=== PATIENT | male | born 1965 | race Caucasian/White ===

== ENCOUNTER 2023-07-03 11:00 | Outpatient (RCR) | payer BC, SELFPAY | END 2023-07-03 12:10 | disposition home or self-care (01) | LOC: PT 11:00 | DX: G12.29 Other motor neuron disease (principal) | CPT/HCPCS: 97110; 97112; 97116; 97140; 97163 ==

== ENCOUNTER 2023-08-02 10:00 | Outpatient (RCR) | payer BC, SELFPAY | END 2023-08-02 10:05 | disposition home or self-care (01) | LOC: OT 10:00 | PROVIDERS: Visit Provider Physician Assistant Medical | DX: M75.101 Unspecified rotator cuff tear or rupture of right shoulder, not specified as traumatic (principal); Z48.89 Encounter for other specified surgical aftercare | CPT/HCPCS: 97010; 97014; 97110; 97140; 97166; G0283 ==

== ENCOUNTER 2023-08-17 19:01 | Emergency (ER) | payer BC, SELFPAY ==
[2023-08-17] VITALS (40 sets, daily range): BP systolic 87–155; BP diastolic 45–88; PULSE 50–75; RESP 10–18; TEMP 36.6; O2SAT 95–100; BMI 25.9
--- NOTE | 2023-08-17 19:04 | ECG_ITS ---
APPROVED REPORT Exam: Resting ECG HR:77 bpm ECG Measurements Heart Rate 77 AXES OK 159 P 63 QRSd 106 QRS 49 QT 427 T 93 QTc 459 Conclusion SINUS RHYTHM POSSIBLE RIGHT VENTRICULAR CONDUCTION DELAY [RSR (QR) IN V1/V2] BORDERLINE ECG Electronically signed by : ERIC HASSAN, 08/18/2023 01:26:15
--- NOTE | 2023-08-17 19:07 | CT_ITS ---
PROCEDURE INFORMATION: Exam: CTA Head With Contrast, Arteriography Exam date and time: 08/17/2023 7:15 PM Age: 58 years old Clinical indication: Stroke-like symptoms; Altered mental status/memory loss; Additional info: Stroke protocol, AMS TECHNIQUE: Imaging protocol: Computed tomographic angiography of the head with contrast. Exam focused on the arteries. 3D rendering (Not supervised by radiologist): MIP and/or 3D reconstructed images were created by the technologist. Radiation optimization: All CT scans at this facility use at least one of these dose optimization techniques: automated exposure control; mA and/or kV adjustment per patient size (includes targeted exams where dose is matched to clinical indication); or iterative reconstruction. Contrast material: ISOVUE; Contrast volume: 100 ml; Contrast route: INTRAVENOUS (IV); COMPARISON: CT HEAD/BRAIN WO CON 08/17/2023 7:15 PM FINDINGS: ANTERIOR CIRCULATION: Right internal carotid artery: Calcification involving the right carotid siphon without significant stenosis. Right middle cerebral artery: No occlusion or significant stenosis. No aneurysm. Right anterior cerebral artery: No occlusion or significant stenosis. No aneurysm. Left internal carotid artery: Calcification involving the left carotid siphon without significant stenosis. Left middle cerebral artery: No occlusion or significant stenosis. No aneurysm. Left anterior cerebral artery: No occlusion or significant stenosis. No aneurysm. POSTERIOR CIRCULATION: Right vertebral artery: No occlusion or significant stenosis. No aneurysm. Left vertebral artery: No occlusion or significant stenosis. No aneurysm. Basilar artery: No occlusion or significant stenosis. No aneurysm. Right posterior cerebral artery: No occlusion or significant stenosis. No aneurysm. Left posterior cerebral artery: No occlusion or significant stenosis. No aneurysm. IMPRESSION: No hemodynamically significant stenosis or large vessel occlusion.
--- NOTE | 2023-08-17 19:07 | CT_ITS ---
PROCEDURE INFORMATION: Exam: CT Head Without Contrast Exam date and time: 08/17/2023 7:15 PM Age: 58 years old Clinical indication: Stroke-like symptoms; Altered mental status/memory loss; Additional info: Stroke protocol, AMS TECHNIQUE: Imaging protocol: Computed tomography of the head without contrast. Radiation optimization: All CT scans at this facility use at least one of these dose optimization techniques: automated exposure control; mA and/or kV adjustment per patient size (includes targeted exams where dose is matched to clinical indication); or iterative reconstruction. Other technique: STROKE PROTOCOL was implemented. COMPARISON: CT ANGIO HEAD 08/17/2023 7:15 PM FINDINGS: Brain: Age-related volume loss. Decreased attenuation of the supratentorial white matter is likely secondary to chronic microvascular ischemia. 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 No acute intracranial hemorrhage, midline shift or intracranial mass effect. Cerebral ventricles: No obstructive hydrocephalus. Paranasal sinuses: Scattered paranasal sinus disease. Mastoid air cells: Visualized mastoid air cells are well aerated. Bones: Unremarkable. No acute fracture. Soft tissues: Unremarkable. IMPRESSION: No acute intracranial abnormality. ASSESSMENT: ASPECTS ([place] Stroke Program Early CT Score) is 10.
--- NOTE | 2023-08-17 19:07 | CT_ITS ---
PROCEDURE INFORMATION: Exam: CTA Neck With Contrast Exam date and time: 08/17/2023 7:15 PM Age: 58 years old Clinical indication: Stroke-like symptoms; Altered mental status/memory loss; Additional info: Stroke protocol, AMS TECHNIQUE: Imaging protocol: Computed tomographic angiography of the neck with contrast. Exam focused on the cervical segments of the vasculature. 3D rendering (Not supervised by radiologist): MIP and/or 3D reconstructed images were created by the technologist. Radiation optimization: All CT scans at this facility use at least one of these dose optimization techniques: automated exposure control; mA and/or kV adjustment per patient size (includes targeted exams where dose is matched to clinical indication); or iterative reconstruction. Contrast material: ISOVUE; Contrast volume: 100 ml; Contrast route: INTRAVENOUS (IV); COMPARISON: CT ANGIO HEAD 08/17/2023 7:15 PM FINDINGS: Limitations: Limited by artifact arising from metallic dental hardware/dental amalgam. Right common carotid artery: Calcification at the right common carotid bifurcation without hemodynamically significant stenosis. Right internal carotid artery: No stenosis of the extracranial segment. No dissection or occlusion. Right external carotid artery: No occlusion or stenosis of the origin. Left common carotid artery: Calcification at the left common carotid bifurcation without hemodynamically significant stenosis. Left internal carotid artery: Calcification of the proximal left ICA without hemodynamically significant stenosis. Left external carotid artery: No occlusion or stenosis of the origin. Right vertebral artery: No stenosis. No dissection or occlusion. Left vertebral artery: No stenosis. No dissection or occlusion. Soft tissues: Right posterior subcutaneous sebaceous cyst superiorly measures 1.9 cm. Bones/joints: No acute fracture. IMPRESSION: No hemodynamically significant stenosis. REFERENCES: NASCET CRITERIA. The degree of stenosis in the cervical segment of the internal carotid artery is based on NASCET criteria. Normal is no stenosis. Mild is less than 50% stenosis. Moderate is 50-69% stenosis. Severe is 70% to 99% stenosis. Total occlusion is no detectable patent lumen.
[2023-08-17] MEDS: 0.9 % SODIUM CHLORIDE 50 ML VIAL IV (19:18)
[2023-08-17] MEDS: IOPAMIDOL-370 (76%);100ML BOTTLE 100 ML IV (19:18)
[2023-08-17] MEDS: SODIUM CHLORIDE 0.9% 10ML SYR (RAD ONLY) 10 ML IV (19:19)
--- NOTE | 2023-08-17 19:30 | PC.NURSE ---
Contacted MEGHANN harp to [employer]
[2023-08-17 19:35] LABS: Basophils % 0.2 % (0.1-2.0); Eosinophils # 0.1 K/mm3 (0.0-0.4); Eosinophils % 1.3 % (0.1-12.0); Hematocrit 29.3 % (42.0-52.0); Hemoglobin 9.6 g/dL (14.1-18.0); Lymphocytes # 1.1 K/mm3 (0.7-4.5); Lymphocytes % 10.3 % (10-50); Mean Corpuscular Hemoglobin 28.5 pg (27.0-31.2); Mean Corpuscular Volume 86.3 fl (80-94); Mean Platelet Volume 7.7 fl (7.4-10.4); Monocytes # 0.4 K/mm3 (0.1-1.0); Monocytes % 3.8 % (1.7-9.3); Neutrophils # 8.8 K/mm3 (1.8-7.8); Neutrophils % 84.5 % (37.0-80.0); Platelet Count 166 K/mm3 (142-424); Red Blood Count 3.39 M/mm3 (4.60-6.20); White Blood Count 10.4 K/mm3 (4.8-10.8)
[2023-08-17 19:37] LABS: Lactate Venous 2.2 mmol/L (0.4-2.0); VBG Base Excess -2.2 mmol/L (-2.4-2.3); VBG Oxygen Saturation 90.6 % (50-70); VBG PCO2 40.2 mmol/L (35-51); VBG PH 7.38 mmol/L (7.31-7.41); VBG PO2 62.7 mmol/L (28-40); VBG Total CO2 24.3 mmol/L (23-27)
[2023-08-17 19:51] LABS: Chloride 95 mmol/L (98-107); Sodium 130 mmol/L (136-145)
[2023-08-17 19:52] LABS: Potassium 3.3 mmoL/L (3.5-5.1)
[2023-08-17 19:54] LABS: Alanine Aminotransferase 21 U/L (12-78); Albumin Level 3.3 g/dl (3.5-5.0); Albumin/Globulin Ratio 1.1 (1.1-1.8); Alkaline Phosphatase 66 U/L (38-126); Anion Gap 11.3 mEq/L (5-15); Aspartate Amino Transferase 40 U/L (17-59); Bilirubin,Total 0.6 mg/dl (0.2-1.3); Blood Urea Nitrogen 24 mg/dl (9-20); Calcium 8.9 mg/dl (8.4-10.2); Carbon Dioxide 27 mmol/L (22.0-30.0); Estimated Glomerular Filt Rate 34 ml/min (>60); GFR (African American) 41 ML/MIN (>60); Glucose 140 mg/dl (74-100); Total Protein,Serum 6.3 g/dl (6.3-8.2)
[2023-08-17 19:58] LABS: Microscopic, Urine URINE MICROSCOPIC (MICROSCOPIC)
[2023-08-17 20:02] LABS: Appearance,Urine CLEAR (Clear); Bilirubin,Urine Negative (Negative); Blood, Urine Negative (Negative); Color,Urine YELLOW (Yellow); Glucose,Urine (UA) Negative (Negative); Ketones,Urine Negative (Negative); Leukocyte Esterase,Urine Negative (Negative); Nitrate,Urine Negative (Negative); PH,Urine 6.5 (5.0-8.5); Protein,Urine TRACE (Negative); Urobilinogen,Urine 0.2 EU/dl (0.2)
[2023-08-17 20:02] LABS: Acetaminophen < 10 ug/ml (10-30); Ethyl Alcohol < 10 mg/dl (0-10); Salicylate < 1.0 mg/dL (2.0-20.0)
[2023-08-17 20:05] LABS: Activated Partial Thrombo Time 22.5 seconds (22.8-30.6); INR 1.03 (0.9-1.1); Prothrombin Time 11.1 seconds (10.1-12.5)
[2023-08-17] MEDS: LACTATED RINGERS 1000ML 1,000 ML 999 ML IV (20:10)
[2023-08-17 20:15] LABS: Amphetamine/Metha Screen,Urine Negative ng/ml (<1000)
[2023-08-17 20:16] LABS: Barbiturates Screen,Urine Negative ng/ml (<200); Benzodiazepines Screen,Urine Negative ng/ml (<200)
[2023-08-17 20:17] LABS: Cannabinoid Screen,Urine Positive ng/ml (<50)
[2023-08-17 20:18] LABS: Cocaine Screen,Urine Negative ng/ml (<300); Methadone Screen,Urine Negative ng/ml (<300)
[2023-08-17 20:19] LABS: Opiate Screen,Urine Negative ng/ml (<300)
[2023-08-17 20:20] LABS: Phencyclidine Screen,Urine Negative ng/ml (<25)
[2023-08-17] MEDS: NOREPINEPHRINE BITARTRATE/D5W 8 MG/250 ML PLAST..BAG 15 MG IV (20:25)
[2023-08-17] MEDS: FENTANYL CITRATE/PF 1,000 MCG in 0.9 % SODIUM CHLORIDE 80 ML 1 MCG IV (20:25)
[2023-08-17] MEDS: ETOMIDATE 40MG/20ML VIAL 40 MG IV (20:26)
[2023-08-17] MEDS: MIDAZOLAM HCL/PF 50 MG in 0.9 % SODIUM CHLORIDE 40 ML IV (20:26)
[2023-08-17 20:27] LABS: Troponin I < 0.01 ng/ml (0.00-0.034)
[2023-08-17] MEDS: SUCCINYLCHOLINE 20MG/ML 10 ML MDV 100 MG IV (20:27)
[2023-08-17 20:28] LABS: WBC,Urine Occasional #/hpf (0-3)
[2023-08-17 20:29] LABS: Squamous Epithelial Cell,Urine Occasional #/hpf (0-5)
--- NOTE | 2023-08-17 20:49 | XR_ITS ---
PROCEDURE INFORMATION: Exam: XR Chest Exam date and time: 08/17/2023 8:50 PM Age: 58 years old Clinical indication: Device placement; Other: Post intubation; Additional info: Post intubation, AMS TECHNIQUE: Imaging protocol: Radiologic exam of the chest. Views: 1 view. COMPARISON: CT ANGIO NECK 08/17/2023 7:15 PM FINDINGS: Tubes, catheters and devices: Endotracheal tube terminates 3.5 cm above the az. There is fracture involving the superior most sternal wire. Lungs: No airspace consolidation. Pleural spaces: Unremarkable. No pleural effusion. No pneumothorax. Heart/Mediastinum: Previous coronary artery bypass grafting. Bones/joints: Previous median sternotomy. Osteopenia. Degenerative change involving the shoulders and spine. IMPRESSION: 1. Endotracheal tube terminates 3.5 cm above the az. 2. Additional findings as above.
[2023-08-17] MEDS: propofoL 100 ML 2.4 MG IV (20:57)
--- NOTE | 2023-08-17 21:20 | ED_ITS ---
Discharge Plan Disposition Patient Disposition: Xfer Short-Term Hosp Condition: Fair Referrals Follow up/Referrals: Provider,Referral, MD [Primary Care Provider] - See instructions Clinical Impressions Clinical Impression: AMS (altered mental status), Headache, Acute respiratory failure, Apnea Instructions Patient Instructions: DI for Altered Mental Status Discharge ED Provider: Funmi Meléndez General Adult HPI <Funmi Meléndez DO - Last Filed: 08/17/23 23:52> General Chief complaint: Altered Mental Status Stated complaint: AMS Time Seen by Provider: 08/17/23 19:04 Mode of Arrival: EMS Source of Information: Relative and EMS Limitations: Physical Limitations Description of Symptoms (Recalled from ER Triage Doc. by RN): Pt presents to ED via EMS for AMS. Pt's called EMS because pt was confused, cool, clammy, and unable to respond. Pt has hx of migraines, Functional Neurological Disorder, and cardiac issues. Pt is unable to follow commands at this time. History of Present Illness HPI narrative: This patient is a 58-year-old male with reported history of migraines as well as functional neurologic disorder and cardiac issues presenting with concern for altered mental status. According to the patient's , he came in from work yesterday complaining of a headache, and he took his migraine abortive medications. This did not seem to help. This morning he went to work, and she question why he was going to work, but he stated that he had 2. 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 EMS met him there and monitored him until she got there. Then, he stated he wanted to go home. She took him home, at which point he went to sleep. He woke up confused, cool, clammy, and unable to respond just prior to arrival. Given this, she called EMS again. Patient does not contribute to history as he is very altered. He keeps shouting I am fine I am fine while intermittently being apneic. Of note, he was recently started on doxycycline for suppose an upper respiratory infection, as his girlfriend states that he was coughing after wearing his CPAP. He never started this. She cannot think of any other issues such as any other recent falls, illnesses, or other concerns. Related Data Allergies Allergy/AdvReac Type Severity Reaction Status Date / Time Unable to Assess Allergy Verified 08/17/23 20:15 PFSH <Funmi Meléndez DO - Last Filed: 08/17/23 23:52> [facility] Disclaimer: The information contained in this section may have been updated after the patient was seen, as this information can be updated by other users. Social History (Updated 08/17/23 @ 23:52 by Funmi Meléndez DO) Smoking Status: Current every day smoker alcohol intake: current current occupational status: employed Travel in the last 8 weeks: None <Funmi Meléndez DO - Last Filed: 08/17/23 23:52> ROS Obtained: Yes All systems reviewed & no additional complaints except as documented Physical Exam <Funmi Meléndez DO - Last Filed: 08/17/23 23:52> General General appearance: obtunded Head Head exam: atraumatic and normocephalic Eye Eye exam: Present normal appearance, PERRL and EOMI ENT ENT exam: Present normal oropharynx, mucous membranes dry and normal external ear exam Neck Neck exam: Present normal inspection, full ROM and trachea midline; Absent tenderness Chest Chest inspection: Present normal inspection and symmetric chest wall rise; Absent tenderness Respiratory Respiratory exam: Present normal lung sounds bilaterally; Absent respiratory distress, wheezes, stridor or accessory muscle use Cardiovascular Cardiovascular exam: Present regular rate and normal rhythm Abdominal Exam Abdominal exam: Present soft; Absent distention, tenderness, guarding or rebound Extremities Exam Extremities exam: Present normal inspection, full ROM and normal capillary refill; Absent tenderness or edema Back Exam Back exam: Present normal inspection and full ROM; Absent tenderness Neurological Exam Neurological exam: Present other (No obvious gross focal motor or sensory deficits. He moves all 4 extremities equally intermittently.) Expanded Neurological Exam Coma scale eye opening: To pain Coma scale motor response: Localizes to pain Coma scale verbal response: Inappropriate Coma scale total: 10 Skin Skin exam: Present warm and dry <Krzysztof Alanis MD - Last Filed: 08/18/23 00:13> Expanded Neurological Exam Coma scale total: 10 Medical Decision Making <Funmi Meléndez DO - Last Filed: 08/17/23 23:52> Medical Records Medical records reviewed: Yes I reviewed the patient's medical records. Jose Inquiry Pt receiving controlled substance: No Vital Signs: 08/17/23 19:02 08/17/23 19:24 08/17/23 19:30 Temperature 97.9 F Temperature Source Axillary Pulse Rate 68 68 Pulse Rate [Left] 75 Respiratory Rate 10 L 12 12 Blood Pressure 109/59 L 96/50 L Blood Pressure [Right Arm] 100/50 L Blood Pressure Mean 75 65 Blood Pressure Mean [Right Arm] 66 02 Sat by Pulse Oximetry 98 99 99 Oxygen Delivery Method Room Air 08/17/23 19:55 08/17/23 20:00 08/17/23 20:11 Temperature Temperature Source Pulse Rate 64 64 66 Pulse Rate [Left] Respiratory Rate 14 14 14 Blood Pressure 94/58 L 87/48 L 90/52 L Blood Pressure [Right Arm] Blood Pressure Mean 75 62 60 Blood Pressure Mean [Right Arm] 02 Sat by Pulse Oximetry 100 100 98 Oxygen Delivery Method 08/17/23 20:25 08/17/23 20:26 08/17/23 20:31 Temperature Temperature Source Pulse Rate 64 62 70 Pulse Rate [Left] Respiratory Rate 14 14 14 Blood Pressure 112/52 L 92/48 L 132/69 Blood Pressure [Right Arm] Blood Pressure Mean 72 73 79 Blood Pressure Mean [Right Arm] 02 Sat by Pulse Oximetry 100 100 100 Oxygen Delivery Method 08/17/23 20:32 08/17/23 20:37 08/17/23 21:00 Temperature Temperature Source Pulse Rate 65 55 L 66 Pulse Rate [Left] Respiratory Rate 16 18 16 Blood Pressure 155/69 H 137/73 110/58 L Blood Pressure [Right Arm] Blood Pressure Mean 97 94 75 Blood Pressure Mean [Right Arm] 02 Sat by Pulse Oximetry 100 100 100 Oxygen Delivery Method 08/17/23 21:02 08/17/23 21:07 08/17/23 21:12 Temperature Temperature Source Pulse Rate 67 66 60 Pulse Rate [Left] Respiratory Rate 16 16 18 Blood Pressure 129/65 135/86 126/58 L Blood Pressure [Right Arm] Blood Pressure Mean 86 93 86 Blood Pressure Mean [Right Arm] 02 Sat by Pulse Oximetry 100 100 100 Oxygen Delivery Method 08/17/23 21:14 08/17/23 21:17 08/17/23 21:22 Temperature Temperature Source Pulse Rate 55 L 56 L Pulse Rate [Left] Respiratory Rate 18 18 18 Blood Pressure 111/55 L 113/57 L Blood Pressure [Right Arm] Blood Pressure Mean 73 70 Blood Pressure Mean [Right Arm] 02 Sat by Pulse Oximetry 100 100 100 Oxygen Delivery Method 08/17/23 21:27 08/17/23 21:32 08/17/23 21:37 Temperature Temperature Source Pulse Rate 55 L 56 L 56 L Pulse Rate [Left] Respiratory Rate 18 18 18 Blood Pressure 97/52 L 103/53 L 114/61 Blood Pressure [Right Arm] Blood Pressure Mean 61 64 75 Blood Pressure Mean [Right Arm] 02 Sat by Pulse Oximetry 100 100 100 Oxygen Delivery Method 08/17/23 21:42 08/17/23 21:47 08/17/23 21:52 Temperature Temperature Source Pulse Rate 56 L 54 L 54 L Pulse Rate [Left] Respiratory Rate 18 18 18 Blood Pressure 109/56 L 117/57 L 113/59 L Blood Pressure [Right Arm] Blood Pressure Mean 69 73 72 Blood Pressure Mean [Right Arm] 02 Sat by Pulse Oximetry 100 100 100 Oxygen Delivery Method 08/17/23 21:57 08/17/23 22:02 08/17/23 22:07 Temperature Temperature Source Pulse Rate 54 L 55 L 55 L Pulse Rate [Left] Respiratory Rate 18 18 18 Blood Pressure 118/64 132/64 116/56 L Blood Pressure [Right Arm] Blood Pressure Mean 72 82 76 Blood Pressure Mean [Right Arm] 02 Sat by Pulse Oximetry 100 100 100 Oxygen Delivery Method 08/17/23 22:12 08/17/23 22:17 08/17/23 22:22 Temperature Temperature Source Pulse Rate 54 L 52 L 54 L Pulse Rate [Left] Respiratory Rate 18 18 18 Blood Pressure 129/62 130/65 122/56 L Blood Pressure [Right Arm] Blood Pressure Mean 85 85 91 Blood Pressure Mean [Right Arm] 02 Sat by Pulse Oximetry 100 100 100 Oxygen Delivery Method 08/17/23 22:27 08/17/23 22:32 08/17/23 22:37 Temperature Temperature Source Pulse Rate 54 L 51 L 53 L Pulse Rate [Left] Respiratory Rate 18 18 18 Blood Pressure 134/64 145/69 H 128/61 Blood Pressure [Right Arm] Blood Pressure Mean 87 94 87 Blood Pressure Mean [Right Arm] 02 Sat by Pulse Oximetry 100 100 100 Oxygen Delivery Method 08/17/23 22:42 08/17/23 22:47 08/17/23 22:52 Temperature Temperature Source Pulse Rate 53 L 50 L 52 L Pulse Rate [Left] Respiratory Rate 18 18 18 Blood Pressure 142/45 H 143/60 H 138/65 Blood Pressure [Right Arm] Blood Pressure Mean 83 76 78 Blood Pressure Mean [Right Arm] 02 Sat by Pulse Oximetry 100 100 100 Oxygen Delivery Method 08/17/23 22:57 08/17/23 23:02 Temperature Temperature Source Pulse Rate 56 L 51 L Pulse Rate [Left] Respiratory Rate 18 18 Blood Pressure 139/62 128/53 L Blood Pressure [Right Arm] Blood Pressure Mean 87 77 Blood Pressure Mean [Right Arm] 02 Sat by Pulse Oximetry 100 100 Oxygen Delivery Method Lab Data Lab results reviewed: Yes I reviewed the patient's lab results. Lab Results 08/17/23 19:07: VBG pH 7.38, VBG pCO2 40.2, VBG pO2 62.7 H, VBG HCO3 23.0, VBG Total CO2 24.3, VBG O2 Saturation 90.6 H, VBG Base Excess -2.2, VBG Lactic Acid 2.2 H 08/17/23 19:24: WBC 10.4, RBC 3.39 L, Hgb 9.6 L, Hct 29.3 L, MCV 86.3, MCH 28.5, MCHC 33.0, RDW 15.0, Plt Count 166, MPV 7.7, Neut % (Auto) 84.5 H, Lymph % (Auto) 10.3, Banner % (Auto) 3.8, Eos % (Auto) 1.3, Baso % (Auto) 0.2, Neut # (Auto) 8.8 H, Lymph # (Auto) 1.1, Banner # (Auto) 0.4, Eos # (Auto) 0.1, Baso # (Auto) 0.0, PT 11.1, INR 1.03, APTT 22.5 L, Sodium 130 L, Potassium 3.3 L, C hloride 95 L, Carbon Dioxide 27, Anion Gap 11.3, BUN 24 H, Creatinine 2.00 H, E stimated GFR 34 L, Est GFR ( Amer) 41 L, Glucose 140 H, Calcium 8.9, Total Bilirubin 0.6, AST 40, ALT 21, Alkaline Phosphatase 66, Troponin I < 0.01, Total Protein 6.3, Albumin 3.3 L, Globulin 3.0, Albumin/Globulin Ratio 1.1, S alicylates < 1.0 L, Acetaminophen < 10 L, Plasma/Serum Alcohol < 10 08/17/23 19:50: Urine Color Yellow, Urine Appearance Clear, Urine pH 6.5, Ur Specific [place] 1.020, Urine Protein Trace, Urine Glucose (UA) Negative, Urine Ketones Negative, Urine Blood Negative, Urine Nitrate Negative, Urine Bilirubin Negative, Urine Urobilinogen 0.2, Ur Leukocyte Esterase Negative, Urine RBC None, Urine WBC Occasional, Ur Squamous Epith Cells Occasional, Urine Bacteria None, Urine Opiates Screen Negative, Urine Methadone Screen Negative, Ur Barbituates Screen Negative, Ur Phencyclidine Scrn Negative, Ur Amphetamines Screen Negative, U Benzodiazepines Scrn Negative, Urine Cocaine Screen Negative, U Marijuana (THC) Screen Positive H 08/17/23 21:20: Ammonia 14, Troponin I < 0.01 08/17/23 21:43: Specimen Source Left radial, O2 % 30%, ABG pH 7.48 H, ABG pCO2 34.6 L, ABG pO2 86.3, ABG HCO3 25.1, ABG Total CO2 26.1, ABG O2 Saturation 96, ABG Base Excess 1.5, Les Test Y, Vent Rate 18, Tidal Volume 420, PEEP 5 08/17/23 19:24 08/17/23 19:24 Orders (Tests/Meds): ED MEDICATIONS Generic Name Dose Route Start Last Admin Trade Name Teodoroq PRN Reason Stop Dose Admin Norepinephrine/Dextrose 8 mg in 250 mls @ 15 mls/hr 08/17/23 20:30 08/17/23 20:25 Norepinephrine 8mg/250ml-D5w Premix IV 09/16/23 20:29 8 mcg/min .[id number] MAXIMILIAN 15 mls/hr Administration Protocol 8 MCG/MIN Midazolam HCl 50 mg/ Sodium 50 mls @ 1.597 mls/hr 08/17/23 20:30 08/17/23 20:26 Chloride IV 09/16/23 20:29 0.02 mg/kg/hr .Q24H MAXIMILIAN 1.6 mls/hr Administration Protocol 0.02 MG/KG/HR Fentanyl Citrate 1,000 mcg/ 100 mls @ 1 mls/hr 08/17/23 20:17 08/17/23 20:25 Sodium Chloride IV 09/16/23 20:16 10 mcg/hr .Q24H MAXIMILIAN 1 mls/hr Administration Protocol 10 MCG/HR Ceftriaxone Sodium 2 gm/ 100 mls @ 200 mls/hr 08/17/23 23:49 Sodium Chloride IV 08/18/23 00:18 ONCE ONE Vancomycin/PEG/NADA/Lysine/Water 1.75 gm in 350 mls @ 175 mls/hr 08/18/23 23:45 Vancomycin 1.75gm/350ml (Peg) Premix IV 08/19/23 01:44 ONCE ONE Miscellaneous 1 each 08/17/23 23:45 Vancomycin Consult Request NOTAPPLIC 09/16/23 23:44 CONSULT PHARMACY [facility] Sodium Chloride 10 ml 08/17/23 19:17 08/17/23 19:19 Sodium Chloride 0.9% 10ml Syr (Rad Only) IV 09/16/23 19:16 10 ml NEEDED PRN Administration Maintain IV Site Sodium Chloride 3 ml 08/17/23 21:12 Sodium Chloride 3% 15ml Neb IH 09/16/23 21:11 ONCE PRN INDUCE SPUTUM COLLECTION Discontinued Medications Generic Name Dose Route Start Last Admin Trade Name Freq PRN Reason Stop Dose Admin Lactated Ringer's 1,000 mls @ 999 mls/hr 08/17/23 20:04 08/17/23 20:10 Lactated Ringer's 1000 Ml Bag IV 08/17/23 21:04 999 mls/hr .Q1H1M ONE Administration Acyclovir Sodium 700 mg/ 250 mls @ 250 mls/hr 08/17/23 23:49 Sodium Chloride IV 08/17/23 23:50 ONCE ONE Iopamidol 100 ml 08/17/23 19:17 08/17/23 19:18 Iopamidol-370 (76%);100ml Bottle IV 08/17/23 19:18 100 ml ONCE ONE Administration Sodium Chloride 50 ml 08/17/23 19:17 08/17/23 19:18 0.9 % Sodium Chloride 50 Ml Vial IV 08/17/23 19:18 50 ml ONCE ONE Administration ORDERS Category Date Time Status CT angio head Stat Cat Scan 08/17/23 19:[address] angio neck Stat Cat Scan 08/17/23 19:[address] head/brain wo con Stat Cat Scan 08/17/23 19:07 Completed XR chest portable Stat Exams 08/17/23 20:49 Completed Acetaminophen Stat Lab 08/17/23 19:24 Completed Activated Partial Thrombo Time Stat Lab 08/17/23 19:24 Completed Ammonia Stat Lab 08/17/23 21:20 Completed CSF Cell Count w/ Dif (tube 3) Stat Lab 08/17/23 23:49 Ordered Complete Blood Count Auto Diff Stat Lab 08/17/23 19:24 Completed Comprehensive Metabolic Panel Stat Lab 08/17/23 19:24 Completed Drug Screen,Urine Stat Lab 08/17/23 19:50 Completed Enterovirus,CSF PCR Routine Lab 08/17/23 23:49 Ordered Veronique-Valderrama Virus CSF/WB PCR Routine Lab 08/17/23 23:49 Ordered Ethyl Alcohol Stat Lab 08/17/23 19:24 Completed Glucose,CSF Stat Lab 08/17/23 23:49 Ordered Lactic Acid Follow Up (RFLX 1) Stat Lab 08/17/23 23:37 Ordered Prothrombin Time INR Stat Lab 08/17/23 19:24 Completed Salicylate Stat Lab 08/17/23 19:24 Completed Total Protein,CSF Stat Lab 08/17/23 23:49 Ordered Troponin I Q3H Lab 08/17/23 21:20 Completed Troponin I Q3H Lab 08/18/23 01:15 Ordered Troponin I Stat Lab 08/17/23 19:24 Completed Urinalysis and Microscopic Stat Lab 08/17/23 21:14 Ordered Blood Culture Stat Micro 08/17/23 21:14 Ordered CSF Culture & Gram Stain Stat Micro 08/17/23 23:49 Ordered Sputum Culture & Gram Stain Stat Micro 08/17/23 21:00 Received ABG [Arterial Blood Gas] Stat RT 08/17/23 21:43 Completed Venous Blood Gas Stat RT 08/17/23 21:14 Stop Req ECG Data Tracing #1: I reviewed this ECG and interpreted as documented below: Normal sinus rhythm with a ventricular rate of [address] changes concerning for ischemia. Mild right ventricular conduction delay. ECG initial impression date: 08/17/23 ECG initial impression time: 19:06 Medical Decision Narrative: In summary, this patient is a 58-year-old male presenting to the Emergency Department for evaluation of altered mental status after complaining of headache all day yesterday and then this morning. Differential diagnoses considered include but are not limited to intracranial hemorrhage, complex migraine, seizure, electrolyte derangements, meningitis, encephalitis. Ruling out the most morbid conditions drove assessment. It should be noted patient's history includes complex migraines and functional neurologic disorder which are not at goal therapy. This complicates all aspects of care by increasing patient's risk for morbidity. On exam, the patient is obtunded. He intermittently responds to pain but does not make sense. He was all 4 extremities equally when he is stimulated, however then he falls asleep and becomes apneic very quickly. EMS given Narcan prior to arrival with no response. We tried again here but the patient does not change in status. His girlfriend reports that he does not have any known history of drug use but he is a daily drinker. He has not drink anything at all today though, she states. He did take his abortive migraine medications. He has Nurtec, gabapentin, amitriptyline. Workup included very broad workup including infectious, cardiac, tox, metabolic. Ultimately patient intermittently Having apneic episodes that became more more frequent, so decision was made to intubate him for airway protection. He tolerated this well with no complications. He was started on Levophed just prior to intubation for soft pressures, but this was able to be weaned down quickly after intubation.. I independently interpreted CT scan stroke protocols of the head and angiograms of the head and neck that were obtained emergently prior to the radiologist read and noted acute intracranial hemorrhage or stroke. Please see their read for final interpretation. Labs were obtained that demonstrated elevated creatinine of 2 with unknown baseline. Patient has mild hyponatremia and hypokalemia. Urine drug screen is positive for THC. Mild anemia with a hemoglobin of 9.6. I do not appreciate any other significant concerns.. After intubation, patient remained on Levophed as well as Versed and fentanyl gtt. for sedation. He tolerated this well. At this time, cannot exclude encephalitis or meningitis given negative workup thus far that does not explain the patient's altered mental status. I was unable to obtain a lumbar puncture emergently right away given the acuity of condition with the patient's in the emergency department and limitations of staff. Dr. Alanis came on shift at 11 PM and helped me with performing lumbar puncture. Please see his procedure note for further documentation. I ordered IV Rocephin, vancomycin, and acyclovir. On assessment, patient was able to be weaned off of Levophed. His pressures remained stable on fentanyl, Versed, and propofol drips for sedation. Labs do not demonstrate any acutely concerning abnormalities with the exception of positive THC urine test. He is mildly hyponatremic and hypokalemic with an elevated creatinine of 2, but I do not know his baseline. I do not feel that this is sufficient enough to cause his degree of altered mental status. Acetaminophen and salicylate were negative. Ultimately given his altered mental status resulting in apnea, which required intubation, in the setting of complicated neurologic history, I feel he would benefit from transfer to higher level of care with neurology. I had an interactive discussion with Dr. Pritchardorthy he accepted the patient for transfer to . He was transferred in stable condition. <Krzysztof Alanis MD - Last Filed: 08/18/23 00:13> Vital Signs: 08/17/23 19:02 08/17/23 19:24 08/17/23 19:30 Temperature 97.9 F Temperature Source Axillary Pulse Rate 68 68 Pulse Rate [Left] 75 Respiratory Rate 10 L 12 12 Blood Pressure 109/59 L 96/50 L Blood Pressure [Right Arm] 100/50 L Blood Pressure Mean 75 65 Blood Pressure Mean [Right Arm] 66 02 Sat by Pulse Oximetry 98 99 99 Oxygen Delivery Method Room Air 08/17/23 19:55 08/17/23 20:00 08/17/23 20:11 Temperature Temperature Source Pulse Rate 64 64 66 Pulse Rate [Left] Respiratory Rate 14 14 14 Blood Pressure 94/58 L 87/48 L 90/52 L Blood Pressure [Right Arm] Blood Pressure Mean 75 62 60 Blood Pressure Mean [Right Arm] 02 Sat by Pulse Oximetry 100 100 98 Oxygen Delivery Method 08/17/23 20:25 08/17/23 20:26 08/17/23 20:31 Temperature Temperature Source Pulse Rate 64 62 70 Pulse Rate [Left] Respiratory Rate 14 14 14 Blood Pressure 112/52 L 92/48 L 132/69 Blood Pressure [Right Arm] Blood Pressure Mean 72 73 79 Blood Pressure Mean [Right Arm] 02 Sat by Pulse Oximetry 100 100 100 Oxygen Delivery Method 08/17/23 20:32 08/17/23 20:37 08/17/23 21:00 Temperature Temperature Source Pulse Rate 65 55 L 66 Pulse Rate [Left] Respiratory Rate 16 18 16 Blood Pressure 155/69 H 137/73 110/58 L Blood Pressure [Right Arm] Blood Pressure Mean 97 94 75 Blood Pressure Mean [Right Arm] 02 Sat by Pulse Oximetry 100 100 100 Oxygen Delivery Method 08/17/23 21:02 08/17/23 21:07 08/17/23 21:12 Temperature Temperature Source Pulse Rate 67 66 60 Pulse Rate [Left] Respiratory Rate 16 16 18 Blood Pressure 129/65 135/86 126/58 L Blood Pressure [Right Arm] Blood Pressure Mean 86 93 86 Blood Pressure Mean [Right Arm] 02 Sat by Pulse Oximetry 100 100 100 Oxygen Delivery Method 08/17/23 21:14 08/17/23 21:17 08/17/23 21:22 Temperature Temperature Source Pulse Rate 55 L 56 L Pulse Rate [Left] Respiratory Rate 18 18 18 Blood Pressure 111/55 L 113/57 L Blood Pressure [Right Arm] Blood Pressure Mean 73 70 Blood Pressure Mean [Right Arm] 02 Sat by Pulse Oximetry 100 100 100 Oxygen Delivery Method 08/17/23 21:27 08/17/23 21:32 08/17/23 21:37 Temperature Temperature Source Pulse Rate 55 L 56 L 56 L Pulse Rate [Left] Respiratory Rate 18 18 18 Blood Pressure 97/52 L 103/53 L 114/61 Blood Pressure [Right Arm] Blood Pressure Mean 61 64 75 Blood Pressure Mean [Right Arm] 02 Sat by Pulse Oximetry 100 100 100 Oxygen Delivery Method 08/17/23 21:42 08/17/23 21:47 08/17/23 21:52 Temperature Temperature Source Pulse Rate 56 L 54 L 54 L Pulse Rate [Left] Respiratory Rate 18 18 18 Blood Pressure 109/56 L 117/57 L 113/59 L Blood Pressure [Right Arm] Blood Pressure Mean 69 73 72 Blood Pressure Mean [Right Arm] 02 Sat by Pulse Oximetry 100 100 100 Oxygen Delivery Method 08/17/23 21:57 08/17/23 22:02 08/17/23 22:07 Temperature Temperature Source Pulse Rate 54 L 55 L 55 L Pulse Rate [Left] Respiratory Rate 18 18 18 Blood Pressure 118/64 132/64 116/56 L Blood Pressure [Right Arm] Blood Pressure Mean 72 82 76 Blood Pressure Mean [Right Arm] 02 Sat by Pulse Oximetry 100 100 100 Oxygen Delivery Method 08/17/23 22:12 08/17/23 22:17 08/17/23 22:22 Temperature Temperature Source Pulse Rate 54 L 52 L 54 L Pulse Rate [Left] Respiratory Rate 18 18 18 Blood Pressure 129/62 130/65 122/56 L Blood Pressure [Right Arm] Blood Pressure Mean 85 85 91 Blood Pressure Mean [Right Arm] 02 Sat by Pulse Oximetry 100 100 100 Oxygen Delivery Method 08/17/23 22:27 08/17/23 22:32 08/17/23 22:37 Temperature Temperature Source Pulse Rate 54 L 51 L 53 L Pulse Rate [Left] Respiratory Rate 18 18 18 Blood Pressure 134/64 145/69 H 128/61 Blood Pressure [Right Arm] Blood Pressure Mean 87 94 87 Blood Pressure Mean [Right Arm] 02 Sat by Pulse Oximetry 100 100 100 Oxygen Delivery Method 08/17/23 22:42 08/17/23 22:47 08/17/23 22:52 Temperature Temperature Source Pulse Rate 53 L 50 L 52 L Pulse Rate [Left] Respiratory Rate 18 18 18 Blood Pressure 142/45 H 143/60 H 138/65 Blood Pressure [Right Arm] Blood Pressure Mean 83 76 78 Blood Pressure Mean [Right Arm] 02 Sat by Pulse Oximetry 100 100 100 Oxygen Delivery Method 08/17/23 22:57 08/17/23 23:02 Temperature Temperature Source Pulse Rate 56 L 51 L Pulse Rate [Left] Respiratory Rate 18 18 Blood Pressure 139/62 128/53 L Blood Pressure [Right Arm] Blood Pressure Mean 87 77 Blood Pressure Mean [Right Arm] 02 Sat by Pulse Oximetry 100 100 Oxygen Delivery Method Lab Data Lab Results 08/17/23 19:07: VBG pH 7.38, VBG pCO2 40.2, VBG pO2 62.7 H, VBG HCO3 23.0, VBG Total CO2 24.3, VBG O2 Saturation 90.6 H, VBG Base Excess -2.2, VBG Lactic Acid 2.2 H 08/17/23 19:24: WBC 10.4, RBC 3.39 L, Hgb 9.6 L, Hct 29.3 L, MCV 86.3, MCH 28.5, MCHC 33.0, RDW 15.0, Plt Count 166, MPV 7.7, Neut % (Auto) 84.5 H, Lymph % (Auto) 10.3, Banner % (Auto) 3.8, Eos % (Auto) 1.3, Baso % (Auto) 0.2, Neut # (Auto) 8.8 H, Lymph # (Auto) 1.1, Banner # (Auto) 0.4, Eos # (Auto) 0.1, Baso # (Auto) 0.0, PT 11.1, INR 1.03, APTT 22.5 L, Sodium 130 L, Potassium 3.3 L, C hloride 95 L, Carbon Dioxide 27, Anion Gap 11.3, BUN 24 H, Creatinine 2.00 H, E stimated GFR 34 L, Est GFR ( Amer) 41 L, Glucose 140 H, Calcium 8.9, Total Bilirubin 0.6, AST 40, ALT 21, Alkaline Phosphatase 66, Troponin I < 0.01, Total Protein 6.3, Albumin 3.3 L, Globulin 3.0, Albumin/Globulin Ratio 1.1, S alicylates < 1.0 L, Acetaminophen < 10 L, Plasma/Serum Alcohol < 10 08/17/23 19:50: Urine Color Yellow, Urine Appearance Clear, Urine pH 6.5, Ur Specific [place] 1.020, Urine Protein Trace, Urine Glucose (UA) Negative, Urine Ketones Negative, Urine Blood Negative, Urine Nitrate Negative, Urine Bilirubin Negative, Urine Urobilinogen 0.2, Ur Leukocyte Esterase Negative, Urine RBC None, Urine WBC Occasional, Ur Squamous Epith Cells Occasional, Urine Bacteria None, Urine Opiates Screen Negative, Urine Methadone Screen Negative, Ur Barbituates Screen Negative, Ur Phencyclidine Scrn Negative, Ur Amphetamines Screen Negative, U Benzodiazepines Scrn Negative, Urine Cocaine Screen Negative, U Marijuana (THC) Screen Positive H 08/17/23 21:20: Ammonia 14, Troponin I < 0.01 08/17/23 21:43: Specimen Source Left radial, O2 % 30%, ABG pH 7.48 H, ABG pCO2 34.6 L, ABG pO2 86.3, ABG HCO3 25.1, ABG Total CO2 26.1, ABG O2 Saturation 96, ABG Base Excess 1.5, Les Test Y, Vent Rate 18, Tidal Volume 420, PEEP 5 Orders (Tests/Meds): ED MEDICATIONS Generic Name Dose Route Start Last Admin Trade Name Freq PRN Reason Stop Dose Admin Norepinephrine/Dextrose 8 mg in 250 mls @ 15 mls/hr 08/17/23 20:30 08/17/23 20:25 Norepinephrine 8mg/250ml-D5w Premix IV 09/16/23 20:29 8 mcg/min .[id number] MAXIMILIAN 15 mls/hr Administration Protocol 8 MCG/MIN Midazolam HCl 50 mg/ Sodium 50 mls @ 1.597 mls/hr 08/17/23 20:30 08/17/23 20:26 Chloride IV 09/16/23 20:29 0.02 mg/kg/hr .Q24H MAXIMILIAN 1.6 mls/hr Administration Protocol 0.02 MG/KG/HR Fentanyl Citrate 1,000 mcg/ 100 mls @ 1 mls/hr 08/17/23 20:17 08/17/23 20:25 Sodium Chloride IV 09/16/23 20:16 10 mcg/hr .Q24H MAXIMILIAN 1 mls/hr Administration Protocol 10 MCG/HR Ceftriaxone Sodium 2 gm/ 100 mls @ 200 mls/hr 08/17/23 23:49 Sodium Chloride IV 08/18/23 00:18 ONCE ONE Vancomycin/PEG/NADA/Lysine/Water 1.75 gm in 350 mls @ 175 mls/hr 08/18/23 23:45 Vancomycin 1.75gm/350ml (Peg) Premix IV 08/19/23 01:44 ONCE ONE Miscellaneous 1 each 08/17/23 23:45 Vancomycin Consult Request NOTAPPLIC 09/16/23 23:44 CONSULT PHARMACY [facility] Sodium Chloride 10 ml 08/17/23 19:17 08/17/23 19:19 Sodium Chloride 0.9% 10ml Syr (Rad Only) IV 09/16/23 19:16 10 ml NEEDED PRN Administration Maintain IV Site Sodium Chloride 3 ml 08/17/23 21:12 Sodium Chloride 3% 15ml Neb IH 09/16/23 21:11 ONCE PRN INDUCE SPUTUM COLLECTION Discontinued Medications Generic Name Dose Route Start Last Admin Trade Name Freq PRN Reason Stop Dose Admin Lactated Ringer's 1,000 mls @ 999 mls/hr 08/17/23 20:04 08/17/23 20:10 Lactated Ringer's 1000 Ml Bag IV 08/17/23 21:04 999 mls/hr .Q1H1M ONE Administration Acyclovir Sodium 700 mg/ 250 mls @ 250 mls/hr 08/17/23 23:49 Sodium Chloride IV 08/17/23 23:50 ONCE ONE Iopamidol 100 ml 08/17/23 19:17 08/17/23 19:18 Iopamidol-370 (76%);100ml Bottle IV 08/17/23 19:18 100 ml ONCE ONE Administration Sodium Chloride 50 ml 08/17/23 19:17 08/17/23 19:18 0.9 % Sodium Chloride 50 Ml Vial IV 08/17/23 19:18 50 ml ONCE ONE Administration ORDERS Category Date Time Status CT angio head Stat Cat Scan 08/17/23 19:[address] angio neck Stat Cat Scan 08/17/23 19:[address] head/brain wo con Stat Cat Scan 08/17/23 19:07 Completed XR chest portable Stat Exams 08/17/23 20:49 Completed Acetaminophen Stat Lab 08/17/23 19:24 Completed Activated Partial Thrombo Time Stat Lab 08/17/23 19:24 Completed Ammonia Stat Lab 08/17/23 21:20 Completed CSF Cell Count w/ Dif (tube 3) Stat Lab 08/17/23 23:49 Ordered Complete Blood Count Auto Diff Stat Lab 08/17/23 19:24 Completed Comprehensive Metabolic Panel Stat Lab 08/17/23 19:24 Completed Drug Screen,Urine Stat Lab 08/17/23 19:50 Completed Enterovirus,CSF PCR Routine Lab 08/17/23 23:49 Ordered Veronique-Valderrama Virus CSF/WB PCR Routine Lab 08/17/23 23:49 Ordered Ethyl Alcohol Stat Lab 08/17/23 19:24 Completed Glucose,CSF Stat Lab 08/17/23 23:49 Ordered Lactic Acid Follow Up (RFLX 1) Stat Lab 08/17/23 23:37 Ordered Prothrombin Time INR Stat Lab 08/17/23 19:24 Completed Salicylate Stat Lab 08/17/23 19:24 Completed Total Protein,CSF Stat Lab 08/17/23 23:49 Ordered Troponin I Q3H Lab 08/17/23 21:20 Completed Troponin I Q3H Lab 08/18/23 01:15 Ordered Troponin I Stat Lab 08/17/23 19:24 Completed Urinalysis and Microscopic Stat Lab 08/17/23 21:14 Ordered Blood Culture Stat Micro 08/17/23 21:14 Ordered CSF Culture & Gram Stain Stat Micro 08/17/23 23:49 Ordered Sputum Culture & Gram Stain Stat Micro 08/17/23 21:00 Received ABG [Arterial Blood Gas] Stat RT 08/17/23 21:43 Completed Venous Blood Gas Stat RT 08/17/23 21:14 Stop Req Medical Decision Narrative: In summary, this patient is a 58-year-old male presenting to the Emergency Department for evaluation of altered mental status after complaining of headache all day yesterday and then this morning. Differential diagnoses considered include but are not limited to intracranial hemorrhage, complex migraine, seizure, electrolyte derangements, meningitis, encephalitis. Ruling out the most morbid conditions drove assessment. It should be noted patient's history includes complex migraines and functional neurologic disorder which are not at goal therapy. This complicates all aspects of care by increasing patient's risk for morbidity. On exam, the patient is obtunded. He intermittently responds to pain but does not make sense. He was all 4 extremities equally when he is stimulated, however then he falls asleep and becomes apneic very quickly. EMS given Narcan prior to arrival with no response. We tried again here but the patient does not change in status. His girlfriend reports that he does not have any known history of drug use but he is a daily drinker. He has not drink anything at all today though, she states. He did take his abortive migraine medications. He has Nurtec, gabapentin, amitriptyline. Workup included very broad workup including infectious, cardiac, tox, metabolic. Ultimately patient intermittently Having apneic episodes that became more more frequent, so decision was made to intubate him for airway protection. He tolerated this well with no complications. He was started on Levophed just prior to intubation for soft pressures, but this was able to be weaned down quickly after intubation.. I independently interpreted CT scan stroke protocols of the head and angiograms of the head and neck that were obtained emergently prior to the radiologist read and noted acute intracranial hemorrhage or stroke. Please see their read for final interpretation. Labs were obtained that demonstrated elevated creatinine of 2 with unknown baseline. Patient has mild hyponatremia and hypokalemia. Urine drug screen is positive for THC. Mild anemia with a hemoglobin of 9.6. I do not appreciate any other significant concerns.. After intubation, patient remained on Levophed as well as Versed and fentanyl gtt. for sedation. He tolerated this well. At this time, cannot exclude encephalitis or meningitis given negative workup thus far that does not explain the patient's altered mental status. I was unable to obtain a lumbar puncture emergently right away given the acuity of condition with the patient's in the emergency department and limitations of staff. Dr. Alanis came on shift at 11 PM and helped me with performing lumbar puncture. Please see his procedure note for further documentation. I ordered IV Rocephin, vancomycin, and acyclovir. On assessment, patient was able to be weaned off of Levophed. His pressures remained stable on fentanyl, Versed, and propofol drips for sedation. Labs do not demonstrate any acutely concerning abnormalities with the exception of positive THC urine test. He is mildly hyponatremic and hypokalemic with an elevated creatinine of 2, but I do not know his baseline. I do not feel that this is sufficient enough to cause his degree of altered mental status. Acetaminophen and salicylate were negative. Ultimately given his altered mental status resulting in apnea, which required intubation, in the setting of complicated neurologic history, I feel he would benefit from transfer to higher level of care with neurology. I had an interactive discussion with Dr. Linder he accepted the patient for transfer to . He was transferred in stable condition. Procedure: Procedure performed was lumbar puncture. Procedure performed by Krzysztof Alanis. Using sterile technique lidocaine without epinephrine was injected above the L4-L5 spinous process. Spinal needle was attempted to enter the epidural space x 3 and was unfortunately unsuccessful. Patient tolerated the procedure with difficulty, there were no immediate complications. Krzysztof Alanis: EKG independently interpreted by me, rate is 53, rhythm is regular, sinus bradycardia, axis is normal, no ST elevation in anatomical contiguous leads. Procedures <Funmi Meléndez, - Last Filed: 08/17/23 23:52> Intubation Mallampati Score:: Class II Time out performed: Yes sedative: Etomidate Mg Given: 40 paralytic: Succinylcholine Mg Given: 100 Laryngoscope: other (video assisted MAC) ET Tube Size: 7.5 ET Tube Uncuffed: No Tube Secured Depth (cm): 22 Tube Secured Location: teeth Tube Placement Confirmation: visualized tube passing through cords, equal breath sounds bilaterally, no breath sounds over epigastrium and confirmation by capnometry Patient Tolerated Procedure: well and no complications Intubation Complications: none Additional Comments: Confirmed with x-ray, independently interpreted by myself with ET tube in satisfactory position. Critical Care <Funmi Meléndez, - Last Filed: 08/17/23 23:52> Critical Care Time Critical Care Time: Yes Attestation: On 08/17/23, the high probability of a clinically significant, sudden or life threatening deterioration of the following system(s) required my full and direct attention, intervention and personal management. The time I documented below is in addition to time spent performing reported procedures but includes the following listed in this critical care notation. Total Time Total Critical Care Time: 70
[2023-08-17 21:36] LABS: Ammonia 14 umol/L (9-30)
[2023-08-17 21:52] LABS: Troponin I < 0.01 ng/ml (0.00-0.034)
[2023-08-17 21:53] LABS: ABG Base Excess 1.5 mmol/L (-2.4-2.3); ABG HCO3 25.1 mmhg (22.0-26.0); ABG Oxygen Saturation 96 % (90-100); ABG PCO2 34.6 mmhg (35.0-45.0); ABG PH 7.48 mmol/L (7.35-7.45); ABG PO2 86.3 mmhg (80-100); ABG TCO2 26.1 mmhg (23-27)
[2023-08-17 21:54] LABS: Allen's Test Y; Oxygen 30% %; PEEP 5; Source Left Radial; Tidal Volume 420; Vent Rate 18
--- NOTE | 2023-08-17 23:02 | PC.NURSE ---
contacted over transfer of this patient, Dr. Meléndez on the phone with transfer center now.
--- NOTE | 2023-08-17 23:18 | PC.NURSE ---
increased propofol at this time due to patient being wide awake. primary nurse aware
[2023-08-17 23:37] LABS: Reflex Lactic Add Lactic Reflex
--- NOTE | 2023-08-17 23:51 | PC.NURSE ---
call placed to [facility]. waiting on callback
[2023-08-18] VITALS (39 sets, daily range): BP systolic 107–144; BP diastolic 52–77; PULSE 55–112; RESP 16–23; TEMP 37.1; O2SAT 93–100
[2023-08-18] MEDS: PROPOFOL 10MG/ML 20ML VIAL 40 MG IV (00:02)
--- NOTE | 2023-08-18 00:08 | ECG_ITS ---
APPROVED REPORT Exam: Resting ECG HR:53 bpm ECG Measurements Heart Rate 53 AXES NV 197 P 71 QRSd 101 QRS 41 QT 440 T 79 QTc 422 Conclusion SINUS BRADYCARDIA POSSIBLE RIGHT VENTRICULAR CONDUCTION DELAY [RSR (QR) IN V1/V2] NONSPECIFIC T-WAVE ABNORMALITY BORDERLINE ECG Electronically signed by : XI SORIANO, 08/18/2023 04:37:44
[2023-08-18] MEDS: CEFTRIAXONE SODIUM 2 GM in 0.9 % SODIUM CHLORIDE 100 ML IV (00:16)
[2023-08-18] MEDS: ACYCLOVIR SODIUM 700 MG in 0.9 % SODIUM CHLORIDE 250 ML 250 MG IV (00:29)
--- NOTE | 2023-08-18 00:35 | PC.NURSE ---
ems Zachery Sharpe aware of possible need for transport. will call him back with additional information when transport availability is decided.
--- NOTE | 2023-08-18 01:02 | PC.NURSE ---
received call from [facility] who states weather is still preventing acceptance of patient for transport. will re check at 0230
[2023-08-18 01:51] LABS: Lactic Acid Follow Up (RFLX 1) 2.7 mmol/L (0.7-2.1)
[2023-08-18 01:53] LABS: Troponin I < 0.01 ng/ml (0.00-0.034)
--- NOTE | 2023-08-18 01:54 | PC.NURSE ---
called pharmacy spoke with frederic thomas.
--- NOTE | 2023-08-18 02:17 | PC.NURSE ---
contacted [facility] to arrange transport. spoke with [facility]. they are waiting on other truck to return to [facility].
[2023-08-18] MEDS: FENTANYL 250MCG/5ML VIAL 40 MCG IV (02:19)
[2023-08-18] MEDS: VANCOMYCIN CONSULT REQUEST 1 EACH NOTAPPLIC (02:22)
--- NOTE | 2023-08-18 02:30 | PC.NURSE ---
Attempted to call report. CATHY Choudhary is busy and will call back.
--- NOTE | 2023-08-18 03:02 | PC.NURSE ---
Report to Ivett Mehta RN
--- NOTE | 2023-08-18 03:12 | PC.NURSE ---
[facility] at bedside. report given by randy levy
[2023-08-18 03:24] LABS: Reflex Lactic (2 hrs) Add Lactic Reflex
--- NOTE | 2023-08-19 08:12 | PC.NURSE ---
Spoke with Celsa at 12th floor where pt was transferred, blood culture prelim faxed to [phone]
--- NOTE | 2023-08-21 09:40 | PC.NURSE ---
Received final blood culture results on 1 set[address] ICU, Cecilio sharpe pt was transferred to another unit. I was forwarded to [address] [place] [address], and s/w Ivett. Obtained fax for nurse/MD to review results. Faxed final results of it and the sputum culture to [address] .
== END 2023-08-18 03:45 | disposition short-term general hospital (02) ==
PROVIDERS: Emergency Medicine; Emergency Provider Emergency Medicine
DX: J96.01 Acute respiratory failure with hypoxia; B95.62 Methicillin resistant Staphylococcus aureus infection as the cause of diseases classified elsewhere; B95.4 Other streptococcus as the cause of diseases classified elsewhere; R74.02 Elevation of levels of lactic acid dehydrogenase [LDH]; E87.1 Hypo-osmolality and hyponatremia; E87.6 Hypokalemia; R00.1 Bradycardia, unspecified; F17.210 Nicotine dependence, cigarettes, uncomplicated; R78.81 Bacteremia
CPT/HCPCS: 31500; 62270; 36415; 70450; 70496; 70498; 71045; 80053; 80307; 80329; 81001; 82140; 82803; 83605; 84484; 85025; 85610; 85730; 87040; 87070; 87077; 87186; 87205; 93005; 94002; 96365; 96366; 96375; 99291; G0480; J0330; J0696; J2704; J7120; Q9967

== ENCOUNTER 2023-09-20 07:52 | Outpatient (RCR) | payer BC, SELFPAY | END 2023-09-20 09:20 | disposition home or self-care (01) | LOC: PT 07:52 | PROVIDERS: Visit Provider Internal Medicine | DX: G93.49 Other encephalopathy (principal) | CPT/HCPCS: 97163 ==

== ENCOUNTER 2023-10-03 09:22 | Day surgery (SDC) | payer BC, SELFPAY ==
[2023-10-03] VITALS (7 sets, daily range): BP systolic 97–117; BP diastolic 53–69; PULSE 60–68; RESP 14–18; TEMP 36.3; O2SAT 98–100; BMI 25.1
[2023-10-03] MEDS: LACTATED RINGERS 1000ML 1,000 ML 25 ML IV (10:05)
--- NOTE | 2023-10-03 10:25 | P.PNANES_ITS ---
[facility] Disclaimer: The information contained in this section may have been updated after the patient was seen, as this information can be updated by other users. Medical History (Updated 10/03/23 @ 10:03 by Swati uFng RN) Anemia Hyperlipemia Hypertension ALS (amyotrophic lateral sclerosis) Surgical History (Updated 10/03/23 @ 10:03 by Swati Fung RN) H/O vasectomy Hx of tonsillectomy History of carpal tunnel release Status post left partial knee replacement History of right knee joint replacement History of open heart surgery Family History (Updated 10/03/23 @ 10:04 by Swati Fung RN) Other No significant family history Social History (Updated 10/03/23 @ 10:04 by Swati Fung RN) Smoking Status: Current every day smoker alcohol intake: never current occupational status: employed Travel in the last 8 weeks: None [facility] Anesthesia Checklist Patient Identification Patient Identification: Arm Band and Verbal (Name & ) Structural Data Admitted From: Home Planned Operative Procedure/s: EGD Consent for Planned Operative Procedure(s) Verified: Yes NPO Status Verified Time NPO: 00:00 Additional verifications Anesthesia Reactions: Yes
--- NOTE | 2023-10-03 11:21 | P.PNANES_ITS ---
[facility] Disclaimer: The information contained in this section may have been updated after the patient was seen, as this information can be updated by other users. Medical History Anemia Hyperlipemia Hypertension ALS (amyotrophic lateral sclerosis) Surgical History H/O vasectomy Hx of tonsillectomy History of carpal tunnel release Status post left partial knee replacement History of right knee joint replacement History of open heart surgery Family History Other No significant family history Social History Smoking Status: Current every day smoker alcohol intake: never substance use type: denies use current occupational status: employed Travel in the last 8 weeks: None [facility] Anesthesia Checklist Patient Identification Patient Identification: Arm Band and Verbal (Name & ) Structural Data Admitted From: Home Planned Operative Procedure/s: EGD Consent for Planned Operative Procedure(s) Verified: Yes Verified Documents: Surgical Consent NPO Status Verified Time NPO: 06:30 (Milk) Additional verifications Anesthesia Reactions: No Airway Assessment Mallampati Score:: Class II C-Spine Mobility Assessed: Yes TMJ Mobility Assessed: Yes Dentition: Good Dentition Neurological Assessment Level of Consciousness: Awake Hx Seizures: No Numbness or tingling in extremities: Yes Anesthesia Plan Anesthesia Risk discussed: Yes Anesthesia Plan: Verified ASA Class: III Anesthesia Type: MAC
--- NOTE | 2023-10-03 12:04 | SUR.PREOP ---
Pt has arrived back to pre-op for EGD.
--- NOTE | 2023-10-03 12:42 | P.PCN_ITS ---
Procedure: Date: 10/03/23 Patient Date of :: 1965 Procedure Performed:: EGD Indications:: The patient is a 58-year-old who presents for EGD evaluation of anemia. The patient reports having had a normal colonoscopy approximately 2 years ago. The colonoscopy record is not available for review. The patient denies melena or hematochezia. Performing Provider:: Calvin Bhatt MD Referring Provider:: Malia June MD Sedation:: See RN records Procedure:: The gastroscope was gently passed through the incisoral orifice into the oral cavity and under direct visualization the esophagus was intubated. The endoscope was passed down the esophagus, through the stomach, and into the duodenum. Color, texture, mucosa, and anatomy of the esophagus, stomach, and duodenum were carefully examined with the scope. Findings:: The esophagus appeared normal. There was some tortuosity of the distal esophagus and appears to have some generalized decreased peristalsis. The Z- line was irregular and measured at 39 cm. There was linear erythema and erosions in the antrum of the stomach. Biopsies were obtained with a cold forceps for histology. There was mild duodenitis of the duodenal bulb. The remaining examined duodenum appeared normal. Biopsies were obtained with a cold forceps for histology. There was a pale appearance to the gastric and duodenal mucosa. Impression: Irregular Z-line Distal erosive gastritis Duodenitis Pale appearance of the gastric and duodenal mucosa Recommendations:: Await pathology result Consider repeat colonoscopy for the patient's new onset anemia Avoid NSAIDs when possible Follow-up with referring provider as previously scheduled Complications:: None Estimated blood obtained (mL): 0 Colonoscopy Component Colonoscopy Component Was a colonoscopy performed during today's procedure?: No
== END 2023-10-03 13:46 | disposition home or self-care (01) ==
PROVIDERS: PCP Internal Medicine; Visit Provider Internal Medicine
PROC: 0DJ08ZZ Inspection of Upper Intestinal Tract, Via Natural or Artificial Opening Endoscopic (ICD-10-PCS; CPT 43235; principal; 2023-10-03 10:30)
DX: D64.9 Anemia, unspecified (principal); K29.00 Acute gastritis without bleeding
CPT/HCPCS: 43239; J2250; J7120

== ENCOUNTER 2023-10-31 12:04 | Day surgery (SDC) | payer BC, SELFPAY ==
[2023-10-30 12:27] VITALS: BMI 23.2
[2023-10-31] MEDS: LACTATED RINGERS 1000ML 1,000 ML 25 ML IV (12:22)
[2023-10-31 12:23] VITALS: BP 126/64; PULSE 82; RESP 18; TEMP 36.6; O2SAT 100; BMI 23.2
--- NOTE | 2023-10-31 12:36 | EXP.ANES.CKL ---
[facility] Disclaimer: The information contained in this section may have been updated after the patient was seen, as this information can be updated by other users. Medical History Anemia Hyperlipemia Hypertension ALS (amyotrophic lateral sclerosis) Surgical History H/O vasectomy Hx of tonsillectomy History of carpal tunnel release Status post left partial knee replacement History of right knee joint replacement History of open heart surgery Family History Other No significant family history Social History Smoking Status: Current every day smoker alcohol intake: never substance use type: denies use current occupational status: employed Travel in the last 8 weeks: None [facility] Anesthesia Checklist Patient Identification Patient Identification: Arm Band Structural Data Admitted From: Home Planned Operative Procedure/s: Colonoscopy Consent for Planned Operative Procedure(s) Verified: Yes Verified Documents: Surgical Consent NPO Status Verified Time NPO: 00:00 Additional verifications Anesthesia Reactions: No Airway Assessment Mallampati Score:: Class II C-Spine Mobility Assessed: Yes TMJ Mobility Assessed: Yes Dentition: Good Dentition Neurological Assessment Level of Consciousness: Awake, Alert and Appropriate Anesthesia Plan Anesthesia Risk discussed: Yes Anesthesia Plan: Verified ASA Class: III Anesthesia Type: MAC
[2023-10-31 12:47] VITALS: O2SAT 99
[2023-10-31 13:20] VITALS: BP 108/65; PULSE 66; RESP 18; TEMP 36.4; O2SAT 100
--- NOTE | 2023-10-31 13:20 | HMH.SCOPE ---
Procedure: Date: 10/31/23 Patient Date of :: 1965 Procedure Performed:: Colonoscopy Indications:: The patient is a 58 year-old who presents for colonoscopy evaluation of anemia. The patient reports last colonoscopy 2 years ago for screening purposes that was normal. Performing Provider:: Calvin Bhatt MD Referring Provider:: Malia June MD Sedation:: See RN records Procedure:: After placing the patient in the left lateral decubitus position, the colonoscopy was gently inserted into the rectum and under direct visualization advanced to the cecum which was identified by transillumination in the right lower quadrant, identification of the ileocecal valve, appendiceal orifice, and cecal strap. Color, texture, mucosa, and anatomy of the colon were carefully examined with the scope. Findings:: There was a sessile polyp 9 to 10 mm in size in the proximal descending colon. The polyp was removed by hot snare polypectomy. There were two small (4 to 6 mm) sessile polyps in the rectum. The polyps were removed by cold snare polypectomy. The quality of the bowel preparation was fair throughout areas of the colon. On retroflexion view of the rectum internal hemorrhoids were seen. Impression: Polyp of descending colon Polyps of rectum Hemorrhoids Recommendations:: Await pathology results Repeat colonoscopy in 3 years for surveillance purposes Evaluation with small bowel capsule endoscopy for patient's anemia Complications:: None Estimated blood obtained (mL): 0 Colonoscopy Component Colonoscopy Component Was a colonoscopy performed during today's procedure?: Yes Recommended follow up colonoscopy of at least 10 years?: Yes
[2023-10-31 13:30] VITALS: BP 110/63; PULSE 69; RESP 16; O2SAT 100
[2023-10-31 13:40] VITALS: BP 122/69; PULSE 66; RESP 16; O2SAT 100
[2023-10-31 13:50] VITALS: BP 118/65; PULSE 63; RESP 16; O2SAT 100
== END 2023-10-31 14:00 | disposition home or self-care (01) ==
PROVIDERS: PCP Internal Medicine; Visit Provider Internal Medicine
PROC: (CPT 45385; principal; 2023-10-31 13:00)
DX: D64.9 Anemia, unspecified (principal); K64.8 Other hemorrhoids; D12.4 Benign neoplasm of descending colon; D12.8 Benign neoplasm of rectum
CPT/HCPCS: 45385; J7120

== ENCOUNTER 2023-11-01 11:26 | Inpatient (IN) | payer BC, SELFPAY ==
[2023-11-01] VITALS (15 sets, daily range): BP systolic 117–164; BP diastolic 61–82; PULSE 63–85; RESP 14–20; TEMP 36.6–38.2; O2SAT 96–100; BMI 23.0; BMI 20.1
--- NOTE | 2023-11-01 12:06 | CT_ITS ---
FINAL REPORT CLINICAL HISTORY: possible stroke COMPARISON: 08/17/2023 FINDINGS: Axial images of the head were obtained without contrast. Coronal reformatted images were also obtained. This study was performed with techniques to keep radiation doses as low as reasonably achievable (ALARA). Individualized dose reduction techniques using automated exposure control or adjustment of mA and/or kV according to the patient''s size were employed. There is right temporal encephalomalacia, stable from prior exam. There is generalized age-appropriate atrophy. Periventricular low-attenuation areas are seen consistent with mild chronic ischemic changes. There is no evidence of intracranial hemorrhage or mass. There is no evidence of acute infarct. There is no evidence of shift of the midline structures. No skull abnormality is seen on the bone window images. IMPRESSION: Atrophy and mild periventricular chronic ischemic changes. No acute intracranial abnormality identified. Reviewed, Interpreted and Dictated by Pola Bashir III, MD Transcribed by Samreen Clements Authenticated and . [facility]
--- NOTE | 2023-11-01 12:06 | CT_ITS ---
FINAL REPORT TECHNIQUE: Thin section axial CT with IV contrast supplemented with multiplanar reconstruction under CT angiogram protocol. This study was performed with techniques to keep radiation doses as low as reasonably achievable (ALARA). Individualized dose reduction techniques using automated exposure control or adjustment of mA and/or kV according to the patient''s size were employed. NASCET criteria was utilized during interpretation. CLINICAL HISTORY: possible stroke FINDINGS: Aortic arch: Arch shows no significant narrowing. There is calcified plaque at the carotid bifurcations without significant stenosis. Right carotid: No significant stenosis is seen of the cervical common or internal carotid artery. Left carotid: No significant stenosis is seen of the cervical common or internal carotid artery. Vertebral: Left vertebral artery is dominant. No significant stenosis is present. IMPRESSION: Calcified plaque at the carotid bifurcations without significant stenosis or occlusion. Reviewed, Interpreted and Dictated by Pola Bashir III, MD Transcribed by Samreen Clements Authenticated and [facility]
--- NOTE | 2023-11-01 12:06 | CT_ITS ---
FINAL REPORT TECHNIQUE: Thin section axial CT with IV contrast supplemented with multiplanar reconstruction under CT angiogram protocol. 3-D reconstructions were performed. This study was performed with techniques to keep radiation doses as low as reasonably achievable (ALARA). Individualized dose reduction techniques using automated exposure control or adjustment of mA and/or kV according to the patient''s size were employed. CLINICAL HISTORY: possible stroke FINDINGS: The distal vertebral, basilar and distal internal carotid arteries have an unremarkable appearance. No aneurysm is seen. Major intracranial vessels are patent without significant stenosis. IMPRESSION: Unremarkable exam without significant stenosis or occlusion Reviewed, Interpreted and Dictated by Pola Bashir III, MD Transcribed by Samreen Clements Authenticated and [facility]
--- NOTE | 2023-11-01 12:10 | PC.NURSE ---
patient gone to CT at this time.
[2023-11-01 12:13] LABS: Basophils % 0.2 % (0.1-2.0); Eosinophils % 0.1 % (0.1-12.0); Hematocrit 30.7 % (42.0-52.0); Hemoglobin 10.1 g/dL (14.1-18.0); Lymphocytes % 8.8 % (10-50); Mean Corpuscular HGB Conc 32.8 g/dL (31.8-35.4); Mean Corpuscular Hemoglobin 24.4 pg (27.0-31.2); Mean Corpuscular Volume 74.2 fl (80-94); Mean Platelet Volume 7.4 fl (7.4-10.4); Monocytes # 0.5 K/mm3 (0.1-1.0); Monocytes % 4.7 % (1.7-9.3); Neutrophils # 9.9 K/mm3 (1.8-7.8); Neutrophils % 86.3 % (37.0-80.0); Platelet Count 220 K/mm3 (142-424); Red Blood Count 4.14 M/mm3 (4.60-6.20); Red Cell Distribution Width 16.8 % (11.5-17.5); White Blood Count 11.5 K/mm3 (4.8-10.8)
[2023-11-01 12:17] LABS: MANUAL DIFFERENTIAL MANUAL DIFFERENTIAL (MANUAL DIFF)
[2023-11-01] MEDS: 0.9 % SODIUM CHLORIDE 50 ML VIAL IV (12:18)
[2023-11-01] MEDS: IOPAMIDOL-370 (76%);100ML BOTTLE 80 ML IV (12:18)
[2023-11-01 12:19] LABS: Activated Partial Thrombo Time 25.8 seconds (22.8-30.6); Alanine Aminotransferase 18 U/L (12-78); Albumin Level 3.7 g/dl (3.5-5.0); Albumin/Globulin Ratio 1.1 (1.1-1.8); Alkaline Phosphatase 87 U/L (38-126); Anion Gap 7.8 mEq/L (5-15); Aspartate Amino Transferase 28 U/L (17-59); Bilirubin,Total 0.4 mg/dl (0.2-1.3); Blood Urea Nitrogen 10 mg/dl (9-20); Calcium 9.3 mg/dl (8.4-10.2); Carbon Dioxide 27 mmol/L (22.0-30.0); Chloride 102 mmol/L (98-107); Chol/HDL Ratio 4.4 (1-3.5); Cholesterol 137 mg/dl (140-200); Creatinine Clearance Estimated 139 mL/min (50-200); Estimated Glomerular Filt Rate 137 ml/min (>60); Ethyl Alcohol < 10 mg/dl (0-10); GFR (African American) 166 ML/MIN (>60); Globulin 3.5 g/dL (1.3-3.2); Glucose 126 mg/dl (74-100); HDL Cholesterol 31 mg/dl (40-60); INR 0.97 (0.9-1.1); Potassium 3.8 mmoL/L (3.5-5.1); Prothrombin Time 10.9 seconds (10.1-12.5); Sodium 133 mmol/L (136-145); Total Protein,Serum 7.2 g/dl (6.3-8.2); Triglycerides 98 mg/dl (30-150); VLDL Cholesterol 20 mg/dL (0-40)
[2023-11-01] MEDS: SODIUM CHLORIDE 0.9% 10ML SYR (RAD ONLY) 10 ML IV (12:23)
--- NOTE | 2023-11-01 12:23 | PC.NURSE ---
patient back in room at this time.
--- NOTE | 2023-11-01 12:26 | ECG_ITS ---
APPROVED REPORT Exam: Resting ECG HR:88 bpm ECG Measurements Heart Rate 88 AXES PA 148 P 111 QRSd 112 QRS 17 QT 368 T 85 QTc 414 Conclusion SINUS RHYTHM INCOMPLETE RIGHT BUNDLE BRANCH BLOCK [90+ ms QRS DURATION, TERMINAL R IN V1/V2, 40+ ms S IN I/aVL/V4/V5/V6] Electronically signed by : BRAYDON HILL, 11/02/2023 07:11:13
[2023-11-01 12:29] LABS: Lymphocytes % 9 % (10-50); Monocytes % 3 % (2-9); Neutrophils % 88 % (42-76); Platelet Estimate Normal; Total Cells Counted 100
[2023-11-01 12:30] LABS: Anisocytosis 1+; Direct LDL Cholesterol 74.69 mg/dL (100-129); Hypochromasia 1+; Microcytosis 1+; Ovalocytes 1+
[2023-11-01 12:37] LABS: Troponin I < 0.01 ng/ml (0.00-0.034)
--- NOTE | 2023-11-01 12:59 | ED_ITS ---
Discharge Plan Disposition Patient Disposition: Admitted Clinical Impressions Clinical Impression: Stroke-like symptoms, Dizziness Discharge ED Provider: Hans Huston General Adult HPI General Chief complaint: Dizziness Stated complaint: vomitting Time Seen by Provider: 11/01/23 11:56 Mode of Arrival: EMS Source of Information: Patient and EMS Limitations: No Limitations Description of Symptoms (Recalled from ER Triage Doc. by RN): d izziness,vomiting,colonoscopy yesterday History of Present Illness HPI narrative: Please note that above description of symptoms, in this electronic medical record under categorization of recalled from ER triage doctor by RN are reflective of an initial nursing assessment, however, is not reflective of my full history and physical exam that was personally taken and clarified. Consequentially, this preceding description of symptoms, which may include the patient's categorized chief complaint in the EMR, do not reflect my personal clinical impression, and the ultimate description of history of present illness and patient stated complaints should be deferred to this section of the note. Unless stated otherwise or congruent with this section of the note, additional signs, symptoms, or incongruence should be interpreted as inaccurate with my clinical impression. Related Data Home Medications ?Medication ?Instructions ?Recorded ?Confirmed albuterol sulfate 90 mcg/actuation 90 mcg inhalation NEEDED PRN SOA 10/03/23 10/30/23 aerosol inhaler alprazolam 0.5 mg tablet (Xanax) 0.5 mg PO HS 10/03/23 11/01/23 amlodipine 10 mg tablet 10 mg PO DAILY 10/03/23 11/01/23 atogepant 60 mg tablet (Qulipta) 60 mg PO DAILY 10/03/23 10/30/23 atorvastatin 80 mg tablet 80 mg PO DAILY 10/03/23 10/30/23 baclofen 20 mg tablet 20 mg PO TID 10/03/23 11/01/23 clopidogrel 75 mg tablet 75 mg PO DAILY 10/03/23 11/01/23 epinephrine 0.3 mg/0.3 mL 0.3 mg SQ NEEDED PRN Allergic 10/03/23 10/30/23 injection, auto-injector Reaction escitalopram oxalate 20 mg tablet 20 mg PO DAILY 10/03/23 11/01/23 (Lexapro) furosemide 20 mg tablet 20 mg PO DAILY 10/03/23 10/30/23 gabapentin 600 mg tablet 600 mg PO TID 10/03/23 11/01/23 losartan 100 1 tab PO DAILY 10/03/23 11/01/23 mg-hydrochlorothiazide 25 mg tablet aspirin 81 mg capsule 81 mg PO DAILY 10/30/23 10/30/23 metoprolol succinate 50 mg capsule 25 mg PO DAILY 10/31/23 11/01/23 sprinkle, ext. release 24 hr Allergies Allergy/AdvReac Type Severity Reaction Status Date / Time bee venom protein (honey bee) Allergy Severe Anaphylaxis Verified 10/30/23 12:[address] [facility] Disclaimer: The information contained in this section may have been updated after the patient was seen, as this information can be updated by other users. Medical History Anemia Hyperlipemia Hypertension ALS (amyotrophic lateral sclerosis) Surgical History H/O vasectomy Hx of tonsillectomy History of carpal tunnel release Status post left partial knee replacement History of right knee joint replacement History of open heart surgery Family History Other No significant family history Social History Smoking Status: Never smoker alcohol intake: never substance use type: denies use current occupational status: employed Travel in the last 8 weeks: None ROS Obtained: Yes All systems reviewed & no additional complaints except as documented Physical Exam General General appearance: alert Head Head exam: atraumatic and normocephalic Eye Eye exam: Present normal appearance, PERRL and EOMI Neck Neck exam: Present normal inspection, full ROM and trachea midline Respiratory Respiratory exam: Absent respiratory distress, wheezes, stridor, accessory muscle use or prolonged expiratory phase Cardiovascular Cardiovascular exam: Present other (Pulses equal symmetric in upper and lower extremities) Abdominal Exam Abdominal exam: Present soft; Absent distention, tenderness or pulsatile mass Extremities Exam Extremities exam: Absent edema Neurological Exam Neurological exam: Present alert, oriented X3 and CN II-XII intact; Absent motor sensory deficit Skin Skin exam: Present warm and dry; Absent diaphoresis or erythema Medical Decision Making Medical Records Medical records reviewed: Yes I reviewed the patient's medical records. Jose Inquiry Pt receiving controlled substance: No Jose was queried for this patient: No Vital Signs: 11/01/23 11:26 11/01/23 12:00 11/01/23 12:21 Temperature 97.8 F Temperature Source Oral Pulse Rate 65 81 Pulse Rate [Right] 73 Respiratory Rate 18 Blood Pressure 117/61 133/68 Blood Pressure [Right Arm] 142/75 H Blood Pressure Mean [Right Arm] 97 02 Sat by Pulse Oximetry 98 96 98 Oxygen Delivery Method Room Air 11/01/23 12:30 11/01/23 13:00 11/01/23 13:30 Temperature Temperature Source Pulse Rate 74 73 74 Pulse Rate [Right] Respiratory Rate 16 18 20 Blood Pressure 126/67 126/68 130/70 Blood Pressure [Right Arm] Blood Pressure Mean [Right Arm] 02 Sat by Pulse Oximetry 96 97 99 Oxygen Delivery Method 11/01/23 14:00 11/01/23 14:30 11/01/23 15:00 Temperature Temperature Source Pulse Rate 64 63 82 Pulse Rate [Right] Respiratory Rate 17 15 14 Blood Pressure 122/68 138/68 146/72 H Blood Pressure [Right Arm] Blood Pressure Mean [Right Arm] 02 Sat by Pulse Oximetry 96 96 99 Oxygen Delivery Method Room Air Room Air 11/01/23 15:17 Temperature 97.8 F Temperature Source Oral Pulse Rate 80 Pulse Rate [Right] Respiratory Rate 19 Blood Pressure 146/82 H Blood Pressure [Right Arm] Blood Pressure Mean [Right Arm] 02 Sat by Pulse Oximetry Oxygen Delivery Method Room Air Lab Data Lab Results 11/01/23 11:20: WBC 11.5 H, RBC 4.14 L, Hgb 10.1 L, Hct 30.7 L, MCV 74.2 L, MCH 24.4 L, MCHC 32.8, RDW 16.8, Plt Count 220, MPV 7.4, Neut % (Auto) 86.3 H, Lymph % (Auto) 8.8 L, [place] % (Auto) 4.7, Eos % (Auto) 0.1, Baso % (Auto) 0.2, Neut # (Auto) 9.9 H, Lymph # (Auto) 1.0, [place] # (Auto) 0.5, Eos # (Auto) 0.0, Baso # (Auto) 0.0, Total Counted 100, Neutrophils % (Manual) 88 H, Lymphocytes % (Manual) 9 L, Monocytes % (Manual) 3, Platelet Estimate Normal, Hypochromasia 1+, Anisocytosis 1+, Microcytosis 1+, Ovalocytes 1+, PT 10.9, INR 0.97, APTT 25.8, Sodium 133 L, Potassium 3.8, Chloride 102, Carbon Dioxide 27, Anion Gap 7.8, BUN 10, Creatinine 0.60 L, Estimated Creat Clear 139, Estimated GFR 137, Est GFR ( Amer) 166, Glucose 126 H, Calcium 9.3, Total Bilirubin 0.4, AST 28, ALT 18, Alkaline Phosphatase 87, Troponin I < 0.01, Total Protein 7.2, Albumin 3.7, Globulin 3.5 H, Albumin/Globulin Ratio 1.1, Triglycerides 98, C holesterol 137 L, LDL Cholesterol Direct 74.69 L, VLDL Cholesterol 20, HDL Cholesterol 31 L, Cholesterol/HDL Ratio 4.4 H, Plasma/Serum Alcohol < 10 11/01/23 12:06: Urine Color Yellow, Urine Appearance Clear, Urine pH 7.5, Ur Specific [place] 1.010, Urine Protein Negative, Urine Glucose (UA) Negative, Urine Ketones Negative, Urine Blood Negative, Urine Nitrate Negative, Urine Bilirubin Negative, Urine Urobilinogen 0.2, Ur Leukocyte Esterase Negative, Urine RBC None, Urine WBC Occasional, Ur Squamous Epith Cells None, Amorphous Sediment 1+, Urine Bacteria 1+, Hyaline Casts Occ 11/01/23 13:11: Urine Opiates Screen Negative, Urine Methadone Screen Negative, Ur Barbituates Screen Negative, Ur Phencyclidine Scrn Negative, Ur Amphetamines Screen Negative, U Benzodiazepines Scrn Positive H, Urine Cocaine Screen Negative, U Marijuana (THC) Screen Positive H 11/01/23 11:20 11/01/23 11:20 Orders (Tests/Meds): ED MEDICATIONS Generic Name Dose Route Start Last Admin Trade Name Freq PRN Reason Stop Dose Admin Acetaminophen 650 mg 11/01/23 15:45 Acetaminophen 325mg Tab PO 12/01/23 15:44 Q4HP PRN Fever or Mild Pain (1-3) Heparin Sodium (Porcine) 5,000 unit 11/01/23 15:45 Heparin Sodium 5,000 Unit/Ml Vial SQ 12/01/23 15:44 Q8H MAXIMILIAN Ondansetron HCl 4 mg 11/01/23 15:45 Ondansetron 4mg/2ml Vial IV 12/01/23 15:44 Q8HP PRN Nausea Sodium Chloride 10 ml 11/01/23 12:06 Sodium Chloride 0.9% 10ml Flush Syringe IV 12/01/23 12:05 NEEDED PRN Maintain IV Site Sodium Chloride 10 ml 11/01/23 12:17 11/01/23 12:23 Sodium Chloride 0.9% 10ml Syr (Rad Only) IV 12/01/23 12:16 10 ml NEEDED PRN Administration Maintain IV Site Discontinued Medications Generic Name Dose Route Start Last Admin Trade Name Teodoroq PRN Reason Stop Dose Admin Iopamidol 80 ml 11/01/23 12:17 11/01/23 12:18 Iopamidol-370 (76%);100ml Bottle IV 11/01/23 12:18 80 ml ONCE ONE Administration Meclizine HCl 50 mg 11/01/23 13:34 11/01/23 13:41 Meclizine 25mg Tablet PO 11/01/23 13:35 50 mg ONCE ONE Administration Sodium Chloride 50 ml 11/01/23 12:17 11/01/23 12:18 0.9 % Sodium Chloride 50 Ml Vial IV 11/01/23 12:18 50 ml ONCE ONE Administration ORDERS Category Date Time Status CT angio head Stat Cat Scan 11/01/23 12:[address] angio neck Stat Cat Scan 11/01/23 12:[address] head/brain wo con Stat Cat Scan 11/01/23 12:06 Completed Activated Partial Thrombo Time Stat Lab 11/01/23 11:20 Completed Complete Blood Count Auto Diff Stat Lab 11/01/23 11:20 Completed Comprehensive Metabolic Panel Stat Lab 11/01/23 11:20 Completed Drug Screen,Urine Stat Lab 11/01/23 13:11 Completed Ethyl Alcohol Stat Lab 11/01/23 11:20 Completed Lipid Panel Stat Lab 11/01/23 11:20 Completed Prothrombin Time INR Stat Lab 11/01/23 11:20 Completed Troponin I Q3H Lab 11/01/23 15:00 Received Troponin I Q3H Lab 11/01/23 18:15 Ordered Troponin I Stat Lab 11/01/23 11:20 Completed Urinalysis and Microscopic Stat Lab 11/01/23 12:06 Completed Medical Decision Narrative: 58-year-old male history of hypertension, hyperlipidemia, ALS, blood loss anemia following with GI, presenting with acute onset dizziness. Patient states he was in the shower about 4 hours prior to this visit when he had acute onset dizziness. Had involved his son, had nausea, vomiting, has never had anything like this in the past. States he has been taking all of his medications as prescribed. No blood in his vomit. No dark or tarry or bloody stools today. No chest pain, shortness of breath, nausea, vomiting, falls, trauma came in for further evaluation. History was obtained via conversation with patient. On arrival, patient hemodynamically stable, alert, oriented x4, appropriate, GCS 15, moving all extremities spontaneously, pupils equal and reactive to light. Full physical exam performed and significant for patient has left-sided nasolabial fold flattening and states he is having difficulty saying words. Upper and lower extremities are symmetrically strong. Left-sided upper extremity drift. He also has right-sided upper and lower extremity dysmetria and nystagmus with fast beating phase toward the right. Differential includes CVA, embolic versus hemorrhagic stroke, dissection, medication abnormality, BPPV, ACS, NH, sepsis, metabolic abnormality, endocrinologic abnormality, among others. Patient placed on continuous cardiac monitoring and continuous pulse ox with initial blood pressure 142/75, heart rate 73, saturation 98% on room air. Independent interpretation of EKG shows sinus rhythm with an incomplete bundle branch block. VT 148, QRS 112, QTc 414. No ST or T wave changes concerning for acute ischemia. Patient was given fluids, Compazine for symptomatic management and correction of underlying abnormalities. Workup independently interpreted and significant for nonactionable CBC, stable hemoglobin. Coags normal, chemistry with no concerning findings. Lactate mildly elevated 2.7, troponin negative, urinalysis without concern for UTI. UDS positive benzodiazepines and marijuana. On independent interpretation of imaging, no intracranial hemorrhage. No abnormality of the CTA of the head or neck. See radiology read for full review of final results. Because patient NIHSS 6, outside of tPA window, no large vessel occlusion, deemed appropriate for inpatient management and further workup here. Family arrived, states that he still seems sluggish and speaking like he is drunk. Hospitalist was contacted and case was discussed at length for further MRI and workup. Because patient high risk for clinical decompensation, deemed appropriate for inpatient admission. Results were relayed to patient who voiced understanding and patient was agreeable to inpatient admission and management. Patient was admitted to the hospital for further definitive management. Spreader Operator Automatic disclaimer Much of this encounter note is an electronic general education instructor spoken language to printed text. Electronic general education instructor of the spoken language may permit errors. Although I have reviewed the note, some errors may still exist. Critical Care Critical Care Time Critical Care Time: Yes (Neuro) Attestation: On 11/01/23, the high probability of a clinically significant, sudden or life threatening deterioration of the following system(s) required my full and direct attention, intervention and personal management. The time I documented below is in addition to time spent performing reported procedures but includes the following listed in this critical care notation. Total Time Total Critical Care Time: 45
[2023-11-01 13:15] LABS: Microscopic, Urine URINE MICROSCOPIC (MICROSCOPIC)
[2023-11-01 13:18] LABS: Appearance,Urine CLEAR (Clear); Bilirubin,Urine Negative (Negative); Blood, Urine Negative (Negative); Color,Urine YELLOW (Yellow); Glucose,Urine (UA) Negative (Negative); Ketones,Urine Negative (Negative); Leukocyte Esterase,Urine Negative (Negative); Nitrate,Urine Negative (Negative); PH,Urine 7.5 (5.0-8.5); Protein,Urine Negative (Negative); Urobilinogen,Urine 0.2 EU/dl (0.2)
[2023-11-01 13:31] LABS: Benzodiazepines Screen,Urine Positive ng/ml (<200)
[2023-11-01 13:31] LABS: Amorphous Sediment,Urine 1+ /lpf; Bacteria,Urine 1+ /lpf; Hyaline Casts,Urine OCC #/lpf (0); WBC,Urine Occasional #/hpf (0-3)
[2023-11-01 13:32] LABS: Amphetamine/Metha Screen,Urine Negative ng/ml (<1000)
[2023-11-01 13:33] LABS: Barbiturates Screen,Urine Negative ng/ml (<200); Methadone Screen,Urine Negative ng/ml (<300)
[2023-11-01 13:34] LABS: Cannabinoid Screen,Urine Positive ng/ml (<50); Cocaine Screen,Urine Negative ng/ml (<300)
[2023-11-01 13:35] LABS: Opiate Screen,Urine Negative ng/ml (<300)
[2023-11-01 13:36] LABS: Phencyclidine Screen,Urine Negative ng/ml (<25)
[2023-11-01] MEDS: MECLIZINE 25MG TABLET 50 MG PO (13:41)
--- NOTE | 2023-11-01 14:29 | PC.NURSE ---
HS aware of admission
--- NOTE | 2023-11-01 14:34 | PC.NURSE ---
PT ADMITTED ROOM 206, ALL STAFF NOTIFIED
--- NOTE | 2023-11-01 14:55 | PC.NURSE ---
Rounded on pt. No needs voiced at this time. Call light remains within reach.
--- NOTE | 2023-11-01 15:16 | PC.NURSE ---
Called report to Joon MORGAN
[2023-11-01 15:52] LABS: Troponin I < 0.01 ng/ml (0.00-0.034)
[2023-11-01] MEDS: HEPARIN SODIUM 5,000 UNIT/ML VIAL 5000 UNIT SQ (16:07)
--- NOTE | 2023-11-01 16:21 | PC.NURSE ---
Pt. states he uses a w/c while at work and turns himself as directed every two hours.
--- NOTE | 2023-11-01 17:22 | P.HP_ITS ---
History of Present Illness *Admission Date: 11/01/23 *Reason for visit:: Dizzziness [facility] Disclaimer: The information contained in this section may have been updated after the patient was seen, as this information can be updated by other users. Medical History Anemia Hyperlipemia Hypertension ALS (amyotrophic lateral sclerosis) Surgical History H/O vasectomy Hx of tonsillectomy History of carpal tunnel release Status post left partial knee replacement History of right knee joint replacement History of open heart surgery Family History Other No significant family history Social History (Updated 11/01/23 @ 18:29 by El Jimenez RN) Smoking Status: Never smoker alcohol intake: never substance use type: denies use current occupational status: employed Travel in the last 8 weeks: None Review of Systems Constitutional Constitutional: Reports system reviewed and no additional complaints, except as documented Meds Home Medications and Allergies Home Medications ?Medication ?Instructions ?Recorded ?Confirmed ?Type albuterol sulfate 90 mcg/actuation 90 mcg inhalation NEEDED PRN SOA 10/03/23 11/01/23 History aerosol inhaler alprazolam 0.5 mg tablet (Xanax) 0.5 mg PO HS 10/03/23 11/01/23 History amlodipine 10 mg tablet 10 mg PO DAILY 10/03/23 11/01/23 History atogepant 60 mg tablet (Qulipta) 60 mg PO DAILY 10/03/23 11/01/23 History atorvastatin 80 mg tablet 80 mg PO DAILY 10/03/23 11/01/23 History baclofen 20 mg tablet 20 mg PO TID 10/03/23 11/01/23 History clopidogrel 75 mg tablet 75 mg PO DAILY 10/03/23 11/01/23 History epinephrine 0.3 mg/0.3 mL 0.3 mg SQ NEEDED PRN Allergic 10/03/23 11/01/23 History injection, auto-injector Reaction escitalopram oxalate 20 mg tablet 20 mg PO DAILY 10/03/23 11/01/23 History (Lexapro) furosemide 20 mg tablet 20 mg PO DAILY 10/03/23 11/01/23 History gabapentin 600 mg tablet 600 mg PO TID 10/03/23 11/01/23 History losartan 100 1 tab PO DAILY 10/03/23 11/01/23 History mg-hydrochlorothiazide 25 mg tablet aspirin 81 mg capsule 81 mg PO DAILY 10/30/23 11/01/23 History metoprolol succinate 50 mg capsule 25 mg PO DAILY 10/31/23 11/01/23 History sprinkle, ext. release 24 hr New Prescriptions to Start Prescriptions: Allergies Allergy/AdvReac Type Severity Reaction Status Date / Time bee venom protein (honey bee) Allergy Severe Anaphylaxis Verified 10/30/23 12:12 Exam Data for Last 24 hours Vital signs and Labs for Last 24 Hours: Temp Pulse Resp BP Pulse Ox O2 Del Method 99.3 F 85 18 164/76 H 100 Room Air 11/01/23 15:52 11/01/23 15:52 11/01/23 15:52 11/01/23 15:52 11/01/23 15:52 11/01/23 16:22 Laboratory Results - last 24 hr 11/01/23 11:20: WBC 11.5 H, RBC 4.14 L, Hgb 10.1 L, Hct 30.7 L, MCV 74.2 L, MCH 24.4 L, MCHC 32.8, RDW 16.8, Plt Count 220, MPV 7.4, Neut % (Auto) 86.3 H, Lymph % (Auto) 8.8 L, [place] % (Auto) 4.7, Eos % (Auto) 0.1, Baso % (Auto) 0.2, Neut # (Auto) 9.9 H, Lymph # (Auto) 1.0, [place] # (Auto) 0.5, Eos # (Auto) 0.0, Baso # (Auto) 0.0, Total Counted 100, Neutrophils % (Manual) 88 H, Lymphocytes % (Manual) 9 L, Monocytes % (Manual) 3, Platelet Estimate Normal, Hypochromasia 1+, Anisocytosis 1+, Microcytosis 1+, Ovalocytes 1+, PT 10.9, INR 0.97, APTT 25.8, Sodium 133 L, Potassium 3.8, Chloride 102, Carbon Dioxide 27, Anion Gap 7.8, BUN 10, Creatinine 0.60 L, Estimated Creat Clear 139, Estimated GFR 137, Est GFR ( Amer) 166, Glucose 126 H, Calcium 9.3, Total Bilirubin 0.4, AST 28, ALT 18, Alkaline Phosphatase 87, Troponin I < 0.01, Total Protein 7.2, Albumin 3.7, Globulin 3.5 H, Albumin/Globulin Ratio 1.1, Triglycerides 98, Cholesterol 137 L, LDL Cholesterol Direct 74.69 L, VLDL Cholesterol 20, HDL Cholesterol 31 L, Cholesterol/HDL Ratio 4.4 H, Plasma/Serum Alcohol < 10 11/01/23 12:06: Urine Color Yellow, Urine Appearance Clear, Urine pH 7.5, Ur Specific [place] 1.010, Urine Protein Negative, Urine Glucose (UA) Negative, Urine Ketones Negative, Urine Blood Negative, Urine Nitrate Negative, Urine Bilirubin Negative, Urine Urobilinogen 0.2, Ur Leukocyte Esterase Negative, [place] ne RBC None, Urine WBC Occasional, Ur Squamous Epith Cells None, Amorphous Sediment 1+, Urine Bacteria 1+, Hyaline Casts Occ 11/01/23 13:11: Urine Opiates Screen Negative, Urine Methadone Screen Negative, Ur Barbituates Screen Negative, Ur Phencyclidine Scrn Negative, Ur Amphetamines Screen Negative, U Benzodiazepines Scrn Positive H, Urine Cocaine Screen Negative, U Marijuana (THC) Screen Positive H 11/01/23 15:00: Troponin I < 0.01 I & O for Last 24 hours: Intake & Output 10/29/23 10/30/23 10/31/23 11/01/23 23:59 23:59 23:59 23:59 Weight 75.75 kg Constitutional Constitutional: no acute distress *Routine HEENT Exam Head: Present normocephalic Eye: Present EOMI and PERRL ENT: Present mucous membranes moist *Routine Neck Exam Neck: Present supple; Absent lymphadenopathy *Routine Respiratory Exam Respiratory: Present CTA bilaterally *Routine Cardiovascular Exam Cardiovascular: Present RRR *Routine Abdominal Exam Abdominal: Present soft and normoactive bowel sounds; Absent tenderness *Routine Rectal Exam Rectal:: deferred *Routine Genitalia Exam Genitalia:: deferred *Routine Extremities Exam Extremities: Absent cyanosis, clubbing or edema *Routine Skin Exam Skin: Present warm; Absent rash *Routine Neurological Exam Neurological: Present alert and oriented X3 Comments: left facial droop noticed Assessment and Plan *Assessment and plan (1) Dizziness: Status: Acute Category: Medical Code(s): R42 - Dizziness and giddiness (2) Stroke-like symptoms: Status: Acute Category: Medical Code(s): R29.90 - Unspecified symptoms and signs involving the nervous system (3) Hypertension: Status: Acute Category: Medical Code(s): I10 - Essential (primary) hypertension (4) Hyperlipemia: Status: Acute Category: Medical Code(s): E78.5 - Hyperlipidemia, unspecified Plan Patient is a 58-year-old male with past medical history of ALS hypertension hyperlipidemia who presents to the hospital due to difficulty in his speech, persistent dizziness according to the patient he has been having nausea vomiting dizziness, left facial droop and change in his speech. He denied chest pain shortness of breath, fevers chills. Assessment and plan Left-sided facial droop, aphasia-rule out CVA History of ALS Order MRI brain without contrast Consult PT/OT Consult to speech therapy CT head performed in ED negative for acute intracranial abnormality CTA head and neck negative for acute intravascular pathology Aspirin, statin UA negative for UTI History of ALS Hypertension Hyperlipidemia resume home qllipta, Plavix, atorvastatin DVT prophylaxis- lovenox
--- NOTE | 2023-11-01 17:32 | PC.NURSE ---
Radiology called about pt's MRI and asked if approved by Case management... Charge aware and radiology told CM went home for the day. Radiology says they will get MRI in the am.
--- NOTE | 2023-11-01 17:34 | MR_ITS ---
PROCEDURE INFORMATION: Exam: MR Head Without Contrast Exam date and time: 11/01/2023 5:52 PM Age: 58 years old Clinical indication: Stroke-like symptoms; Vomiting; Additional info: Stroke like symptoms TECHNIQUE: Imaging protocol: Magnetic resonance imaging of the head without contrast. COMPARISON: 1. CT ANGIO NECK 08/17/2023 7:[address] HEAD/BRAIN WO CON 08/17/2023 7:15 PM FINDINGS: Limitations: The study is motion degraded. Brain: Restricted diffusion is present in the superior right cerebellar hemisphere. There is minimal diffusion restriction also present in the right brachium pontis and right dorsal midbrain. These regions have mild associated FLAIR signal hyperintensity present without mass effect. No midline shift. Chronic right lateral temporal lobe encephalomalacia is unchanged. Minimal involutional changes of the brain are present which are commensurate with age. No acute hemorrhage. Cerebral ventricles: No ventriculomegaly. Bones: Unremarkable. Paranasal sinuses: Scattered paranasal sinus mucosal thickening, without air-fluid level present. Mastoid air cells: No significant inflammation. Orbital cavities: Unremarkable. Soft tissues: Right posterior neck 1.7 cm probable epidermal inclusion cyst is unchanged. 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 No mass effect or acute hemorrhage.
--- NOTE | 2023-11-01 17:34 | PC.NURSE ---
Radiology called cm and cm stated pt is approved form MRI. He will be going down shortly.
[2023-11-01] MEDS: ACETAMINOPHEN 325MG TAB 650 MG PO (18:58)
[2023-11-01 19:45] LABS: Troponin I < 0.01 ng/ml (0.00-0.034)
[2023-11-01] MEDS: ALPRAZolam 0.5MG TABLET 0.5 MG PO (20:04)
[2023-11-01] MEDS: GABAPENTIN 600MG TABLET 600 MG PO (20:05)
[2023-11-01] MEDS: BACLOFEN 20 MG 20 EACH PO (20:05)
--- NOTE | 2023-11-01 20:05 | PC.NURSE ---
due to pt temp thermostat in room was turned down and blankets were removed. pt was educated on the reasoning for these actions. call light is within reach and family is at BS.
[2023-11-02] VITALS (8 sets, daily range): BP systolic 127–148; BP diastolic 66–72; PULSE 68–86; RESP 15–18; TEMP 36.8–39.4; O2SAT 93–99; BMI 20.1
--- NOTE | 2023-11-02 04:32 | PC.NURSE ---
A/O X 3. PERRL MILD DIFFICULTY WITH ARTICULATION WHEN FIRST AWAKENING. TONGUE MIDLINE. NO FACIAL DROOPING. COPY OPERATOR STRONG EQUAL. D/P FLEXION STRONG EQUAL. NO DRIFTS NOTED. DENIES H/A, NAUSEA, PAIN ETC. STILL REPORTS DIZZINESS. BROTHER AT BEDSIDE ALL THROUGH THE NIGHT.
[2023-11-02 06:58] LABS: Chloride 101 mmol/L (98-107); Sodium 133 mmol/L (136-145)
[2023-11-02 06:59] LABS: Potassium 3.5 mmoL/L (3.5-5.1)
[2023-11-02 07:02] LABS: Anion Gap 6.5 mEq/L (5-15); Blood Urea Nitrogen 6 mg/dl (9-20); Calcium 8.7 mg/dl (8.4-10.2); Carbon Dioxide 29 mmol/L (22.0-30.0); Creatinine Clearance Estimated 105 mL/min (50-200); Estimated Glomerular Filt Rate 99 ml/min (>60); GFR (African American) 119 ML/MIN (>60); Glucose 103 mg/dl (74-100)
[2023-11-02 07:04] LABS: Basophils % 0.3 % (0.1-2.0); Eosinophils % 0.2 % (0.1-12.0); Hemoglobin 9.8 g/dL (14.1-18.0); Lymphocytes # 1.7 K/mm3 (0.7-4.5); Mean Corpuscular HGB Conc 31.6 g/dL (31.8-35.4); Mean Corpuscular Hemoglobin 23.8 pg (27.0-31.2); Mean Corpuscular Volume 75.4 fl (80-94); Mean Platelet Volume 7.1 fl (7.4-10.4); Monocytes # 0.9 K/mm3 (0.1-1.0); Monocytes % 7.4 % (1.7-9.3); Neutrophils # 9.2 K/mm3 (1.8-7.8); Neutrophils % 78.1 % (37.0-80.0); Platelet Count 241 K/mm3 (142-424); Red Blood Count 4.11 M/mm3 (4.60-6.20); White Blood Count 11.7 K/mm3 (4.8-10.8)
--- NOTE | 2023-11-02 08:27 | PC.WOUNDNOTE ---
Md. john pt has a temp of 101.6 oral.
[2023-11-02] MEDS: CITALOPRAM 40MG TABLET 40 MG PO (08:34)
[2023-11-02] MEDS: METOPROLOL SUCCINATE XL 25MG TABLET 25 MG PO (08:34)
[2023-11-02] MEDS: ASPIRIN EC 81MG TABLET 81 MG PO (08:34)
[2023-11-02] MEDS: BACLOFEN 10MG TABLET 20 MG PO ×3 (08:34→20:26)
[2023-11-02] MEDS: GABAPENTIN 600MG TABLET 600 MG PO ×3 (08:34→20:26)
[2023-11-02] MEDS: ACETAMINOPHEN 325MG TAB 650 MG PO ×3 (08:34→20:26)
[2023-11-02] MEDS: IRBESARTAN 150MG TAB 150 MG PO (08:34)
[2023-11-02] MEDS: FUROSEMIDE 20MG TABLET 20 MG PO (08:34)
[2023-11-02] MEDS: CLOPIDOGREL 75MG TAB 75 MG PO (08:34)
[2023-11-02] MEDS: hydroCHLOROthiazide 25MG TABLET 25 MG PO (08:34)
[2023-11-02] MEDS: AMLODIPINE 10MG TABLET 10 MG PO (08:34)
[2023-11-02] MEDS: ENOXAPARIN 40MG/0.4ML SYRINGE 40 MG SQ (08:35)
[2023-11-02] MEDS: QULIPTA 60 MG 60 EACH PO (08:35)
--- NOTE | 2023-11-02 09:40 | XR_ITS ---
FINAL REPORT CLINICAL HISTORY: fevers FINDINGS: TWO-VIEW CHEST The heart size is normal. The patient is status post median sternotomy. The lungs are clear. There is no pneumothorax. IMPRESSION: No acute cardiopulmonary process. Reviewed, Interpreted and Dictated by Pola Bashir III, MD Transcribed by Ny Roy Authenticated and [facility]
--- NOTE | 2023-11-02 09:56 | HMH.OTEV ---
OT Inpatient Evaluation Rehab OT IP Evaluation Start: 11/02/23 08:47 Freq: ONCE Status: Active Protocol: Document 11/02/23 09:51 ANDRZEJMARILEE (Rec: 11/02/23 09:55 MOHAN [id number]) Rehab OT IP Assessment Subjective History Patient is a 58-year-old male with past medical history of ALS hypertension hyperlipidemia who presents to the hospital due to difficulty in his speech, persistent dizziness according to the patient he has been having nausea vomiting dizziness, left facial droop and change in his speech. He denied chest pain shortness of breath, fevers chills. 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 No mass effect or acute hemorrhage. Patient lives in 1 story home with no DELBERT with girlfriend. I with ADLs and fx'l mobility. Subjective I can get up. Instructed Patient on proper hand and foot placement to complete bed mobility, transfers, fx'l mobility within environment with needing Mod A x2. Patient demonstrated poor+ dynamic standing balance with posterior tilt. Objective Patient Orientation Person,Place,Name,Age,Birthday ,Year Right Upper Extremity Gross ROM WFL Left Upper Extremity Gross ROM WFL Bed Mobility bed mobility - supine/sit Assist Level Moderate x 2 (50% assist) Transfer Training Sit/Stand/Pivot Transfer Assist Level Moderate x 2 (50% assist) Chair Transfer Ability Moderate x 2 (50% assist) Chair Transfer Technique Sit to/from Ambulatory Chair Transfer Assistive Devices None Rehab OT IP prob,goals,plan Problems Date of Evaluation: 11/02/23 OT IP Problems Bed Mobility,Transfers,Balance ,Self care,Safety Rehab Potential Rehab Potential Good Equipment Needs Assistive Devices None / NA Plan OT intervention Plan Bed Mobility,Transfers,Balance ,Self care,Safety,Therapeutic Exercise OT Plan Frequency Daily Duration LOS Discharge Goals Bed Mobility Ability Assistance x1 Sit to Stand Chair Transfer Ability Moderate x 1 (50% assist) Chair Transfer Ability Moderate x 1 (50% assist) Chair Transfer Technique Sit to/from Ambulatory Chair Transfer Assistive Devices None Discharge Plan OT Discharge Plan Recommend intensive rehab therapy such as [facility] for rehabilitation. Patient will require increase amount of assistance for transfers, ambulation and ADLs. Continue OT skilled services while here at [facility]. Eval Complexity Eval Charge Codes 58718 - Low Complexity PHYSICIAN CERTIFICATION: I certify the specified therapy services for Severo Amin are required, authorized, and reviewed every 30 days.
--- NOTE | 2023-11-02 10:09 | SW/DCPLANNER ---
Addendum entered by [facility] 11/07/23 08:09: Patient will discharge to [facility] today. I have updated patient's nurse that patient will need to be at [facility] at earliest convince per [facility] request. Addendum entered by [facility] 11/06/23 13:17: Per [facility] patient has been approved for [facility] Unit. MD plans to discharge patient tomorrow morning. I have updated Lolis maher/ [facility]. [facility] report phone number: [phone] BIU fax number: [phone] Addendum entered by [facility] 11/05/23 13:06: Per [facility]olis maher/ [facility] precert is still pending at this time. Addendum entered by [facility] 11/05/23 08:40: Updated patient information has been faxed to Lolis maher/ [facility] this AM. Addendum entered by [facility] 11/02/23 14:53: Lolis maher/ [facility] stated that she is able to accept patient pending precert. Precert will be started today. I have updated patient/family. Lolis does not expect to get approval till first of next week from insurance. Original Note: I spoke w/ this patient regarding plans once medically stable for discharge. PT/OT evaluated patient and recommended SNF preferably [facility]. I spoke w/ patient and his girlfriend this AM regarding placement at [facility]. Patient is agreeable and information will be faxed this AM. I will follow up w/ Lolis at [facility] once information is reviewed. Discharge date is unknown at this time.
--- NOTE | 2023-11-02 10:11 | HMH.PTEV ---
Physical Therapy Evaluation Rehab PT IP Evaluation Start: 11/02/23 08:48 Freq: ONCE Status: Active Protocol: Document 11/02/23 09:59 BILL (Rec: 11/02/23 10:11 BILL [id number]) Subjective/History History History Per H&P: Patient is a 58-year- old male with past medical history of ALS hypertension hyperlipidemia who presents to the hospital due to difficulty in his speech, persistent dizziness according to the patient he has been having nausea vomiting dizziness, left facial droop and change in his speech. He denied chest pain shortness of breath, fevers chills. Subjective Subjective Pt lives with his girlfriend and was IND prior to admission . Pt's girlfriend is around during the day to assist as needed. Pt reports increased difficulty with ambulation. Pt has a history of falling d/t BLE weakness and tremors. Pt does not use an AD d/t his tremors. New diagnosis of cancer in past 12 No months? Rehab PT IP Eval Objective Appearance Patient Behavior Appropriate,Cooperative Patient Orientation Person,Situation Difficulty following instructions none Ambulation Patient Able to Ambulate Yes Ambulation Observation IP General Gait Pattern Observation Ataxic Gait,Decrease Stride Lngth (R),Decrease Stride Lngth (L) Ambulation Distance (feet) 30 Ambulation Assistive Device None Ambulation Ability Moderate x 2 (50% assist) Balance Ability to Arise Able, uses arms to help Sitting Balance Steady, safe Standing Balance Unsteady Transfers Bed Transfer Ability Minimal x 1 (25% assist) Sit to Stand Bed Transfer Ability Moderate x 1 (50% assist) Rehab PT IP prob,goals,plan Problems Date of Evaluation: 11/02/23 PT IP Problems Bed Mobility,Transfers,Gait, Balance,Safety Rehab Potential Rehab Potential Good Plan PT Intervention Plan Bed Mobility,Transfers,Gait, Balance,Safety,Therapeutic Exercise Other Intervention Plan 1-2 times PT Plan Frequency Daily Duration LOS Discharge Goals Bed Transfer Ability Independent Sit to Stand Chair Transfer Ability Minimal x 1 (25% assist) Ambulation Distance (feet) 40 Discharge Plan PT Discharge Plan Initial physical therapy evaluation performed. Patient presents below baseline at this time in functional mobility, transfers, and strength. Pt required Mod A x 2 to ambulate without AD d/t impaired balance, ataxic gait, and posterior lean. Pt not safe to return home at this time d/t current level of functional mobility and history of frequent falls. PT recommending inpatient physical rehabilitation placement stay upon d/c from [facility]. Pt would benefit from skilled PT while at [facility] to prevent further functional decline and maximize safety with mobility. Eval Complexity Eval Charge Codes 41423 - Moderate Complexity PHYSICIAN CERTIFICATION: I certify the specified therapy services for Severo Amin are required, authorized, and reviewed every 30 days.
[2023-11-02] MEDS: AMPICILLIN SODIUM/SULBACTAM 3 GM in 0.9 % SODIUM CHLORIDE 100 ML IV ×3 (10:48→21:34)
--- NOTE | 2023-11-02 13:01 | HMH.SLAPHASI ---
Speech & Language Evaluation Speech/Language Aphasia Evaluation Start: 11/02/23 12:48 Freq: once Status: Complete Protocol: Document 11/02/23 12:54 RIANKWAN (Rec: 11/02/23 13:01 KISHAMELANIAKWAN [id number]) Aphasia Assessment/Goals/Plan Assessment Date of Evaluation: 11/02/23 Evaluation Type Initial Certification Assessment/Problems stroke protocol per MD order. Does Patient Qualify for Service Yes Qualify/Failure Comment Based on clinical observations made throughout the informal cognitive-linguistic evaluation and patient/ caregiver interview, pt would benefit from skilled speech therapy services to address cog-lx deficits and motor speech 1x/week. Plan Pt will be seen # times/week 1 for # weeks 4 Anticipate reaching STG in # weeks 2 Anticipate reaching LTG in # weeks 4 Pt/Guardian verbally ack understanding Yes of dx/prognosis/goals G -code Required No STG-Attending/Orientation/Memory Delayed Recall 90 STG-Comparative/Linguistic Skills Thought Organization 90 Categorization Ability 90 STG-Intell/Buccal/Labial Strength Intelligibility 90 #Intelligibility Drills Performed/Sesson 10 Labial Strength 90 # Times Exercises Perf/Session 10 Buccal Strength 90 # Times Exercises Perf/Session 10 Philosophy Instructor Goals Increase oral motor tone to improve Yes: 90% intelligibility. Increase cognitive skills to communicate Yes: 90% w/family & friends Education Instructions provided Discussed assessment results findings and POC with pt and his , nursing, and care management all of which expressed understanding. Pt/Caregiver Able to Recall Information Able to recall/restate Reinforcement needed No Speech & Language HPI History Present Illness Description of Patient Problem PAN HELPER pulled following information from chart review and H&P: 58-year-old male with past medical history of ALS hypertension hyperlipidemia who presents to the hospital due to difficulty in his speech, persistent dizziness according to the patient he has been having nausea vomiting dizziness, left facial droop and change in his speech. No chest pain, shortness of breath, nausea, vomiting, falls, trauma came in for further evaluation. History was obtained via conversation with patient. On arrival, patient hemodynamically stable, alert, oriented x4, appropriate, GCS 15, moving all extremities spontaneously, pupils equal and reactive to light. Full physical exam performed and significant for patient has left-sided nasolabial fold flattening and states he is having difficulty saying words . Upper and lower extremities are symmetrically strong. Left-sided upper extremity drift. Brain MRI impressions reported acute infarct present in the right superior cerebellum in adjacent right brachium pontis/right dorsal midbrain. No mass effect or acute hemorrhage. No findings noted from CXR. Rehab Services Assessed Speech therapy Aphasia Evaluations Communication Speech Intelligibility reported intelligibility has reduced since stroke with notable slurred speech, ALS affecting respiratory control and breathing pattern of speech as well. 75% intelligible when context is known. Auditory Comprehension Yes: Word Level Sentences Following Directions Paragraph Conversation Verbal Expressive Language Yes: Automatic Speech Completing Sentences Repetition Abilities Word Level Naming Attending/Orientation/Memory Yes: Orientation Attention/Concentration Memory No: Delayed Recall W/ Interference AOM Comment Needed min-mod prompting for recall of nonrelated words after a 5 minute delay. Congnitive/Linguistic Skills No: Thought Organization Categorization CLS Comment Pt had difficulty with simple/ abstract concepts within divergent/convergent naming tasks. Deductive Reasoning No: Word Deductions PHYSICIAN CERTIFICATION: I certify the specified therapy services for Severo Amin are required, authorized, and reviewed every 30 days.
--- NOTE | 2023-11-02 14:34 | PC.NURSE ---
Aox 3, up with assistance times one, started on abx today, temp today of 101.6, 90's on RA, 20G L AC SL, caridac diet, pt and ot seeing, plan to go to [facility] for rehab at d/c.
--- NOTE | 2023-11-02 17:16 | EXP.PN ---
Subjective *Date: 11/02/23 *Time: 17:16 Interval history: patient was seen and evaluated at the bedside. he started having fevers overnight and feels dizzy, denies chest pain, shortness of breath, nausea, vomiting, abdominal pain. Exam Data for Last 24 hours Vital signs and Labs for Last 24 Hours: Temp Pulse Resp BP Pulse Ox O2 Del Method 102.9 F H 78 18 130/66 94 L Room Air 11/02/23 16:00 11/02/23 16:00 11/02/23 16:00 11/02/23 16:00 11/02/23 16:00 11/02/23 16:00 Laboratory Results - last 24 hr 11/01/23 18:59: Troponin I < 0.01 11/02/23 06:21: WBC 11.7 H, RBC 4.11 L, Hgb 9.8 L, Hct 31.0 L, MCV 75.4 L, MCH 23.8 L, MCHC 31.6 L, RDW 17.0, Plt Count 241, MPV 7.1 L, Neut % (Auto) 78.1, Lymph % (Auto) 14.0, [place] % (Auto) 7.4, Eos % (Auto) 0.2, Baso % (Auto) 0.3, Neut # (Auto) 9.2 H, Lymph # (Auto) 1.7, [place] # (Auto) 0.9, Eos # (Auto) 0.0, Baso # (Auto) 0.0, Sodium 133 L, Potassium 3.5, Chloride 101, Carbon Dioxide 29, Anion Gap 6.5, BUN 6 L D, Creatinine 0.80 D, Estimated Creat Clear 105, Estimated GFR 99, Est GFR ( Amer) 119 D, Glucose 103 H, Calcium 8.7 I & O for Last 24 hours: Intake & Output 10/30/23 10/31/23 11/01/23 11/02/23 23:59 23:59 23:59 23:59 Intake Total 540 / 540 1500 / 1500 Output Total 0 / 0 Balance 540 / 540 1500 / 1500 Weight 75.75 kg 75.75 kg Constitutional Constitutional: no acute distress *Routine HEENT Exam Head: Present normocephalic Eye: Present EOMI and PERRL ENT: Present mucous membranes moist *Routine Neck Exam Neck: Present supple; Absent lymphadenopathy *Routine Respiratory Exam Respiratory: Present CTA bilaterally *Routine Cardiovascular Exam Cardiovascular: Present RRR *Routine Abdominal Exam Abdominal: Present soft and normoactive bowel sounds; Absent tenderness *Routine Extremities Exam Extremities: Absent cyanosis, clubbing or edema *Routine Skin Exam Skin: Present warm; Absent rash *Routine Neurological Exam Neurological: Present alert and oriented X3 Comments: aphasia noted Assessment and Plan *Assessment and plan (1) Dizziness: Status: Acute Category: Medical Code(s): R42 - Dizziness and giddiness (2) Stroke-like symptoms: Status: Acute Category: Medical Code(s): R29.90 - Unspecified symptoms and signs involving the nervous system (3) Hypertension: Status: Acute Category: Medical Code(s): I10 - Essential (primary) hypertension (4) Hyperlipemia: Status: Acute Category: Medical Code(s): E78.5 - Hyperlipidemia, unspecified Plan Patient is a 58-year-old male with past medical history of ALS hypertension hyperlipidemia who presents to the hospital due to difficulty in his speech, persistent dizziness according to the patient he has been having nausea vomiting dizziness, left facial droop and change in his speech. He denied chest pain shortness of breath, fevers chills. Assessment and plan Left-sided facial droop, aphasia-rule out CVA History of ALS Order MRI brain without contrast Consult PT/OT Consult to speech therapy CT head performed in ED negative for acute intracranial abnormality CTA head and neck negative for acute intravascular pathology Aspirin, statin UA negative for UTI order echo cardiogram with bubble study PT/OT recommended placement for rehab Fevers - concern for aspiration check blood cultures started on unasyn check CXR - negative for any acute cardiopulmonary process History of ALS Hypertension Hyperlipidemia resume home qllipta, Plavix, atorvastatin DVT prophylaxis- lovenox
--- NOTE | 2023-11-02 19:57 | PC.NURSE ---
A/O X 4. PUPILS 3 MM, ROUND, EQUAL AND REACTIVE. DIFFICULTY WITH GAZE TO THE RIGHT. SPEECH CLEAR BUT MILD DIFFICULTY WITH ARTICULATION OF WORDS NOTED. MANAGER REPORTING STRONG, EQUAL. DRIFT TO LEFT ARM PRESENT. NO DRIFTS TO R ARM OR LEs. D/P FLEXION STRONG AND EQUAL. NO SWALLOW DIFFICULTIES. HAS EXP RHONCHI RIGHT LUNG. DRY COUGH. TEMP 101.2 ORAL. I/S ISSUED WITH INSTRUCTIONS. ENCOURAGED TO COUGH AND DEEP BREATH AND TURN. PATIENT VERBALIZES UNDERSTANDING OF INSTRUCTIONS. PATIENT CONTINUES TO C/O DIZZINESS.
[2023-11-02] MEDS: ATORVASTATIN 40MG TABLET 80 MG PO (20:26)
[2023-11-02] MEDS: ALPRAZolam 0.5MG TABLET 0.5 MG PO (20:26)
[2023-11-03] VITALS (8 sets, daily range): BP systolic 112–131; BP diastolic 54–65; PULSE 60–120; RESP 15–20; TEMP 37.2–37.9; O2SAT 93–96; BMI 19.4
[2023-11-03] MEDS: AMPICILLIN SODIUM/SULBACTAM 3 GM in 0.9 % SODIUM CHLORIDE 100 ML IV ×3 (03:44→20:12)
--- NOTE | 2023-11-03 06:33 | PC.NURSE ---
PATIENT AMBULATES TO THE BR WITH 2 ASSIST. TENDS TO PITCH BACKWARD WHILE WALKING. STILL REPORTS DIZZINESS. TEMP THIS AM 100.1. ENCOURAGED TO USE I/S.
[2023-11-03 07:14] LABS: Basophils % 0.4 % (0.1-2.0); Eosinophils % 0.3 % (0.1-12.0); Hematocrit 29.7 % (42.0-52.0); Hemoglobin 9.3 g/dL (14.1-18.0); Lymphocytes # 1.5 K/mm3 (0.7-4.5); Lymphocytes % 15.6 % (10-50); Mean Corpuscular HGB Conc 31.2 g/dL (31.8-35.4); Mean Corpuscular Hemoglobin 23.1 pg (27.0-31.2); Mean Platelet Volume 7.7 fl (7.4-10.4); Monocytes # 0.6 K/mm3 (0.1-1.0); Monocytes % 6.4 % (1.7-9.3); Neutrophils # 7.6 K/mm3 (1.8-7.8); Neutrophils % 77.3 % (37.0-80.0); Platelet Count 301 K/mm3 (142-424); Red Blood Count 4.02 M/mm3 (4.60-6.20); Red Cell Distribution Width 16.7 % (11.5-17.5); White Blood Count 9.8 K/mm3 (4.8-10.8)
[2023-11-03 07:34] LABS: Anion Gap 5.9 mEq/L (5-15); Blood Urea Nitrogen 6 mg/dl (9-20); Calcium 8.6 mg/dl (8.4-10.2); Carbon Dioxide 29 mmol/L (22.0-30.0); Chloride 96 mmol/L (98-107); Creatinine Clearance Estimated 135 mL/min (50-200); Estimated Glomerular Filt Rate 137 ml/min (>60); GFR (African American) 166 ML/MIN (>60); Glucose 117 mg/dl (74-100); Sodium 128 mmol/L (136-145)
[2023-11-03 07:36] LABS: Potassium 2.9 mmoL/L (3.5-5.1)
[2023-11-03] MEDS: QULIPTA 60 MG 60 EACH PO (08:30)
[2023-11-03] MEDS: ENOXAPARIN 40MG/0.4ML SYRINGE 40 MG SQ (08:32)
[2023-11-03] MEDS: BACLOFEN 10MG TABLET 20 MG PO ×3 (08:32→20:14)
[2023-11-03] MEDS: METOPROLOL SUCCINATE XL 25MG TABLET 25 MG PO (08:33)
[2023-11-03] MEDS: IRBESARTAN 150MG TAB 150 MG PO (08:33)
[2023-11-03] MEDS: AMLODIPINE 10MG TABLET 10 MG PO (08:34)
[2023-11-03] MEDS: ASPIRIN EC 81MG TABLET 81 MG PO (08:34)
[2023-11-03] MEDS: hydroCHLOROthiazide 25MG TABLET 25 MG PO (08:34)
[2023-11-03] MEDS: CLOPIDOGREL 75MG TAB 75 MG PO (08:35)
[2023-11-03] MEDS: FUROSEMIDE 20MG TABLET 20 MG PO (08:35)
[2023-11-03] MEDS: GABAPENTIN 600MG TABLET 600 MG PO ×3 (08:36→20:14)
[2023-11-03] MEDS: CITALOPRAM 40MG TABLET 40 MG PO (08:36)
[2023-11-03] MEDS: KCl 20mEq/100ml 100 ML 50 MEQ IV (10:00)
--- NOTE | 2023-11-03 15:01 | EXP.PN ---
Subjective *Date: 11/03/23 *Time: 15:01 Interval history: patient was seen and evaluated at the bedside. He started having fevers overnight and feels dizzy, denies chest pain, shortness of breath, nausea, vomiting, abdominal pain. she had no acute events overnight Exam Data for Last 24 hours Vital signs and Labs for Last 24 Hours: Temp Pulse Resp BP Pulse Ox O2 Del Method 99.6 F 80 15 120/62 93 L Room Air 11/03/23 07:44 11/03/23 12:00 11/03/23 07:44 11/03/23 07:44 11/03/23 07:44 11/03/23 13:00 Laboratory Results - last 24 hr 11/03/23 06:40: WBC 9.8, RBC 4.02 L, Hgb 9.3 L, Hct 29.7 L, MCV 74.0 L, MCH 23.1 L, MCHC 31.2 L, RDW 16.7, Plt Count 301, MPV 7.7, Neut % (Auto) 77.3, Lymph % (Auto) 15.6, [place] % (Auto) 6.4, Eos % (Auto) 0.3, Baso % (Auto) 0.4, Neut # (Auto) 7.6, Lymph # (Auto) 1.5, [place] # (Auto) 0.6, Eos # (Auto) 0.0, Baso # (Auto) 0.0, Sodium 128 L, Potassium 2.9 L*, Chloride 96 L, Carbon Dioxide 29, Anion Gap 5.9, BUN 6 L, Creatinine 0.60 L D, Estimated Creat Clear 135, Estimated GFR 137, Est GFR ( Amer) 166 D, Glucose 117 H, Calcium 8.6 I & O for Last 24 hours: Intake & Output 10/31/23 11/01/23 11/02/23 11/03/23 23:59 23:59 23:59 23:59 Intake Total 540 / 540 1840 / 1840 300 / 300 Output Total 0 / 0 0 / 0 Balance 540 / 540 1840 / 1840 300 / 300 Weight 75.75 kg 75.75 kg 73.057 kg Microbiology Reports for the Last 24 Hours: Microbiology 11/02/23 10:35 Blood Blood Culture - Preliminary NO GROWTH AFTER 24 HOURS 11/02/23 10:32 Blood Blood Culture - Preliminary NO GROWTH AFTER 24 HOURS Constitutional Constitutional: no acute distress *Routine HEENT Exam Head: Present normocephalic Eye: Present EOMI and PERRL ENT: Present mucous membranes moist *Routine Neck Exam Neck: Present supple; Absent lymphadenopathy *Routine Respiratory Exam Respiratory: Present CTA bilaterally *Routine Cardiovascular Exam Cardiovascular: Present RRR *Routine Abdominal Exam Abdominal: Present soft and normoactive bowel sounds; Absent tenderness *Routine Extremities Exam Extremities: Absent cyanosis, clubbing or edema *Routine Skin Exam Skin: Present warm; Absent rash *Routine Neurological Exam Neurological: Present alert and oriented X3 Assessment and Plan *Assessment and plan (1) Dizziness: Status: Acute Category: Medical Code(s): R42 - Dizziness and giddiness (2) Stroke-like symptoms: Status: Acute Category: Medical Code(s): R29.90 - Unspecified symptoms and signs involving the nervous system (3) Hypertension: Status: Acute Category: Medical Code(s): I10 - Essential (primary) hypertension (4) Hyperlipemia: Status: Acute Category: Medical Code(s): E78.5 - Hyperlipidemia, unspecified Plan Patient is a 58-year-old male with past medical history of ALS hypertension hyperlipidemia who presents to the hospital due to difficulty in his speech, persistent dizziness according to the patient he has been having nausea vomiting dizziness, left facial droop and change in his speech. He denied chest pain shortness of breath, fevers chills. Assessment and plan Left-sided facial droop, aphasia-rule out CVA History of ALS Order MRI brain without contrast Consult PT/OT Consult to speech therapy CT head performed in ED negative for acute intracranial abnormality CTA head and neck negative for acute intravascular pathology Aspirin, statin UA negative for UTI order echo cardiogram with bubble study PT/OT recommended placement for rehab Fevers - concern for aspiration check blood cultures started on unasyn check CXR - negative for any acute cardiopulmonary process History of ALS Hypertension Hyperlipidemia resume home qllipta, Plavix, atorvastatin DVT prophylaxis- lovenox
[2023-11-03] MEDS: ACETAMINOPHEN 325MG TAB 650 MG PO (15:51)
--- NOTE | 2023-11-03 16:00 | PC.NURSE ---
Made nurse aware of high temperature
--- NOTE | 2023-11-03 18:37 | PC.NURSE ---
pt has been lying in bed resting throughout shift. pt didnt complain of any pain throughout shift. his temperature was 100.2 at 1600, and was treated per MAY and a cool wash cloth applied. pt ambulated with PT, gait unsteady. K+ level was 2.9 this AM, notified, treated per MAY. pt is currently resting at this time, call light within reach, no further requests at this time.
[2023-11-03] MEDS: ALPRAZolam 0.5MG TABLET 0.5 MG PO (20:14)
[2023-11-03] MEDS: ATORVASTATIN 40MG TABLET 80 MG PO (20:14)
[2023-11-04] VITALS (16 sets, daily range): BP systolic 89–141; BP diastolic 39–75; PULSE 58–91; RESP 14–23; TEMP 36.8–37.7; O2SAT 93–97; BMI 19.8
[2023-11-04] MEDS: AMPICILLIN SODIUM/SULBACTAM 3 GM in 0.9 % SODIUM CHLORIDE 100 ML IV ×4 (01:42→20:27)
--- NOTE | 2023-11-04 05:36 | PC.NURSE ---
Pt is alert and oriented x4 and currently tolerating RA well. Pt speech remains slurred but understandable. Pt also remains afebrile and is tolerating antibiotics well. Pt has rested well this shift, denies pain and needs and has had no other acute changes to note this shift.
[2023-11-04 07:34] LABS: Basophils # 0.1 K/mm3 (0-0.2); Basophils % 0.7 % (0.1-2.0); Eosinophils # 0.1 K/mm3 (0.0-0.4); Eosinophils % 0.6 % (0.1-12.0); Hematocrit 29.3 % (42.0-52.0); Hemoglobin 9.4 g/dL (14.1-18.0); Lymphocytes # 1.2 K/mm3 (0.7-4.5); Mean Corpuscular HGB Conc 32.1 g/dL (31.8-35.4); Mean Corpuscular Hemoglobin 23.6 pg (27.0-31.2); Mean Corpuscular Volume 73.5 fl (80-94); Mean Platelet Volume 7.6 fl (7.4-10.4); Monocytes # 0.6 K/mm3 (0.1-1.0); Neutrophils # 5.9 K/mm3 (1.8-7.8); Neutrophils % 75.7 % (37.0-80.0); Platelet Count 355 K/mm3 (142-424); Red Blood Count 3.98 M/mm3 (4.60-6.20); Red Cell Distribution Width 16.6 % (11.5-17.5); White Blood Count 7.8 K/mm3 (4.8-10.8)
[2023-11-04 07:42] LABS: Chloride 95 mmol/L (98-107); Sodium 125 mmol/L (136-145)
[2023-11-04 07:43] LABS: Potassium 3.4 mmoL/L (3.5-5.1)
[2023-11-04 07:45] LABS: Blood Urea Nitrogen 5 mg/dl (9-20); Creatinine Clearance Estimated 118 mL/min (50-200); Estimated Glomerular Filt Rate 115 ml/min (>60); GFR (African American) 139 ML/MIN (>60)
[2023-11-04 07:46] LABS: Anion Gap 5.4 mEq/L (5-15); Calcium 8.5 mg/dl (8.4-10.2); Carbon Dioxide 28 mmol/L (22.0-30.0); Glucose 104 mg/dl (74-100)
[2023-11-04] MEDS: CITALOPRAM 40MG TABLET 40 MG PO (08:18)
[2023-11-04] MEDS: BACLOFEN 10MG TABLET 20 MG PO ×2 (08:18→20:29)
[2023-11-04] MEDS: ASPIRIN EC 81MG TABLET 81 MG PO (08:18)
[2023-11-04] MEDS: QULIPTA 60 MG 60 EACH PO (08:18)
[2023-11-04] MEDS: AMLODIPINE 10MG TABLET 10 MG PO (08:18)
[2023-11-04] MEDS: ENOXAPARIN 40MG/0.4ML SYRINGE 40 MG SQ (08:19)
[2023-11-04] MEDS: GABAPENTIN 600MG TABLET 600 MG PO ×2 (08:19→20:30)
[2023-11-04] MEDS: FUROSEMIDE 20MG TABLET 20 MG PO (08:19)
[2023-11-04] MEDS: METOPROLOL SUCCINATE XL 25MG TABLET 25 MG PO (08:19)
[2023-11-04] MEDS: hydroCHLOROthiazide 25MG TABLET 25 MG PO (08:19)
[2023-11-04] MEDS: CLOPIDOGREL 75MG TAB 75 MG PO (08:19)
[2023-11-04] MEDS: IRBESARTAN 150MG TAB 150 MG PO (08:19)
[2023-11-04] MEDS: ACETAMINOPHEN 325MG TAB 650 MG PO ×2 (08:24→20:37)
--- NOTE | 2023-11-04 12:12 | CT_ITS ---
PROCEDURE INFORMATION: Exam: CT Head Without Contrast Exam date and time: 11/04/2023 12:48 PM Age: 58 years old Clinical indication: Injury or trauma; Additional info: Fall TECHNIQUE: Imaging protocol: Computed tomography of the head without contrast. Radiation optimization: All CT scans at this facility use at least one of these dose optimization techniques: automated exposure control; mA and/or kV adjustment per patient size (includes targeted exams where dose is matched to clinical indication); or iterative reconstruction. COMPARISON: 1. MR HEAD/BRAIN WO CON 11/01/2023 5:[address] HEAD/BRAIN WO CON 08/17/2023 7:15 PM FINDINGS: Brain: No hemorrhages. Low-density infarctions in the right central cerebellum and right posterior lupis are unchanged in size compared to MRI dated 11/01/2023. Old low-density infarction in the lateral right temporal lobe is unchanged since 08/17/2023. No significant vasogenic edema or mass effects. No new intra-axial or extra-axial lesions or masses. Cerebral ventricles: No ventriculomegaly. Paranasal sinuses: Visualized sinuses are well aerated. No fluid levels. Mastoid air cells: Visualized mastoid air cells are well aerated. Bones: No acute fractures or bone lesions. Soft tissues: No abnormalities. IMPRESSION: 1. No acute intracranial abnormalities or interval changes. 2. Recent right cerebellum and right posterolateral brainstem infarctions are unchanged since 11/01/2023. 3. 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
--- NOTE | 2023-11-04 12:25 | PC.NURSE ---
pt had a syncopal episode while attempting to ambulate back from the bathroom. staff assisted him to the bed. contacted.
--- NOTE | 2023-11-04 12:45 | PC.NURSE ---
pt off floor with radiology
--- NOTE | 2023-11-04 16:54 | EXP.PN ---
Subjective *Date: 11/04/23 *Time: 16:54 Interval history: patient was seen and evaluated at the bedside. He feels dizzy, denies chest pain, shortness of breath, nausea, vomiting, abdominal pain. she had no acute events overnight He had fall today around noon, and he hit his head - CT head was ordered Exam Data for Last 24 hours Vital signs and Labs for Last 24 Hours: Temp Pulse Resp BP Pulse Ox O2 Del Method 98.3 F 63 14 117/69 96 Room Air 11/04/23 15:31 11/04/23 15:31 11/04/23 15:31 11/04/23 15:31 11/04/23 15:31 11/04/23 16:27 Laboratory Results - last 24 hr 11/04/23 07:20: WBC 7.8, RBC 3.98 L, Hgb 9.4 L, Hct 29.3 L, MCV 73.5 L, MCH 23.6 L, MCHC 32.1, RDW 16.6, Plt Count 355, MPV 7.6, Neut % (Auto) 75.7, Lymph % (Auto) 15.0, [place] % (Auto) 8.0, Eos % (Auto) 0.6, Baso % (Auto) 0.7, Neut # (Auto) 5.9, Lymph # (Auto) 1.2, [place] # (Auto) 0.6, Eos # (Auto) 0.1, Baso # (Auto) 0.1, Sodium 125 L, Potassium 3.4 L, Chloride 95 L, Carbon Dioxide 28, Anion Gap 5.4, BUN 5 L, Creatinine 0.70, Estimated Creat Clear 118, Estimated GFR 115, Est GFR ( Amer) 139, Glucose 104 H, Calcium 8.5 I & O for Last 24 hours: Intake & Output 11/01/23 11/02/23 11/03/23 11/04/23 23:59 23:59 23:59 23:59 Intake Total 540 / 540 1840 / 1840 1000 / 1100 1030 / 1030 Output Total 0 / 0 0 / 0 0 / 0 Balance 540 / 540 1840 / 1840 1000 / 1100 1030 / 1030 Weight 75.75 kg 75.75 kg 73.057 kg 74.571 kg Microbiology Reports for the Last 24 Hours: Microbiology 11/02/23 10:32 Blood Blood Culture - Preliminary 11/02/23 10:35 Blood Blood Culture - Preliminary Constitutional Constitutional: no acute distress *Routine HEENT Exam Head: Present normocephalic Eye: Present EOMI and PERRL ENT: Present mucous membranes moist *Routine Neck Exam Neck: Present supple; Absent lymphadenopathy *Routine Respiratory Exam Respiratory: Present CTA bilaterally *Routine Cardiovascular Exam Cardiovascular: Present RRR *Routine Abdominal Exam Abdominal: Present soft and normoactive bowel sounds; Absent tenderness *Routine Extremities Exam Extremities: Absent cyanosis, clubbing or edema *Routine Skin Exam Skin: Present warm; Absent rash *Routine Neurological Exam Neurological: Present alert and oriented X3 Assessment and Plan *Assessment and plan (1) Dizziness: Status: Acute Category: Medical Code(s): R42 - Dizziness and giddiness (2) Stroke-like symptoms: Status: Acute Category: Medical Code(s): R29.90 - Unspecified symptoms and signs involving the nervous system (3) Hypertension: Status: Acute Category: Medical Code(s): I10 - Essential (primary) hypertension (4) Hyperlipemia: Status: Acute Category: Medical Code(s): E78.5 - Hyperlipidemia, unspecified Plan Patient is a 58-year-old male with past medical history of ALS hypertension hyperlipidemia who presents to the hospital due to difficulty in his speech, persistent dizziness according to the patient he has been having nausea vomiting dizziness, left facial droop and change in his speech. He denied chest pain shortness of breath, fevers chills. Assessment and plan Left-sided facial droop, aphasia-rule out CVA History of ALS Order MRI brain without contrast - positive for posterior circulation CVA Consult PT/OT Consult to speech therapy CT head performed in ED negative for acute intracranial abnormality CTA head and neck negative for acute intravascular pathology Aspirin, statin UA negative for UTI order echo cardiogram with bubble study PT/OT recommended placement for rehab - awaiting insurance approval Fall CT head negative for head bleed Fevers - concern for aspiration check blood cultures - NGTD continue on unasyn check CXR - negative for any acute cardiopulmonary process History of ALS Hypertension Hyperlipidemia resume home qllipta, Plavix, atorvastatin DVT prophylaxis- lovenox await placement in [facility]
--- NOTE | 2023-11-04 18:24 | PC.NURSE ---
pt has done well this afternoon. no additional syncopal episodes noted as the shift has progressed. his vs have remained stable and he has been afebrile since tylenol this am.
[2023-11-04] MEDS: ATORVASTATIN 40MG TABLET 80 MG PO (20:29)
[2023-11-04] MEDS: ALPRAZolam 0.5MG TABLET 0.5 MG PO (20:29)
[2023-11-05] VITALS (7 sets, daily range): BP systolic 99–129; BP diastolic 49–69; PULSE 59–76; RESP 16–22; TEMP 36.7–38.1; O2SAT 94–95
[2023-11-05] MEDS: AMPICILLIN SODIUM/SULBACTAM 3 GM in 0.9 % SODIUM CHLORIDE 100 ML IV ×4 (01:48→18:34)
--- NOTE | 2023-11-05 06:24 | PC.NURSE ---
Pt is alert and oriented x4 and currently tolerating RA well. Pt is still very unstable when walking to BR and requires x2 nursing staff to ambulate. Pt did run a low grade temp this shift and was treated per MAR, pt remains afebrile since treatment. Pt has rested well this shift and denies pain. Pt bed alarm is set and working at this time Pt denies needs and has had no other acute changes to note this shift.
[2023-11-05] MEDS: ENOXAPARIN 40MG/0.4ML SYRINGE 40 MG SQ (09:20)
[2023-11-05] MEDS: GABAPENTIN 600MG TABLET 600 MG PO ×3 (09:21→21:16)
[2023-11-05] MEDS: CLOPIDOGREL 75MG TAB 75 MG PO (09:21)
[2023-11-05] MEDS: hydroCHLOROthiazide 25MG TABLET 25 MG PO (09:21)
[2023-11-05] MEDS: QULIPTA 60 MG 60 EACH PO (09:21)
[2023-11-05] MEDS: ASPIRIN EC 81MG TABLET 81 MG PO (09:21)
[2023-11-05] MEDS: FUROSEMIDE 20MG TABLET 20 MG PO (09:21)
[2023-11-05] MEDS: BACLOFEN 10MG TABLET 20 MG PO ×3 (09:21→21:16)
[2023-11-05] MEDS: AMLODIPINE 10MG TABLET 10 MG PO (09:21)
[2023-11-05] MEDS: IRBESARTAN 150MG TAB 150 MG PO (09:21)
[2023-11-05] MEDS: METOPROLOL SUCCINATE XL 25MG TABLET 25 MG PO (09:21)
[2023-11-05] MEDS: CITALOPRAM 40MG TABLET 40 MG PO (09:21)
[2023-11-05] MEDS: 0.9 % SODIUM CHLORIDE 1000ML 500 ML 999 ML IV (11:14)
--- NOTE | 2023-11-05 13:59 | P.PN_ITS ---
Subjective *Date: 11/05/23 *Time: 13:59 Interval history: seen in person, sitting in chair, no acute events overnight, denied CP, SOB Exam Data for Last 24 hours Vital signs and Labs for Last 24 Hours: Temp Pulse Resp BP Pulse Ox O2 Del Method 98.0 F 64 18 119/64 94 L Room Air 11/05/23 12:00 11/05/23 12:00 11/05/23 12:00 11/05/23 12:00 11/05/23 12:00 11/05/23 12:00 I & O for Last 24 hours: Intake & Output 11/02/23 11/03/23 11/04/23 11/05/23 23:59 23:59 23:59 23:59 Intake Total 1840 / 1840 1000 / 1100 1230 / 1450 800 / 800 Output Total 0 / 0 0 / 0 0 / 0 0 / 0 Balance 1840 / 1840 1000 / 1100 1230 / 1450 800 / 800 Weight 75.75 kg 73.057 kg 74.571 kg 75.438 kg Microbiology Reports for the Last 24 Hours: Microbiology 11/02/23 10:32 Blood Blood Culture - Final Staphylococcus epidermidis 11/02/23 10:35 Blood Blood Culture - Final Staphylococcus epidermidis Constitutional Constitutional: no acute distress *Routine HEENT Exam Head: Present normocephalic Eye: Present EOMI and PERRL ENT: Present mucous membranes moist *Routine Neck Exam Neck: Present supple; Absent lymphadenopathy *Routine Respiratory Exam Respiratory: Present CTA bilaterally *Routine Cardiovascular Exam Cardiovascular: Present RRR *Routine Abdominal Exam Abdominal: Present soft and normoactive bowel sounds; Absent tenderness *Routine Extremities Exam Extremities: Absent cyanosis, clubbing or edema *Routine Skin Exam Skin: Present warm; Absent rash *Routine Neurological Exam Neurological: Present alert and oriented X3 Assessment and Plan *Assessment and plan (1) Dizziness: Status: Acute Category: Medical Code(s): R42 - Dizziness and giddiness (2) Stroke-like symptoms: Status: Acute Category: Medical Code(s): R29.90 - Unspecified symptoms and signs involving the nervous system (3) Hypertension: Status: Acute Category: Medical Code(s): I10 - Essential (primary) hypertension (4) Hyperlipemia: Status: Acute Category: Medical Code(s): E78.5 - Hyperlipidemia, unspecified Plan Patient is a 58-year-old male with past medical history of ALS hypertension h yperlipidemia who presents to the hospital due to difficulty in his speech, persistent dizziness according to the patient he has been having nausea vomiting dizziness, left facial droop and change in his speech. He denied chest pain shortness of breath, fevers chills. Assessment and plan Left-sided facial droop, aphasia-rule out CVA History of ALS Order MRI brain without contrast - positive for posterior circulation CVA Consult PT/OT Consult to speech therapy CT head performed in ED negative for acute intracranial abnormality CTA head and neck negative for acute intravascular pathology Aspirin, statin UA negative for UTI order echo cardiogram with bubble study - negative for PFO, does show MV prolapse, LVEF is 60% PT/OT recommended placement for rehab - awaiting insurance approval Fall in hospital CT head negative for head bleed Fevers - concern for aspiration, fevers resolved check blood cultures - NGTD continue on unasyn check CXR - negative for any acute cardiopulmonary process History of ALS Hypertension Hyperlipidemia resume home qllipta, Plavix, atorvastatin DVT prophylaxis- lovenox await placement in [facility] 1-2 days for rehab
--- NOTE | 2023-11-05 16:15 | PC.NURSE ---
Patient a&ox4 and vss. Patient unsteady on feet and is calling out for assistance with ambulation. Patient tolerating antibiotics.
[2023-11-05 17:13] LABS: Anion Gap 5.3 mEq/L (5-15); Blood Urea Nitrogen 11 mg/dl (9-20); Calcium 8.7 mg/dl (8.4-10.2); Carbon Dioxide 32 mmol/L (22.0-30.0); Chloride 95 mmol/L (98-107); Creatinine Clearance Estimated 120 mL/min (50-200); Estimated Glomerular Filt Rate 115 ml/min (>60); GFR (African American) 139 ML/MIN (>60); Glucose 106 mg/dl (74-100); Potassium 3.3 mmoL/L (3.5-5.1); Sodium 129 mmol/L (136-145)
--- NOTE | 2023-11-05 17:19 | CA_ITS ---
APPROVED REPORT EXAM: Comprehensive 2D, Doppler, and color-flow Echocardiogram Purchasing Officer: Gina Jin CRT Ht: 6 ft 4 in Wt: 167lbs BSA: 2.05 BP: 133/68 mmHg Indications: CVA/TIA, Dizziness and Vertigo, CABG, Left sided facial droop B/S ordered Echo Enhancing Agent Indication: Rule out Shunt Agent(s) / Amount(s) Used: Agitated Saline 5 cc Comments: B/S appears negative 2D Dimensions LA Volume 68.20 mL LA Volume Index 32.50 mL/m2 (M/F) 16-34 M-Mode Dimensions RVDd 4.14 cm (0.9-2.6) LA Diam 4.29 cm (1.9-4.0) LVDd 4.51 cm (3.5-5.7) LVDs 2.98 cm (3.5-5.7) IVSd 1.57 cm (0.6-1.1) PWd 1.41 cm (0.6-1.1) EF (Teich) 63.00% FS 33.90% EDV (Teich) 92.90 mL TAPSE 1.33 (<1.7) ESV (Teich) 34.40 mL LV Diastology E Decel Time 180 (160-240 msec) E/A Ratio 1.63 MED A' 10.80 cm/s LAT A' 11.00 cm/s Aortic Valve AO Peak GR. 9.00 mmHg Mitral Valve MV E Max J Luis. 126.0 (40-130 cm/s) MV A Velocity 77.0 (40-130 cm/s) E/A Ratio 1.63 MV PHT 53.0 ms Pulmonary Valve PV Peak Velocity 124.0 (50-150 cm/s) Tricuspid Valve TR P. Velocity 206.00 cm/s RAP Estimate 10.00 mmHg RVSP 27.10 mmHg Left Ventricle The left ventricle is normal size. The left ventricular systolic function is normal. The left ventricular ejection fraction is within the normal range. There is increased LV wall thickness. There is normal LV segmental wall motion. Diastolic function is indeterminate. LVEF is 60%. Right Ventricle The right ventricle is normal size. The right ventricular systolic function is normal. Atria Left atrium is mildly dilated. Right atrium is mildly dilated. There is no Doppler evidence of interatrial shunt. Agitated saline administration (bubble study) demonstrates no migration of bubbles from the RA into the LA. Aortic Valve The aortic valve is mildly thickened. There is no aortic valvular stenosis. Trace aortic regurgitation. Mitral Valve There is suspected prolapse of the anterior MV leaflet. No evidence of mitral annular disjunction. No evidence of mitral valve stenosis. Severe mitral regurgitation. The MR jet is eccentric and posteriorly directed, opposite direction of the anterior MV proapse. The mechanism of MR is likely due to prolapsing of the anterior MV leaflet (Sean class II). Tricuspid Valve The tricuspid valve leaflets are thin and pliable. Trace tricuspid regurgitation. There is insufficient TR jet to estimate RVSP. Pulmonic Valve The pulmonary valve is normal in structure. Mild pulmonic regurgitation. Great Vessels The aortic root is normal in size. The ascending aorta is not well visualized. IVC is normal in size and collapses >50% with inspiration. Pericardium There is no pericardial effusion. Other Information Study Quality: Fair Conclusion Normal biventricular systolic function. Biatrial dilation. Suspected anterior MV prolapse. Severe MR is present with eccentric posterior jet (Sean class II in the setting of anterior MV prolapse). Mild PI. No Doppler evidence of interatrial shunt. Agitated saline administration (bubble study) demonstrates absence of migration of bubbles from the RA into the LA (i.e. bubbles study not suggestive of interatrial shunt). In the setting of suspected anterior MV prolapse and severe MR, further outpatient evaluation with NAVEEN is recommended. Electronically signed by : Britni Maldonado MD 11/05/2023 09:38:59
[2023-11-05] MEDS: ALPRAZolam 0.5MG TABLET 0.5 MG PO (21:15)
[2023-11-05] MEDS: ATORVASTATIN 40MG TABLET 80 MG PO (21:16)
[2023-11-06] VITALS (8 sets, daily range): BP systolic 94–125; BP diastolic 38–81; PULSE 59–70; RESP 16–18; TEMP 36.5–37.7; O2SAT 95–98; BMI 19.8
[2023-11-06] MEDS: AMPICILLIN SODIUM/SULBACTAM 3 GM in 0.9 % SODIUM CHLORIDE 100 ML IV ×4 (00:47→19:04)
--- NOTE | 2023-11-06 04:52 | PC.NURSE ---
pt alert and oriented x4, sr on monitor, adequate uop, pt requires x2 assist to br for shuffling gait. no c/o verbalized. low grade fever of 100.6. not treated. then 99.3 and 99.8. will cont to follow poc
[2023-11-06] MEDS: ACETAMINOPHEN 325MG TAB 650 MG PO ×2 (04:57→09:49)
[2023-11-06 07:13] LABS: Anion Gap 4.9 mEq/L (5-15); Blood Urea Nitrogen 7 mg/dl (9-20); Calcium 8.5 mg/dl (8.4-10.2); Carbon Dioxide 29 mmol/L (22.0-30.0); Chloride 98 mmol/L (98-107); Creatinine Clearance Estimated 138 mL/min (50-200); Estimated Glomerular Filt Rate 137 ml/min (>60); GFR (African American) 166 ML/MIN (>60); Glucose 98 mg/dl (74-100); Sodium 129 mmol/L (136-145)
[2023-11-06 07:18] LABS: Potassium 2.9 mmoL/L (3.5-5.1)
[2023-11-06 07:31] LABS: Basophils % 0.8 % (0.1-2.0); Eosinophils # 0.2 K/mm3 (0.0-0.4); Eosinophils % 3.3 % (0.1-12.0); Hematocrit 29.2 % (42.0-52.0); Hemoglobin 9.2 g/dL (14.1-18.0); Lymphocytes # 1.6 K/mm3 (0.7-4.5); Lymphocytes % 27.5 % (10-50); Mean Corpuscular HGB Conc 31.5 g/dL (31.8-35.4); Mean Corpuscular Hemoglobin 23.4 pg (27.0-31.2); Mean Corpuscular Volume 74.2 fl (80-94); Mean Platelet Volume 7.3 fl (7.4-10.4); Monocytes # 0.6 K/mm3 (0.1-1.0); Monocytes % 9.9 % (1.7-9.3); Neutrophils # 3.4 K/mm3 (1.8-7.8); Neutrophils % 58.6 % (37.0-80.0); Platelet Count 381 K/mm3 (142-424); Red Blood Count 3.93 M/mm3 (4.60-6.20); Red Cell Distribution Width 16.8 % (11.5-17.5); White Blood Count 5.7 K/mm3 (4.8-10.8)
[2023-11-06] MEDS: hydroCHLOROthiazide 25MG TABLET 25 MG PO (09:49)
[2023-11-06] MEDS: GABAPENTIN 600MG TABLET 600 MG PO ×3 (09:49→21:07)
[2023-11-06] MEDS: BACLOFEN 10MG TABLET 20 MG PO ×3 (09:50→21:07)
[2023-11-06] MEDS: CLOPIDOGREL 75MG TAB 75 MG PO (09:50)
[2023-11-06] MEDS: ASPIRIN EC 81MG TABLET 81 MG PO (09:50)
[2023-11-06] MEDS: POTASSIUM CHLORIDE 20MEQ TAB 40 MEQ PO ×3 (09:50→21:08)
[2023-11-06] MEDS: IRBESARTAN 150MG TAB 150 MG PO (09:50)
[2023-11-06] MEDS: CITALOPRAM 40MG TABLET 40 MG PO (09:50)
[2023-11-06] MEDS: ENOXAPARIN 40MG/0.4ML SYRINGE 40 MG SQ (09:50)
[2023-11-06] MEDS: QULIPTA 60 MG 60 EACH PO (09:50)
[2023-11-06] MEDS: AMLODIPINE 10MG TABLET 10 MG PO (09:50)
[2023-11-06] MEDS: METOPROLOL SUCCINATE XL 25MG TABLET 25 MG PO (09:51)
--- NOTE | 2023-11-06 13:46 | EXP.ACUTE.PN ---
Subjective *Date: 11/06/23 *Time: 13:53 Interval history: Patient stable on room air. Denies any new symptoms. No nausea or vomiting. Had mild temp last night to 100.6. No clear source of any infection. No acute complaints today. Medical Exam Vital signs and Labs for Last 24 Hours: Vital Signs Temp Pulse Pulse Resp BP Pulse Ox O2 Del Method 11/06/23 12:00 97.7 F 59 L 18 94/38 L 95 Room Air 11/06/23 08:00 70 11/06/23 07:46 97.8 F 70 18 101/51 L 95 Room Air 11/06/23 06:57 Room Air 11/06/23 05:00 Room Air 11/06/23 04:00 98.1 F 63 18 120/62 97 Room Air 11/06/23 04:00 98.1 F 63 16 120/62 97 Room Air 11/06/23 04:00 70 11/06/23 03:00 Room Air 11/06/23 01:00 Room Air 11/06/23 00:00 62 11/06/23 00:00 99.8 F H 65 16 119/63 95 Room Air 11/05/23 23:06 Room Air 11/05/23 23:00 Room Air 11/05/23 21:24 99.8 F H Room Air 11/05/23 21:21 Room Air 11/05/23 21:00 Room Air 11/05/23 20:00 67 11/05/23 20:00 100.6 F H 69 18 129/69 95 Room Air 11/05/23 16:00 100.6 F H 71 18 121/59 L 94 L Room Air 11/05/23 16:00 70 Intake and Output 11/05/23 11/06/23 11/06/23 23:59 07:59 15:59 Intake Total 135 / 495 360 / 495 Output Total 0 / 0 Balance 135 / 495 360 / 495 Intake: Intake, Oral Amount 135 / 495 360 / 495 Output: Output, Urine Amount 0 / 0 Other: Number of Unmeasured Voids 1 Weight 74.435 kg Patient Weight 11/06/23 23:59 Weight 74.435 kg Laboratory Results - last 24 hr 11/05/23 16:50: Sodium 129 L, Potassium 3.3 L, Chloride 95 L, Carbon Dioxide 32 H, Anion Gap 5.3, BUN 11 D, Creatinine 0.70, Estimated Creat Clear 120, Estimated GFR 115, Est GFR ( Amer) 139, Glucose 106 H, Calcium 8.7 11/06/23 06:12: WBC 5.7 D, RBC 3.93 L, Hgb 9.2 L, Hct 29.2 L, MCV 74.2 L, MCH 23.4 L, MCHC 31.5 L, RDW 16.8, Plt Count 381, MPV 7.3 L, Neut % (Auto) 58.6, Lymph % (Auto) 27.5, [place] % (Auto) 9.9 H, Eos % (Auto) 3.3, Baso % (Auto) 0.8, Neut # (Auto) 3.4, Lymph # (Auto) 1.6, [place] # (Auto) 0.6, Eos # (Auto) 0.2, Baso # (Auto) 0.0, Sodium 129 L, Potassium 2.9 L*, Chloride 98, Carbon Dioxide 29, Anion Gap 4.9 L, BUN 7 L D, Creatinine 0.60 L, Estimated Creat Clear 138, Estimated GFR 137, Est GFR ( Amer) 166, Glucose 98, Calcium 8.5 I & O for Labs for Last 24 Hours: Intake & Output 11/03/23 11/04/23 11/05/23 11/06/23 23:59 23:59 23:59 23:59 Intake Total 1000 / 1100 1230 / 1450 800 / 800 495 / 495 Output Total 0 / 0 0 / 0 0 / 0 0 / 0 Balance 1000 / 1100 1230 / 1450 800 / 800 495 / 495 Weight 73.057 kg 74.571 kg 75.4 kg 74.435 kg Constitutional: Present no acute distress, average body habitus and cooperative Head: Present atraumatic and normocephalic ENT: Present normal exam Respiratory: Present normal respiratory effort; Absent rhonchi, stridor, wheezes or crackles Cardiac: Present Reg Rate and Rhythm GI: Present soft and normal bowel sounds; Absent distention or tenderness Extremities: Present normal inspection and full ROM Skin: Present intact; Absent erythema Neuro: Present Grossly Intact, alert, awake and moves all extremities Comment:: Word finding difficulty Assessment and Plan *Assessment and plan (1) Posterior circulation stroke: Status: Acute Category: Medical Code(s): I63.50 - Cerebral infarction due to unspecified occlusion or stenosis of unspecified cerebral artery (2) Dizziness: Status: Acute Category: Medical Code(s): R42 - Dizziness and giddiness (3) Stroke-like symptoms: Status: Acute Category: Medical Code(s): R29.90 - Unspecified symptoms and signs involving the nervous system (4) Hypertension: Status: Chronic Category: Medical Code(s): I10 - Essential (primary) hypertension (5) Hyperlipemia: Status: Chronic Category: Medical Code(s): E78.5 - Hyperlipidemia, unspecified (6) ALS (amyotrophic lateral sclerosis): Status: Chronic Category: Medical Code(s): G12.21 - Amyotrophic lateral sclerosis Plan Patient is a 58-year-old male with past medical history of ALS hypertension hyperlipidemia who presents to the hospital due to difficulty in his speech, persistent dizziness. CTA negative on admission. MRI obtained however showing positive finding of posterior circulation CVA. Therapy consulted and evaluating. Awaiting discharge to [facility] for further management. Problems addressed as follows: Posterior circulation CVA - MRI on 10/31 showing: There is an acute infarct present in the right superior cerebellum in adjacent right brachium pontis/right dorsal midbrain. No mass effect or acute hemorrhage. -Initiated on aspirin and Plavix. Will continue dual antiplatelet therapy for 21 days, aspirin daily thereafter -Continue Lipitor 80 mg daily per home regimen -Therapy working with patient during admission. Needs placement for rehab. Accepted to [facility], will discharge in the morning - ordered echo cardiogram with bubble study - negative for PFO, does show MV prolapse, LVEF is 60% History of ALS: Complicates his current condition. Continuing baclofen 20 mg 3 times a day. Fevers - concern for aspiration, fevers resolved - check blood cultures: Consistent with contaminant with Staph epidermidis. - Will complete 5 days of antibiotics with Unasyn, today is day 5/5 - check CXR - negative for any acute cardiopulmonary process -White cell count normal at 5.7. Kidney function normal BUN 7, creatinine 0.6. Potassium low at 2.9. Replacing both oral and IV aggressively today. Repeat CBC, CMP, magnesium ordered for the morning. Hypertension: Continuing home regimen with metoprolol, losartan, HCTZ, amlodipine Hyperlipidemia: Continuing home Lipitor 80 mg daily DVT prophylaxis- lovenox Regular diet
[2023-11-06] MEDS: KCl 10mEq/100ml 100 ML 100 MEQ IV ×2 (14:00→15:07)
[2023-11-06] MEDS: ALPRAZolam 0.5MG TABLET 0.5 MG PO (21:07)
[2023-11-06] MEDS: ATORVASTATIN 40MG TABLET 80 MG PO (21:07)
[2023-11-07] VITALS: BP 125/65; PULSE 63; PULSE 66; RESP 16; TEMP 37.1; O2SAT 96
[2023-11-07] MEDS: AMPICILLIN SODIUM/SULBACTAM 3 GM in 0.9 % SODIUM CHLORIDE 100 ML IV ×2 (01:33→07:38)
[2023-11-07 04:00] VITALS: BP 124/72; PULSE 62; PULSE 67; RESP 16; TEMP 36.7; O2SAT 95; BMI 19.5
--- NOTE | 2023-11-07 05:12 | PC.NURSE ---
58 yo pt admitted with stroke. Pt is A/O X 4 and has rested without complaints through the night. Plan for pt to go to [facility] for rehab today
[2023-11-07 06:56] LABS: Basophils % 0.5 % (0.1-2.0); Eosinophils # 0.2 K/mm3 (0.0-0.4); Eosinophils % 2.9 % (0.1-12.0); Hematocrit 28.1 % (42.0-52.0); Hemoglobin 8.9 g/dL (14.1-18.0); Lymphocytes # 1.5 K/mm3 (0.7-4.5); Lymphocytes % 20.1 % (10-50); Mean Corpuscular HGB Conc 31.6 g/dL (31.8-35.4); Mean Corpuscular Hemoglobin 23.6 pg (27.0-31.2); Mean Corpuscular Volume 74.6 fl (80-94); Mean Platelet Volume 7.3 fl (7.4-10.4); Monocytes # 0.5 K/mm3 (0.1-1.0); Monocytes % 6.3 % (1.7-9.3); Neutrophils # 5.1 K/mm3 (1.8-7.8); Neutrophils % 70.2 % (37.0-80.0); Platelet Count 410 K/mm3 (142-424); Red Blood Count 3.77 M/mm3 (4.60-6.20); Red Cell Distribution Width 16.9 % (11.5-17.5); White Blood Count 7.3 K/mm3 (4.8-10.8)
[2023-11-07 06:59] LABS: Chloride 102 mmol/L (98-107); Potassium 4.2 mmoL/L (3.5-5.1); Sodium 130 mmol/L (136-145)
[2023-11-07 07:02] LABS: Anion Gap 5.2 mEq/L (5-15); Blood Urea Nitrogen 10 mg/dl (9-20); Calcium 8.1 mg/dl (8.4-10.2); Carbon Dioxide 27 mmol/L (22.0-30.0); Creatinine Clearance Estimated 137 mL/min (50-200); Estimated Glomerular Filt Rate 137 ml/min (>60); GFR (African American) 166 ML/MIN (>60); Glucose 97 mg/dl (74-100)
--- NOTE | 2023-11-07 07:23 | EXP.DC.SUM ---
General Admission date:: 11/01/23 Discharge date: 11/07/23 HPI HPI HPI: 58-year-old male history of hypertension, hyperlipidemia, ALS, blood loss anemia following with GI, presenting with acute onset dizziness. Patient states he was in the shower about 4 hours prior to this visit when he had acute onset dizziness. Had involved his son, had nausea, vomiting, has never had anything like this in the past. States he has been taking all of his medications as prescribed. No blood in his vomit. No dark or tarry or bloody stools today. No chest pain, shortness of breath, nausea, vomiting, falls, trauma came in for further evaluation. History was obtained via conversation with patient. On arrival, patient hemodynamically stable, alert, oriented x4, appropriate, GCS 15, moving all extremities spontaneously, pupils equal and reactive to light. Full physical exam performed and significant for patient has left-sided nasolabial fold flattening and states he is having difficulty saying words. Upper and lower extremities are symmetrically strong. Left-sided upper extremity drift. He also has right-sided upper and lower extremity dysmetria and nystagmus with fast beating phase toward the right. Workup in the ER with no abnormality on CTA of the head or neck. NIHSS of 6. Patient is outside the tPA window. Admitted to the hospital for further evaluation due to word finding difficulty and persistent dizziness. Hospital Course Hospital Course Hospital Course: Patient is a 58-year-old male with past medical history of ALS hypertension hyperlipidemia who presents to the hospital due to difficulty in his speech, persistent dizziness. CTA negative on admission. MRI obtained however showing positive finding of posterior circulation CVA. Therapy consulted and patient. Would benefit from short-term rehab. Has been accepted to [facility] for further management. Stable to discharge. Problems addressed as follows: Posterior circulation CVA -Patient presented with persistent dizziness and left-sided facial asymmetry. CTA obtained with no acute findings. Given persistence of symptoms, was admitted for MRI. MRI on 10/31 showing: There is an acute infarct present in the right superior cerebellum in adjacent right brachium pontis/right dorsal midbrain. No mass effect or acute hemorrhage. Initiated on aspirin and Plavix. Will continue dual antiplatelet therapy for 21 days, aspirin daily thereafter. Patient already on Lipitor, continue 80 mg daily per home regimen. Ordered echo cardiogram with bubble study - negative for PFO, does show MV prolapse, LVEF is 60%, will have follow-up with cardiology as an outpatient for further evaluation and management. History of ALS: Complicates his current condition. Continuing baclofen 20 mg 3 times a day. Fevers of unknown origin - concern for aspiration. Was initially treated with Unasyn. Completed 5 days of antibiotics. No oxygen requirement during admission. Had blood culture positive for contaminant with Staph epidermidis. No further signs of infection or fever after antibiotics completed. White cell count remains normal. 7.3 on day of discharge. Kidney function normal on day of discharge with BUN 10, creatinine 0.6. Potassium 4.2. Would benefit from repeat labs in a week. Persistent anemia, hemoglobin 8.9. The patient's baseline per chart review. Platelets normal at 410. Hypertension: Continuing home regimen with metoprolol, losartan, HCTZ, amlodipine Hyperlipidemia: Continuing home Lipitor 80 mg daily Total time spent on discharge 32 minutes in counseling, documentation, chart review, and direct care with patient. Exam Data for Last 24 hours Vital signs and Labs for Last 24 Hours: Temp Pulse Resp BP Pulse Ox O2 Del Method 97.7 F 59 L 18 94/38 L 95 Room Air 11/06/23 12:00 11/06/23 12:00 11/06/23 12:00 11/06/23 12:00 11/06/23 12:00 11/06/23 12:00 Laboratory Results - last 24 hr 11/05/23 16:50: Sodium 129 L, Potassium 3.3 L, Chloride 95 L, Carbon Dioxide 32 H, Anion Gap 5.3, BUN 11 D, Creatinine 0.70, Estimated Creat Clear 120, Estimated GFR 115, Est GFR ( Amer) 139, Glucose 106 H, Calcium 8.7 11/06/23 06:12: WBC 5.7 D, RBC 3.93 L, Hgb 9.2 L, Hct 29.2 L, MCV 74.2 L, MCH 23.4 L, MCHC 31.5 L, RDW 16.8, Plt Count 381, MPV 7.3 L, Neut % (Auto) 58.6, Lymph % (Auto) 27.5, Throckmorton % (Auto) 9.9 H, Eos % (Auto) 3.3, Baso % (Auto) 0.8, Neut # (Auto) 3.4, Lymph # (Auto) 1.6, Throckmorton # (Auto) 0.6, Eos # (Auto) 0.2, Baso # (Auto) 0.0, Sodium 129 L, Potassium 2.9 L*, Chloride 98, Carbon Dioxide 29, Anion Gap 4.9 L, BUN 7 L D, Creatinine 0.60 L, Estimated Creat Clear 138, Estimated GFR 137, Est GFR ( Amer) 166, Glucose 98, Calcium 8.5 I & O for Last 24 hours: Intake & Output 11/03/23 11/04/23 11/05/23 11/06/23 23:59 23:59 23:59 23:59 Intake Total 1000 / 1100 1230 / 1450 800 / 800 495 / 495 Output Total 0 / 0 0 / 0 0 / 0 0 / 0 Balance 1000 / 1100 1230 / 1450 800 / 800 495 / 495 Weight 73.057 kg 74.571 kg 75.4 kg 74.435 kg Constitutional Constitutional: no acute distress, average body habitus, chronically ill appearing and cooperative *Routine HEENT Exam Head: Present normocephalic Eye: Present EOMI and PERRL ENT: Present mucous membranes moist *Routine Neck Exam Neck: Present supple; Absent lymphadenopathy *Routine Respiratory Exam Respiratory: Present CTA bilaterally; Absent respiratory distress, rhonchi, stridor, wheezes or crackles *Routine Cardiovascular Exam Cardiovascular: Present RRR *Routine Abdominal Exam Abdominal: Present soft and normoactive bowel sounds; Absent tenderness *Routine Rectal Exam Patient deferred: visual exam *Routine Exam Patient deferred: penile exam *Routine Extremities Exam Extremities: Absent cyanosis, clubbing or edema *Routine Skin Exam Skin: Present intact and warm; Absent cyanosis or rash *Routine Neurological Exam Neurological: Present alert, oriented X3, abnormal gait and moving all extremities; Absent altered mental status or normal speech Comments: word finding difficulty Results Data Completed and Pending Labs on day of discharge: Labs from last 24 hours 11/06/23 11/05/23 06:12 16:50 WBC 5.7 D RBC 3.93 L Hgb 9.2 L Hct 29.2 L MCV 74.2 L MCH 23.4 L MCHC 31.5 L RDW 16.8 Plt Count 381 MPV 7.3 L Neut % (Auto) 58.6 Lymph % (Auto) 27.5 Throckmorton % (Auto) 9.9 H Eos % (Auto) 3.3 Baso % (Auto) 0.8 Neut # (Auto) 3.4 Lymph # (Auto) 1.6 Throckmorton # (Auto) 0.6 Eos # (Auto) 0.2 Baso # (Auto) 0.0 Sodium 129 L 129 L Potassium 2.9 L* 3.3 L Chloride 98 95 L Carbon Dioxide 29 32 H Anion Gap 4.9 L 5.3 BUN 7 L D 11 D Creatinine 0.60 L 0.70 Estimated Creat Clear 138 120 Estimated GFR 137 115 Est GFR ( Amer) 166 139 Glucose 98 106 H Calcium 8.5 8.7 DS: Diagnosis Discharge Diagnosis (1) Dizziness: Status: Acute Code(s): R42 - Dizziness and giddiness (2) Stroke-like symptoms: Status: Acute Code(s): R29.90 - Unspecified symptoms and signs involving the nervous system (3) Hypertension: Status: Chronic Code(s): I10 - Essential (primary) hypertension (4) Hyperlipemia: Status: Chronic Code(s): E78.5 - Hyperlipidemia, unspecified Meds Home Medications and Allergies Home Medications ?Medication ?Instructions ?Recorded ?Confirmed ?Type albuterol sulfate 90 mcg/actuation 90 mcg inhalation NEEDED PRN 10/03/23 11/01/23 History aerosol inhaler Shortness Of Breath alprazolam 0.5 mg tablet (Xanax) 0.5 mg PO HS 10/03/23 11/01/23 History amlodipine 10 mg tablet 10 mg PO DAILY 10/03/23 11/01/23 History atogepant 60 mg tablet (Qulipta) 60 mg PO DAILY 10/03/23 11/01/23 History atorvastatin 80 mg tablet 80 mg PO DAILY 10/03/23 11/02/23 History baclofen 20 mg tablet 20 mg PO TID 10/03/23 11/01/23 History clopidogrel 75 mg tablet 75 mg PO DAILY 10/03/23 11/01/23 History epinephrine 0.3 mg/0.3 mL 0.3 mg SQ NEEDED PRN Allergic 10/03/23 11/01/23 History injection, auto-injector Reaction escitalopram oxalate 20 mg tablet 20 mg PO DAILY 10/03/23 11/01/23 History (Lexapro) furosemide 20 mg tablet 20 mg PO DAILY 10/03/23 11/02/23 History gabapentin 600 mg tablet 600 mg PO TID 10/03/23 11/01/23 History losartan 100 1 tab PO DAILY 10/03/23 11/01/23 History mg-hydrochlorothiazide 25 mg tablet metoprolol succinate 50 mg capsule 25 mg PO DAILY 10/31/23 11/01/23 History sprinkle, ext. release 24 hr aspirin 81 mg tablet,delayed 81 mg PO DAILY 30 days #0 tabs 11/07/23 Rx release New Prescriptions to Start Prescriptions: Allergies Allergy/AdvReac Type Severity Reaction Status Date / Time bee venom protein (honey bee) Allergy Severe Anaphylaxis Verified 10/30/23 12:12 Discharge Plan Disposition Patient Disposition: Xfer Inpatient Rehab Fac Condition: Fair Discharge Order Discharge Orders: Discharge Order (Routine); Ordered 11/07/23 Ordered By: Sean Tiwari Follow up Plan Follow up with: Chacorta Maldonado MD [Staff Physician] - 2 weeks (eval MV prolapse, follow-up) Prescriptions/Medication Reconciliation: New aspirin 81 mg Tablet,Delayed Release (Dr/Ec) 81 mg PO DAILY 30 Days Qty: 0 0RF Continued atorvastatin 80 mg tablet 80 mg PO DAILY gabapentin 600 mg tablet 600 mg PO TID clopidogrel 75 mg tablet 75 mg PO DAILY baclofen 20 mg tablet 20 mg PO TID losartan-hydrochlorothiazide 100-25 mg tablet 1 tab PO DAILY alprazolam [Xanax] 0.5 mg tablet 0.5 mg PO HS amlodipine 10 mg tablet 10 mg PO DAILY furosemide 20 mg tablet 20 mg PO DAILY epinephrine 0.3 mg/0.3 mL auto-injector 0.3 mg SQ NEEDED PRN (Reason: Allergic Reaction) albuterol sulfate 90 mcg/actuation HFA aerosol inhaler 90 mcg INHALATION NEEDED PRN (Reason: Shortness Of Breath) escitalopram oxalate [Lexapro] 20 mg tablet 20 mg PO DAILY Qulipta 60 mg tablet 60 mg PO DAILY metoprolol succinate 50 mg Capsule,Sprinkle,Er 24hr 25 mg PO DAILY Discontinued aspirin 81 mg Capsule 81 mg PO DAILY Problem Reconciliation Problems Reviewed?: Yes Patient Discharge Instructions ACTIVITY: Ambulate as tolerated and Up with assistance DIET: continue same diet Patient Instructions: Essential Hypertension, DI for Hypokalemia Print Language: Yi Providers Primary Care Provider: Malia Amezquitait Provider: Felecia Lacy Attending Provider: Felecia Lacy
[2023-11-07 08:00] VITALS: BP 120/69; PULSE 60; PULSE 66; RESP 17; TEMP 36.6; O2SAT 99
[2023-11-07] MEDS: BACLOFEN 10MG TABLET 20 MG PO (08:20)
[2023-11-07] MEDS: ASPIRIN EC 81MG TABLET 81 MG PO (08:20)
[2023-11-07] MEDS: QULIPTA 60 MG 60 EACH PO (08:20)
[2023-11-07] MEDS: CITALOPRAM 40MG TABLET 40 MG PO (08:21)
[2023-11-07] MEDS: hydroCHLOROthiazide 25MG TABLET 25 MG PO (08:21)
[2023-11-07] MEDS: GABAPENTIN 600MG TABLET 600 MG PO (08:21)
[2023-11-07] MEDS: METOPROLOL SUCCINATE XL 25MG TABLET 25 MG PO (08:21)
[2023-11-07] MEDS: IRBESARTAN 150MG TAB 150 MG PO (08:21)
[2023-11-07] MEDS: POTASSIUM CHLORIDE 20MEQ TAB 40 MEQ PO (08:21)
[2023-11-07] MEDS: ENOXAPARIN 40MG/0.4ML SYRINGE 40 MG SQ (08:21)
[2023-11-07] MEDS: CLOPIDOGREL 75MG TAB 75 MG PO (08:21)
--- NOTE | 2023-11-07 10:30 | PC.NURSE ---
[facility] called for pt. transport to [facility].
--- NOTE | 2023-11-07 11:00 | PC.NURSE ---
Pt. home medication, Losartan-HCTZ and Qulipta, retured to pt.
== END 2023-11-07 11:40 | DRG 65 ==
LOC: ER 12:23 → 2ND 15:22
PROVIDERS: Admitting Provider Internal Medicine; Emergency Provider Emergency Medicine; PCP Internal Medicine; Visit Provider Internal Medicine
DX: G12.21 Amyotrophic lateral sclerosis (principal); I63.50 Cerebral infarction due to unspecified occlusion or stenosis of unspecified cerebral artery; R42 Dizziness and giddiness; I10 Essential (primary) hypertension; E78.5 Hyperlipidemia, unspecified; W19.XXXA Unspecified fall, initial encounter; Y92.239 Unspecified place in hospital as the place of occurrence of the external cause; R29.810 Facial weakness; R50.9 Fever, unspecified; R29.706 NIHSS score 6; R47.01 Aphasia
CPT/HCPCS: 36415; 70450; 70496; 70498; 70551; 71045; 80048; 80053; 80061; 80307; 80320; 81001; 84484; 85007; 85025; 85027; 85610; 85730; 87040; 87186; 92523; 93005; 93306; 97116; 97162; 97165; 97530; 99291; G0480; J0295; J1644; J1650; J3480; Q9967

== ENCOUNTER 2023-11-07 08:00 | Outpatient (RCR) | payer BC, SELFPAY | END 2023-11-07 08:05 | disposition home or self-care (01) | LOC: OT 08:00 | PROVIDERS: Visit Provider Internal Medicine | DX: G93.49 Other encephalopathy (principal) | CPT/HCPCS: 97110; 97165 ==

== ENCOUNTER 2023-12-05 14:46 | Outpatient (CLI) | payer BC, SELFPAY ==
--- OUTSIDE RECORDS SUMMARY | 2023-12-05 14:51 | XMS_ITS ---
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 Name Role Phone Jenifer LEMON, Serafin Nazario Unavailable [phone] Malia Amezquita MD Primary Care Provider [phone] Reason for Referral Date Encounter Description Provider Reason for Referral 05/20/21 Post Op Nakia Faria PA-C Referral To Physician - Pt to follow up with pcp for bp control 03/29/21 Post Op Serafin Burgess MD Refe rral To Physician - Pt to follow up with pcp for bp control 01/28/21 Follow Up Serafin Burgess MD Refe rral To Physician - Pt to follow up with pcp for bp control 01/11/21 Post Op Jennifer Gonzales APRN Referr al To Physician - see pcp for bp 11/09/20 Post Op Jez Burt MD Refer ral To Physician - see pcp for bp 09/30/20 Follow Up Jez Burt MD Refer ral To Physician - see pcp for bp 08/26/20 Physician Specified Jez Marley Referral To Physician - see pcp for bp Problems Includes: Active, inactive, and resolved Problems All Visits Onset Date Resolved Date Provider Condition S tatus Pain in the Hands 08/26/2020 Jez adkins MD Active Last Documented On 1 2:35PM ; [facility] Joint Pain in the Left Knee 05/16/2019 Serafin Burgess MD Active Last Documented On 0 1:25PM ; [facility] Plan of Treatment Pending Tests Order Diagnosis Results Due Ordering P rovider Procedure/Tests EMG 09/09/20 Jez Burt MD Last Documented On 1 1:57PM ; [facility] Instructions to patient Lose weight Last Documented On 2 4:00PM ; [facility] Instructions for patient con tinue to manage bp Last Documented On 0 9:22AM ; [facility] Instructions for patient con tinue to manage bp Last Documented On 0 8:12AM ; [facility] Instructions for patient Last Documented On 0 1:55PM ; [facility] Assessments Includes: Assessments for all patient encounters No Assessments Recorded Instructions Includes: Instructions for all patient encounters Instructions to patient Lose weight Last Documented On 2 4:00PM ; [facility] Instructions for patient con tinue to manage bp Last Documented On 0 9:22AM ; [facility] Instructions for patient con tinue to manage bp Last Documented On 0 8:12AM ; [facility] Instructions for patient Last Documented On 0 1:55PM ; [facility] Medical Equipment - Implanted Devices Includes: Current and historical Devices No Medical Equipment Recorded Medications Includes: Current and historical Medications Current Medications (continue as prescribed) traMADol HCl 50 MG Oral Tablet 09/05/2019 Provider: Diagnosis: Last Documented On 0 8:12AM By Dennis France ; [facility] amLODIPine Besylate 5 MG Oral Tablet 04/19/2019 Prov ider: Malia Amezquita MD Diagnosis: Last Documented On 0 1:26PM By Lorie Galarza ; [facility] Losartan Potassium-HCTZ 100-25 MG Oral Tablet 04/19/19 20 Provider: Malia Amezquita MD Diagnosis: Last Documented On 0 1:26PM By Lorie Galarza ; [facility] Potassium Chloride Amanda ER 1 0 MEQ Oral Tablet Extended Release 04/19/2019 Provider: Malia Amezquita MD Diagnosis: Last Documented On 0 1:26PM By Lorie Galarza ; [facility] ALPRAZolam 0.5 MG Oral Tablet 04/18/2019 Provider: Malia Amezquita MD Diagnosis: Last Documented On 0 1:27PM By Lorie Galarza ; [facility] Metoprolol Tartrate 50 MG Oral Tablet 04/18/2019 Pro vider: Malia Amezquita MD Diagnosis: Last Documented On 0 1:27PM By Lorie Galarza ; [facility] Clopidogrel Bisulfate 75 MG Oral Tablet 04/18/2019 P rovider: Malia Amezquita MD Diagnosis: Last Documented On 0 1:27PM By Lorie Galarza ; [facility] Furosemide 20 MG Oral Tablet 04/18/2019 Provider: Malia Amezquita MD Diagnosis: Last Documented On 0 1:26PM By Lorie Galarza ; [facility] Atorvastatin Calcium 40 MG Oral Tablet 04/18/2019 Pr ovider: Malia Amezquita MD Diagnosis: Last Documented On 0 1:26PM By Lorie Galarza ; [facility] Naproxen 500 MG Oral Tablet 04/18/2019 Provider: Malia Amezquita MD Diagnosis: Last Documented On 0 1:26PM By Lorie Galarza ; [facility] raNITIdine HCl 150 MG Oral Tablet 04/18/2019 Provide r: Malia Amezquita MD Diagnosis: Last Documented On 0 1:26PM By Lorie Galarza ; [facility] Past Medications on file Aspirin EC 81 MG Oral Tablet Delayed Release 03/14/2021 - 04/25/2021 Provider: Serafin Burgess MD Diagnosis: 1 tab every 12 hours Last Documented On 1 7:09AM By Serafin Burgess ; [facility] Acetaminophen 500 MG Oral Tablet 03/14/2021 - 03/28/2021 Provider: Serafin Niño MD Diagnosis: Take 2 tablets by mouth every 8 hours Last Documented On 1 7:09AM By Serafin Burgess ; [facility] Meloxicam 15 MG Oral Tablet 03/14/2021 - 03/28/2021 Pr ovider: Serafin Burgess MD Diagnosis: once a day Last Documented On 1 7:09AM By Serafin Burgess ; [facility] Cefadroxil 500 MG Oral Capsule 03/14/2021 - 03/17/2021 Provider: Serafin Niño MD Diagnosis: Take 1 capsule by mouth every 12 hours Last Documented On 1 7:09AM By Serafin Burgess ; [facility] Vitamin D3 50 MCG (2000 UT) Oral Tablet 03/14/2021 - 05/13/2021 Provider: Serafin Niño MD Diagnosis: Take 1 tablet by mouth daily Last Documented On 1 7:24AM By Serafin Burgess ; [facility] Zofran 4 MG Oral Tablet 03/14/2021 - 03/21/2021 Provid er: Serafin Burgess MD Diagnosis: 1 po q 6h prn nausea Last Documented On 1 7:09AM By Serafin Burgess ; [facility] Colace 100 MG Oral Capsule 03/14/2021 - 06/12/2021 Pro vider: Serafin Burgess MD Diagnosis: Take 1-2 capsules daily as needed Last Documented On 1 7:09AM By Serafin Burgess ; [facility] oxyCODONE HCl 5 MG Oral Tablet 03/14/2021 - 03/24/2021 Provider: Serafin Niño MD Diagnosis: Take 1 tablet by mouth every 4-6hrs for moderate pain Last Documented On 1 7:09AM By Serafin Burgess ; [facility] traMADol HCl 50 MG Oral Tablet 03/14/2021 - 03/22/2021 Provider: Serafin Niño MD Diagnosis: 2 tablets every 6 hours Last Documented On 1 7:09AM By Serafin Burgess ; [facility] Naproxen 500 MG Oral Tablet 12/09/2020 - 01/08/2021 Pr ovider: Jez Burt MD Diagnosis: take one tablet twice a day prn following surger y Last Documented On 1 11:16AM By Dr. Burt ; [facility] Vitamin C 1000 MG Oral Tablet 12/09/2020 - 02/07/2021 Provider: Jez moncada MD Diagnosis: take one tablet, once a day post surgery Last Documented On 1 11:16AM By Dr. Burt ; [email or web address] Vitamin C 1000 MG Oral Tablet 10/08/2020 - 12/07/2020 Provider: Jez moncada MD Diagnosis: take one tablet, once a day post surgery Last Documented On 1 9:57AM By Afsaneh Reyes ; [email or web address] Naproxen 500 MG Oral Tablet 10/08/2020 - 11/07/2020 Pr ovider: Jez Burt MD Diagnosis: take one tablet twice a day prn following surger y Last Documented On 1 9:56AM By Afsaneh Reyes ; [facility] Medications Administered Includes: Administered Medications in patient's chart No Administered Medications Recorded Results Includes: Results from 12/04/2022 through 12/05/2023 No Results Recorded For Specified Dates History of Present Illness History of Present Illness not supported for this document type No History of Present Illness Recorded Social History Description Last Updated Not a current smoker. 08/26/2020 Last Documented On 1 1:57PM ; [facility] Caffeine use 08/13/2020 Last Documented On 1 6:47PM ; [facility] Non-smoker 08/13/2020 Last Documented On 1 6:47PM ; [facility] No tobacco use 05/16/2019 Last Documented On 0 8:04AM ; [facility] Smoking status : Former smoker 0 Last Documented On 0 8:04AM ; [email or web address] Alcohol use 05/16/2019 Last Documented On 0 8:04AM ; [email or web address] Exercising regularly 05/16/2019 Last Documented On 0 8:04AM ; [email or web address] No recent change in diet 05/16/2019 Last Documented On 0 8:04AM ; [email or web address] Not a current smoker 05/16/2019 Last Documented On 0 8:04AM ; [facility] Not using drugs 05/16/2019 Last Documented On 0 8:04AM ; [facility] Procedures and Surgical History Surgical History Last Updated History of heart surgery CABG (10/2016) 0 05/16/2019 Last Documented On 0 8:04AM ; [facility] Medical History Includes: Medical History in patient's chart Description Last Updated Arthritis 08/13/2020 Last Documented On 1 6:47PM ; [facility] Heart surgery 08/13/2020 Last Documented On 1 6:47PM ; [facility] Hypertension 08/13/2020 Last Documented On 1 6:47PM ; [facility] Recent immunization for flu 08/13/2020 Last Documented On 1 6:47PM ; [facility] Recent immunization for pneumococcal pne umonia 08/13/2020 Last Documented On 1 6:47PM ; [facility] Total knee arthroplasty 08/13/2020 Last Documented On 1 6:47PM ; [facility] Arthritic joint problems 05/16/2019 Last Documented On 0 8:04AM ; [facility] Intermittent hypertension 05/16/2019 Last Documented On 0 8:04AM ; [facility] History of heart disease 05/16/2019 Last Documented On 0 8:04AM ; [facility] Family History Includes: Family History in patient's chart Description Last Updated Family history of cancer 08/13/2020 Last Documented On 1 6:47PM ; [facility] Family history of heart disease 08/14/19 Last Documented On 1 6:47PM ; [facility] Maternal grandfather's history of family history of heart disease 05/16/2019 Last Documented On 0 8:04AM ; [facility] Paternal history of family history of he art disease 05/16/2019 Last Documented On 0 8:04AM ; [facility] Review of Systems Review of Systems not supported for this document type No Review of Systems Recorded Mental Status No Mental Status Recorded Functional Status No Functional Status Recorded Physical Exam Physical Exam not supported for this document type No Physical Exam Recorded Immunizations Includes: Immunizations in patient's chart Vaccine Dose # Date Site Reaction(s) Status Source Influenza 1 03/26/2019 Complete (Reported) Patient Last Documented On 1 4:41PM ; [facility] PCV (Pneumovax 23) 1 03/26/2019 Complete ( Reported) Patient Last Documented On 1 4:41PM ; [facility] Allergies Includes: Active, inactive, and resolved Allergies No Known Allergies Insurance Includes: Active Insurance Policies Plan Name Member ID Group # Subscriber Relationship Effect carina Dates - [facility] [id number] Severo Amin Self 03/26/2022 - Unknown Clinical Notes Includes: Signed Clinical Notes starting from 03/09/2022 No Clinical Notes Recorded
--- OUTSIDE RECORDS SUMMARY | 2023-12-05 14:51 | XMS_ITS | Clinical Summary ---
Author Organization [facility] , [facility] Address [address] [place] [address] Phone Care Team Providers Care Irrigationist Name Role Phone Jenifer LEMON, Serafin Nazario Unavailable [phone] Malia Amezquita MD Primary Care Provider [phone] Reason for Visit and Chief Complaint Follow Up Problems Includes: Problems addressed during this encounter and other active Problems All Visits Onset Date Resolved Date Provider Condition S tatus Pain in the Hands 08/26/2020 Jez adkins MD Active Last Documented On 1 2:35PM ; [facility] Joint Pain in the Left Knee 05/16/2019 Serafin Burgess MD Active Last Documented On 0 1:25PM ; [facility] Plan of Treatment The next follow-up appointment will be scheduled at the 5 year postoperative point in time and he will call the office if he has any questions or concerns in the meantime. - Last Documented On 03/30/2022 4:13PM ; [facility] Assessments Includes: Assessments from this encounter Findings 57-year-old male presents for one year postoperative follow-up appointment status post left partial knee arthroplasty that took place on 03/14/21. He continues to do well during the post-operative period of time. Incision site is well healed and without signs of infection. He denies fever and chills. He has been compliant with daily, home based therapy exercises. - Last Documented On 03/30/2022 4:13PM ; [facility] Medical Equipment - Implanted Devices Includes: Current Devices No Medical Equipment Recorded Medications Includes: Medications discussed during this encounter and other current Medications Current Medications (continue as prescribed) traMADol HCl 50 MG Oral Tablet 09/05/2019 Provider: Diagnosis: Last Documented On 0 8:12AM By Dennis France ; [facility] amLODIPine Besylate 5 MG Oral Tablet 04/19/2019 Prov ider: Malia Amezquita MD Diagnosis: Last Documented On 0 1:26PM By Lorie Galarza ; [facility] Losartan Potassium-HCTZ 100-25 MG Oral Tablet 04/19/19 20 Provider: Malia Amezquita MD Diagnosis: Last Documented On 0 1:26PM By Lorie Galarza ; [facility] Potassium Chloride Amanda ER 1 0 MEQ Oral Tablet Extended Release 04/19/2019 Provider: Malia Amezquita MD Diagnosis: Last Documented On 0 1:26PM By Lorie Galarza ; [facility] ALPRAZolam 0.5 MG Oral Tablet 04/18/2019 Provider: Malia Amezquita MD Diagnosis: Last Documented On 0 1:27PM By Lorie Galarza ; [facility], [facility] Metoprolol Tartrate 50 MG Oral Tablet 04/18/2019 Pro vider: Malia Amezquita MD Diagnosis: Last Documented On 0 1:27PM By Lorie Galarza ; [facility] Clopidogrel Bisulfate 75 MG Oral Tablet 04/18/2019 P rovider: Malia Amezquita MD Diagnosis: Last Documented On 0 1:27PM By Lorie Galarza ; [facility], [facility] Furosemide 20 MG Oral Tablet 04/18/2019 Provider: Malia Amezquita MD Diagnosis: Last Documented On 0 1:26PM By Lorie Galarza ; [facility], [facility] Atorvastatin Calcium 40 MG Oral Tablet 04/18/2019 Pr ovider: Malia Amezquita MD Diagnosis: Last Documented On 0 1:26PM By Lorie Galarza ; [facility] Naproxen 500 MG Oral Tablet 04/18/2019 Provider: Malia Amezquita MD Diagnosis: Last Documented On 0 1:26PM By Lorie Galarza ; [facility], [facility] raNITIdine HCl 150 MG Oral Tablet 04/18/2019 Provide r: Malia Amezquita MD Diagnosis: Last Documented On 0 1:26PM By Lorie Galarza ; [facility], [facility] Past Medications on file Aspirin EC 81 MG Oral Tablet Delayed Release 03/14/2021 - 04/25/2021 Provider: Serafin Burgess MD Diagnosis: 1 tab every 12 hours Last Documented On 1 7:09AM By Serafin Burgess ; [facility], [facility] Acetaminophen 500 MG Oral Tablet 03/14/2021 - 03/28/2021 Provider: Serafin Niño MD Diagnosis: Take 2 tablets by mouth every 8 hours Last Documented On 1 7:09AM By Serafin Burgess ; [facility], [facility] Meloxicam 15 MG Oral Tablet 03/14/2021 - 03/28/2021 Pr ovider: Serafin Burgess MD Diagnosis: once a day Last Documented On 1 7:09AM By Serafin Burgess ; [facility], [facility] Cefadroxil 500 MG Oral Capsule 03/14/2021 - 03/17/2021 Provider: Serafin Niño MD Diagnosis: Take 1 capsule by mouth every 12 hours Last Documented On 1 7:09AM By Serafin Burgess ; [facility], [facility] Vitamin D3 50 MCG (1999 [place]) Oral Tablet 03/14/2021 - 05/13/2021 Provider: Serafin Niño MD Diagnosis: Take 1 tablet by mouth daily Last Documented On 1 7:24AM By Serafin Burgess ; [facility], [facility] Zofran 4 MG Oral Tablet 03/14/2021 - 03/21/2021 Provid er: Serafin Burgess MD Diagnosis: 1 po q 6h prn nausea Last Documented On 1 7:09AM By Serafin Burgess ; [facility], [facility] Colace 100 MG Oral Capsule 03/14/2021 - 06/12/2021 Pro vider: Serafin Burgess MD Diagnosis: Take 1-2 capsules daily as needed Last Documented On 1 7:09AM By Serafin Burgess ; [facility], [facility] oxyCODONE HCl 5 MG Oral Tablet 03/14/2021 - 03/24/2021 Provider: Serafin Niño MD Diagnosis: Take 1 tablet by mouth every 4-6hrs for moderate pain Last Documented On 1 7:09AM By Serafin Burgess ; [facility], [facility] traMADol HCl 50 MG Oral Tablet 03/14/2021 - 03/22/2021 Provider: Serafin Niño MD Diagnosis: 2 tablets every 6 hours Last Documented On 1 7:09AM By Serafin Burgess ; [facility], [facility] Naproxen 500 MG Oral Tablet 12/09/2020 - 01/08/2021 Pr ovider: Jez Burt MD Diagnosis: take one tablet twice a day prn following surger y Last Documented On 1 11:16AM By Dr. Burt ; [facility], [facility] Vitamin C 1000 MG Oral Tablet 12/09/2020 - 02/07/2021 Provider: Jez moncada MD Diagnosis: take one tablet, once a day post surgery Last Documented On 1 11:16AM By Dr. Burt ; [facility], [facility] Vitamin C 1000 MG Oral Tablet 10/08/2020 - 12/07/2020 Provider: Jez moncada MD Diagnosis: take one tablet, once a day post surgery Last Documented On 1 9:57AM By Afsaneh Reyes ; [facility], [facility] Naproxen 500 MG Oral Tablet 10/08/2020 - 11/07/2020 Pr ovider: Jez Burt MD Diagnosis: take one tablet twice a day prn following surger y Last Documented On 1 9:56AM By Afsaneh Reyes ; [facility], [facility] Medications Administered Includes: Administered Medications from this encounter No Administered Medications Recorded Results Includes: Results discussed during this encounter No Results Recorded For Specified Dates History of Present Illness Includes: History of Present Illness from this encounter HEIDY Amin is a 57 year old male. - Allergy list reviewed - Problem list reviewed - Medication reconciliation performed - Medication list reviewed 57-year-old male presents for one year postoperative follow-up appointment status post left partial knee arthroplasty that took place on 03/14/21. He continues to do well during the post-operative period of time. Incision site is well healed and without signs of infection. He denies fever and chills. He has been compliant with daily, home based therapy exercises. Social History Description Last Updated Not a current smoker. 08/26/2020 Last Documented On 3 3:21PM ; [facility], [facility] Caffeine use 08/13/2020 Last Documented On 3 3:21PM ; [facility] Non-smoker 08/13/2020 Last Documented On 3 3:21PM ; [facility], [facility] No tobacco use 05/16/2019 Last Documented On 3 3:21PM ; [facility], [facility] Smoking status : Former smoker 0 Last Documented On 3 3:21PM ; [facility], [facility] Alcohol use 05/16/2019 Last Documented On 3 3:21PM ; [facility], [facility] Exercising regularly 05/16/2019 Last Documented On 3 3:21PM ; [facility], [facility] No recent change in diet 05/16/2019 Last Documented On 3 3:21PM ; [facility], [facility] Not a current smoker 05/16/2019 Last Documented On 3 3:21PM ; [facility], [facility] Not using drugs 05/16/2019 Last Documented On 3 3:21PM ; [facility], [facility] Procedures and Surgical History Surgical History Last Updated History of heart surgery CABG (10/2016) 0 05/16/2019 Last Documented On 3 3:21PM ; [facility], [facility] Medical History Includes: Medical History addressed during this encounter Description Last Updated Arthritis 08/13/2020 Last Documented On 3 3:21PM ; [facility], [facility] Heart surgery 08/13/2020 Last Documented On 3 3:21PM ; [facility], [facility] Hypertension 08/13/2020 Last Documented On 3 3:21PM ; [facility], [facility] Recent immunization for flu 08/13/2020 Last Documented On 3 3:21PM ; [facility], [facility] Recent immunization for pneumococcal pne umonia 08/13/2020 Last Documented On 3 3:21PM ; [facility], [facility] Total knee arthroplasty 08/13/2020 Last Documented On 3 3:21PM ; [facility], [facility] Arthritic joint problems 05/16/2019 Last Documented On 3 3:21PM ; [facility], [facility] Intermittent hypertension 05/16/2019 Last Documented On 3 3:21PM ; [facility], [facility] History of heart disease 05/16/2019 Last Documented On 3 3:21PM ; [facility], [facility] Family History Includes: Family History addressed during this encounter Description Last Updated Family history of cancer 08/13/2020 Last Documented On 3 3:21PM ; [facility], [facility] Family history of heart disease 08/14/19 Last Documented On 3 3:21PM ; [facility], [facility] Maternal grandfather's history of family history of heart disease 05/16/2019 Last Documented On 3 3:21PM ; [facility], [facility] Paternal history of family history of he art disease 05/16/2019 Last Documented On 3 3:21PM ; [facility], [facility] Review of Systems Includes: Review of Systems from this encounter No Review of Systems Recorded Mental Status Includes: Mental Status from this encounter No Mental Status Recorded Functional Status Includes: Functional Status from this encounter No Functional Status Recorded Physical Exam Includes: Physical Exam from this encounter Allergies Includes: Active Allergies No Known Allergies Encounters Encounter Provider Location Date Check-In Time Check- Out Time Diagnosis Follow Up [facility] 3 3:05PM 3:40PM Insurance Includes: Active Insurance Policies Plan Name Member ID Group # Subscriber Relationship Effect carina Dates 1 - [facility] [id number] Severo Amin Self 03/26/2022 - Unknown Clinical Notes Includes: Clinical Notes from this encounter * Progress note Date Encounter Last Documented by 03/30/2022 Follow Up Last documented on 03/30/2022; 4:13 PM, Nakia Bearden; [facility] Active Problems & Conditions - Joint Pain in the Left Knee - Pain in the Hands History of Present Illness Severo Amin is a 57 year old male. - Allergy list reviewed - Problem list reviewed - Medication reconciliation performed - Medication list reviewed 57-year-old male presents for one year postoperative follow-up appointment status post left partial knee arthroplasty that took place on 03/14/21. He continues to do well during the post-operative period of time. Incision site is well healed and without signs of infection. He denies fever and chills. He has been compliant with daily, home based therapy exercises. Current Medication - ALPRAZolam 0.5 MG Oral Tablet take as directed 30 days, 0 refills - amLODIPine Besylate 5 MG Oral Tablet take as directed 90 days, 0 refills - Atorvastatin Calcium 40 MG Oral Tablet take as directed 30 days, 0 refills - Clopidogrel Bisulfate 75 MG Oral Tablet take as directed 30 days, 0 refills - Furosemide 20 MG Oral Tablet take as directed 30 days, 0 refills - Losartan Potassium-HCTZ 100-25 MG Oral Tablet take as directed 30 days, 0 refills - Metoprolol Tartrate 50 MG Oral Tablet take as directed 30 days, 0 refills - Naproxen 500 MG Oral Tablet take as directed 15 days, 0 refills - Potassium Chloride Amanda ER 10 MEQ Oral Tablet Extended Release take as directed 30 days, 0 refills - raNITIdine HCl 150 MG Oral Tablet take as directed 30 days, 0 refills - traMADol HCl 50 MG Oral Tablet take as directed 0 days, 0 refills Past Medical/Surgical History Reported: Medical: Arthritic joint problems. Intermittent hypertension. Immunization History: Recent immunization for flu and for pneumococcal pneumonia. Diagnoses: Heart disease. Hypertension. Arthritis Surgical: - Heart surgery - Heart surgery CABG (10/2016) - Total knee arthroplasty Social History Not a current smoker. Current diet: No recent change in diet. Caffeine use: Caffeine use. Tobacco use: No tobacco use and not a current smoker. Non-smoker. Smoking status: Former smoker. Alcohol: Alcohol use. Drug Use: Not using drugs. Habits: Exercising regularly. Allergies - No Known Allergies Family History Cancer Heart disease Paternal: Heart disease Maternal grandfather's: Heart disease Physical Findings Standard Measurements: - Patient was overweight. Well appearing male in no acute distress. Left lower extremity: Incision is well-healed. There are no signs of erythema, drainage, induration or infection Range of motion is from 0-135- Ligamentously stable throughout range of motion Patient has 5 out of 5 motor strength in tib ant and gastroc Sensation intact to light touch testing to SPN TPN and tibial nerves 2+ dorsalis pedis pulse No signs of DVT Tests X-rays performed today, 3 views of the left knee and 1 view of the right knee; AP, lateral and sunrise views demonstrate findings of the implants in overall good alignment and position. There are no signs of loosening and no signs of osteolysis. There are no other bony or osseous abnormalities. Assessment 57-year-old male presents for one year postoperative follow-up appointment status post left partial knee arthroplasty that took place on 03/14/21. He continues to do well during the post-operative period of time. Incision site is well healed and without signs of infection. He denies fever and chills. He has been compliant with daily, home based therapy exercises. Plan The next follow-up appointment will be scheduled at the 5 year postoperative point in time and he will call the office if he has any questions or concerns in the meantime. Notes Electronically signed by Nakia Faria PA-C Care Team - Malia Amezquita MD - [employer] Health Reminders - Assess Tobacco Use satisfied 03/30/2022.
--- OUTSIDE RECORDS SUMMARY | 2023-12-05 14:51 | XMS_ITS ---
Care Plan - [facility], [facility] Created on: December 05, 2023 Severo Amin : 1965 Sex: Male Author Organization [facility] , [facility] Address [address] [place] [address] Phone Care Team Providers Care Tour Guide Name Role Phone Jenifer LEMON, Serafin Nazario Unavailable [phone] Malia Amezquita MD Primary Care Provider [phone]
--- OUTSIDE RECORDS SUMMARY | 2023-12-05 14:51 | XMS_ITS | Summary of Care ---
Author Organization [facility] Address [address] [place] [address]- Care Team Providers Care Chief Accounting Officer Name Role Phone Malia Amezquita Primary Care Physician Unavailab le Encounter 11/07/23 - 11/21/23 [facility] [address] [place] [address] Discharge Disposition: 06H Home with Home Health Care Attending Physician: Joon Kang DO Admitting Physician: Joon Kang DO Referring Physician: Felecia Lacy M.D Allergies, Adverse Reactions, Alerts Substance Criticality Severity Reaction Reaction Severity Status Bee Stings Active Assessment and Plan Extracted from: Title:Discharge Summary Phys ical Medicine & Rehabilitation Author:Joon Kang DO Date:11/21/23 Discharge Plan Discharge Summary Plan Discharge Medication Post Reconcillation (ST) Home Medications (13) Active ALPRAZolam 0.25 mg oral tablet 0.25 mg = 1 tab, PRN, Oral, BID aspirin 81 mg oral delayed release tablet 81 mg = 1 tab, Oral, Daily atorvastatin 80 mg oral tablet 80 mg = 1 tab, Oral, Daily baclofen 20 mg oral tablet 20 mg = 1 tab, Oral, TID clopidogrel 75 mg oral tablet 75 mg = 1 tab, Oral, Daily Cytotec 100 mcg oral tablet 100 mcg = 1 tab, Oral, TID escitalopram 20 mg oral tablet 20 mg = 1 tab, Oral, Daily furosemide 20 mg oral tablet 20 mg = 1 tab, Oral, Daily gabapentin 600 mg oral tablet 600 mg = 1 tab, Oral, TID iron polysaccharide (as elemental iron) 150 mg oral capsule 150 mg = 1 cap, Oral, BIDPC metoprolol succinate 25 mg oral tablet, extended release 25 mg = 1 tab, Oral, Daily Protonix 40 mg oral delayed release tablet 40 mg = 1 tab, Oral, BID Qulipta 60 mg oral tablet 60 mg = 1 tab, Oral, Daily . Discharge Diet: Diet -- 11/07/23 12:50:00 EDT, Texture: Level 7 - Regular, Liquid Consistency: Level 0 - Thin, Restrictions: Heart Healthy (2g Na) Disposition: See discharge plan Services: See discharge plan Follow-up appointments: Follow-up PCP in 1 to 2 weeks; see depart paperwork for additional specialty physician follow-up Time Spent on Discharge: _45 minutes Please note that portions of this note have been completed with a voice recognition program. Efforts were made to edit the dictations, but occasionally words are missed transcribed and may demonstrate nonsensical language or typographical errors. Medications ALPRAZolam 0.25 mg oral tablet 0.25 mg = 1 tab, Tab, Oral, BID PRN, 10 tab, 0 Refill(s), Anxiety, Route to Pharmacy Electronically, [facility], 178, 11/14/23 6:53:00 EDT, Height/Length Dosing, cm, 72.8, 246:53:00 EDT, Weight Dosing, kg Start Date: 11/20/23 Status: Ordered aspirin 81 mg oral delayed release tablet 81 mg, = 1 tab, Indication: Cerebrovascular accident Tab-EC, Oral, Daily, 30 tab, 0 Refill(s), Route to Pharmacy Electronically, [facility], 178, 11/14/23 6:53:00 EDT, Height/Length Dosing, cm, 72.8, 11/14/23 6:53:00 EDT, Weight Dosing, kg Start Date: 11/20/23 Stop Date: 12/20/23 Status: Ordered atorvastatin 80 mg oral tablet 80 mg = 1 tab, Tab, Oral, Daily, 30 tab, 0 Refill(s), Route to Pharmacy Electronically, [facility], 178, 11/14/23 6:53:00 EDT, Height/Length Dosing, cm, 72.8, 11/14/23 6:53:00 EDT,Weight Dosing, kg Start Date: 11/20/23 Stop Date: 12/20/23 Status: Ordered baclofen 20 mg oral tablet 20 mg = 1 tab, Tab, Oral, TID, 90 tab, 0 Refill(s), Route to Pharmacy Electronically, [facility], 178, 11/14/23 6:53:00 EDT, Height/Length Dosing, cm, 72.8, 11/14/23 6:53:00 EDT, Weight Dosing, kg Start Date: 11/20/23 Stop Date: 12/20/23 Status: Ordered clopidogrel 75 mg oral tablet 75 mg, = 1 tab, Indication: Cerebrovascular accident Tab, Oral, Daily, 30 tab, 0 Refill(s), Route to Pharmacy Electronically, [facility], 178, 11/14/23 6:53:00 EDT, Height/Length Dosing, cm, 72.8, 11/14/23 6:53:00 EDT, Weight Dosing, kg Start Date: 11/20/23 Stop Date: 12/20/23 Status: Ordered Cytotec 100 mcg oral tablet 100 mcg = 1 tab, Tab, Oral, TID, 90 tab, 0 Refill(s), Route to Pharmacy Electronically, [facility], 178, 11/14/23 6:53:00 EDT, Height/Length Dosing, cm, 72.8, 11/14/23 6:53:00 EDT,Weight Dosing, kg Start Date: 11/20/23 Stop Date: 12/20/23 Status: Ordered escitalopram 20 mg oral tablet 20 mg = 1 tab, Tab, Oral, Daily, 30 tab, 0 Refill(s), Route to Pharmacy Electronically, [facility], 178, 11/14/23 6:53:00 EDT, Height/Length Dosing, cm, 72.8, 11/14/23 6:53:00 EDT,Weight Dosing, kg Start Date: 11/20/23 Stop Date: 12/20/23 Status: Ordered furosemide 20 mg oral tablet 20 mg = 1 tab, Tab, Oral, Daily, 30 tab, 0 Refill(s), Route to Pharmacy Electronically, [facility], 178, 11/14/23 6:53:00 EDT, Height/Length Dosing, cm, 72.8, 11/14/23 6:53:00 EDT,Weight Dosing, kg Start Date: 11/20/23 Stop Date: 12/20/23 Status: Ordered gabapentin 600 mg oral tablet 600 mg, = 1 tab, Tab, Oral, TID, 90 tab, 0 Refill(s), Route to Pharmacy Electronically, [facility], 178, 11/14/23 6:53:00 EDT, Height/Length Dosing, cm, 72.8, 11/14/23 6:53:00 EDT,Weight Dosing, kg Start Date: 11/20/23 Stop Date: 12/20/23 Status: Ordered iron polysaccharide (as elemental iron) 150 mg oral capsule 150 mg = 1 cap, Cap, Oral, BIDPC, 60 cap, 0 Refill(s), Route to Pharmacy Electronically, [facility], 178, 11/14/23 6:53:00 EDT, Height/Length Dosing, cm, 72.8, 11/14/23 6:53:00 EDT, Weight Dosing, kg Start Date: 11/20/23 Stop Date: 12/20/23 Status: Ordered metoprolol succinate 25 mg oral tablet, extended release 25 mg = 1 tab, Tab-ER, Oral, Daily, 30 tab, 0 Refill(s), Route to Pharmacy Electronically, [facility], 178, 11/14/23 6:53:00 EDT, Height/Length Dosing, cm, 72.8, 11/14/23 6:53:00 EDT, Weight Dosing, kg Start Date: 11/20/23 Stop Date: 12/20/23 Status: Ordered Protonix 40 mg oral delayed release tablet 40 mg = 1 tab, Tab-DR, Oral, BID, 60 tab, 0 Refill(s), Route to Pharmacy Electronically, [facility], 178, 11/14/23 6:53:00 EDT, Height/Length Dosing, cm, 72.8, 11/14/23 6:53:00 EDT, Weight Dosing, kg Start Date: 11/20/23 Stop Date: 12/20/23 Status: Ordered Qulipta 60 mg oral tablet 60 mg = 1 tab, Tab, Oral, Daily, 30 tab, 0 Refill(s), Route to Pharmacy Electronically, [facility], 178, 11/14/23 6:53:00 EDT, Height/Length Dosing, cm, 72.8, 11/14/23 6:53:00 EDT,Weight Dosing, kg Start Date: 11/20/23 Stop Date: 12/20/23 Status: Ordered Problem List Condition Confirmation Course Effective Dates Status H ealth Status Informant Ability to balance when standing Confirmed Active Ability to control trunk posture Confirmed Active At risk of venous thromboembolus 1 Confirmed 11/08/23 Active Balance impairment Confirmed Active Cognitive impairment Confirmed Active Dysarthria Confirmed Active Gait abnormality Confirmed Active Gross motor impairment Confirmed Active Impaired mobility Confirmed Active Impaired sensation Confirmed Active Self -care deficit Confirmed Active 1Problem added by Discern Expert Rule: [id number]_VTERISKPROB_3 Results Laboratory List Name Date Automated Diff [facility] 11/21/23 Basic Metabolic Panel [facility] 11/21/23 Complete Blood Count w/Auto Diff [facility] 10/25 11/16 Packed Red Blood Cell Unit [facility] 11/20/[address] [facility] 11/20/23 Complete Blood Count w/Auto Diff [facility] 10/25 10/[address] [facility] 11/19/[address] [facility] 11/19/23 Complete Blood Count w/Auto Diff [facility] 10/25 09/[address] [facility] 11/16/[address] [facility] 11/12/23 Folate [facility] 11/09/23 Hepatic Function Panel [facility] 11/09/23 Iron/TIBC - [facility] 11/09/23 Magnesium [facility] 11/09/23 Thyroid Panel w/TSH - [facility] 11/09/23 Vitamin B12 [facility] 11/09/23 Prealbumin [facility] 11/08/23 Most recent to oldest [Reference Range]: 1 2 3 Creatinine Level 0.60 mg/dL (11/21/23 6:14 AM) 0.70 mg/dL (11/19/23 6:49 AM) 0.60 mg/dL (11/16/23 6:04 AM) Estimated Creatinine Clearance 134.81 mL/min 1 (11/21/23 6:14 AM) 115.56 mL/min 2 (11/19/23 6:49 AM) 134.81 mL/min 3 (11/16/23 6:04 AM) TSH - QST [0.40-4.50 mIUnits/L] 2.90 mIUnits/L 4 *NA* (11/09/23 6:31 AM) Iron, Total - QST [50-180 mcg/dL] 15 mcg/dL *LOW* (11/09/23 6:31 AM) T3 Uptake - QST [22-35 %] 31 % *NA* (11/09/23 6:31 AM) Free T4 Index(T7) - QST [1.4-3.8] 2.3 *NA* (11/09/23 6:31 AM) T4 (Thyroxine), Total - QST [4.9-10.5 mcg/dL] 7.5 mcg/dL *NA* (11/09/23 6:31 AM) Iron Saturation - QST [20-48 % (calc)] 4 % (calc) 5 *LOW* (11/09/23 6:31 AM) Iron Binding Capacity - QST [250-425] 403 *NA* (11/09/23 6:31 AM) Corrected WBC [facility] [4-12 x10(3)/mcL] 6 x10(3)/mcL (11/21/23 6:14 AM) 9 x10(3)/mcL (11/20/23 6:11 AM) 10 x10(3)/mcL (11/19/23 6:49 AM) WBC HSL [4.4-11.6 10^3/uL] 6.4 10^3/uL (11/21/23 6:14 AM) 9.4 10^3/uL (11/20/23 6:11 AM) 9.7 10^3/uL (11/19/23 6:49 AM) RBC HSL [04.10-05.80 10^3/uL] 03.34 10^3/uL *LOW* (11/21/23 6:14 AM) 02.76 10^3/uL *LOW* (11/20/23 6:11 AM) 03.07 10^3/uL *LOW* (11/19/23 6:49 AM) Hemoglobin HSL [13.4-17.6 g/dL] 8.3 g/dL *LOW* (11/21/23 6:14 AM) 6.4 g/dL 6 *CRIT* (11/20/23 6:11 AM) 7.1 g/dL *LOW* (11/19/23 6:49 AM) Hematocrit HSL [39.9-53.1 %] 24.9 % *LOW* (11/21/23 6:14 AM) 19.5 % 7 *CRIT* (11/20/23 6:11 AM) 21.7 % *LOW* (11/19/23 6:49 AM) MCV HSL [79.9-103.5 fL] 74.4 fL *LOW* (11/21/23 6:14 AM) 70.5 fL *LOW* (11/20/23 6:11 AM) 70.6 fL *LOW* (11/19/23 6:49 AM) MCH HSL [25.9-34.1 g/dL] 25.0 g/dL *LOW* (11/21/23 6:14 AM) 23.3 g/dL *LOW* (11/20/23 6:11 AM) 23.1 g/dL *LOW* (11/19/23 6:49 AM) MCHC HSL [31.9-35.4 g/dL] 33.5 g/dL (11/21/23 6:14 AM) 33.0 g/dL (11/20/23 6:11 AM) 32.7 g/dL (11/19/23 6:49 AM) Platelet HSL [149-451 10^3/uL] 219 10^3/uL (11/21/23 6:14 AM) 246 10^3/uL (11/20/23 6:11 AM) 282 10^3/uL (11/19/23 6:49 AM) RDW-CV% HSL [11.5-14.5 %] 20.8 % *HI* (11/21/23 6:14 AM) 17.6 % *HI* (11/20/23 6:11 AM) 17.6 % *HI* (11/19/23 6:49 AM) RDW-SD HSL [35.5-44.0 fL] 53.8 fL *HI* (11/21/23 6:14 AM) 43.3 fL (11/20/23 6:11 AM) 44.2 fL *HI* (11/19/23 6:49 AM) MPV HSL [8.9-13.1 fL] 6.7 fL *LOW* (11/21/23 6:14 AM) 6.9 fL *LOW* (11/20/23 6:11 AM) 6.7 fL *LOW* (11/19/23 6:49 AM) Neutrophil Auto HSL [39.6-77.4 %] 59.6 % (11/21/23 6:14 AM) 68.5 % (11/20/23 6:11 AM) 71.1 % (11/19/23 6:49 AM) Lymphocyte Auto HSL [17.7-51.9 %] 24.2 % (11/21/23 6:14 AM) 16.7 % *LOW* (11/20/23 6:11 AM) 15.0 % *LOW* (11/19/23 6:49 AM) Monocyte Auto HSL [2.9-10.5 %] 10.2 % (11/21/23 6:14 AM) 9.5 % (11/20/23 6:11 AM) 8.0 % (11/19/23 6:49 AM) Eosinophil Auto HSL [0.0-7.1 %] 5.3 % (11/21/23 6:14 AM) 4.6 % (11/20/23 6:11 AM) 5.2 % (11/19/23 6:49 AM) Basophil Auto HSL [0.0-9.1 %] 0.7 % (11/21/23 6:14 AM) 0.7 % (11/20/23 6:11 AM) 0.7 % (11/19/23 6:49 AM) Neutrophil Absolute HSL [1.1-5.4 10^3/uL] 3.8 10^3/uL (11/21/23 6:14 AM) 6.4 10^3/uL *HI* (11/20/23 6:11 AM) 6.9 10^3/uL *HI* (11/19/23 6:49 AM) Lymphocyte Absolute HSL [0.7-2.8 10^3/uL] 1.6 10^3/uL (11/21/23 6:14 AM) 1.6 10^3/uL (11/20/23 6:11 AM) 1.5 10^3/uL (11/19/23 6:49 AM) Monocyte Absolute HSL [0.0-1.1 10^3/uL] 0.7 10^3/uL (11/21/23 6:14 AM) 0.9 10^3/uL (11/20/23 6:11 AM) 0.8 10^3/uL (11/19/23 6:49 AM) Eosinophil Absolute HSL [0.0-0.5 10^3/uL] 0.3 10^3/uL (11/21/23 6:14 AM) 0.4 10^3/uL (11/20/23 6:11 AM) 0.5 10^3/uL (11/19/23 6:49 AM) Basophil Absolute HSL [0.00-0.06 10^3/uL] 0.00 10^3/uL (11/21/23 6:14 AM) 0.10 10^3/uL *HI* (11/20/23 6:11 AM) 0.10 10^3/uL *HI* (11/19/23 6:49 AM) Nucleated RBC HSL 0.1 *NA* (11/21/23 6:14 AM) 0.0 *NA* (11/20/23 6:11 AM) 0.0 *NA* (11/19/23 6:49 AM) Sodium HSL [135.9-146.1 mEq/L] 138.0 mEq/L (11/21/23 6:14 AM) 139.0 mEq/L (11/19/23 6:49 AM) 139.0 mEq/L (11/16/23 6:04 AM) Potassium HSL [3.4-4.6 mEq/L] 4.4 mEq/L (11/21/23 6:14 AM) 4.4 mEq/L (11/19/23 6:49 AM) 4.1 mEq/L (11/16/23 6:04 AM) Chloride HSL [95.9-106.1 mEq/L] 100.0 mEq/L (11/21/23 6:14 AM) 103.0 mEq/L (11/19/23 6:49 AM) 103.0 mEq/L (11/16/23 6:04 AM) Carbon Dioxide HSL [21.9-29.1 mEq/L] 33.0 mEq/L *HI* (11/21/23 6:14 AM) 32.0 mEq/L *HI* (11/19/23 6:49 AM) 31.0 mEq/L *HI* (11/16/23 6:04 AM) Anion Gap HSL [8-16 mmol/L] 9 mmol/L (11/21/23 6:14 AM) 8 mmol/L (11/19/23 6:49 AM) 9 mmol/L (11/16/23 6:04 AM) Glucose HSL [74.9-115.1 mg/dL] 108.0 mg/dL (11/21/23 6:14 AM) 103.0 mg/dL (11/19/23 6:49 AM) 101.0 mg/dL (11/16/23 6:04 AM) BUN HSL [10.9-23.1 mg/dL] 11.0 mg/dL (11/21/23 6:14 AM) 9.0 mg/dL *LOW* (11/19/23 6:49 AM) 9.0 mg/dL *LOW* (11/16/23 6:04 AM) Creatinine HSL [0.6-1.6 mg/dL] 0.6 mg/dL (11/21/23 6:14 AM) 0.7 mg/dL (11/19/23 6:49 AM) 0.6 mg/dL (11/16/23 6:04 AM) eGFR-AA HSL 107 *NA* (11/21/23 6:14 AM) 103 *NA* (11/19/23 6:49 AM) 111 *NA* (11/16/23 6:04 AM) eGFR-Non AA HSL 128 *NA* (11/21/23 6:14 AM) 123 *NA* (11/19/23 6:49 AM) 132 *NA* (11/16/23 6:04 AM) BUN/Creat Ratio HSL [5-20 ratio] 18 ratio (11/21/23 6:14 AM) 13 ratio (11/19/23 6:49 AM) 15 ratio (11/16/23 6:04 AM) Calcium Total HSL [8.9-11.1 mg/dL] 8.3 mg/dL *LOW* (11/21/23 6:14 AM) 8.2 mg/dL *LOW* (11/19/23 6:49 AM) 8.3 mg/dL *LOW* (11/16/23 6:04 AM) Albumin HSL [3.4-5.1 g/dL] 3.5 g/dL (11/09/23 6:31 AM) Prealbumin HSL [14.9-36.1 mg/dL] 18.1 mg/dL (11/08/23 5:45 AM) Protein Total HSL [5.9-8.4 g/dL] 6.3 g/dL (11/09/23 6:31 AM) Bilirubin Total HSL [0.1-1.4 mg/dL] 0.4 mg/dL (11/09/23 6:31 AM) Magnesium HSL [1.6-2.3 mg/dL] 1.7 mg/dL (11/09/23 6:31 AM) Alkaline Phosphatase HSL [19.9-90.1 IU/L] 57.0 IU/L (11/09/23 6:31 AM) AST HSL [9.9-59.1 IU/L] 21.0 IU/L (11/09/23 6:31 AM) ALT HSL [9.9-40.1 IU/L] 15.0 IU/L (11/09/23 6:31 AM) Folate HSL [2.6-17.1 ng/mL] 5.1 ng/mL (11/09/23 6:31 AM) Vitamin B12 Lvl HSL [159.9-800.1 pg/mL] 728.0 pg/mL (11/09/23 6:31 AM) # of Units HSL 2 *NA* (11/20/23 9:12 AM) Instructions HSL Transfuse Today (11/20/23 9:12 AM) Reason for Product HSL LOW HGB *NA* (11/20/23 9:12 AM) Occult Blood Stool - HSL [Negative] Positive *ABN* (11/12/23 8:10 PM) 1Result Comment: Calculated using method: Cockcroft-Gault (default) Calculated using Formula : (140-ageInYears)*weightInKG/(72*scrInMGperDL) Age: 58 (15334126110.0) Serum Creatinine: 0.60 mg/dL (28483895942.0) Height: 178 cm (93633165047.0) Weight: 72.8 kg (Actual Body Weight used) 2Result Comment: Calculated using method: Cockcroft-Gault (default) Calculated using Formula : (140-ageInYears)*weightInKG/(72*scrInMGperDL) Age: 58 (63509972653.0) Serum Creatinine: 0.70 mg/dL (41855351820.0) Height: 178 cm (07022243881.0) Weight: 72.8 kg (Actual Body Weight used) 3Result Comment: Calculated using method: Cockcroft-Gault (default) Calculated using Formula : (140-ageInYears)*weightInKG/(72*scrInMGperDL) Age: 58 (22775844056.0) Serum Creatinine: 0.60 mg/dL (19857189592.0) Height: 178 cm (44735360751.0) Weight: 72.8 kg (Actual Body Weight used) 4Result Comment: Lab test performed by: Lab Mnemonic: [facility] [address] [place] [address] ISABEL SANDERSON 5Result Comment: Lab test performed by: Lab Mnemonic: [facility] [address] [place] [address] ISABEL SANDERSON 6Result Comment: Criticals called to Dr Jorge Luis ERNST 11/20/2023 08:13:37 EDT DG 7Result Comment: Criticals called to Dr Jorge Luis ERNST 11/20/2023 08:13:37 EDT DG Vital Signs Most recent to oldest [Reference Range]: 1 2 3 Temperature Oral F [96.4-99.1 DegF] 97.7 DegF (11/21/23 8:02 AM) 98.1 DegF (11/21/23 2:10 AM) 98 DegF (11/21/23 1:15 AM) Peripheral Pulse Rate [60-100 bpm] 85 bpm (11/21/23 8:02 AM) 74 bpm (11/21/23 2:10 AM) 78 bpm (11/21/23 1:15 AM) Respiratory Rate [14-20 br/min] 16 br/min (11/21/23 8:02 AM) 16 br/min (11/21/23 2:10 AM) 18 br/min (11/21/23 1:15 AM) Blood Pressure [90-140/60-90 mmHg] 128/74mmHg (11/21/23 8:02 AM) 114/70mmHg (11/21/23 2:10 AM) 125/65mmHg (11/21/23 1:15 AM) Mean Arterial Pressure, Cuff 92 mmHg (11/21/23 8:02 AM) 85 mmHg (11/21/23 2:10 AM) 85 mmHg (11/21/23 1:15 AM) Temperature Oral 36.5 DegC 1 (11/21/23 8:02 AM) Temperature Oral [35.8-37.3 DegC] 36.7 DegC (11/21/23 2:10 AM) 36.7 DegC (11/21/23 1:15 AM) 1Result Comment: Charted by SYSTEM secondary to charting of Temperature Oral F on a Vitals Monitor. Rule: VITALSLINK_CALCULATIONS_2 Social History Social History Type Response Sex Male Sex Representation Male (finding) Patient Care team information Personnel Name: Malia Amezquita
--- OUTSIDE RECORDS SUMMARY | 2023-12-05 14:51 | XMS_ITS | Clinical Summary ---
Author Organization [facility] Address [address] [place] [address] Phone Care Team Providers Care Email Engineer Name Role Phone Jenifer LEMON, Serafin Nazario Unavailable [phone] Malia Amezquita MD Primary Care Provider [phone] Reason for Referral Date Encounter Description Provider Reason for Referral 05/20/21 Post Op Nakia Faria PA-C Referral To Physician - Pt to follow up with pcp for bp control Reason for Visit and Chief Complaint The Chief Complaint is: left knee OA, The Chief Complaint is: left knee pain Problems Includes: Problems addressed during this encounter and other active Problems All Visits Onset Date Resolved Date Provider Condition S tatus Pain in the Hands 08/26/2020 Jez adkins MD Active Last Documented On 1 2:35PM ; [facility], [facility] Joint Pain in the Left Knee 05/16/2019 Serafin Burgess MD Active Last Documented On 0 1:25PM ; [facility], [facility] Plan of Treatment He will continue participating in daily, home-based therapy exercises with focus on strengthening and range of motion. The next follow-up appointment will be scheduled at the 1 year postoperative point in time and he will call the office if he has any questions or concerns in the meantime. - Last Documented On 05/20/2021 5:44PM ; [facility], [facility] Instructions to patient Lose weight Last Documented On 2 4:00PM ; [facility], [facility] Assessments Includes: Assessments from this encounter Findings 56-year-old male presents 8 weeks status post left partial knee arthroplasty that took place on 03/14/21. He continues to do well during the post-operative period of time. Incision site is well healed and without signs of infection. He denies fever and chills. He participated in physical therapy with good progress and has been compliant with daily, home based therapy exercises. - Last Documented On 05/20/2021 5:44PM ; [facility], [facility] Instructions Includes: Instructions from this encounter Instructions to patient Lose weight Last Documented On 2 4:00PM ; [facility], [facility] Medical Equipment - Implanted Devices Includes: Current Devices No Medical Equipment Recorded Medications Includes: Medications discussed during this encounter and other current Medications Current Medications (continue as prescribed) traMADol HCl 50 MG Oral Tablet 09/05/2019 Provider: Diagnosis: Last Documented On 0 8:12AM By Dennis France ; [facility], [facility] amLODIPine Besylate 5 MG Oral Tablet 04/19/2019 Prov ider: Malia Amezquita MD Diagnosis: Last Documented On 0 1:26PM By Lorie Galarza ; [facility], [facility] Losartan Potassium-HCTZ 100-25 MG Oral Tablet 04/19/19 20 Provider: Malia Amezquita MD Diagnosis: Last Documented On 0 1:26PM By Lorie Galarza ; [facility], [facility] Potassium Chloride Amanda ER 1 0 MEQ Oral Tablet Extended Release 04/19/2019 Provider: Malia Amezquita MD Diagnosis: Last Documented On 0 1:26PM By Lorie Galarza ; [facility], [facility] ALPRAZolam 0.5 MG Oral Tablet 04/18/2019 Provider: Malia Amezquita MD Diagnosis: Last Documented On 0 1:27PM By Lorie Galarza ; [facility], [facility] Metoprolol Tartrate 50 MG Oral Tablet 04/18/2019 Pro vider: Malia Amezquita MD Diagnosis: Last Documented On 0 1:27PM By Lorie Galarza ; [facility], [facility] Clopidogrel Bisulfate 75 MG Oral Tablet 04/18/2019 Paula maldonadoder: Malia Amezquita MD Diagnosis: Last Documented On 0 1:27PM By Lorie Galarza ; [facility], [facility] Furosemide 20 MG Oral Tablet 04/18/2019 Provider: Malia Amezquita MD Diagnosis: Last Documented On 0 1:26PM By Lorie Galarza ; [facility], [facility] Atorvastatin Calcium 40 MG Oral Tablet 04/18/2019 Pr ovider: Malia Amezquita MD Diagnosis: Last Documented On 0 1:26PM By Lorie Galarza ; [facility] Naproxen 500 MG Oral Tablet 04/18/2019 Provider: Malia Amezquita MD Diagnosis: Last Documented On 0 1:26PM By Lorie Galarza ; [facility] raNITIdine HCl 150 MG Oral Tablet 04/18/2019 Provide r: Malia Amezquita MD Diagnosis: Last Documented On 0 1:26PM By Lorie Galarza ; [facility], [facility] Past Medications on file Aspirin EC 81 MG Oral Tablet Delayed Release 03/14/2021 - 04/25/2021 Provider: Serafin Burgess MD Diagnosis: 1 tab every 12 hours Last Documented On 1 7:09AM By Serafin Burgess ; [facility], [facility] Acetaminophen 500 MG Oral Tablet 03/14/2021 - 03/28/2021 Provider: Serafin Niño MD Diagnosis: Take 2 tablets by mouth every 8 hours Last Documented On 1 7:09AM By Serafin Burgess ; [facility], [facility] Meloxicam 15 MG Oral Tablet 03/14/2021 - 03/28/2021 Pr ovider: Serafin Burgess MD Diagnosis: once a day Last Documented On 1 7:09AM By Serafin Burgess ; [facility], [facility] Cefadroxil 500 MG Oral Capsule 03/14/2021 - 03/17/2021 Provider: Serafin Niño MD Diagnosis: Take 1 capsule by mouth every 12 hours Last Documented On 1 7:09AM By Serafin Burgess ; [facility], [facility] Vitamin D3 50 MCG (1999 [place]) Oral Tablet 03/14/2021 - 05/13/2021 Provider: Serafin Niño MD Diagnosis: Take 1 tablet by mouth daily Last Documented On 1 7:24AM By Serafin Burgess ; [facility], [facility] Zofran 4 MG Oral Tablet 03/14/2021 - 03/21/2021 Provid er: Serafin Burgess MD Diagnosis: 1 po q 6h prn nausea Last Documented On 1 7:09AM By Serafin Burgess ; [facility] Colace 100 MG Oral Capsule 03/14/2021 - 06/12/2021 Pro vider: Serafin Burgess MD Diagnosis: Take 1-2 capsules daily as needed Last Documented On 1 7:09AM By Serafin Burgess ; [facility] oxyCODONE HCl 5 MG Oral Tablet 03/14/2021 - 03/24/2021 Provider: Serafin Niño MD Diagnosis: Take 1 tablet by mouth every 4-6hrs for moderate pain Last Documented On 1 7:09AM By Serafin Burgess ; [facility] traMADol HCl 50 MG Oral Tablet 03/14/2021 - 03/22/2021 Provider: Serafin Niño MD Diagnosis: 2 tablets every 6 hours Last Documented On 1 7:09AM By Serafin Burgess ; [facility] Naproxen 500 MG Oral Tablet 12/09/2020 - 01/08/2021 Pr ovider: Jez Burt MD Diagnosis: take one tablet twice a day prn following surger y Last Documented On 1 11:16AM By Dr. Burt ; [facility] Vitamin C 1000 MG Oral Tablet 12/09/2020 - 02/07/2021 Provider: Jez moncada MD Diagnosis: take one tablet, once a day post surgery Last Documented On 1 11:16AM By Dr. Burt ; [facility] Vitamin C 1000 MG Oral Tablet 10/08/2020 - 12/07/2020 Provider: Jez moncada MD Diagnosis: take one tablet, once a day post surgery Last Documented On 1 9:57AM By Afsaneh Reyes ; [facility] Naproxen 500 MG Oral Tablet 10/08/2020 - 11/07/2020 Pr ovider: Jez Burt MD Diagnosis: take one tablet twice a day prn following surger y Last Documented On 1 9:56AM By Afsaneh Reyes ; [facility], [facility] Medications Administered Includes: Administered Medications from this encounter No Administered Medications Recorded Vital Signs Includes: Vital Signs from this encounter Vital Name 05/20/2021 03:59P Blood Pressure Sitting (mmHg) 145/84 Pulse Rate-Sitting (bpm) 70 Height (in) 70 Weight (lb) 193.6 Body Mass Index (kg/m2) 27.8 Body Surface Area (m2) 2.1 Note: sd Last Documented: On 05/20/2021 4:00PM ; [facility], [facility] Results Includes: Results discussed during this encounter No Results Recorded For Specified Dates History of Present Illness Includes: History of Present Illness from this encounter HEIDY Amin is a 56 year old male. - Allergy list reviewed - Problem list reviewed - Medication reconciliation performed - Medication list reviewed 56-year-old male presents for second postoperative follow-up appointment status post left partial knee arthroplasty that took place on 03/14/21. He continues to do well during the post-operative period of time. Incision site is well healed and without signs of infection. He denies fever and chills. He participated in physical therapy with good progress and has been compliant with daily, home based therapy exercises. Social History Description Last Updated Not a current smoker. 08/26/2020 Last Documented On 2 3:23PM ; [facility], [facility] Caffeine use 08/13/2020 Last Documented On 2 3:23PM ; [facility], [facility] Non-smoker 08/13/2020 Last Documented On 2 3:23PM ; [facility] No tobacco use 05/16/2019 Last Documented On 2 3:23PM ; [facility], [facility] Smoking status : Former smoker 0 Last Documented On 2 3:23PM ; [facility], [facility] Alcohol use 05/16/2019 Last Documented On 2 3:23PM ; [facility] Exercising regularly 05/16/2019 Last Documented On 2 3:23PM ; [facility], [facility] No recent change in diet 05/16/2019 Last Documented On 2 3:23PM ; [facility], [facility] Not a current smoker 05/16/2019 Last Documented On 2 3:23PM ; [facility] Not using drugs 05/16/2019 Last Documented On 2 3:23PM ; [facility] Procedures and Surgical History Includes: Procedures from this encounter Procedures Code Diagnosis Performing Provider Service L ocation Service Date use of tobacco assessment performed 1000F Last Documented On 2 3:23PM ; [facility] referral to physician Pt to follow up wi th pcp for bp control Last Documented On 2 3:23PM ; [facility] an X-ray was performed 74884 Last Documented On 2 3:23PM ; [facility] Surgical History Last Updated History of heart surgery CABG (10/2016) 0 05/16/2019 Last Documented On 2 3:23PM ; [facility] Medical History Includes: Medical History addressed during this encounter Description Last Updated Arthritis 08/13/2020 Last Documented On 2 3:23PM ; [facility], [facility] Heart surgery 08/13/2020 Last Documented On 2 3:23PM ; [facility], [facility] Hypertension 08/13/2020 Last Documented On 2 3:23PM ; [facility] Recent immunization for flu 08/13/2020 Last Documented On 2 3:23PM ; [facility], [facility] Recent immunization for pneumococcal pne umonia 08/13/2020 Last Documented On 2 3:23PM ; [facility] Total knee arthroplasty 08/13/2020 Last Documented On 2 3:23PM ; [facility], [facility] Arthritic joint problems 05/16/2019 Last Documented On 2 3:23PM ; [facility], [facility] Intermittent hypertension 05/16/2019 Last Documented On 2 3:23PM ; [facility], [facility] History of heart disease 05/16/2019 Last Documented On 2 3:23PM ; [facility], [facility] Family History Includes: Family History addressed during this encounter Description Last Updated Family history of cancer 08/13/2020 Last Documented On 2 3:23PM ; [facility], [facility] Family history of heart disease 08/14/19 Last Documented On 2 3:23PM ; [facility], [facility] Maternal grandfather's history of family history of heart disease 05/16/2019 Last Documented On 2 3:23PM ; [facility], [facility] Paternal history of family history of he art disease 05/16/2019 Last Documented On 2 3:23PM ; [facility], [facility] Review of Systems Includes: Review of Systems from this encounter Systemic: Not feeling tired, no recent weight loss, and no recent weight gain. Head: No headache and no sinus pain. Eyes: No vision problems and no Cataracts. Glasses/Contacts. No Glaucoma. Otolaryngeal: Hearing loss. No tinnitus. Cardiovascular: No chest pain or discomfort and no palpitations. Hypertension. No High Cholesterol. Pulmonary: No daytime asthma symptoms and no chronic cough. No wheezing. Gastrointestinal: No heartburn and no abdominal pain. No Indigestion, no Acid Reflux, no Peptic Ulcer, no GI Stomach Bleed, and no Ulcers. Endocrine: No hot flashes, no muscle weakness, no Diabetes, no Hypothyroid, and no Hyperthyroid. Hematologic: No easy bleeding. A tendency for easy bruising. No Anemia. Musculoskeletal: Arthritis. No lower back pain. No soft tissue swelling. Pain localized to one or more joints. Neurological: No dizziness, no convulsions, and no numbness. Psychological: Anxiety. No emotional lability, no depression, and no insomnia. Not crying for no reason. Skin: No dry skin. No Ulcers, no Scars, and no rash. Allergic and Immunologic: No complaint of seasonal allergic reaction. Mental Status Includes: Mental Status from this encounter Description Anxiety Functional Status Includes: Functional Status from this encounter No Functional Status Recorded Physical Exam Includes: Physical Exam from this encounter Allergies Includes: Active Allergies No Known Allergies Encounters Encounter Provider Location Date Check-In Time Check- Out Time Diagnosis Post Op Nakia Faria PA-C [facility] 2 3:12PM 4:34PM Insurance Includes: Active Insurance Policies Plan Name Member ID Group # Subscriber Relationship Effect carina Dates - [facility] [id number] Severo Amin Self 03/26/2022 - Unknown Clinical Notes Includes: Clinical Notes from this encounter No Clinical Notes Recorded
--- OUTSIDE RECORDS SUMMARY | 2023-12-05 14:52 | XMS_ITS | Clinical Summary ---
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 Name Role Phone Jenifer LEMON, Serafin Nazario Unavailable [phone] Malia Amezquita MD Primary Care Provider [phone] Reason for Visit and Chief Complaint [facility] Problems Includes: Problems addressed during this encounter and other active Problems All Visits Onset Date Resolved Date Provider Condition S tatus Pain in the Hands 08/26/2020 Jez adkins MD Active Last Documented On 1 2:35PM ; [facility], [facility] Joint Pain in the Left Knee 05/16/2019 Serafin Burgess MD Active Last Documented On 0 1:25PM ; [facility], [facility] Plan of Treatment No Plan of Treatment Recorded Assessments Includes: Assessments from this encounter No Assessments Recorded Medical Equipment - Implanted Devices Includes: Current Devices No Medical Equipment Recorded Medications Includes: Medications discussed during this encounter and other current Medications Current Medications (continue as prescribed) traMADol HCl 50 MG Oral Tablet 09/05/2019 Provider: Diagnosis: Last Documented On 0 8:12AM By Dennis France ; [facility] amLODIPine Besylate 5 MG Oral Tablet 04/19/2019 Prov ider: Malia Amezquita MD Diagnosis: Last Documented On 0 1:26PM By Lorie Galarza ; [facility] Losartan Potassium-HCTZ 100-25 MG Oral Tablet 04/19/19 20 Provider: Malia Amezquita MD Diagnosis: Last Documented On 0 1:26PM By Lorie Galarza ; [facility] Potassium Chloride Amanda ER 1 0 MEQ Oral Tablet Extended Release 04/19/2019 Provider: Malia Amezquita MD Diagnosis: Last Documented On 0 1:26PM By Lorie Galarza ; [facility] ALPRAZolam 0.5 MG Oral Tablet 04/18/2019 Provider: Malia Amezquita MD Diagnosis: Last Documented On 0 1:27PM By Lorie Galarza ; [facility] Metoprolol Tartrate 50 MG Oral Tablet 04/18/2019 Pro vider: Malia Amezquita MD Diagnosis: Last Documented On 0 1:27PM By Lorie Galarza ; [facility] Clopidogrel Bisulfate 75 MG Oral Tablet 04/18/2019 P rovider: Malia Amezquita MD Diagnosis: Last Documented On 0 1:27PM By Lorie Galarza ; [facility] Furosemide 20 MG Oral Tablet 04/18/2019 Provider: Malia Amezquita MD Diagnosis: Last Documented On 0 1:26PM By Lorie Galarza ; [facility] Atorvastatin Calcium 40 MG Oral Tablet 04/18/2019 Pr ovider: Malia Amezquita MD Diagnosis: Last Documented On 0 1:26PM By Lorie Galarza ; [facility] Naproxen 500 MG Oral Tablet 04/18/2019 Provider: Malia Amezquita MD Diagnosis: Last Documented On 0 1:26PM By Lorie Galarza ; [facility] raNITIdine HCl 150 MG Oral Tablet 04/18/2019 Provide r: Malia Amezquita MD Diagnosis: Last Documented On 0 1:26PM By Lorie Galarza ; [facility] Medications Administered Includes: Administered Medications from this encounter No Administered Medications Recorded Results Includes: Results discussed during this encounter No Results Recorded For Specified Dates History of Present Illness Includes: History of Present Illness from this encounter No History of Present Illness Recorded Social History No Social History Recorded - Smoking Status Unknown Medical History Includes: Medical History addressed during this encounter No Medical History Recorded Family History Includes: Family History addressed during this encounter No Family History Recorded Review of Systems Includes: Review of Systems from this encounter No Review of Systems Recorded Mental Status Includes: Mental Status from this encounter No Mental Status Recorded Functional Status Includes: Functional Status from this encounter No Functional Status Recorded Physical Exam Includes: Physical Exam from this encounter No Physical Exam Recorded Allergies Includes: Active Allergies No Known Allergies Encounters Encounter Provider Location Date Check-In Time Check-Out Time Diagnosis [facility] Serafin HOWELLO [facility] 03/14/2021 10:09AM 11:59PM Insurance Includes: Active Insurance Policies Plan Name Member ID Group # Subscriber Relationship Effect carina Dates 1 - [facility] [id number] Severo Amin Self 03/26/2022 - Unknown Clinical Notes Includes: Clinical Notes from this encounter No Clinical Notes Recorded
--- OUTSIDE RECORDS SUMMARY | 2023-12-05 14:52 | XMS_ITS | Clinical Summary ---
Author Organization [facility] Address [address] [place] [address] Phone Care Team Providers Care Environmental Services Tech Name Role Phone Jenifer LEMON, Serafin Nazario Unavailable [phone] Malia Amezquita MD Primary Care Provider [phone] Reason for Referral Date Encounter Description Provider Reason for Referral 03/29/21 Post Op Serafin Burgess MD Refe [...] Active Last Documented On 1 2:35PM ; [facility], [facility] Joint Pain in the Left Knee 05/16/2019 Serafin Burgess MD Active Last Documented On 0 1:25PM ; [facility], [facility] Plan of Treatment 48-year-old male status post left partial knee replacement to very well continue work with physical therapy can see our PA Nakiatenisha Faria back in 6 weeks - Last Documented On 03/31/2021 10:57AM ; [facility], [facility] Assessments Includes: Assessments from this encounter No Assessments Recorded Medical Equipment - Implanted Devices Includes: Current Devices No Medical Equipment Recorded Medications Includes: Medications discussed during this encounter and other current Medications Current Medications (continue as prescribed) traMADol HCl 50 MG Oral Tablet 09/05/2019 Provider: Diagnosis: Last Documented On 0 8:12AM By Dennis France ; [facility], [facility] amLODIPine Besylate 5 MG Oral Tablet 04/19/2019 Prov ider: Malia Amezquita MD Diagnosis: Last Documented On 0 1:26PM By Lorie Galarza ; [facility], [facility] Losartan Potassium-HCTZ 100-25 MG Oral Tablet 04/19/19 Provider: Malia Amezquita MD Diagnosis: Last Documented On 0 1:26PM By Lorie Galarza ; [facility], [facility] Potassium Chloride Amanda ER 1 0 MEQ Oral Tablet Extended Release 04/19/2019 Provider: Malia Amezquita MD Diagnosis: Last Documented On 0 1:26PM By Lorie Galarza ; [facility], [facility] ALPRAZolam 0.5 MG Oral Tablet 04/18/2019 Provider: Malia Amezquita MD Diagnosis: Last Documented On 0 1:27PM By Lorie Galarza ; [facility], [facility] Metoprolol Tartrate 50 MG Oral Tablet 04/18/2019 Pro vider: Malia Amezquita MD Diagnosis: Last Documented On 0 1:27PM By Lorie Galarza ; [facility], [facility] Clopidogrel Bisulfate 75 MG Oral Tablet 04/18/2019 P rovider: Malia Amezquita MD Diagnosis: Last Documented On 0 1:27PM By Lorie Galarza ; [facility], [facility] Furosemide 20 MG Oral Tablet 04/18/2019 Provider: Malia Amezquita MD Diagnosis: Last Documented On 0 1:26PM By Lorie Galarza ; [facility], [facility] Atorvastatin Calcium 40 MG Oral Tablet 04/18/2019 Pr ovider: Malia Amezquita MD Diagnosis: Last Documented On 0 1:26PM By Lorie Galarza ; [facility], [facility] Naproxen 500 MG Oral Tablet 04/18/2019 Provider: Malia Amezquita MD Diagnosis: Last Documented On 0 1:26PM By Lorie Galarza ; [facility], [facility] raNITIdine HCl 150 MG Oral Tablet 04/18/2019 Provide r: Malia Amezquita MD Diagnosis: Last Documented On 0 1:26PM By Lorie Galarza ; [facility], [facility] Past Medications on file Aspirin EC 81 MG Oral Tablet Delayed Release 03/14/2021 - 04/25/2021 Provider: Serafin Burgess MD Diagnosis: 1 tab every 12 hours Last Documented On 1 7:09AM By Serafin Burgess ; [facility] Acetaminophen 500 MG Oral Tablet 03/14/2021 - 03/28/2021 Provider: Serafin Niño MD Diagnosis: Take 2 tablets by mouth every 8 hours Last Documented On 1 7:09AM By Serafin Burgess ; [facility] Meloxicam 15 MG Oral Tablet 03/14/2021 - 03/28/2021 Pr ovider: Serafin Burgess MD Diagnosis: once a day Last Documented On 1 7:09AM By Serafin Burgess ; [facility], [facility] Cefadroxil 500 MG Oral Capsule 03/14/2021 - 03/17/2021 Provider: Serafin Niño MD Diagnosis: Take 1 capsule by mouth every 12 hours Last Documented On 1 7:09AM By Serafin Burgess ; [facility], [facility] Vitamin D3 50 MCG (1999 [place]) Oral Tablet 03/14/2021 - 05/13/2021 Provider: Serafin Niño MD Diagnosis: Take 1 tablet by mouth daily Last Documented On 1 7:24AM By Serafin Burgess ; [facility], [facility] Zofran 4 MG Oral Tablet 03/14/2021 - 03/21/2021 Provid er: Serafin Burgess MD Diagnosis: 1 po q 6h prn nausea Last Documented On 1 7:09AM By Serafin Burgess ; [facility], [facility] Colace 100 MG Oral Capsule 03/14/2021 - 06/12/2021 Pro vider: Serafin Burgess MD Diagnosis: Take 1-2 capsules daily as needed Last Documented On 1 7:09AM By Serafin Burgess ; [facility], [facility] oxyCODONE HCl 5 MG Oral Tablet 03/14/2021 - 03/24/2021 Provider: Serafin Niño MD Diagnosis: Take 1 tablet by mouth every 4-6hrs for moderate pain Last Documented On 1 7:09AM By Serafin Burgess ; [facility] traMADol HCl 50 MG Oral Tablet 03/14/2021 - 03/22/2021 Provider: Serafin Niño MD Diagnosis: 2 tablets every 6 hours Last Documented On 7:09AM By Serafin Burgess ; [facility] Naproxen 500 MG Oral Tablet 12/09/2020 - 01/08/2021 Pr ovider: Jez Burt MD Diagnosis: take one tablet twice a day prn following surger y Last Documented On 11:16AM By Dr. Burt ; [facility] Vitamin C 1000 MG Oral Tablet 12/09/2020 - 02/07/2021 Provider: Jez moncada MD Diagnosis: take one tablet, once a day post surgery Last Documented On 11:16AM By Dr. Burt ; [facility], [facility] Vitamin C 1000 MG Oral Tablet 10/08/2020 - 12/07/2020 Provider: Jez moncada MD Diagnosis: take one tablet, once a day post surgery Last Documented On 9:57AM By Afsaneh Reyes ; [facility], [facility] Naproxen 500 MG Oral Tablet 10/08/2020 - 11/07/2020 Pr ovider: Jez Burt MD Diagnosis: take one tablet twice a day prn following surger y Last Documented On 9:56AM By Afsaneh Reyes ; [facility], [facility] Medications Administered Includes: Administered Medications from this encounter No Administered Medications Recorded Vital Signs Includes: Vital Signs from this encounter Vital Name 03/29/2021 09:54A Blood Pressure Sitting (mmHg) 168/82 Pulse Rate-Sitting (bpm) 67 Height (in) 70 Weight (lb) 185 Body Mass Index (kg/m2) 26.5 Body Surface Area (m2) 2.0 Note: sg Last Documented: On 03/29/2021 9:54AM ; [facility] Results Includes: Results discussed during this encounter No Results Recorded For Specified Dates History of Present Illness Includes: History of Present Illness from this encounter HEIDY Amin is a 56 year old male. - Symptoms catching, giving away. - Allergy list reviewed - Problem list reviewed - Medication reconciliation performed - Medication list reviewed - Previous history of new onset pain Injury is not work related or an automotive accident - Pain is constant (100% of the time) - Patient pain level from 1-10: 6 - No previous treatment. 55-year-old male here today for follow-up he is status post a left partial knee replacement Is doing very well postoperatively walk without any assistive device. Not taking any pain medication he has good motion of his knee work with physical therapy no drainage from his incision no fevers or chills Social History Description Last Updated Not a current smoker. 08/26/2020 Last Documented On 2 9:38AM ; [facility], [facility] Caffeine use 08/13/2020 Last Documented On 2 9:38AM ; [facility], [facility] Non-smoker 08/13/2020 Last Documented On 2 9:38AM ; [facility], [facility] No tobacco use 05/16/2019 Last Documented On 2 9:38AM ; [facility], [facility] Smoking status : Former smoker 0 Last Documented On 2 9:38AM ; [facility], [facility] Alcohol use 05/16/2019 Last Documented On 2 9:38AM ; [facility], [facility] Exercising regularly 05/16/2019 Last Documented On 2 9:38AM ; [facility], [facility] No recent change in diet 05/16/2019 Last Documented On 2 9:38AM ; [facility], [facility] Not a current smoker 05/16/2019 Last Documented On 2 9:38AM ; [facility], [facility] Not using drugs 05/16/2019 Last Documented On 2 9:38AM ; [facility], [facility] Procedures and Surgical History Includes: Procedures from this encounter Procedures Code Diagnosis Performing Provider Service L ocation Service Date use of tobacco assessment performed 1000F Last Documented On 2 9:53AM ; [facility] referral to physician Pt to follow up [facility] for bp control Last Documented On 2 9:38AM ; [facility] was performed [address] Last Documented On 2 9:53AM ; [facility], [facility] Surgical History Last Updated History of heart surgery CABG (10/2016) 0 05/16/2019 Last Documented On 2 9:38AM ; [facility], [facility] Medical History Includes: Medical History addressed during this encounter Description Last Updated Arthritis 08/13/2020 Last Documented On 2 9:38AM ; [facility] Heart surgery 08/13/2020 Last Documented On 2 9:38AM ; [facility] Hypertension 08/13/2020 Last Documented On 2 9:38AM ; [facility] Recent immunization for flu 08/13/2020 Last Documented On 2 9:38AM ; [facility] Recent immunization for pneumococcal pne umonia 08/13/2020 Last Documented On 2 9:38AM ; [facility] Total knee arthroplasty 08/13/2020 Last Documented On 2 9:38AM ; [facility] Arthritic joint problems 05/16/2019 Last Documented On 2 9:38AM ; [facility] Intermittent hypertension 05/16/2019 Last Documented On 2 9:38AM ; [facility] History of heart disease 05/16/2019 Last Documented On 2 9:38AM ; [facility], [facility] Family History Includes: Family History addressed during this encounter Description Last Updated Family history of cancer 08/13/2020 Last Documented On 2 9:38AM ; [facility] Family history of heart disease 08/14/19 Last Documented On 2 9:38AM ; [facility] Maternal grandfather's history of family history of heart disease 05/16/2019 Last Documented On 2 9:38AM ; [facility] Paternal history of family history of he art disease 05/16/2019 Last Documented On 2 9:38AM ; [facility] Review of Systems Includes: Review of Systems [...] Time Check- Out Time Diagnosis Post Op Serafin Burgess MD [facility] 2 9:30AM 10:32AM Insurance Includes: Active Insurance Policies Plan Name Member ID Group # Subscriber Relationship Effect carina Dates 1 - [facility] [id number] Severo Amin Self 03/26/2022 - Unknown Clinical Notes Includes: Clinical Notes from this encounter No Clinical Notes Recorded
--- OUTSIDE RECORDS SUMMARY | 2023-12-05 14:52 | XMS_ITS | Clinical Summary ---
Author Organization [facility] , [facility] Address [address] [place] [address] Phone Care Team Providers Care Resolution Agent Name Role Phone Jenifer LEMON, Serafin Nazario Unavailable [phone] Malia Amezquita MD Primary Care Provider [phone] Reason for Visit and Chief Complaint [facility] Problems Includes: Problems addressed during this encounter and other active Problems All Visits Onset Date Resolved Date Provider Condition S tatus Pain in the Hands 08/26/2020 Jez adkins MD Active Last Documented On 1 2:35PM ; [facility] Joint Pain in the Left Knee 05/16/2019 Serafin Burgess MD Active Last Documented On 0 1:25PM ; [facility] Plan of Treatment No Plan of Treatment Recorded Assessments Includes: Assessments from this encounter No Assessments Recorded Medical Equipment - Implanted Devices Includes: Current Devices No Medical Equipment Recorded Medications Includes: Medications discussed during this encounter and other current Medications New / Renewed during this visit Serafin Burgess MD on 03/14/2021 Aspirin EC 81 MG Oral Tablet Delayed Release Provider: Serafin Redding MD 42 day supply: 84 tablet, 0 refills Diagnosis: 1 tab every 12 hours Pharmacy: [facility] #[id number] - [address] [facility], [address] - Last Documented On 1 7:09AM By Serafin Burgess ; [facility] Acetaminophen 500 MG Oral Tablet Provider: Serafin Burgess MD 14 day supply: 84 tablet, 0 refills Diagnosis: Take 2 tablets by mouth every 8 hours Pharmacy: [facility] #[id number] - [address] [facility], [address] - Last Documented On 1 7:09AM By Serafin Burgess ; [facility], [facility] Meloxicam 15 MG Oral Tablet Provider: Serafin Burgess MD 14 day supply: 14 tablet, 0 refills Diagnosis: once a day Pharmacy: [facility] #[id number] - [address] [facility], [address] - Last Documented On 1 7:09AM By Serafin Burgess ; [facility], [facility] Cefadroxil 500 MG Oral Capsule Provider: Serafin Burgess MD 3 day supply: 6 capsule, 0 refills Diagnosis: Take 1 capsule by mouth ever y 12 hours Pharmacy: [facility] #[id number] - [address] [facility], [address] - Last Documented On 1 7:09AM By Serafin Burgess ; [facility], [facility] Vitamin D3 50 MCG (1999 [place]) Oral Tablet Provider: Serafin Burgess MD 60 day supply: 60 tablet, 0 refills Diagnosis: Take 1 tablet by mouth daily Pharmacy: [facility] #[id number] - [address] [facility], [address] - Last Documented On 1 7:24AM By Serafin Burgess ; [facility], [facility] Zofran 4 MG Oral Tablet Provider: Cheyenne Burgess MD 7 day supply: 28 tablet, 0 refills Diagnosis: 1 po q 6h prn nausea Pharmacy: [facility] #[id number] - [address] [facility], [address] - Last Documented On 1 7:09AM By Serafin Burgess ; [facility], [facility] Colace 100 MG Oral Capsule Provider: Serafin Burgess MD 30 day supply: 60 capsule, 2 refills Diagnosis: Take 1-2 capsules daily as needed Pharmacy: [facility] #[id number] - [address] [facility], [address] - Last Documented On 1 7:09AM By Serafin Burgess ; [facility], [facility] oxyCODONE HCl 5 MG Oral Tablet Provider: Serafin Burgess MD 10 day supply: 60 tablet, 0 refills Diagnosis: Take 1 tablet by mouth every 4-6hrs for moderate pain Pharmacy: [facility] #[id number] - [address] [facility], [id number] - Last Documented On 1 7:09AM By Serafin Burgess ; [facility], [facility] traMADol HCl 50 MG Oral Tablet Provider: Serafin Burgess MD 8 day supply: 64 tablet, 0 refills Diagnosis: 2 tablets every 6 hours Pharmacy: [facility] #[id number] - [address] [facility], [id number] - Last Documented On 1 7:09AM By Serafin Burgess ; [facility], [facility] Current Medications (continue as prescribed) traMADol HCl 50 MG Oral Tablet 09/05/2019 Provider: Diagnosis: Last Documented On 0 8:12AM By Dennis France ; [facility], [facility] amLODIPine Besylate 5 MG Oral Tablet 04/19/2019 Prov ider: Malia Amezquita MD Diagnosis: Last Documented On 0 1:26PM By Lorie Galarza ; [facility], [facility] Losartan Potassium-HCTZ 100-25 MG Oral Tablet 04/19/19 20 Provider: Malia Amezquita MD Diagnosis: Last Documented On 0 1:26PM By Lorie Galarza ; [facility] Potassium Chloride Amanda ER 1 0 MEQ Oral Tablet Extended Release 04/19/2019 Provider: Malia Amezquita MD Diagnosis: Last Documented On 0 1:26PM By Lorie Galarza ; [facility] ALPRAZolam 0.5 MG Oral Tablet 04/18/2019 Provider: Malia Amezquita MD Diagnosis: Last Documented On 0 1:27PM By Lorie Galarza ; [facility] Metoprolol Tartrate 50 MG Oral Tablet 04/18/2019 Pro vider: Malia Amezquita MD Diagnosis: Last Documented On 0 1:27PM By Lorie Galarza ; [facility] Clopidogrel Bisulfate 75 MG Oral Tablet 04/18/2019 P rovider: Malia Amezquita MD Diagnosis: Last Documented On 0 1:27PM By Lorie Galarza ; [facility] Furosemide 20 MG Oral Tablet 04/18/2019 Provider: Malia Amezquita MD Diagnosis: Last Documented On 0 1:26PM By Lorie Galarza ; [facility] Atorvastatin Calcium 40 MG Oral Tablet 04/18/2019 Pr ovider: Malia Amezquita MD Diagnosis: Last Documented On 0 1:26PM By Lorie Galarza ; [facility] Naproxen 500 MG Oral Tablet 04/18/2019 Provider: Malia Amezquita MD Diagnosis: Last Documented On 0 1:26PM By Lorie Galarza ; [facility] raNITIdine HCl 150 MG Oral Tablet 04/18/2019 Provide r: Malia Amezquita MD Diagnosis: Last Documented On 0 1:26PM By Lorie Galarza ; [facility], [facility] Medications Administered Includes: Administered Medications [...] Location Date Check-In Time Check-Out Time Diagnosis [facility] Serafin Burgess MD Surgery 1 6:50AM 11:59PM Insurance Includes: Active Insurance Policies Plan Name Member ID Group # Subscriber Relationship Effect carina Dates 1 - [facility] [id number] Severo Amin Self 03/26/2022 - Unknown Clinical Notes Includes: Clinical Notes from this encounter No Clinical Notes Recorded
== END 2023-12-05 23:59 | disposition home or self-care (01) ==
LOC: RT 14:49
PROVIDERS: Visit Provider Nurse Practitioner
DX: I34.1 Nonrheumatic mitral (valve) prolapse (principal); Z86.73 Personal history of transient ischemic attack (TIA), and cerebral infarction without residual deficits
CPT/HCPCS: 93270

== ENCOUNTER 2023-12-11 16:52 | Emergency (ER) | payer BC, SELFPAY ==
[2023-12-11] VITALS (33 sets, daily range): BP systolic 73–128; BP diastolic 36–78; PULSE 40–71; RESP 16–18; TEMP 11.6–36.8; O2SAT 95–100; BMI 24.5
--- NOTE | 2023-12-11 17:42 | ED_ITS ---
<Statement entered by Funmi Meélndez DO - 12/11/23 23:08> I was consulted by the EMETERIO, and we discussed the complexity of the problems being addressed. I approved the treatment and management plan for this patient's care in the emergency department, thus performing a substantive portion of the medical decision making. Funmi Meléndez DO Discharge Plan Disposition Patient Disposition: Home, Self-Care Condition: Good Prescriptions Prescriptions: No Action omeprazole 40 mg capsule,delayed release(DR/EC) 40 mg PO DAILY atorvastatin 80 mg tablet 80 mg PO DAILY gabapentin 600 mg tablet 600 mg PO TID clopidogrel 75 mg tablet 75 mg PO DAILY baclofen 20 mg tablet 20 mg PO TID losartan-hydrochlorothiazide 100-25 mg tablet 1 tab PO DAILY alprazolam [Xanax] 0.5 mg tablet 0.5 mg PO HS amlodipine 10 mg tablet 10 mg PO DAILY furosemide 20 mg tablet 20 mg PO DAILY epinephrine 0.3 mg/0.3 mL auto-injector 0.3 mg SQ NEEDED PRN (Reason: Allergic Reaction) albuterol sulfate 90 mcg/actuation HFA aerosol inhaler 90 mcg INHALATION NEEDED PRN (Reason: Shortness Of Breath) escitalopram oxalate [Lexapro] 20 mg tablet 20 mg PO DAILY Qulipta 60 mg tablet 60 mg PO DAILY metoprolol succinate 50 mg Capsule,Sprinkle,Er 24hr 25 mg PO DAILY aspirin 81 mg Tablet,Delayed Release (Dr/Ec) 81 mg PO DAILY 30 Days Qty: 0 0RF Referrals Follow up/Referrals: Provider,Referral, MD [Primary Care Provider] - See instructions Activity Restrictions/Add. Instructions Additional Instructions/Restrictions: You were evaluated in the emergency department today. Please follow-up closely right away with your starcher and tenter range feeder as well as your primary care provider for continued monitoring of your hemoglobin. Return to the emergency department right away for new or worsening symptoms. Clinical Impressions Clinical Impression: Acute on chronic anemia Print Language Print Language: Armenian Discharge ED Provider: Jax Veliz Adult HPI <DEMETRIS Barton - Last Filed: 12/11/23 22:53> General Chief complaint: Recheck/Abnormal Lab/Rx Stated complaint: call from GI , low iron Time Seen by Provider: 12/11/23 17:10 Mode of Arrival: Wheelchair Source of Information: Patient and Spouse Limitations: No Limitations Description of Symptoms (Recalled from ER Triage Doc. by RN): sent from GI. abnormal labs History of Present Illness HPI narrative: 58-year-old male presents the emergency department with concern for low hemoglobin/hematocrit and low iron sent from GI/other provider for abnormal lab values. 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 Other past medical history consistent with mitral valve prolapse, ALS, hypertension, hyperlipidemia, COPD, current everyday smoker, denies any alcohol use for the last several months, denies any drug use. Triage vitals notable for Blood pressure 112/54, repeat blood pressure 95/51, oximetry within normal limits, heart within normal limits, afebrile. Onset (ago): month(s) Related Data Home Medications ?Medication ?Instructions ?Recorded ?Confirmed albuterol sulfate 90 mcg/actuation 90 mcg inhalation NEEDED PRN 10/03/23 12/05/23 aerosol inhaler Shortness Of Breath alprazolam 0.5 mg tablet (Xanax) 0.5 mg PO HS 10/03/23 12/05/23 amlodipine 10 mg tablet 10 mg PO DAILY 10/03/23 12/05/23 atogepant 60 mg tablet (Qulipta) 60 mg PO DAILY 10/03/23 12/05/23 atorvastatin 80 mg tablet 80 mg PO DAILY 10/03/23 12/05/23 baclofen 20 mg tablet 20 mg PO TID 10/03/23 12/05/23 clopidogrel 75 mg tablet 75 mg PO DAILY 10/03/23 12/05/23 epinephrine 0.3 mg/0.3 mL 0.3 mg SQ NEEDED PRN Allergic 10/03/23 12/05/23 injection, auto-injector Reaction escitalopram oxalate 20 mg tablet 20 mg PO DAILY 10/03/23 12/05/23 (Lexapro) furosemide 20 mg tablet 20 mg PO DAILY 10/03/23 12/05/23 gabapentin 600 mg tablet 600 mg PO TID 10/03/23 12/05/23 losartan 100 1 tab PO DAILY 10/03/23 12/05/23 mg-hydrochlorothiazide 25 mg tablet metoprolol succinate 50 mg capsule 25 mg PO DAILY 10/31/23 12/05/23 sprinkle, ext. release 24 hr omeprazole 40 mg capsule,delayed 40 mg PO DAILY 12/05/23 12/05/23 release Previous Rx's ?Medication ?Instructions ?Recorded aspirin 81 mg tablet,delayed 81 mg PO DAILY 30 days #0 tabs 11/07/23 release Allergies Allergy/AdvReac Type Severity Reaction Status Date / Time bee venom protein (honey bee) Allergy Severe Anaphylaxis Verified 12/05/23 14:11 [facility] <DEMETRIS Barton - Last Filed: 12/11/23 22:53> [facility] Disclaimer: The information contained in this section may have been updated after the patient was seen, as this information can be updated by other users. Medical History (Updated 12/11/23 @ 23:07 by Funmi Meléndez DO) CVA (cerebral vascular accident) Mitral valve prolapse Anemia Hyperlipemia Hypertension ALS (amyotrophic lateral sclerosis) Surgical History H/O vasectomy Hx of tonsillectomy History of carpal tunnel release Status post left partial knee replacement History of right knee joint replacement History of open heart surgery Family History Other No significant family history Social History Smoking Status: Never smoker alcohol intake: never substance use type: denies use current occupational status: employed Travel in the last 8 weeks: None <DEMETRIS Barton - Last Filed: 12/11/23 22:53> ROS Obtained: Yes All systems reviewed & no additional complaints except as documented Physical Exam <DEMETRIS Barton - Last Filed: 12/11/23 22:53> General General appearance: alert and in no apparent distress Head Head exam: atraumatic and normocephalic Eye Eye exam: Present PERRL and EOMI ENT ENT exam: Present mucous membranes moist Neck Neck exam: Present normal inspection Chest Chest inspection: Present normal inspection and symmetric chest wall rise Respiratory Respiratory exam: Present normal lung sounds bilaterally; Absent respiratory distress Cardiovascular Cardiovascular exam: Present regular rate, normal rhythm and systolic murmur Abdominal Exam Abdominal exam: Present soft; Absent tenderness, guarding, rebound or rigidity Extremities Exam Extremities exam: Present normal inspection and normal capillary refill; Absent cyanosis Neurological Exam Neurological exam: Present alert and oriented X3 Psychiatric Psychiatric exam: Present normal affect Skin Skin exam: Present warm, dry, normal color and other (Notable for small area of stage II what appears to be cigarette nichols on the patient's second and third digits on the left hand); Absent cyanosis or pallor Medical Decision Making <DEMETRIS Barton - Last Filed: 12/11/23 22:53> Medical Records Screening: Per USPSTF and CDC recommendations, given the prevalence of disease in our region, it is our hospital?s policy to screen for HIV and viral Hepatitis for all patients aged 18 and over and those with ongoing risk factors. Jose Inquiry Pt receiving controlled substance: No Vital Signs: 12/11/23 16:54 12/11/23 17:03 12/11/23 17:16 Temperature 97.7 F Temperature Source Oral Pulse Rate 71 69 Pulse Rate [Right] 66 Respiratory Rate 18 TAR Vitals Timing Blood Pressure 112/54 L 95/51 L Blood Pressure [Right Arm] 95/51 L Blood Pressure Mean Blood Pressure Mean [Right Arm] 65 Blood Pressure Source Blood Pressure Position 02 Sat by Pulse Oximetry 97 97 97 Oxygen Delivery Method 12/11/23 17:30 12/11/23 18:11 12/11/23 19:01 Temperature Temperature Source Pulse Rate 63 60 55 L Pulse Rate [Right] Respiratory Rate TAR Vitals Timing Blood Pressure 92/44 L 73/36 L 95/53 L Blood Pressure [Right Arm] Blood Pressure Mean 56 48 Blood Pressure Mean [Right Arm] Blood Pressure Source Blood Pressure Position 02 Sat by Pulse Oximetry 97 96 97 Oxygen Delivery Method Room Air 12/11/23 19:15 12/11/23 19:19 12/11/23 19:30 Temperature Temperature Source Pulse Rate 57 L 52 L 56 L Pulse Rate [Right] Respiratory Rate TAR Vitals Timing Blood Pressure 92/60 L 90/53 L 102/59 L Blood Pressure [Right Arm] Blood Pressure Mean Blood Pressure Mean [Right Arm] Blood Pressure Source Blood Pressure Position 02 Sat by Pulse Oximetry 98 99 97 Oxygen Delivery Method 12/11/23 20:01 12/11/23 20:31 12/11/23 20:49 Temperature Temperature Source Pulse Rate 52 L 63 58 L Pulse Rate [Right] Respiratory Rate TAR Vitals Timing Blood Pressure 106/65 L 111/70 107/69 L Blood Pressure [Right Arm] Blood Pressure Mean Blood Pressure Mean [Right Arm] Blood Pressure Source Blood Pressure Position 02 Sat by Pulse Oximetry 100 98 100 Oxygen Delivery Method 12/11/23 20:51 12/11/23 20:52 12/11/23 20:57 Temperature 98.3 F 98.3 F 98.2 F Temperature Source Oral Oral Oral Pulse Rate 70 54 L 48 L Pulse Rate [Right] Respiratory Rate 16 16 16 TAR Vitals Timing Pre-Blood Vitals Start Vitals 5 Minute Blood Pressure 101/65 L 107/69 L 115/65 Blood Pressure [Right Arm] Blood Pressure Mean 77 81 81 Blood Pressure Mean [Right Arm] Blood Pressure Source Automatic Cuff Automatic Cuff Automatic Cuff Blood Pressure Position 02 Sat by Pulse Oximetry 100 100 99 Oxygen Delivery Method 12/11/23 20:57 12/11/23 20:59 12/11/23 21:02 Temperature 98.2 F Temperature Source Oral Pulse Rate 48 L 58 L 56 L Pulse Rate [Right] Respiratory Rate 16 TAR Vitals Timing 10 Minute Blood Pressure 115/65 113/59 L 111/63 Blood Pressure [Right Arm] Blood Pressure Mean 79 Blood Pressure Mean [Right Arm] Blood Pressure Source Automatic Cuff Blood Pressure Position 02 Sat by Pulse Oximetry 100 100 99 Oxygen Delivery Method 12/11/23 21:02 12/11/23 21:07 12/11/23 21:07 Temperature 98.2 F Temperature Source Oral Pulse Rate 52 L 50 L 52 L Pulse Rate [Right] Respiratory Rate 16 TAR Vitals Timing 15 Minute Blood Pressure 111/63 105/69 L 105/69 L Blood Pressure [Right Arm] Blood Pressure Mean 81 Blood Pressure Mean [Right Arm] Blood Pressure Source Automatic Cuff Blood Pressure Position 02 Sat by Pulse Oximetry 99 100 100 Oxygen Delivery Method 12/11/23 21:09 12/11/23 21:22 12/11/23 21:30 Temperature 98.3 F Temperature Source Oral Pulse Rate 46 L 58 L Pulse Rate [Right] Respiratory Rate 16 TAR Vitals Timing 30 Minute Blood Pressure 103/65 L 107/68 L 113/64 Blood Pressure [Right Arm] Blood Pressure Mean 81 Blood Pressure Mean [Right Arm] Blood Pressure Source Automatic Cuff Blood Pressure Position 02 Sat by Pulse Oximetry 100 100 98 Oxygen Delivery Method 12/11/23 21:37 12/11/23 21:39 12/11/23 21:49 Temperature 98.3 F Temperature Source Oral Pulse Rate 48 L 50 L 49 L Pulse Rate [Right] Respiratory Rate 16 TAR Vitals Timing 45 Minute Blood Pressure 115/68 113/65 114/69 Blood Pressure [Right Arm] Blood Pressure Mean 83 Blood Pressure Mean [Right Arm] Blood Pressure Source Automatic Cuff Blood Pressure Position 02 Sat by Pulse Oximetry 100 99 100 Oxygen Delivery Method 12/11/23 21:52 12/11/23 22:09 12/11/23 22:30 Temperature 98.2 F Temperature Source Oral Pulse Rate 50 L 56 L 52 L Pulse Rate [Right] Respiratory Rate 16 TAR Vitals Timing 60 Minute Blood Pressure 116/64 124/72 104/72 L Blood Pressure [Right Arm] Blood Pressure Mean 81 Blood Pressure Mean [Right Arm] Blood Pressure Source Automatic Cuff Blood Pressure Position Supine 02 Sat by Pulse Oximetry 100 98 98 Oxygen Delivery Method 12/11/23 22:40 12/11/23 22:50 12/11/23 22:52 Temperature 53 F L Temperature Source Oral Pulse Rate 40 L 53 L Pulse Rate [Right] Respiratory Rate 16 TAR Vitals Timing 2nd Hour Blood Pressure 103/62 L 113/78 113/52 L Blood Pressure [Right Arm] Blood Pressure Mean 89 72 Blood Pressure Mean [Right Arm] Blood Pressure Source Automatic Cuff Blood Pressure Position 02 Sat by Pulse Oximetry 95 100 Oxygen Delivery Method 12/11/23 23:10 12/11/23 23:14 12/11/23 23:31 Temperature 98.2 F Temperature Source Oral Pulse Rate 50 L 50 L 66 Pulse Rate [Right] Respiratory Rate 16 TAR Vitals Timing Completion Vitals Blood Pressure 120/73 120/73 128/73 Blood Pressure [Right Arm] Blood Pressure Mean 88 Blood Pressure Mean [Right Arm] Blood Pressure Source Automatic Cuff Blood Pressure Position 02 Sat by Pulse Oximetry 100 100 98 Oxygen Delivery Method 12/12/23 00:01 12/12/23 00:14 12/12/23 00:15 Temperature 98.2 F Temperature Source Oral Pulse Rate 68 68 Pulse Rate [Right] Respiratory Rate 16 TAR Vitals Timing 1 Hour Post Infusion Blood Pressure 123/78 127/72 127/72 Blood Pressure [Right Arm] Blood Pressure Mean 90 Blood Pressure Mean [Right Arm] Blood Pressure Source Automatic Cuff Blood Pressure Position Supine 02 Sat by Pulse Oximetry 88 L 100 100 Oxygen Delivery Method 12/12/23 00:23 Temperature 98.2 F Temperature Source Oral Pulse Rate 68 Pulse Rate [Right] Respiratory Rate 16 TAR Vitals Timing Blood Pressure 127/72 Blood Pressure [Right Arm] Blood Pressure Mean Blood Pressure Mean [Right Arm] Blood Pressure Source Manual Cuff/ Auscultation Blood Pressure Position Supine 02 Sat by Pulse Oximetry Oxygen Delivery Method Room Air Lab Data Lab Results 12/11/23 17:45: WBC 6.4, RBC 3.20 L, Hgb 7.4 L, Hct 25.1 L, MCV 78.3 L, MCH 23.1 L, MCHC 29.5 L, RDW 17.8 H, Plt Count 166, MPV 7.5, Neut % (Auto) 58.8, Lymph % (Auto) 27.3, Mclennan % (Auto) 7.3, Eos % (Auto) 6.2, Baso % (Auto) 0.3, Neut # (Auto) 3.7, Lymph # (Auto) 1.7, Mclennan # (Auto) 0.5, Eos # (Auto) 0.4, Baso # (Auto) 0.0, PT 11.9, INR 1.07, APTT 25.9, Sodium 138, Potassium 3.3 L, Chloride 106, Carbon Dioxide 31 H, Anion Gap 4.3 L, BUN 11, Creatinine 0.70, Estimated Creat Clear 123, Estimated GFR 115, Est GFR ( Amer) 139, Glucose 117 H, Calcium 8.4, Total Bilirubin 0.4, AST 24, ALT 16, Alkaline Phosphatase 56, Total Protein 6.1 L, Albumin 3.3 L, Globulin 2.8, Albumin/Globulin Ratio 1.2, HIV 1&2 Antibody Rapid Nonreactive, Blood Type Confirm A Positive 12/11/23 19:12: Blood Type A Positive, Antibody Screen Negative, Crossmatch (G) See Detail 12/11/23 17:45 12/11/23 17:45 Orders (Tests/Meds): ED MEDICATIONS Discontinued Medications Generic Name Dose Route Start Last Admin Trade Name Travis PRN Reason Stop Dose Admin Sodium Chloride 250 mls @ 25 mls/hr 12/11/23 18:30 12/11/23 21:23 Sod Chlor 0.9% 250ml Bag IV 12/12/23 18:29 Not Given .Q10H MAXIMILIAN Sodium Chloride 250 mls @ 25 mls/hr 12/11/23 18:45 12/11/23 21:23 Sod Chlor 0.9% 250ml Bag IV 12/12/23 18:44 Not Given .Q10H MAXIMILIAN Sodium Chloride 250 mls @ 25 mls/hr 12/11/23 20:30 12/11/23 21:25 Sod Chlor 0.9% 250ml Bag IV 12/12/23 20:29 25 mls/hr .Q10H MAXIMILIAN Administration ORDERS Category Date Time Status Red Blood Cells Stat [facility] 12/11/23 19:12 Results Type and Screen Stat K 12/11/23 19:12 Results Activated Partial Thrombo Time Stat Lab 12/11/23 17:45 Completed Complete Blood Count Auto Diff Stat Lab 12/11/23 17:45 Completed Comprehensive Metabolic Panel Stat Lab 12/11/23 17:45 Completed HIV (1&2) Antibody Rapid Stat Lab 12/11/23 17:45 Completed Hep C Ab with Reflex to RNA Stat Lab 12/11/23 17:45 Received PT INR [Prothrombin Time INR] Stat Lab 12/11/23 17:45 Completed Medical Decision Narrative: 58-year-old male presents emergency department request of GI physician/other provider for decreased hemoglobin hematocrit and iron, differential diagnose include but not limited to, microcytic anemia, anemia of chronic disease, GI bleed. Discussed patient case with the attending physician Dr. Meléndez Obtain CBC CMP, PT/INR, APTT CBC is notable for erthocytopenia, 3.2, hemoglobin is 7.4, hematocrit is 25.1, MCV is decreased 78.3 otherwise unremarkable PT, INR and PTT are within normal limits CMP is notable for minimal hypokalemia at 3.3, anion gap is decreased at 4.3, otherwise unremarkable. Will go ahead and order type and screen the patient for transfuse the patient 1 unit of PRBCs, due to symptomatic anemia secondary most likely GI (melena) blood loss. His blood type is A positive screen negative. Discussed this patient's case at shift change with the attending physician Dr. Meléndez, she will be assuming the patient's care/workup, disposition is most likely home, after transfusion of 1 unit of PRBC is finished, patient has remained hemodynamically stable throughout his time in the emergency department. Otherwise asymptomatic with no acute complaints upon my reassessment at 10:50 PM. <Funmi Meléndez, DO - Last Filed: 12/11/23 23:08> Vital Signs: 12/11/23 16:54 12/11/23 17:03 12/11/23 17:16 Temperature 97.7 F Temperature Source Oral Pulse Rate 71 69 Pulse Rate [Right] 66 Respiratory Rate 18 TAR Vitals Timing Blood Pressure 112/54 L 95/51 L Blood Pressure [Right Arm] 95/51 L Blood Pressure Mean Blood Pressure Mean [Right Arm] 65 Blood Pressure Source Blood Pressure Position 02 Sat by Pulse Oximetry 97 97 97 Oxygen Delivery Method 12/11/23 17:30 12/11/23 18:11 12/11/23 19:01 Temperature Temperature Source Pulse Rate 63 60 55 L Pulse Rate [Right] Respiratory Rate TAR Vitals Timing Blood Pressure 92/44 L 73/36 L 95/53 L Blood Pressure [Right Arm] Blood Pressure Mean 56 48 Blood Pressure Mean [Right Arm] Blood Pressure Source Blood Pressure Position 02 Sat by Pulse Oximetry 97 96 97 Oxygen Delivery Method Room Air 12/11/23 19:15 12/11/23 19:19 12/11/23 19:30 Temperature Temperature Source Pulse Rate 57 L 52 L 56 L Pulse Rate [Right] Respiratory Rate TAR Vitals Timing Blood Pressure 92/60 L 90/53 L 102/59 L Blood Pressure [Right Arm] Blood Pressure Mean Blood Pressure Mean [Right Arm] Blood Pressure Source Blood Pressure Position 02 Sat by Pulse Oximetry 98 99 97 Oxygen Delivery Method 12/11/23 20:01 12/11/23 20:31 12/11/23 20:49 Temperature Temperature Source Pulse Rate 52 L 63 58 L Pulse Rate [Right] Respiratory Rate TAR Vitals Timing Blood Pressure 106/65 L 111/70 107/69 L Blood Pressure [Right Arm] Blood Pressure Mean Blood Pressure Mean [Right Arm] Blood Pressure Source Blood Pressure Position 02 Sat by Pulse Oximetry 100 98 100 Oxygen Delivery Method 12/11/23 20:51 12/11/23 20:52 12/11/23 20:57 Temperature 98.3 F 98.3 F 98.2 F Temperature Source Oral Oral Oral Pulse Rate 70 54 L 48 L Pulse Rate [Right] Respiratory Rate 16 16 16 TAR Vitals Timing Pre-Blood Vitals Start Vitals 5 Minute Blood Pressure 101/65 L 107/69 L 115/65 Blood Pressure [Right Arm] Blood Pressure Mean 77 81 81 Blood Pressure Mean [Right Arm] Blood Pressure Source Automatic Cuff Automatic Cuff Automatic Cuff Blood Pressure Position 02 Sat by Pulse Oximetry 100 100 99 Oxygen Delivery Method 12/11/23 20:57 12/11/23 20:59 12/11/23 21:02 Temperature 98.2 F Temperature Source Oral Pulse Rate 48 L 58 L 56 L Pulse Rate [Right] Respiratory Rate 16 TAR Vitals Timing 10 Minute Blood Pressure 115/65 113/59 L 111/63 Blood Pressure [Right Arm] Blood Pressure Mean 79 Blood Pressure Mean [Right Arm] Blood Pressure Source Automatic Cuff Blood Pressure Position 02 Sat by Pulse Oximetry 100 100 99 Oxygen Delivery Method 12/11/23 21:02 12/11/23 21:07 12/11/23 21:07 Temperature 98.2 F Temperature Source Oral Pulse Rate 52 L 50 L 52 L Pulse Rate [Right] Respiratory Rate 16 TAR Vitals Timing 15 Minute Blood Pressure 111/63 105/69 L 105/69 L Blood Pressure [Right Arm] Blood Pressure Mean 81 Blood Pressure Mean [Right Arm] Blood Pressure Source Automatic Cuff Blood Pressure Position 02 Sat by Pulse Oximetry 99 100 100 Oxygen Delivery Method 12/11/23 21:09 12/11/23 21:22 12/11/23 21:30 Temperature 98.3 F Temperature Source Oral Pulse Rate 46 L 58 L Pulse Rate [Right] Respiratory Rate 16 TAR Vitals Timing 30 Minute Blood Pressure 103/65 L 107/68 L 113/64 Blood Pressure [Right Arm] Blood Pressure Mean 81 Blood Pressure Mean [Right Arm] Blood Pressure Source Automatic Cuff Blood Pressure Position 02 Sat by Pulse Oximetry 100 100 98 Oxygen Delivery Method 12/11/23 21:37 12/11/23 21:39 12/11/23 21:49 Temperature 98.3 F Temperature Source Oral Pulse Rate 48 L 50 L 49 L Pulse Rate [Right] Respiratory Rate 16 TAR Vitals Timing 45 Minute Blood Pressure 115/68 113/65 114/69 Blood Pressure [Right Arm] Blood Pressure Mean 83 Blood Pressure Mean [Right Arm] Blood Pressure Source Automatic Cuff Blood Pressure Position 02 Sat by Pulse Oximetry 100 99 100 Oxygen Delivery Method 12/11/23 21:52 12/11/23 22:09 12/11/23 22:30 Temperature 98.2 F Temperature Source Oral Pulse Rate 50 L 56 L 52 L Pulse Rate [Right] Respiratory Rate 16 TAR Vitals Timing 60 Minute Blood Pressure 116/64 124/72 104/72 L Blood Pressure [Right Arm] Blood Pressure Mean 81 Blood Pressure Mean [Right Arm] Blood Pressure Source Automatic Cuff Blood Pressure Position Supine 02 Sat by Pulse Oximetry 100 98 98 Oxygen Delivery Method 12/11/23 22:40 12/11/23 22:50 12/11/23 22:52 Temperature 53 F L Temperature Source Oral Pulse Rate 40 L 53 L Pulse Rate [Right] Respiratory Rate 16 TAR Vitals Timing 2nd Hour Blood Pressure 103/62 L 113/78 113/52 L Blood Pressure [Right Arm] Blood Pressure Mean 89 72 Blood Pressure Mean [Right Arm] Blood Pressure Source Automatic Cuff Blood Pressure Position 02 Sat by Pulse Oximetry 95 100 Oxygen Delivery Method 12/11/23 23:10 12/11/23 23:14 12/11/23 23:31 Temperature 98.2 F Temperature Source Oral Pulse Rate 50 L 50 L 66 Pulse Rate [Right] Respiratory Rate 16 TAR Vitals Timing Completion Vitals Blood Pressure 120/73 120/73 128/73 Blood Pressure [Right Arm] Blood Pressure Mean 88 Blood Pressure Mean [Right Arm] Blood Pressure Source Automatic Cuff Blood Pressure Position 02 Sat by Pulse Oximetry 100 100 98 Oxygen Delivery Method 12/12/23 00:01 12/12/23 00:14 12/12/23 00:15 Temperature 98.2 F Temperature Source Oral Pulse Rate 68 68 Pulse Rate [Right] Respiratory Rate 16 TAR Vitals Timing 1 Hour Post Infusion Blood Pressure 123/78 127/72 127/72 Blood Pressure [Right Arm] Blood Pressure Mean 90 Blood Pressure Mean [Right Arm] Blood Pressure Source Automatic Cuff Blood Pressure Position Supine 02 Sat by Pulse Oximetry 88 L 100 100 Oxygen Delivery Method 12/12/23 00:23 Temperature 98.2 F Temperature Source Oral Pulse Rate 68 Pulse Rate [Right] Respiratory Rate 16 TAR Vitals Timing Blood Pressure 127/72 Blood Pressure [Right Arm] Blood Pressure Mean Blood Pressure Mean [Right Arm] Blood Pressure Source Manual Cuff/ Auscultation Blood Pressure Position Supine 02 Sat by Pulse Oximetry Oxygen Delivery Method Room Air Lab Data Lab Results 12/11/23 17:45: WBC 6.4, RBC 3.20 L, Hgb 7.4 L, Hct 25.1 L, MCV 78.3 L, MCH 23.1 L, MCHC 29.5 L, RDW 17.8 H, Plt Count 166, MPV 7.5, Neut % (Auto) 58.8, Lymph % (Auto) 27.3, Mclennan % (Auto) 7.3, Eos % (Auto) 6.2, Baso % (Auto) 0.3, Neut # (Auto) 3.7, Lymph # (Auto) 1.7, Mclennan # (Auto) 0.5, Eos # (Auto) 0.4, Baso # (Auto) 0.0, PT 11.9, INR 1.07, APTT 25.9, Sodium 138, Potassium 3.3 L, Chloride 106, Carbon Dioxide 31 H, Anion Gap 4.3 L, BUN 11, Creatinine 0.70, Estimated Creat Clear 123, Estimated GFR 115, Est GFR ( Amer) 139, Glucose 117 H, Calcium 8.4, Total Bilirubin 0.4, AST 24, ALT 16, Alkaline Phosphatase 56, Total Protein 6.1 L, Albumin 3.3 L, Globulin 2.8, Albumin/Globulin Ratio 1.2, HIV 1&2 Antibody Rapid Nonreactive, Blood Type Confirm A Positive 12/11/23 19:12: Blood Type A Positive, Antibody Screen Negative, Crossmatch ([facility]) See Detail Orders (Tests/Meds): ED MEDICATIONS Discontinued Medications Generic Name Dose Route Start Last Admin Trade Name Freq PRN Reason Stop Dose Admin Sodium Chloride 250 mls @ 25 mls/hr 12/11/23 18:30 12/11/23 21:23 Sod Chlor 0.9% 250ml Bag IV 12/12/23 18:29 Not Given .Q10H MAXIMILIAN Sodium Chloride 250 mls @ 25 mls/hr 12/11/23 18:45 12/11/23 21:23 Sod Chlor 0.9% 250ml Bag IV 12/12/23 18:44 Not Given .Q10H MAXIMILIAN Sodium Chloride 250 mls @ 25 mls/hr 12/11/23 20:30 09/17/24 21:25 Sod Chlor 0.9% 250ml Bag IV 12/12/23 20:29 25 mls/hr .Q10H MAXIMILIAN Administration ORDERS Category Date Time Status Red Blood Cells Stat K 12/11/23 19:12 Results Type and Screen Stat BBK 12/11/23 19:12 Results Activated Partial Thrombo Time Stat Lab 12/11/23 17:45 Completed Complete Blood Count Auto Diff Stat Lab 12/11/23 17:45 Completed Comprehensive Metabolic Panel Stat Lab 12/11/23 17:45 Completed HIV (1&2) Antibody Rapid Stat Lab 12/11/23 17:45 Completed Hep C Ab with Reflex to RNA Stat Lab 12/11/23 17:45 Received PT INR [Prothrombin Time INR] Stat Lab 12/11/23 17:45 Completed Medical Decision Narrative: 58-year-old male presents emergency department request of GI physician/other provider for decreased hemoglobin hematocrit and iron, differential diagnose include but not limited to, microcytic anemia, anemia of chronic disease, GI bleed. Discussed patient case with the attending physician Dr. Meléndez Obtain CBC CMP, PT/INR, APTT CBC is notable for erthocytopenia, 3.2, hemoglobin is 7.4, hematocrit is 25.1, MCV is decreased 78.3 otherwise unremarkable PT, INR and PTT are within normal limits CMP is notable for minimal hypokalemia at 3.3, anion gap is decreased at 4.3, otherwise unremarkable. Will go ahead and order type and screen the patient for transfuse the patient 1 unit of PRBCs, due to symptomatic anemia secondary most likely GI (melena) blood loss. His blood type is A positive screen negative. Discussed this patient's case at shift change with the attending physician Dr. Meléndez, she will be assuming the patient's care/workup, disposition is most likely home, after transfusion of 1 unit of PRBC is finished, patient has remained hemodynamically stable throughout his time in the emergency department. Otherwise asymptomatic with no acute complaints upon my reassessment at 10:50 PM. Patient care signed out to oncoming provider, Dr. Veliz, pending blood transfusion. <Jax Veliz MD - Last Filed: 12/12/23 00:47> Vital Signs: 12/11/23 16:54 12/11/23 17:03 12/11/23 17:16 Temperature 97.7 F Temperature Source Oral Pulse Rate 71 69 Pulse Rate [Right] 66 Respiratory Rate 18 TAR Vitals Timing Blood Pressure 112/54 L 95/51 L Blood Pressure [Right Arm] 95/51 L Blood Pressure Mean Blood Pressure Mean [Right Arm] 65 Blood Pressure Source Blood Pressure Position 02 Sat by Pulse Oximetry 97 97 97 Oxygen Delivery Method 12/11/23 17:30 12/11/23 18:11 12/11/23 19:01 Temperature Temperature Source Pulse Rate 63 60 55 L Pulse Rate [Right] Respiratory Rate TAR Vitals Timing Blood Pressure 92/44 L 73/36 L 95/53 L Blood Pressure [Right Arm] Blood Pressure Mean 56 48 Blood Pressure Mean [Right Arm] Blood Pressure Source Blood Pressure Position 02 Sat by Pulse Oximetry 97 96 97 Oxygen Delivery Method Room Air 12/11/23 19:15 12/11/23 19:19 12/11/23 19:30 Temperature Temperature Source Pulse Rate 57 L 52 L 56 L Pulse Rate [Right] Respiratory Rate TAR Vitals Timing Blood Pressure 92/60 L 90/53 L 102/59 L Blood Pressure [Right Arm] Blood Pressure Mean Blood Pressure Mean [Right Arm] Blood Pressure Source Blood Pressure Position 02 Sat by Pulse Oximetry 98 99 97 Oxygen Delivery Method 12/11/23 20:01 12/11/23 20:31 12/11/23 20:49 Temperature Temperature Source Pulse Rate 52 L 63 58 L Pulse Rate [Right] Respiratory Rate TAR Vitals Timing Blood Pressure 106/65 L 111/70 107/69 L Blood Pressure [Right Arm] Blood Pressure Mean Blood Pressure Mean [Right Arm] Blood Pressure Source Blood Pressure Position 02 Sat by Pulse Oximetry 100 98 100 Oxygen Delivery Method 12/11/23 20:51 12/11/23 20:52 12/11/23 20:57 Temperature 98.3 F 98.3 F 98.2 F Temperature Source Oral Oral Oral Pulse Rate 70 54 L 48 L Pulse Rate [Right] Respiratory Rate 16 16 16 TAR Vitals Timing Pre-Blood Vitals Start Vitals 5 Minute Blood Pressure 101/65 L 107/69 L 115/65 Blood Pressure [Right Arm] Blood Pressure Mean 77 81 81 Blood Pressure Mean [Right Arm] Blood Pressure Source Automatic Cuff Automatic Cuff Automatic Cuff Blood Pressure Position 02 Sat by Pulse Oximetry 100 100 99 Oxygen Delivery Method 12/11/23 20:57 12/11/23 20:59 12/11/23 21:02 Temperature 98.2 F Temperature Source Oral Pulse Rate 48 L 58 L 56 L Pulse Rate [Right] Respiratory Rate 16 TAR Vitals Timing 10 Minute Blood Pressure 115/65 113/59 L 111/63 Blood Pressure [Right Arm] Blood Pressure Mean 79 Blood Pressure Mean [Right Arm] Blood Pressure Source Automatic Cuff Blood Pressure Position 02 Sat by Pulse Oximetry 100 100 99 Oxygen Delivery Method 12/11/23 21:02 12/11/23 21:07 12/11/23 21:07 Temperature 98.2 F Temperature Source Oral Pulse Rate 52 L 50 L 52 L Pulse Rate [Right] Respiratory Rate 16 TAR Vitals Timing 15 Minute Blood Pressure 111/63 105/69 L 105/69 L Blood Pressure [Right Arm] Blood Pressure Mean 81 Blood Pressure Mean [Right Arm] Blood Pressure Source Automatic Cuff Blood Pressure Position 02 Sat by Pulse Oximetry 99 100 100 Oxygen Delivery Method 12/11/23 21:09 12/11/23 21:22 12/11/23 21:30 Temperature 98.3 F Temperature Source Oral Pulse Rate 46 L 58 L Pulse Rate [Right] Respiratory Rate 16 TAR Vitals Timing 30 Minute Blood Pressure 103/65 L 107/68 L 113/64 Blood Pressure [Right Arm] Blood Pressure Mean 81 Blood Pressure Mean [Right Arm] Blood Pressure Source Automatic Cuff Blood Pressure Position 02 Sat by Pulse Oximetry 100 100 98 Oxygen Delivery Method 12/11/23 21:37 12/11/23 21:39 12/11/23 21:49 Temperature 98.3 F Temperature Source Oral Pulse Rate 48 L 50 L 49 L Pulse Rate [Right] Respiratory Rate 16 TAR Vitals Timing 45 Minute Blood Pressure 115/68 113/65 114/69 Blood Pressure [Right Arm] Blood Pressure Mean 83 Blood Pressure Mean [Right Arm] Blood Pressure Source Automatic Cuff Blood Pressure Position 02 Sat by Pulse Oximetry 100 99 100 Oxygen Delivery Method 12/11/23 21:52 12/11/23 22:09 12/11/23 22:30 Temperature 98.2 F Temperature Source Oral Pulse Rate 50 L 56 L 52 L Pulse Rate [Right] Respiratory Rate 16 TAR Vitals Timing 60 Minute Blood Pressure 116/64 124/72 104/72 L Blood Pressure [Right Arm] Blood Pressure Mean 81 Blood Pressure Mean [Right Arm] Blood Pressure Source Automatic Cuff Blood Pressure Position Supine 02 Sat by Pulse Oximetry 100 98 98 Oxygen Delivery Method 12/11/23 22:40 12/11/23 22:50 12/11/23 22:52 Temperature 53 F L Temperature Source Oral Pulse Rate 40 L 53 L Pulse Rate [Right] Respiratory Rate 16 TAR Vitals Timing 2nd Hour Blood Pressure 103/62 L 113/78 113/52 L Blood Pressure [Right Arm] Blood Pressure Mean 89 72 Blood Pressure Mean [Right Arm] Blood Pressure Source Automatic Cuff Blood Pressure Position 02 Sat by Pulse Oximetry 95 100 Oxygen Delivery Method 12/11/23 23:10 12/11/23 23:14 12/11/23 23:31 Temperature 98.2 F Temperature Source Oral Pulse Rate 50 L 50 L 66 Pulse Rate [Right] Respiratory Rate 16 TAR Vitals Timing Completion Vitals Blood Pressure 120/73 120/73 128/73 Blood Pressure [Right Arm] Blood Pressure Mean 88 Blood Pressure Mean [Right Arm] Blood Pressure Source Automatic Cuff Blood Pressure Position 02 Sat by Pulse Oximetry 100 100 98 Oxygen Delivery Method 12/12/23 00:01 12/12/23 00:14 12/12/23 00:15 Temperature 98.2 F Temperature Source Oral Pulse Rate 68 68 Pulse Rate [Right] Respiratory Rate 16 TAR Vitals Timing 1 Hour Post Infusion Blood Pressure 123/78 127/72 127/72 Blood Pressure [Right Arm] Blood Pressure Mean 90 Blood Pressure Mean [Right Arm] Blood Pressure Source Automatic Cuff Blood Pressure Position Supine 02 Sat by Pulse Oximetry 88 L 100 100 Oxygen Delivery Method 12/12/23 00:23 Temperature 98.2 F Temperature Source Oral Pulse Rate 68 Pulse Rate [Right] Respiratory Rate 16 TAR Vitals Timing Blood Pressure 127/72 Blood Pressure [Right Arm] Blood Pressure Mean Blood Pressure Mean [Right Arm] Blood Pressure Source Manual Cuff/ Auscultation Blood Pressure Position Supine 02 Sat by Pulse Oximetry Oxygen Delivery Method Room Air Lab Data Lab Results 12/11/23 17:45: WBC 6.4, RBC 3.20 L, Hgb 7.4 L, Hct 25.1 L, MCV 78.3 L, MCH 23.1 L, MCHC 29.5 L, RDW 17.8 H, Plt Count 166, MPV 7.5, Neut % (Auto) 58.8, Lymph % (Auto) 27.3, Mclennan % (Auto) 7.3, Eos % (Auto) 6.2, Baso % (Auto) 0.3, Neut # (Auto) 3.7, Lymph # (Auto) 1.7, Mclennan # (Auto) 0.5, Eos # (Auto) 0.4, Baso # (Auto) 0.0, PT 11.9, INR 1.07, APTT 25.9, Sodium 138, Potassium 3.3 L, Chloride 106, Carbon Dioxide 31 H, Anion Gap 4.3 L, BUN 11, Creatinine 0.70, Estimated Creat Clear 123, Estimated GFR 115, Est GFR ( Amer) 139, Glucose 117 H, Calcium 8.4, Total Bilirubin 0.4, AST 24, ALT 16, Alkaline Phosphatase 56, Total Protein 6.1 L, Albumin 3.3 L, Globulin 2.8, Albumin/Globulin Ratio 1.2, HIV 1&2 Antibody Rapid Nonreactive, Blood Type Confirm A Positive 12/11/23 19:12: Blood Type A Positive, Antibody Screen Negative, Crossmatch (AHG) See Detail Orders (Tests/Meds): ED MEDICATIONS Discontinued Medications Generic Name Dose Route Start Last Admin Trade Name Travis PRN Reason Stop Dose Admin Sodium Chloride 250 mls @ 25 mls/hr 12/11/23 18:30 12/11/23 21:23 Sod Chlor 0.9% 250ml Bag IV 12/12/23 18:29 Not Given .Q10H MAXIMILIAN Sodium Chloride 250 mls @ 25 mls/hr 12/11/23 18:45 12/11/23 21:23 Sod Chlor 0.9% 250ml Bag IV 12/12/23 18:44 Not Given .Q10H MAXIMILIAN Sodium Chloride 250 mls @ 25 mls/hr 12/11/23 20:30 12/11/23 21:25 Sod Chlor 0.9% 250ml Bag IV 12/12/23 20:29 25 mls/hr .Q10H MAXIMILIAN Administration ORDERS Category Date Time Status Red Blood Cells Stat BBK 12/11/23 19:12 Results Type and Screen Stat BBK 12/11/23 19:12 Results Activated Partial Thrombo Time Stat Lab 12/11/23 17:45 Completed Complete Blood Count Auto Diff Stat Lab 12/11/23 17:45 Completed Comprehensive Metabolic Panel Stat Lab 12/11/23 17:45 Completed HIV (1&2) Antibody Rapid Stat Lab 12/11/23 17:45 Completed Hep C Ab with Reflex to RNA Stat Lab 12/11/23 17:45 Received PT INR [Prothrombin Time INR] Stat Lab 12/11/23 17:45 Completed Medical Decision Narrative: 58-year-old male presents emergency department request of GI physician/other provider for decreased hemoglobin hematocrit and iron, differential diagnose include but not limited to, microcytic anemia, anemia of chronic disease, GI bleed. Discussed patient case with the attending physician Dr. Meléndez Obtain CBC CMP, PT/INR, APTT CBC is notable for erthocytopenia, 3.2, hemoglobin is 7.4, hematocrit is 25.1, MCV is decreased 78.3 otherwise unremarkable PT, INR and PTT are within normal limits CMP is notable for minimal hypokalemia at 3.3, anion gap is decreased at 4.3, otherwise unremarkable. Will go ahead and order type and screen the patient for transfuse the patient 1 unit of PRBCs, due to symptomatic anemia secondary most likely GI (melena) blood loss. His blood type is A positive screen negative. Discussed this patient's case at shift change with the attending physician Dr. Meléndez, she will be assuming the patient's care/workup, disposition is most likely home, after transfusion of 1 unit of PRBC is finished, patient has remained hemodynamically stable throughout his time in the emergency department. Otherwise asymptomatic with no acute complaints upon my reassessment at 10:50 PM. Patient care signed out to oncoming provider, Dr. Veliz, pending blood transfusion. Jose Alfredo LEMON: I assumed care of the patient at the time of handoff from the prior provider. On reassessment patient landon hemodynamically stable and well-appearing, he was observed for 1 hour after transfusion without evidence of transfusion reaction. He was discharged in stable condition with return precautions and instructions regarding follow-up. I was consulted by the EMETERIO, and we discussed the complexity of the problems being addressed. I approved the treatment and management plan for this patient?s care in the Emergency Department, thus performing a substantive portion of the medical decision making. Jax Veliz MD Critical Care <DEMETRIS Barton - Last Filed: 12/11/23 22:53> Critical Care Time Critical Care Time: No
[2023-12-11 17:58] LABS: Basophils % 0.3 % (0.1-2.0); Eosinophils # 0.4 K/mm3 (0.0-0.4); Eosinophils % 6.2 % (0.1-12.0); Hemoglobin 7.4 g/dL (14.1-18.0); Lymphocytes # 1.7 K/mm3 (0.7-4.5); Lymphocytes % 27.3 % (10-50); Mean Corpuscular HGB Conc 29.5 g/dL (31.8-35.4); Mean Corpuscular Hemoglobin 23.1 pg (27.0-31.2); Mean Corpuscular Volume 78.3 fl (80-94); Mean Platelet Volume 7.5 fl (7.4-10.4); Monocytes # 0.5 K/mm3 (0.1-1.0); Monocytes % 7.3 % (1.7-9.3); Neutrophils # 3.7 K/mm3 (1.8-7.8); Neutrophils % 58.8 % (37.0-80.0); Platelet Count 166 K/mm3 (142-424); Red Cell Distribution Width 17.8 % (11.5-17.5); White Blood Count 6.4 K/mm3 (4.8-10.8)
[2023-12-11 18:00] LABS: Hematocrit 25.1 % (42.0-52.0)
[2023-12-11 18:01] LABS: Albumin Level 3.3 g/dl (3.5-5.0); Chloride 106 mmol/L (98-107); Potassium 3.3 mmoL/L (3.5-5.1); Sodium 138 mmol/L (136-145)
[2023-12-11 18:05] LABS: Alanine Aminotransferase 16 U/L (12-78); Albumin/Globulin Ratio 1.2 (1.1-1.8); Alkaline Phosphatase 56 U/L (38-126); Anion Gap 4.3 mEq/L (5-15); Aspartate Amino Transferase 24 U/L (17-59); Bilirubin,Total 0.4 mg/dl (0.2-1.3); Blood Urea Nitrogen 11 mg/dl (9-20); Calcium 8.4 mg/dl (8.4-10.2); Carbon Dioxide 31 mmol/L (22.0-30.0); Creatinine Clearance Estimated 123 mL/min (50-200); Estimated Glomerular Filt Rate 115 ml/min (>60); GFR (African American) 139 ML/MIN (>60); Globulin 2.8 g/dL (1.3-3.2); Glucose 117 mg/dl (74-100); Total Protein,Serum 6.1 g/dl (6.3-8.2)
[2023-12-11 18:07] LABS: Activated Partial Thrombo Time 25.9 seconds (22.8-30.6); INR 1.07 (0.9-1.1); Prothrombin Time 11.9 seconds (10.1-12.5)
--- NOTE | 2023-12-11 19:22 | PC.NURSE ---
Patient is resting comfortably with at bedside. Blood typing blood draw done and witnessed.
[2023-12-11] MEDS: 0.9 % SODIUM CHLORIDE 250 ML 25 ML IV (21:25)
--- NOTE | 2023-12-11 23:20 | PC.NURSE ---
Per provider, no H&H needed for this patient because he is not actively bleeding
[2023-12-11 23:31] LABS: HIV (1&2) Antibody Rapid NONREACTIVE (NONREACTIVE)
[2023-12-12 00:01] VITALS: BP 123/78; O2SAT 88
[2023-12-12 00:14] VITALS: BP 127/72; PULSE 68; RESP 16; TEMP 36.8; O2SAT 100
[2023-12-12 00:15] VITALS: BP 127/72; PULSE 68; O2SAT 100
[2023-12-12 00:23] VITALS: BP 127/72; PULSE 68; RESP 16; TEMP 36.8; O2SAT 100
[2023-12-13 06:40] LABS: HCV Ab Non Reactive (Non Reactive)
== END 2023-12-12 00:29 | disposition home or self-care (01) ==
PROVIDERS: Emergency Medicine; Physician Assistant; Emergency Provider Emergency Medicine
DX: D50.9 Iron deficiency anemia, unspecified (principal)
CPT/HCPCS: 36430; 80053; 85025; 85610; 85730; 86803; 86850; 87389; 99285; P9016

== ENCOUNTER 2024-01-09 08:50 | Day surgery (SDC) | payer BC, SELFPAY ==
[2024-01-08 10:10] VITALS: BMI 24.5
--- NOTE | 2024-01-09 08:57 | CA_ITS ---
APPROVED REPORT EXAM: Comprehensive 2D, Doppler, and color-flow Echocardiogram Broom Man: Kathy Adames RVT Ht: 5 ft 10 in Wt: 171lbs BSA: 1.95 BP: 133/68 mmHg Indications: MVP,CABG,SEVERE MR ON TTE Procedure After obtaining informed consent, patient underwent transesophageal echo in the [facility]. Type of Sedation : MAC Sedation start time: 10:50 Case end Time: 11:10 Transesophageal probe was inserted and advanced into esophagus without difficulty by Dr. Chacorta Maldonado. The NAVEEN was performed without complications. Throughout the procedure, the blood pressure, pulse oximetry, cardiac rhythm, and rate were monitored. The patient tolerated the procedure without adverse effects. Recovery from conscious sedation was uneventful and vital signs were stable. Left Ventricle The left ventricle is normal size. The left ventricular systolic function is normal. The left ventricular ejection fraction is within the normal range. Proximal septal thickening is noted. There is normal LV segmental wall motion. LVEF is 65%. Right Ventricle The right ventricle is normal size. The right ventricular systolic function is normal. Atria The left atrium is dilated. No thrombus is visualized in the left atrium or appendage. The right atrium is dilated. Interatrial septum is intact without evidence of ASD or PFO. Aortic Valve The aortic valve is mildly thickened. There is no aortic valvular stenosis. No aortic regurgitation is present. Mitral Valve There is prolapse of the anterior mitral valve leaflet. 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 MVA by PHT method is 3.3 cm2. Severe degenerative mitral regurgitation (DMR). The mechanism of MR is due to anterior MV prolapse and chordal rupture (Sean class II). the MR jet is eccentric and posteriorly directed. EROA by PISA method is 0.80 cm???. Mitral regurgitant volume is 90 mL. Regurgitant fraction is 55%. There is pulmonary vein systolic flow reversal, suggestive of significant MR. Tricuspid Valve The tricuspid valve leaflets are thin and pliable. Trace tricuspid regurgitation. There is insufficient TR jet to estimate RVSP. Pulmonic Valve The pulmonary valve is normal in structure. Trace pulmonic regurgitation. Great Vessels The aortic root is normal in size. The ascending aorta is normal in size. Calcification is incidentally noted in the descending aorta. Pericardium There is no pericardial effusion. Other Information Study Quality: Adequate Conclusion Normal biventricular systolic function. Biatrial dilation. Severe degenerative MR (DMR) due to anterior MV prolapse and chordal rupture (Sean class II). The MR jet is eccentric and posteriorly directed. EROA by PISA method is 0.80 cm???. Mitral regurgitant volume is 90 mL. Regurgitant fraction is 55%. Calcification is incidentally noted in the descending aorta. In the setting of degenerative MR due to prolapse and chordal rupture, early referral to interventional cardiology vs. surgical evaluation is recommended. Electronically signed by : Britni Maldonado MD 01/14/2024 01:01:04
[2024-01-09 09:10] VITALS: BP 158/91; PULSE 72; RESP 18; TEMP 36.4; O2SAT 99
--- NOTE | 2024-01-09 09:13 | ECG_ITS ---
APPROVED REPORT Exam: Resting ECG HR:62 bpm ECG Measurements Heart Rate 62 AXES AK 156 P 64 QRSd 101 QRS -11 QT 426 T 64 QTc 432 Conclusion SINUS RHYTHM POSSIBLE RIGHT VENTRICULAR CONDUCTION DELAY [RSR (QR) IN V1/V2] NONSPECIFIC T-WAVE ABNORMALITY BORDERLINE ECG UNCONFIRMED REPORT Electronically signed by : Ishmael Nunez MD 01/10/2024 16:11:00
[2024-01-09] MEDS: LACTATED RINGERS 1000ML 1,000 ML 25 ML IV (09:18)
[2024-01-09 09:24] LABS: Basophils # 0.1 K/mm3 (0-0.2); Basophils % 0.7 % (0.1-2.0); Eosinophils # 0.1 K/mm3 (0.0-0.4); Eosinophils % 0.8 % (0.1-12.0); Hematocrit 40.5 % (42.0-52.0); Lymphocytes # 1.4 K/mm3 (0.7-4.5); Lymphocytes % 14.4 % (10-50); Mean Corpuscular HGB Conc 32.1 g/dL (31.8-35.4); Mean Corpuscular Hemoglobin 24.2 pg (27.0-31.2); Mean Corpuscular Volume 75.3 fl (80-94); Mean Platelet Volume 7.6 fl (7.4-10.4); Monocytes # 0.6 K/mm3 (0.1-1.0); Monocytes % 5.8 % (1.7-9.3); Neutrophils # 7.7 K/mm3 (1.8-7.8); Neutrophils % 78.3 % (37.0-80.0); Platelet Count 179 K/mm3 (142-424); Red Blood Count 5.38 M/mm3 (4.60-6.20); Red Cell Distribution Width 19.4 % (11.5-17.5); White Blood Count 9.8 K/mm3 (4.8-10.8)
[2024-01-09 09:27] LABS: Chloride 103 mmol/L (98-107); Sodium 138 mmol/L (136-145)
[2024-01-09 09:28] LABS: Potassium 4.1 mmoL/L (3.5-5.1)
[2024-01-09 09:30] LABS: Blood Urea Nitrogen 6 mg/dl (9-20); Creatinine Clearance Estimated 144 mL/min (50-200); Estimated Glomerular Filt Rate 137 ml/min (>60); GFR (African American) 166 ML/MIN (>60)
[2024-01-09 09:31] LABS: Anion Gap 9.1 mEq/L (5-15); Calcium 9.8 mg/dl (8.4-10.2); Carbon Dioxide 30 mmol/L (22.0-30.0); Glucose 112 mg/dl (74-100)
[2024-01-09 09:41] LABS: Prothrombin Time 11.2 seconds (10.1-12.5)
--- NOTE | 2024-01-09 10:36 | EXP.ANES.CKL ---
[facility] Disclaimer: The information contained in this section may have been updated after the patient was seen, as this information can be updated by other users. Medical History CVA (cerebral vascular accident) Mitral valve prolapse Anemia Hyperlipemia Hypertension ALS (amyotrophic lateral sclerosis) Surgical History H/O vasectomy Hx of tonsillectomy History of carpal tunnel release Status post left partial knee replacement History of right knee joint replacement History of open heart surgery Family History Other No significant family history Social History Smoking Status: Never smoker alcohol intake: never substance use type: denies use current occupational status: employed Travel in the last 8 weeks: None [facility] Anesthesia Checklist Patient Identification Patient Identification: Arm Band and Verbal (Name & ) Structural Data Admitted From: Home Planned Operative Procedure/s: NAVEEN Consent for Planned Operative Procedure(s) Verified: Yes Verified Documents: Surgical Consent and History and Physical NPO Status Verified Time NPO: 18:00 Chart Verification Results Verified: CBC, BMP, PT, PTT, INR and ECG Additional verifications Patient : No Anesthesia Reactions: No Cardiovascular Assessment Heart Sounds: S1 & S2 Pulse Rhythm: Irregular Peripheral Edema: No Airway Assessment Mallampati Score:: Class II C-Spine Mobility Assessed: Yes (FROM) TMJ Mobility Assessed: Yes Dentition: Good Dentition (Nothing loose per pt.) Neurological Assessment Level of Consciousness: Awake, Alert, Appropriate and Follows Commands Hx Seizures: No Numbness or tingling in extremities: Yes (s/p CVA + ALS - generalize weakness) Anesthesia Plan Anesthesia Risk discussed: Yes Anesthesia Plan: Verified ASA Class: III Anesthesia Type: MAC
[2024-01-09 10:40] VITALS: O2SAT 98
[2024-01-09 11:07] VITALS: BP 92/59; PULSE 66; RESP 16; TEMP 36.4; O2SAT 98
[2024-01-09 11:17] VITALS: BP 102/58; PULSE 58; RESP 16; O2SAT 98
[2024-01-09 11:27] VITALS: BP 102/63; PULSE 57; RESP 16; O2SAT 98
[2024-01-09 11:37] VITALS: BP 122/69; PULSE 65; RESP 16; O2SAT 100
== END 2024-01-09 11:40 | disposition home or self-care (01) ==
PROVIDERS: Visit Provider Internal Medicine
DX: I34.1 Nonrheumatic mitral (valve) prolapse (principal); I63.9 Cerebral infarction, unspecified
CPT/HCPCS: 80048; 85025; 85610; 93005; 93270; 93312; 93319; J7120

== ENCOUNTER 2024-05-02 11:31 | Outpatient (CLI) | payer OTHER, SELFPAY ==
[2024-05-02 19:12] LABS: Basophils # 0.1 K/mm3 (0-0.2); Basophils % 0.8 % (0.1-2.0); Eosinophils # 0.1 K/mm3 (0.0-0.4); Eosinophils % 1.2 % (0.1-12.0); Hematocrit 39.5 % (42.0-52.0); Hemoglobin 12.5 g/dL (14.1-18.0); Lymphocytes # 1.4 K/mm3 (0.7-4.5); Lymphocytes % 15.5 % (10-50); Mean Corpuscular HGB Conc 31.6 g/dL (31.8-35.4); Mean Corpuscular Hemoglobin 23.6 pg (27.0-31.2); Mean Corpuscular Volume 74.7 fl (80-94); Mean Platelet Volume 9.1 fl (7.4-10.4); Monocytes # 0.6 K/mm3 (0.1-1.0); Monocytes % 6.6 % (1.7-9.3); Neutrophils # 6.8 K/mm3 (1.8-7.8); Neutrophils % 75.6 % (37.0-80.0); Platelet Count 219 K/mm3 (142-424); Red Blood Count 5.29 M/mm3 (4.60-6.20); Red Cell Distribution Width 19.1 % (11.5-17.5); White Blood Count 9.1 K/mm3 (4.8-10.8)
[2024-05-02 19:28] LABS: Albumin Level 3.9 g/dl (3.5-5.0); Chloride 98 mmol/L (98-107); Potassium 3.9 mmoL/L (3.5-5.1); Sodium 135 mmol/L (136-145)
[2024-05-02 19:30] LABS: Alanine Aminotransferase 15 U/L (12-78); Alkaline Phosphatase 96 U/L (38-126); Anion Gap 10.9 mEq/L (5-15); Aspartate Amino Transferase 21 U/L (17-59); Bilirubin,Total 0.3 mg/dl (0.2-1.3); Blood Urea Nitrogen 9 mg/dl (9-20); Carbon Dioxide 30 mmol/L (22.0-30.0); Estimated Glomerular Filt Rate 169 ml/min (>60); GFR (African American) 205 ML/MIN (>60)
[2024-05-02 19:31] LABS: Albumin/Globulin Ratio 1.3 (1.1-1.8); Calcium 9.5 mg/dl (8.4-10.2); Glucose 97 mg/dl (74-100); Lipase 102 U/L (23-300); Total Protein,Serum 6.9 g/dl (6.3-8.2)
[2024-05-02 19:36] LABS: Hemoglobin A1C 5.4 % (4.0-6.0)
[2024-05-02 20:02] LABS: Thyroid Stimulating Hormone 1.81 uIU/mL (0.465-4.68)
== END 2024-05-02 23:59 | disposition home or self-care (01) ==
LOC: LAB.DROPOF 05-03 10:40
PROVIDERS: PCP Family Medicine; Visit Provider Family Medicine
DX: I10 Essential (primary) hypertension (principal); E78.49 Other hyperlipidemia; G12.21 Amyotrophic lateral sclerosis; I34.1 Nonrheumatic mitral (valve) prolapse; I63.9 Cerebral infarction, unspecified; D64.9 Anemia, unspecified; Z71.6 Tobacco abuse counseling; Z72.0 Tobacco use; Z99.3 Dependence on wheelchair; I63.50 Cerebral infarction due to unspecified occlusion or stenosis of unspecified cerebral artery; R51.9 Headache, unspecified; R11.0 Nausea; D50.9 Iron deficiency anemia, unspecified
CPT/HCPCS: 80053; 83036; 83690; 84443; 85025

== ENCOUNTER 2024-06-24 10:21 | Outpatient (CLI) | payer OTHER, SELFPAY ==
[2024-06-24 10:59] LABS: Basophils # 0.1 K/mm3 (0-0.2); Basophils % 0.7 % (0.1-2.0); Eosinophils # 0.1 K/mm3 (0.0-0.4); Eosinophils % 1.3 % (0.1-12.0); Hematocrit 39.5 % (42.0-52.0); Lymphocytes # 1.6 K/mm3 (0.7-4.5); Lymphocytes % 17.9 % (10-50); Mean Corpuscular HGB Conc 32.9 g/dL (31.8-35.4); Mean Corpuscular Hemoglobin 25.1 pg (27.0-31.2); Mean Corpuscular Volume 76.4 fl (80-94); Mean Platelet Volume 8.4 fl (7.4-10.4); Monocytes # 0.6 K/mm3 (0.1-1.0); Monocytes % 6.6 % (1.7-9.3); Neutrophils # 6.6 K/mm3 (1.8-7.8); Neutrophils % 73.2 % (37.0-80.0); Platelet Count 231 K/mm3 (142-424); Red Blood Count 5.17 M/mm3 (4.60-6.20); Red Cell Distribution Width 16.7 % (11.5-17.5)
[2024-06-24 12:25] LABS: Iron 51 ug/dL (49-181)
[2024-06-24 12:35] LABS: Total Iron Binding Capacity 359 ug/dL (261-462)
== END 2024-06-24 23:59 | disposition home or self-care (01) ==
LOC: LAB 10:22
PROVIDERS: PCP Family Medicine; Visit Provider Nurse Practitioner Family
DX: D50.9 Iron deficiency anemia, unspecified (principal)
CPT/HCPCS: 36415; 82728; 83540; 83550; 85025

== ENCOUNTER 2024-07-04 15:18 | Outpatient (CLI) | payer OTHER, SELFPAY ==
--- NOTE | 2024-07-04 15:20 | XR_ITS ---
FINAL REPORT CLINICAL HISTORY: Rt posterior rib pain, nki FINDINGS: A single view of the chest with 3 views of the ribs were obtained. There is no acute cardiopulmonary process. Patient is status post median sternotomy. No pneumothorax is identified. No displaced rib fracture identified. IMPRESSION: No acute process. Reviewed, Interpreted and Dictated by Cesar Ennis MD Transcribed by Samreen Clements Authenticated and [facility]
--- OUTSIDE RECORDS SUMMARY | 2024-07-04 15:20 | XMS_ITS | Clinical Summary ---
Author Organization [facility] , [facility] Address [address] [place] [address] Phone Care Team Providers Care Political Theory Professor Name Role Phone Jenifer LEMON, Serafin Nazario Unavailable [phone] Malia Amezquita MD Primary Care Provider [phone] Reason for Visit and Chief Complaint Polar Care Problems Includes: Problems addressed during this encounter and other active Problems All Visits Onset Date Resolved Date Provider Condition S tatus Pain in the Hands 08/26/2020 Jez adkins MD Active Last Documented On 1 2:35PM ; [facility], [facility] Joint Pain in the Left Knee 05/16/2019 Serafin Burgess MD Active Last Documented On 0 1:25PM ; [facility], [facility] Plan of Treatment No Plan [...] On 0 8:12AM By Dennis France ; [facility], [facility] amLODIPine Besylate 5 MG Oral Tablet 04/19/2019 Prov ider: Malia Amezquita MD Diagnosis: Last Documented On 0 1:26PM By Lorie Galarza ; [facility], [facility] Losartan Potassium-HCTZ 100-25 MG Oral Tablet 04/19/19 20 Provider: Malia Amezquita MD Diagnosis: Last Documented On 0 1:26PM By Lorie Galarza ; [facility], [facility] Potassium Chloride Amanda ER 1 0 MEQ Oral Tablet Extended Release 04/19/2019 Provider: Malia Amezquita MD Diagnosis: Last Documented On 0 1:26PM By Lorie Galarza ; [facility], [facility] ALPRAZolam 0.5 MG Oral Tablet 04/18/2019 Provider: Malia Amezquita MD Diagnosis: Last Documented On 0 1:27PM By Lorie Galarza ; [facility], [facility] Metoprolol Tartrate 50 MG Oral Tablet 04/18/2019 Pro vider: Malia Amezquita MD Diagnosis: Last Documented On 0 1:27PM By Lorie Galarza ; [facility], [facility] Clopidogrel Bisulfate 75 MG Oral Tablet 04/18/2019 P rovider: Malia Amezquita MD Diagnosis: Last Documented On 0 1:27PM By Lorie Galarza ; [facility], [facility] Furosemide 20 MG Oral Tablet 04/18/2019 Provider: Malia Amezquita MD Diagnosis: Last Documented On 0 1:26PM By Lorie Galarza ; [facility], [facility] Atorvastatin Calcium 40 MG Oral Tablet 04/18/2019 Pr ovider: Malia Amezquita MD Diagnosis: Last Documented On 0 1:26PM By Lorie Galarza ; [facility], [facility] Naproxen 500 MG Oral Tablet 04/18/2019 Provider: Malia Amezquita MD Diagnosis: Last Documented On 0 1:26PM By Lorie Galarza ; [facility], [facility] raNITIdine HCl 150 MG Oral Tablet 04/18/2019 Provide r: Malia Amezquita MD Diagnosis: Last Documented On 0 1:26PM By Lorie Galarza ; [facility], [facility] Medications Administered Includes: Administered Medications from this [...] Subscriber Relationship Effect carina Dates 1 - [facility] [id number] Severo Amin Self 03/26/2022 - Unknown Clinical Notes Includes: Clinical Notes from this encounter No Clinical Notes Recorded
--- OUTSIDE RECORDS SUMMARY | 2024-07-04 15:20 | XMS_ITS ---
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 Name Role Phone Jenifer LEMON, Serafin Nazario Unavailable [phone] Malia Amezquita MD Primary Care Provider [phone] Reason for Referral Date Encounter Description Provider [...] Active Last Documented On 1 2:35PM ; [facility], [facility] Joint Pain in the Left Knee 05/16/2019 Serafin Burgess MD Active Last Documented On 0 1:25PM ; [facility], [facility] Plan of Treatment Pending Tests Order Diagnosis Results Due Ordering P rovider Procedure/Tests EMG 09/09/20 Jez Burt MD Last Documented On 1 1:57PM ; [facility], [facility] Instructions to patient Lose weight Last Documented On 2 4:00PM ; [facility] Instructions for patient con tinue to manage bp Last Documented On 0 9:22AM ; [facility] Instructions for patient con tinue to manage bp Last Documented On 0 8:12AM ; [facility] Instructions for patient Last Documented On 0 1:55PM ; [facility] Assessments Includes: Assessments for all patient encounters No Assessments Recorded Instructions Includes: Instructions for all patient encounters Instructions to patient Lose weight Last Documented On 2 4:00PM ; [facility] Instructions for patient con tinue to manage bp Last Documented On 0 9:22AM ; [facility] Instructions for patient con tinue to manage bp Last Documented On 0 8:12AM ; [facility] Instructions for patient Last Documented On 0 1:55PM ; [facility], [facility] Medical Equipment - Implanted Devices Includes: Current and historical Devices No Medical Equipment Recorded Medications Includes: Current and historical Medications Current Medications (continue as prescribed) traMADol HCl 50 MG Oral Tablet 09/05/2019 Provider: Diagnosis: Last Documented On 0 8:12AM By Dennis France ; [facility], [facility] amLODIPine Besylate 5 MG Oral Tablet 04/19/2019 Prov ider: Malia Amezquita MD Diagnosis: Last Documented On 0 1:26PM By Lorie Galarza ; [facility], [facility] Losartan Potassium-HCTZ 100-25 MG Oral Tablet 04/19/19 20 Provider: Malia Amezquita MD Diagnosis: Last Documented On 0 1:26PM By Lorie Galarza ; [facility], [facility] Potassium Chloride Amanda ER 1 0 MEQ Oral Tablet Extended Release 04/19/2019 Provider: Malia Amezquita MD Diagnosis: Last Documented On 0 1:26PM By Lorie Galarza ; [facility], [facility] ALPRAZolam 0.5 MG Oral Tablet 04/18/2019 Provider: Malia Amezquita MD Diagnosis: Last Documented On 0 1:27PM By Lorie Galarza ; [facility], [facility] Metoprolol Tartrate 50 MG Oral Tablet 04/18/2019 Pro vider: Malia Amezquita MD Diagnosis: Last Documented On 0 1:27PM By Lorie Galarza ; [facility], [facility] Clopidogrel Bisulfate 75 MG Oral Tablet 04/18/2019 P rovider: Malia Amezquita MD Diagnosis: Last Documented On 0 1:27PM By Lorie Galarza ; [facility], [facility] Furosemide 20 MG Oral Tablet 04/18/2019 Provider: Malia Amezquita MD Diagnosis: Last Documented On 0 1:26PM By Lorie Galarza ; [facility], [facility] Atorvastatin Calcium 40 MG Oral Tablet 04/18/2019 Pr ovider: Malia Amezquita MD Diagnosis: Last Documented On 0 1:26PM By Lorie Galarza ; [facility], [facility] Naproxen 500 MG Oral Tablet 04/18/2019 Provider: Malia Amezquita MD Diagnosis: Last Documented On 0 1:26PM By Lorie Galarza ; [facility], [facility] raNITIdine HCl 150 MG Oral Tablet 04/18/2019 Provide r: Malia Amezquita MD Diagnosis: Last Documented On 0 1:26PM By Lorie Galarza ; [facility], [facility] Past Medications on file Aspirin EC 81 MG Oral Tablet Delayed Release 03/14/2021 - 04/25/2021 Provider: Serafin Burgess MD Diagnosis: 1 tab every 12 hours Last Documented On 1 7:09AM By Serafin Burgess ; [facility], [facility] Acetaminophen 500 MG Oral Tablet 03/14/2021 - 03/28/2021 Provider: Serafin Niño MD Diagnosis: Take 2 tablets by mouth every 8 hours Last Documented On 1 7:09AM By Serafin Burgess ; [facility], [facility] Meloxicam 15 MG Oral Tablet 03/14/2021 - 03/28/2021 Pr ovider: Serafin Burgess MD Diagnosis: once a day Last Documented On 1 7:09AM By Serafin Burgess ; [facility] Cefadroxil 500 MG Oral Capsule 03/14/2021 - 03/17/2021 Provider: Serafin Niño MD Diagnosis: Take 1 capsule by mouth every 12 hours Last Documented On 1 7:09AM By Serafin Burgess ; [facility] Vitamin D3 50 MCG (2000 UT) Oral Tablet 03/14/2021 - 05/13/2021 Provider: Serafin Niño MD Diagnosis: Take 1 tablet by mouth daily Last Documented On 1 7:24AM By Serafin Burgess ; [facility] Zofran 4 MG Oral Tablet 03/14/2021 - 03/21/2021 Provid er: Serafin Burgess MD Diagnosis: 1 po q 6h prn nausea Last Documented On 1 7:09AM By Serafin Burgess ; [facility] Colace 100 MG Oral Capsule 03/14/2021 - 06/12/2021 Pro vider: Serafin Burgess MD Diagnosis: Take 1-2 capsules daily as needed Last Documented On 1 7:09AM By Serafin Burgess ; [facility] oxyCODONE HCl 5 MG Oral Tablet 03/14/2021 - 03/24/2021 Provider: Serafin Niño MD Diagnosis: Take 1 tablet by mouth every 4-6hrs for moderate pain Last Documented On 1 7:09AM By Serafin Burgess ; [facility] traMADol HCl 50 MG Oral Tablet 03/14/2021 - 03/22/2021 Provider: Serafin Niño MD Diagnosis: 2 tablets every 6 hours Last Documented On 1 7:09AM By Serafin Burgess ; [facility] Naproxen 500 MG Oral Tablet 12/09/2020 - 01/08/2021 Pr ovider: Jez Burt MD Diagnosis: take one tablet twice a day prn following surger y Last Documented On 1 11:16AM By Dr. Burt ; [facility] Vitamin C 1000 MG Oral Tablet 12/09/2020 - 02/07/2021 Provider: Jez moncada MD Diagnosis: take one tablet, once a day post surgery Last Documented On 1 11:16AM By Dr. Burt ; [facility] Vitamin C 1000 MG Oral Tablet 10/08/2020 - 12/07/2020 Provider: Jez moncada MD Diagnosis: take one tablet, once a day post surgery Last Documented On 1 9:57AM By Afsaneh Reyes ; [facility] Naproxen 500 MG Oral Tablet 10/08/2020 - 11/07/2020 Pr ovider: Jez Burt MD Diagnosis: take one tablet twice a day prn following surger y Last Documented On 1 9:56AM By Afsaneh Reyes ; [facility], [facility] Medications Administered Includes: Administered Medications in patient's chart No Administered Medications Recorded Results Includes: Results from 07/05/2023 through 07/04/2024 No Results Recorded For Specified Dates History of Present Illness History of Present Illness not supported for this document type No History of Present Illness Recorded Social History Description Last Updated Not a current smoker. 08/26/2020 Last Documented On 1 1:57PM ; [facility] Caffeine use 08/13/2020 Last Documented On 1 6:47PM ; [facility] Non-smoker 08/13/2020 Last Documented On 1 6:47PM ; [facility] No tobacco use 05/16/2019 Last Documented On 0 8:04AM ; [facility] Smoking status : Former smoker 0 Last Documented On 0 8:04AM ; [facility] Alcohol use 05/16/2019 Last Documented On 0 8:04AM ; [facility] Exercising regularly 05/16/2019 Last Documented On 0 8:04AM ; [facility] No recent change in diet 05/16/2019 Last Documented On 0 8:04AM ; [facility] Not a current smoker 05/16/2019 Last Documented On 0 8:04AM ; [facility], [facility] Not using drugs 05/16/2019 Last Documented On 0 8:04AM ; [facility], [facility] Procedures and Surgical History Surgical History Last Updated History of heart surgery CABG (10/2016) 0 05/16/2019 Last Documented On 0 8:04AM ; [facility], [facility] Medical History Includes: Medical History in patient's chart Description Last Updated Arthritis 08/13/2020 Last Documented On 1 6:47PM ; [facility], [facility] Heart surgery 08/13/2020 Last Documented On 1 6:47PM ; [facility], [facility] Hypertension 08/13/2020 Last Documented On 1 6:47PM ; [facility], [facility] Recent immunization for flu 08/13/2020 Last Documented On 1 6:47PM ; [facility], [facility] Recent immunization for pneumococcal pne umonia 08/13/2020 Last Documented On 1 6:47PM ; [facility], [facility] Total knee arthroplasty 08/13/2020 Last Documented On 1 6:47PM ; [facility], [facility] Arthritic joint problems 05/16/2019 Last Documented On 0 8:04AM ; [facility], [facility] Intermittent hypertension 05/16/2019 Last Documented On 0 8:04AM ; [facility], [facility] History of heart disease 05/16/2019 Last Documented On 0 8:04AM ; [facility], [facility] Family History Includes: Family History in patient's chart Description Last Updated Family history of cancer 08/13/2020 Last Documented On 1 6:47PM ; [facility], [facility] Family history of heart disease 08/14/19 Last Documented On 1 6:47PM ; [facility], [facility] Maternal grandfather's history of family history of heart disease 05/16/2019 Last Documented On 0 8:04AM ; [facility], [facility] Paternal history of family history of he art disease 05/16/2019 Last Documented On 0 8:04AM ; [facility], [facility] Review of Systems Review of Systems not [...] Patient Last Documented On 1 4:41PM ; [facility] PCV (Pneumovax 23) 1 03/26/2019 Complete ( Reported) Patient Last Documented On 1 4:41PM ; [facility], [facility] Allergies Includes: Active, inactive, and resolved Allergies No Known Allergies Insurance Includes: Active Insurance Policies Plan Name Member ID Group # Subscriber Relationship Effect carina Dates - [facility] [id number] Severo Amin Self 03/26/2022 - Unknown Clinical Notes Includes: Signed Clinical Notes starting from 03/09/2022 No Clinical Notes Recorded
--- OUTSIDE RECORDS SUMMARY | 2024-07-04 15:20 | XMS_ITS ---
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
--- OUTSIDE RECORDS SUMMARY | 2024-07-04 15:20 | XMS_ITS | Clinical Summary ---
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 Name Role Phone Jenifer LEMON, Serafin Nazario Unavailable [phone] Malia Amezquita MD Primary Care Provider [phone] Reason for Visit and Chief Complaint Follow Up Problems Includes: Problems addressed during this encounter and other active Problems All Visits Onset Date Resolved Date Provider Condition S tatus Pain in the Hands 08/26/2020 Jez adkins MD Active Last Documented On 1 2:35PM ; [facility] Joint Pain in the Left Knee 05/16/2019 Serafin Burgess MD Active Last Documented On 0 1:25PM ; [facility] Plan of Treatment The next follow-up appointment will be scheduled at the 5 year postoperative point in time and he will call the office if he has any questions or concerns in the meantime. - Last Documented On 03/30/2022 4:13PM ; [facility] Assessments Includes: Assessments from this encounter [...] - Last Documented On 03/30/2022 4:13PM ; [facility] Medical Equipment - Implanted Devices Includes: Current Devices No Medical Equipment Recorded Medications Includes: Medications discussed during this encounter and other current Medications Current Medications (continue as prescribed) traMADol HCl 50 MG Oral Tablet 09/05/2019 Provider: Diagnosis: Last Documented On 0 8:12AM By Dennis France ; [facility] amLODIPine Besylate 5 MG Oral Tablet 04/19/2019 Prov ider: Malia Amezquita MD Diagnosis: Last Documented On 0 1:26PM By Lorie Galarza ; [facility] Losartan Potassium-HCTZ 100-25 MG Oral Tablet 04/19/19 20 Provider: Malia Amezquita MD Diagnosis: Last Documented On 0 1:26PM By Lorie Galarza ; [facility] Potassium Chloride Amanda ER 1 0 MEQ Oral Tablet Extended Release 04/19/2019 Provider: Malia Amezquita MD Diagnosis: Last Documented On 0 1:26PM By Lorie Galarza ; [facility] ALPRAZolam 0.5 MG Oral Tablet 04/18/2019 Provider: Malia Amezquita MD Diagnosis: Last Documented On 0 1:27PM By Lorie Galarza ; [facility], [facility] Metoprolol Tartrate 50 MG Oral Tablet 04/18/2019 Pro vider: Malia Amezquita MD Diagnosis: Last Documented On 0 1:27PM By Lorie Galarza ; [facility] Clopidogrel Bisulfate 75 MG Oral Tablet 04/18/2019 P rovider: Malia Amezquita MD Diagnosis: Last Documented On 0 1:27PM By Lorie Galarza ; [facility] Furosemide 20 MG Oral Tablet 04/18/2019 Provider: Malia Amezquita MD Diagnosis: Last Documented On 0 1:26PM By Lorie Galarza ; [facility] Atorvastatin Calcium 40 MG Oral Tablet 04/18/2019 Pr ovider: Malia Amezquita MD Diagnosis: Last Documented On 0 1:26PM By Lorie Galarza ; [facility] Naproxen 500 MG Oral Tablet 04/18/2019 Provider: Malia Amezquita MD Diagnosis: Last Documented On 0 1:26PM By Lorie Galarza ; [facility], [facility] raNITIdine HCl 150 MG Oral Tablet 04/18/2019 Provide r: Malia Amezquita MD Diagnosis: Last Documented On 0 1:26PM By Lorie Galarza ; [facility], [facility] Past Medications on file Aspirin EC 81 MG Oral Tablet Delayed Release 03/14/2021 - 04/25/2021 Provider: Serafin Burgess MD Diagnosis: 1 tab every 12 hours Last Documented On 1 7:09AM By Serafin Burgess ; [facility], [facility] Acetaminophen 500 MG Oral Tablet 03/14/2021 - 03/28/2021 Provider: Serafin Niño MD Diagnosis: Take 2 tablets by mouth every 8 hours Last Documented On 1 7:09AM By Serafin Burgess ; [facility] Meloxicam 15 MG Oral Tablet 03/14/2021 - 03/28/2021 Pr ovider: Serafin Burgess MD Diagnosis: once a day Last Documented On 1 7:09AM By Serafin Burgess ; [facility], [facility] Cefadroxil 500 MG Oral Capsule 03/14/2021 - 03/17/2021 Provider: Serafin Niño MD Diagnosis: Take 1 capsule by mouth every 12 hours Last Documented On 1 7:09AM By Serafin Burgess ; [facility], [facility] Vitamin D3 50 MCG (1999 UT) Oral Tablet 03/14/2021 - 05/13/2021 Provider: Serafin Niño MD Diagnosis: Take 1 tablet by mouth daily Last Documented On 1 7:24AM By Serafin Burgess ; [facility], [facility] Zofran 4 MG Oral Tablet 03/14/2021 - 03/21/2021 Provid er: Serafin Burgess MD Diagnosis: 1 po q 6h prn nausea Last Documented On 1 7:09AM By Serafin Burgess ; [facility], [facility] Colace 100 MG Oral Capsule 03/14/2021 - 06/12/2021 Pro vider: Serafin Burgess MD Diagnosis: Take 1-2 capsules daily as needed Last Documented On 1 7:09AM By Serafin Burgess ; [facility] oxyCODONE HCl 5 MG Oral Tablet 03/14/2021 - 03/24/2021 Provider: Serafin Niño MD Diagnosis: Take 1 tablet by mouth every 4-6hrs for moderate pain Last Documented On 1 7:09AM By Serafin Burgess ; [facility] traMADol HCl 50 MG Oral Tablet 03/14/2021 - 03/22/2021 Provider: Serafin Niño MD Diagnosis: 2 tablets every 6 hours Last Documented On 1 7:09AM By Serafin Burgess ; [facility] Naproxen 500 MG Oral Tablet 12/09/2020 - 01/08/2021 Pr ovider: Jez Burt MD Diagnosis: take one tablet twice a day prn following surger y Last Documented On 1 11:16AM By Dr. Burt ; [facility], [facility] Vitamin C 1000 MG Oral Tablet 12/09/2020 - 02/07/2021 Provider: Jez moncada MD Diagnosis: take one tablet, once a day post surgery Last Documented On 1 11:16AM By Dr. Burt ; [facility], [facility] Vitamin C 1000 MG Oral Tablet 10/08/2020 - 12/07/2020 Provider: Jez moncada MD Diagnosis: take one tablet, once a day post surgery Last Documented On 1 9:57AM By Afsaneh Reyes ; [facility], [facility] Naproxen 500 MG Oral Tablet 10/08/2020 - 11/07/2020 Pr ovider: Jez Burt MD Diagnosis: take one tablet twice a day prn following surger y Last Documented On 1 9:56AM By Afsaneh Reyes ; [facility] Medications Administered Includes: Administered Medications [...] 08/26/2020 Last Documented On 3 3:21PM ; [facility] Caffeine use 08/13/2020 Last Documented On 3 3:21PM ; [facility] Non-smoker 08/13/2020 Last Documented On 3 3:21PM ; [facility], [facility] No tobacco use 05/16/2019 Last Documented On 3 3:21PM ; [facility] Smoking status : Former smoker 0 Last Documented On 3 3:21PM ; [facility] Alcohol use 05/16/2019 Last Documented On 3 3:21PM ; [facility] Exercising regularly 05/16/2019 Last Documented On 3 3:21PM ; [facility] No recent change in diet 05/16/2019 Last Documented On 3 3:21PM ; [facility] Not a current smoker 05/16/2019 Last Documented On 3 3:21PM ; [facility] Not using drugs 05/16/2019 Last Documented On 3 3:21PM ; [facility] Procedures and Surgical History Surgical History Last Updated History of heart surgery CABG (10/2016) 0 05/16/2019 Last Documented On 3 3:21PM ; [facility], [facility] Medical History Includes: Medical History addressed during this encounter Description Last Updated Arthritis 08/13/2020 Last Documented On 3 3:21PM ; [facility], [facility] Heart surgery 08/13/2020 Last Documented On 3 3:21PM ; [facility] Hypertension 08/13/2020 Last Documented On 3 3:21PM ; [facility] Recent immunization for flu 08/13/2020 Last Documented On 3 3:21PM ; [facility] Recent immunization for pneumococcal pne umonia 08/13/2020 Last Documented On 3 3:21PM ; [facility] Total knee arthroplasty 08/13/2020 Last Documented On 3 3:21PM ; [facility] Arthritic joint problems 05/16/2019 Last Documented On 3 3:21PM ; [facility] Intermittent hypertension 05/16/2019 Last Documented On 3 3:21PM ; [facility] History of heart disease 05/16/2019 Last Documented On 3 3:21PM ; [facility], [facility] Family History Includes: Family History addressed during this encounter Description Last Updated Family history of cancer 08/13/2020 Last Documented On 3 3:21PM ; [facility], [facility] Family history of heart disease 08/14/19 Last Documented On 3 3:21PM ; [facility], [facility] Maternal grandfather's history of family history of heart disease 05/16/2019 Last Documented On 3 3:21PM ; [facility], [facility] Paternal history of family history of he art disease 05/16/2019 Last Documented On 3 3:21PM ; [facility] Review of Systems Includes: Review of Systems [...] Check- Out Time Diagnosis Follow Up [facility] 3 3:05PM 3:40PM Insurance Includes: Active Insurance Policies Plan Name Member ID Group # Subscriber Relationship Effect carina Dates 1 - [facility] [id number] Severo Amin Self 03/26/2022 - Unknown Clinical Notes Includes: Clinical Notes from this encounter * Progress note Date Encounter Last Documented by 03/30/2022 Follow Up Last documented on 03/30/2022; 4:13 PM, Nakia Bearden; [facility] Active Problems & Conditions - Joint [...] Care Team - Malia Amezquita MD - PROSTHETIC AIDES 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
--- OUTSIDE RECORDS SUMMARY | 2024-07-04 15:20 | XMS_ITS | Clinical Summary ---
Author Organization [facility] , [facility] Address [address] [place] [address] Phone Care Team Providers Care Security Nurse Name Role Phone Jenifer LEMON, Serafin Nazario Unavailable [phone] Malia Amezquita MD Primary Care Provider [phone] Reason for Visit and Chief Complaint [facility] Problems Includes: Problems addressed during this encounter and other active Problems All Visits Onset Date Resolved Date Provider Condition S tatus Pain in the Hands 08/26/2020 Jez adkins MD Active Last Documented On 1 2:35PM ; [facility] Joint Pain in the Left Knee 05/16/2019 Serafin Burgess MD Active Last Documented On 0 1:25PM ; [facility] Plan of Treatment No Plan [...] tab every 12 hours Pharmacy: [facility] #[id number] - [address], [address] - Last Documented On 1 7:09AM By Serafin Burgess ; [facility] Acetaminophen 500 MG Oral Tablet Provider: Serafin Burgess MD 14 day supply: 84 tablet, 0 refills Diagnosis: Take 2 tablets by mouth every 8 hours Pharmacy: [facility] #[id number] - [address], [address] - Last Documented On 1 7:09AM By Serafin Burgess ; [facility], [facility] Meloxicam 15 MG Oral Tablet Provider: Serafin Burgess MD 14 day supply: 14 tablet, 0 refills Diagnosis: once a day Pharmacy: [facility] #[id number] - [address], [address] - Last Documented On 1 7:09AM By Serafin Burgess ; [facility], [facility] Cefadroxil 500 MG Oral Capsule Provider: Serafin Burgess MD 3 day supply: 6 capsule, 0 refills Diagnosis: Take 1 capsule by mouth ever y 12 hours Pharmacy: [facility] #[id number] - [address], [address] - Last Documented On 1 7:09AM By Serafin Burgess ; [facility], [facility] Vitamin D3 50 MCG (1999 EC) Oral Tablet Provider: Serafin Burgess MD 60 day supply: 60 tablet, 0 refills Diagnosis: Take 1 tablet by mouth daily Pharmacy: [facility] #[id number] - [address] [facility] [address], [address] - Last Documented On 1 7:24AM By Serafin Burgess ; [facility], [facility] Zofran 4 MG Oral Tablet Provider: Cheyenne Burgess MD 7 day supply: 28 tablet, 0 refills Diagnosis: 1 po q 6h prn nausea Pharmacy: [facility] #[id number] - [address] [facility] [address], [address] - Last Documented On 1 7:09AM By Serafin Burgess ; [facility], [facility] Colace 100 MG Oral Capsule Provider: Serafin Burgess MD 30 day supply: 60 capsule, 2 refills Diagnosis: Take 1-2 capsules daily as needed Pharmacy: [facility] #[id number] - [address] [facility] [address], [address] - Last Documented On 1 7:09AM By Serafin Burgess ; [facility] oxyCODONE HCl 5 MG Oral Tablet Provider: Serafin Burgess MD 10 day supply: 60 tablet, 0 refills Diagnosis: Take 1 tablet by mouth every 4-6hrs for moderate pain Pharmacy: [facility] #[id number] - [address], [id number] - Last Documented On 1 7:09AM By Serafin Burgess ; [facility], [facility] traMADol HCl 50 MG Oral Tablet Provider: Serafin Burgess MD 8 day supply: 64 tablet, 0 refills Diagnosis: 2 tablets every 6 hours Pharmacy: [facility] #[id number] - [address], [id number] - Last Documented On 1 7:09AM By Serafin Burgess ; [facility] Current Medications (continue as prescribed) traMADol HCl 50 MG Oral Tablet 09/05/2019 Provider: Diagnosis: Last Documented On 0 8:12AM By Dennis France ; [facility] amLODIPine Besylate 5 MG Oral Tablet 04/19/2019 Prov ider: Malia Amezquita MD Diagnosis: Last Documented On 0 1:26PM By Lorie Galarza ; [facility], [facility] Losartan Potassium-HCTZ 100-25 MG Oral Tablet 04/19/19 20 Provider: Malia Amezquita MD Diagnosis: Last Documented On 0 1:26PM By Lorie Galarza ; [facility] Potassium Chloride Amanda ER 1 0 MEQ Oral Tablet Extended Release 04/19/2019 Provider: Malia Amezquita MD Diagnosis: Last Documented On 0 1:26PM By Lorie Galarza ; [facility] ALPRAZolam 0.5 MG Oral Tablet 04/18/2019 Provider: Malia Amezquita MD Diagnosis: Last Documented On 0 1:27PM By Lorie Galarza ; [facility] Metoprolol Tartrate 50 MG Oral Tablet 04/18/2019 Pro vider: Malia Amezquita MD Diagnosis: Last Documented On 0 1:27PM By Lorie Galarza ; [facility] Clopidogrel Bisulfate 75 MG Oral Tablet 04/18/2019 P rovider: Malia Amezquita MD Diagnosis: Last Documented On 0 1:27PM By Lorie Galarza ; [facility] Furosemide 20 MG Oral Tablet 04/18/2019 Provider: Malia Amezquita MD Diagnosis: Last Documented On 0 1:26PM By Lorie Galarza ; [facility] Atorvastatin Calcium 40 MG Oral Tablet 04/18/2019 Pr ovider: Malia Amezquita MD Diagnosis: Last Documented On 0 1:26PM By Lorie Galarza ; [facility] Naproxen 500 MG Oral Tablet 04/18/2019 Provider: Malia Amezquita MD Diagnosis: Last Documented On 0 1:26PM By Lorie Galarza ; [facility] raNITIdine HCl 150 MG Oral Tablet 04/18/2019 Provide r: Malia Amezquita MD Diagnosis: Last Documented On 0 1:26PM By Lorei Galarza ; [facility] Medications Administered Includes: Administered Medications from [...] Location Date Check-In Time Check-Out Time Diagnosis [facility] Serafin Burgess MD Surgery 1 6:50AM 11:59PM Insurance Includes: Active Insurance Policies Plan Name Member ID Group # Subscriber Relationship Effect carina Dates 1 - [facility] [id number] Sevreo Amin Self 03/26/2022 - Unknown Clinical Notes Includes: Clinical Notes from this encounter No Clinical Notes Recorded
--- OUTSIDE RECORDS SUMMARY | 2024-07-04 15:21 | XMS_ITS | Clinical Summary ---
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 The next follow-up appointment will be scheduled at the 1 year postoperative point in time and he will call the office if he has any questions or concerns in the meantime. - Last Documented On 05/20/2021 5:44PM ; [facility] Instructions to patient Lose weight Last Documented On 2 4:00PM ; [facility] Assessments Includes: Assessments from this encounter Findings [...] - Last Documented On 05/20/2021 5:44PM ; [facility], [facility] Instructions Includes: Instructions from this encounter Instructions to patient Lose weight Last Documented On 2 4:00PM ; [facility] Medical Equipment - Implanted Devices Includes: Current Devices No Medical Equipment Recorded Medications Includes: Medications discussed during this encounter and other current Medications Current Medications (continue as prescribed) traMADol HCl 50 MG Oral Tablet 09/05/2019 Provider: Diagnosis: Last Documented On 0 8:12AM By Dennis France ; [facility] amLODIPine Besylate 5 MG Oral Tablet 04/19/2019 Prov ider: Malia Amezquita MD Diagnosis: Last Documented On 0 1:26PM By Lorie Galarza ; [facility] Losartan Potassium-HCTZ 100-25 MG Oral Tablet 04/19/19 20 Provider: Malia Amezquita MD Diagnosis: Last Documented On 0 1:26PM By Lorie Galarza ; [facility], [facility] Potassium Chloride Amanda ER 1 0 MEQ Oral Tablet Extended Release 04/19/2019 Provider: Malia Amezquita MD Diagnosis: Last Documented On 0 1:26PM By Lorie Galarza ; [facility] ALPRAZolam 0.5 MG Oral Tablet 04/18/2019 Provider: Malia Amezquita MD Diagnosis: Last Documented On 0 1:27PM By Lorie Galarza ; [facility] Metoprolol Tartrate 50 MG Oral Tablet 04/18/2019 Pro vider: Malia Amezquita MD Diagnosis: Last Documented On 0 1:27PM By Lorie Galarza ; [facility] Clopidogrel Bisulfate 75 MG Oral Tablet 04/18/2019 Paula maldonadoder: Malia Amezquita MD Diagnosis: Last Documented On 0 1:27PM By Lorie Galarza ; [facility] Furosemide 20 MG Oral Tablet 04/18/2019 Provider: Malia Amezquita MD Diagnosis: Last Documented On 0 1:26PM By Lorie Galarza ; [facility] Atorvastatin Calcium 40 MG Oral Tablet 04/18/2019 Pr ovider: Malia Amezquita MD Diagnosis: Last Documented On 0 1:26PM By Lorie Galarza ; [facility] Naproxen 500 MG Oral Tablet 04/18/2019 Provider: Malia Amezquita MD Diagnosis: Last Documented On 0 1:26PM By Lorie Galarza ; [facility] raNITIdine HCl 150 MG Oral Tablet 04/18/2019 Provide r: Malia Amezquita MD Diagnosis: Last Documented On 0 1:26PM By Lorie Galarza ; [facility], [facility] Past Medications on file Aspirin EC 81 MG Oral Tablet Delayed Release 03/14/2021 - 04/25/2021 Provider: Serafin Burgess MD Diagnosis: 1 tab every 12 hours Last Documented On 1 7:09AM By Serafin Burgess ; [facility] Acetaminophen 500 MG Oral Tablet 03/14/2021 - 03/28/2021 Provider: Serafin Niño MD Diagnosis: Take 2 tablets by mouth every 8 hours Last Documented On 1 7:09AM By Serafin Burgess ; [facility] Meloxicam 15 MG Oral Tablet 03/14/2021 - 03/28/2021 Pr ovider: Serafin Burgess MD Diagnosis: once a day Last Documented On 1 7:09AM By Serafin Burgess ; [facility] Cefadroxil 500 MG Oral Capsule 03/14/2021 - 03/17/2021 Provider: Serafin Niño MD Diagnosis: Take 1 capsule by mouth every 12 hours Last Documented On 1 7:09AM By Serafin Burgess ; [facility] Vitamin D3 50 MCG (1999 UT) Oral Tablet 03/14/2021 - 05/13/2021 Provider: Serafin Niño MD Diagnosis: Take 1 tablet by mouth daily Last Documented On 1 7:24AM By Serafin Burgess ; [facility] Zofran 4 MG Oral Tablet 03/14/2021 - 03/21/2021 Provid er: Serafin Burgess MD Diagnosis: 1 po q 6h prn nausea Last Documented On 1 7:09AM By Serafin Burgess ; [facility] Colace 100 MG Oral Capsule 03/14/2021 - 06/12/2021 Pro vider: Serafin Burgess MD Diagnosis: Take 1-2 capsules daily as needed Last Documented On 1 7:09AM By Serafin Burgess ; [facility] oxyCODONE HCl 5 MG Oral Tablet 03/14/2021 - 03/24/2021 Provider: Serafin Niño MD Diagnosis: Take 1 tablet by mouth every 4-6hrs for moderate pain Last Documented On 1 7:09AM By Serafin Burgess ; [facility] traMADol HCl 50 MG Oral Tablet 03/14/2021 - 03/22/2021 Provider: Serafin Niño MD Diagnosis: 2 tablets every 6 hours Last Documented On 1 7:09AM By Serafin Burgess ; [facility] Naproxen 500 MG Oral Tablet 12/09/2020 - 01/08/2021 Pr ovider: Jez Burt MD Diagnosis: take one tablet twice a day prn following surger y Last Documented On 1 11:16AM By Dr. Burt ; [facility] Vitamin C 1000 MG Oral Tablet 12/09/2020 - 02/07/2021 Provider: Jez moncada MD Diagnosis: take one tablet, once a day post surgery Last Documented On 1 11:16AM By Dr. Burt ; [facility] Vitamin C 1000 MG Oral Tablet 10/08/2020 - 12/07/2020 Provider: Jez moncada MD Diagnosis: take one tablet, once a day post surgery Last Documented On 1 9:57AM By Afsaneh Reyes ; [facility] Naproxen 500 MG Oral Tablet 10/08/2020 - 11/07/2020 Pr ovider: Jez Burt MD Diagnosis: take one tablet twice a day prn following surger y Last Documented On 1 9:56AM By Afsaneh Reyes ; [facility] Medications Administered Includes: Administered Medications from this encounter No Administered Medications Recorded Vital Signs Includes: Vital Signs from this encounter Vital Name 05/20/2021 03:59P Blood Pressure Sitting (mmHg) 145/84 Pulse Rate-Sitting (bpm) 70 Height (in) 70 Weight (lb) 193.6 Body Mass Index (kg/m2) 27.8 Body Surface Area (m2) 2.1 Note: sd Last Documented: On 05/20/2021 4:00PM ; [facility], [facility] Results Includes: Results discussed during this encounter [...] 08/26/2020 Last Documented On 2 3:23PM ; [facility] Caffeine use 08/13/2020 Last Documented On 2 3:23PM ; [facility] Non-smoker 08/13/2020 Last Documented On 2 3:23PM ; [facility] No tobacco use 05/16/2019 Last Documented On 2 3:23PM ; [facility] Smoking status : Former smoker 0 Last Documented On 2 3:23PM ; [facility] Alcohol use 05/16/2019 Last Documented On 2 3:23PM ; [facility] Exercising regularly 05/16/2019 Last Documented On 2 3:23PM ; [facility] No recent change in diet 05/16/2019 Last Documented On 2 3:23PM ; [facility], [facility] Not a current smoker 05/16/2019 Last Documented On 2 3:23PM ; [facility] Not using drugs 05/16/2019 Last Documented On 2 3:23PM ; [facility] Procedures and Surgical History Includes: Procedures from this encounter Procedures Code Diagnosis Performing Provider Service L ocation Service Date use of tobacco assessment performed 1000F Last Documented On 2 3:23PM ; [facility] referral to physician Pt to follow up wi th pcp for bp control Last Documented On 2 3:23PM ; [facility] an X-ray was performed 85853 Last Documented On 2 3:23PM ; [facility] Surgical History Last Updated History of heart surgery CABG (10/2016) 0 05/16/2019 Last Documented On 2 3:23PM ; [facility] Medical History Includes: Medical History addressed during this encounter Description Last Updated Arthritis 08/13/2020 Last Documented On 2 3:23PM ; [facility] Heart surgery 08/13/2020 Last Documented On 2 3:23PM ; [facility] Hypertension 08/13/2020 Last Documented On 2 3:23PM ; [facility] Recent immunization for flu 08/13/2020 Last Documented On 2 3:23PM ; [facility] Recent immunization for pneumococcal pne umonia 08/13/2020 Last Documented On 2 3:23PM ; [facility] Total knee arthroplasty 08/13/2020 Last Documented On 2 3:23PM ; [facility] Arthritic joint problems 05/16/2019 Last Documented On 2 3:23PM ; [facility] Intermittent hypertension 05/16/2019 Last Documented On 2 3:23PM ; [facility] History of heart disease 05/16/2019 Last Documented On 2 3:23PM ; [facility] Family History Includes: Family History addressed during this encounter Description Last Updated Family history of cancer 08/13/2020 Last Documented On 2 3:23PM ; [facility] Family history of heart disease 08/14/19 Last Documented On 2 3:23PM ; [facility] Maternal grandfather's history of family history of heart disease 05/16/2019 Last Documented On 2 3:23PM ; [facility] Paternal history of family history of he art disease 05/16/2019 Last Documented On 2 3:23PM ; [facility] Review of Systems Includes: Review of Systems [...] Time Diagnosis Post Op Nakia Faria PA-C [facility] 2 3:12PM 4:34PM Insurance Includes: Active Insurance Policies Plan Name Member ID Group # Subscriber Relationship Effect carina Dates - [facility] [id number] Severo Amin Self 03/26/2022 - Unknown Clinical Notes Includes: Clinical Notes from this encounter No Clinical Notes Recorded
--- OUTSIDE RECORDS SUMMARY | 2024-07-04 15:21 | XMS_ITS | Clinical Summary ---
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 Name Role Phone Jenifer LEMON, Serafin Nazario Unavailable [phone] Malia Amezquita MD Primary Care Provider [phone] Reason for Referral Date [...] Active Last Documented On 1 2:35PM ; [facility], [facility] Joint Pain in the Left Knee 05/16/2019 Serafin Burgess MD Active Last Documented On 0 1:25PM ; [facility] Plan of Treatment 48-year-old male status post left partial knee replacement to very well continue work with physical therapy can see our PA Nakiatenisha Faria back in 6 weeks - Last Documented On 03/31/2021 10:57AM ; [facility] Assessments Includes: Assessments from this encounter No Assessments Recorded Medical Equipment - Implanted Devices Includes: Current Devices No Medical Equipment Recorded Medications Includes: Medications discussed during this encounter and other current Medications Current Medications (continue as prescribed) traMADol HCl 50 MG Oral Tablet 09/05/2019 Provider: Diagnosis: Last Documented On 0 8:12AM By Dennis France ; [facility] amLODIPine Besylate 5 MG Oral Tablet 04/19/2019 Prov ider: Malia Amezquita MD Diagnosis: Last Documented On 0 1:26PM By Lorie Galarza ; [facility], [facility] Losartan Potassium-HCTZ 100-25 MG Oral Tablet 04/19/19 Provider: Malia Amezquita MD Diagnosis: Last Documented On 0 1:26PM By Lorie Galarza ; [facility] Potassium Chloride Amanda ER 1 0 MEQ Oral Tablet Extended Release 04/19/2019 Provider: Malia Amezquita MD Diagnosis: Last Documented On 0 1:26PM By Lorie Galarza ; [facility] ALPRAZolam 0.5 MG Oral Tablet 04/18/2019 Provider: Malia Amezquita MD Diagnosis: Last Documented On 0 1:27PM By Lorie Galarza ; [facility] Metoprolol Tartrate 50 MG Oral Tablet 04/18/2019 Pro vider: Malia Amezquita MD Diagnosis: Last Documented On 0 1:27PM By Lorie Galarza ; [facility] Clopidogrel Bisulfate 75 MG Oral Tablet 04/18/2019 P rovider: Malia Amezquita MD Diagnosis: Last Documented On 0 1:27PM By Lorie Galarza ; [facility] Furosemide 20 MG Oral Tablet 04/18/2019 Provider: Malia Amezquita MD Diagnosis: Last Documented On 0 1:26PM By Lorei Galarza ; [facility] Atorvastatin Calcium 40 MG Oral Tablet 04/18/2019 Pr ovider: Malia Amezquita MD Diagnosis: Last Documented On 0 1:26PM By Lorie Galarza ; [facility] Naproxen 500 MG Oral Tablet 04/18/2019 Provider: Malia Amezquita MD Diagnosis: Last Documented On 0 1:26PM By Lorie Galarza ; [facility] raNITIdine HCl 150 MG Oral Tablet 04/18/2019 Provide r: Malia Amezquita MD Diagnosis: Last Documented On 0 1:26PM By Lorie Galarza ; [facility] Past Medications on file Aspirin EC 81 MG Oral Tablet Delayed Release 03/14/2021 - 04/25/2021 Provider: Serafin Burgess MD Diagnosis: 1 tab every 12 hours Last Documented On 1 7:09AM By Serafin Burgess ; [facility] Acetaminophen 500 MG Oral Tablet 03/14/2021 - 03/28/2021 Provider: Serafin Niño MD Diagnosis: Take 2 tablets by mouth every 8 hours Last Documented On 1 7:09AM By Serafin Burgess ; [facility] Meloxicam 15 MG Oral Tablet 03/14/2021 - 03/28/2021 Pr ovider: Serafin Burgess MD Diagnosis: once a day Last Documented On 1 7:09AM By Serafin Burgess ; [facility] Cefadroxil 500 MG Oral Capsule 03/14/2021 - 03/17/2021 Provider: Serafin Niño MD Diagnosis: Take 1 capsule by mouth every 12 hours Last Documented On 1 7:09AM By Serafin Burgess ; [facility] Vitamin D3 50 MCG (1999 [place]) Oral Tablet 03/14/2021 - 05/13/2021 Provider: Serafin Niño MD Diagnosis: Take 1 tablet by mouth daily Last Documented On 1 7:24AM By Serafin Burgess ; [facility] Zofran 4 MG Oral Tablet 03/14/2021 - 03/21/2021 Provid er: Serafin Burgess MD Diagnosis: 1 po q 6h prn nausea Last Documented On 1 7:09AM By Serafin Burgess ; [facility] Colace 100 MG Oral Capsule 03/14/2021 - 06/12/2021 Pro vider: Serafin Burgess MD Diagnosis: Take 1-2 capsules daily as needed Last Documented On 1 7:09AM By Serafin Burgess ; [facility] oxyCODONE HCl 5 MG Oral Tablet 03/14/2021 - 03/24/2021 Provider: Serafin Niño MD Diagnosis: Take 1 tablet by mouth every 4-6hrs for moderate pain Last Documented On 1 7:09AM By Serafin Burgess ; [facility] traMADol HCl 50 MG Oral Tablet 03/14/2021 - 03/22/2021 Provider: Serafin Niño MD Diagnosis: 2 tablets every 6 hours Last Documented On 7:09AM By Serafin Burgess ; [facility] Naproxen 500 MG Oral Tablet 12/09/2020 - 01/08/2021 Pr ovider: Jez Burt MD Diagnosis: take one tablet twice a day prn following surger y Last Documented On 11:16AM By Dr. Burt ; [facility] Vitamin C 1000 MG Oral Tablet 12/09/2020 - 02/07/2021 Provider: Jez moncada MD Diagnosis: take one tablet, once a day post surgery Last Documented On 11:16AM By Dr. Burt ; [facility] Vitamin C 1000 MG Oral Tablet 10/08/2020 - 12/07/2020 Provider: Jez moncada MD Diagnosis: take one tablet, once a day post surgery Last Documented On 9:57AM By Afsaneh Reyes ; [facility] Naproxen 500 MG Oral Tablet 10/08/2020 - 11/07/2020 Pr ovider: Jez Burt MD Diagnosis: take one tablet twice a day prn following surger y Last Documented On 9:56AM By Afsaneh Reyes ; [facility] Medications Administered Includes: Administered Medications from this encounter No Administered Medications Recorded Vital Signs Includes: Vital Signs from this encounter Vital Name 03/29/2021 09:54A Blood Pressure Sitting (mmHg) 168/82 Pulse Rate-Sitting (bpm) 67 Height (in) 70 Weight (lb) 185 Body Mass Index (kg/m2) 26.5 Body Surface Area (m2) 2.0 Note: sg Last Documented: On 03/29/2021 9:54AM ; [facility] Results Includes: Results discussed during this encounter [...] 08/26/2020 Last Documented On 2 9:38AM ; [facility] Caffeine use 08/13/2020 Last Documented On 2 9:38AM ; [facility] Non-smoker 08/13/2020 Last Documented On 2 9:38AM ; [facility] No tobacco use 05/16/2019 Last Documented On 2 9:38AM ; [facility] Smoking status : Former smoker 0 Last Documented On 2 9:38AM ; [facility] Alcohol use 05/16/2019 Last Documented On 2 9:38AM ; [facility] Exercising regularly 05/16/2019 Last Documented On 2 9:38AM ; [facility] No recent change in diet 05/16/2019 Last Documented On 2 9:38AM ; [facility] Not a current smoker 05/16/2019 Last Documented On 2 9:38AM ; [facility] Not using drugs 05/16/2019 Last Documented On 2 9:38AM ; [facility] Procedures and Surgical History Includes: Procedures from this encounter Procedures Code Diagnosis Performing Provider Service L ocation Service Date use of tobacco assessment performed 1000F Last Documented On 2 9:53AM ; [facility] referral to physician Pt to follow up [facility] pcp for bp control Last Documented On 2 9:38AM ; [facility] [id number] Last Documented On 2 9:53AM ; [facility] Surgical History Last Updated History of heart surgery CABG (10/2016) 0 05/16/2019 Last Documented On 2 9:38AM ; [facility] Medical History Includes: Medical History addressed during this encounter Description Last Updated Arthritis 08/13/2020 Last Documented On 2 9:38AM ; [facility] Heart surgery 08/13/2020 Last Documented On 2 9:38AM ; [facility] Hypertension 08/13/2020 Last Documented On 2 9:38AM ; [facility] Recent immunization for flu 08/13/2020 Last Documented On 2 9:38AM ; [facility] Recent immunization for pneumococcal pne umonia 08/13/2020 Last Documented On 2 9:38AM ; [facility] Total knee arthroplasty 08/13/2020 Last Documented On 2 9:38AM ; [facility] Arthritic joint problems 05/16/2019 Last Documented On 2 9:38AM ; [facility] Intermittent hypertension 05/16/2019 Last Documented On 2 9:38AM ; [facility] History of heart disease 05/16/2019 Last Documented On 2 9:38AM ; [facility] Family History Includes: Family History addressed during this encounter Description Last Updated Family history of cancer 08/13/2020 Last Documented On 2 9:38AM ; [facility] Family history of heart disease 08/14/19 Last Documented On 2 9:38AM ; [facility] Maternal grandfather's history of family history of heart disease 05/16/2019 Last Documented On 2 9:38AM ; [facility] Paternal history of family history of he art disease 05/16/2019 Last Documented On 2 9:38AM ; [facility] Review of Systems Includes: Review of Systems [...] Time Diagnosis Post Op Serafin Burgess MD [facility] 2 9:30AM 10:32AM Insurance Includes: Active Insurance Policies Plan Name Member ID Group # Subscriber Relationship Effect carina Dates 1 - [facility] [id number] Severo Amin Self 03/26/2022 - Unknown Clinical Notes Includes: Clinical Notes from this encounter No Clinical Notes Recorded
--- NOTE | 2024-07-04 15:52 | HMH.ITSTN ---
Called office multiple times to get order changed to Rt ribs, no one answered so I modified the order
== END 2024-07-04 23:59 | disposition home or self-care (01) ==
LOC: RAD 15:19
PROVIDERS: PCP Family Medicine; Visit Provider Family Medicine
DX: R07.81 Pleurodynia (principal)
CPT/HCPCS: 71101

== ENCOUNTER 2024-07-11 13:47 | Outpatient (CLI) | payer OTHER, SELFPAY ==
--- NOTE | 2024-07-11 13:45 | US_ITS ---
FINAL REPORT TECHNIQUE: Ultrasound images of the kidneys and bladder were obtained. CLINICAL HISTORY: renal pain COMPARISON: None FINDINGS: The right kidney measures 10.5 cm in length. It is normal in echogenicity. There is no hydronephrosis. The left kidney measures 10.9 cm in length. There is a subtle hypoechoic focus in the left mid kidney. This may represent artifact, although a small underlying mass cannot be excluded. There is no hydronephrosis. IMPRESSION: Subtle hypoechoic focus in the left mid kidney, which may represent artifact although small underlying mass cannot be excluded. Recommend renal mass protocol CT for further evaluation. Otherwise, unremarkable ultrasound of the kidneys. Reviewed, Interpreted and Dictated by Cesar Ennis MD Transcribed by Adelina Torrez Authenticated and [facility]
--- OUTSIDE RECORDS SUMMARY | 2024-07-11 13:49 | XMS_ITS | Clinical Summary ---
Author Organization [facility] , [facility] Address [address] [place] [address] Phone Care Team Providers Care Medical Physiologist Name Role Phone Jenifer LEMON, Serafin Nazario Unavailable [phone] Malia Amezquita MD Primary Care Provider [phone] Reason for Visit and Chief Complaint [facility] Outpatient Surgery Suites Problems Includes: Problems addressed during this encounter and other active Problems All Visits Onset Date Resolved Date Provider Condition S tatus Pain in the Hands 08/26/2020 Jez adkins MD Active Last Documented On 1 2:35PM ; [facility] Joint Pain in the Left Knee 05/16/2019 Serafin Burgess MD Active Last Documented On 0 1:25PM ; [facility] Plan of Treatment No Plan [...] tab every 12 hours Pharmacy: [facility] #[id number] - [address], [address] - Last Documented On 1 7:09AM By Serafin Burgess ; [facility] Acetaminophen 500 MG Oral Tablet Provider: Serafin Burgess MD 14 day supply: 84 tablet, 0 refills Diagnosis: Take 2 tablets by mouth every 8 hours Pharmacy: [facility] #[id number] - [address] [facility], [address] - Last Documented On 1 7:09AM By Serafin Burgess ; [facility], [facility] Meloxicam 15 MG Oral Tablet Provider: Serafin Burgess MD 14 day supply: 14 tablet, 0 refills Diagnosis: once a day Pharmacy: [facility] #[id number] - [address] [facility], [address] - Last Documented On 1 7:09AM By Serafin Burgess ; [facility], [facility] Cefadroxil 500 MG Oral Capsule Provider: Serafin Burgess MD 3 day supply: 6 capsule, 0 refills Diagnosis: Take 1 capsule by mouth ever y 12 hours Pharmacy: [facility] #[id number] - [address] [facility], [address] - Last Documented On 1 7:09AM By Serafin Burgess ; [facility], [facility] Vitamin D3 50 MCG (1999 JF) Oral Tablet Provider: Serafin Burgess MD 60 day supply: 60 tablet, 0 refills Diagnosis: Take 1 tablet by mouth daily Pharmacy: [facility] #[id number] - [address] [facility], [address] - Last Documented On 1 7:24AM By Serafin Burgess ; [facility], [facility] Zofran 4 MG Oral Tablet Provider: Cheyenne Burgess MD 7 day supply: 28 tablet, 0 refills Diagnosis: 1 po q 6h prn nausea Pharmacy: [facility] #[id number] - [address] [facility], [address] - Last Documented On 1 7:09AM By Serafin Burgess ; [facility], [facility] Colace 100 MG Oral Capsule Provider: Serafin Burgess MD 30 day supply: 60 capsule, 2 refills Diagnosis: Take 1-2 capsules daily as needed Pharmacy: [facility] #[id number] - [address] [facility], [address] - Last Documented On 1 7:09AM By Serafin Burgess ; [facility], [facility] oxyCODONE HCl 5 MG Oral Tablet Provider: Serafin Burgess MD 10 day supply: 60 tablet, 0 refills Diagnosis: Take 1 tablet by mouth every 4-6hrs for moderate pain Pharmacy: [facility] #[id number] - [address] [facility] [address], [id number] - Last Documented On 1 7:09AM By Serafin Burgess ; [facility], [facility] traMADol HCl 50 MG Oral Tablet Provider: Serafin Burgess MD 8 day supply: 64 tablet, 0 refills Diagnosis: 2 tablets every 6 hours Pharmacy: [facility] #[id number] - [address] [facility], [id number] - Last Documented On 1 7:09AM By Serafin Burgess ; [facility], [facility] Current Medications (continue as prescribed) traMADol HCl 50 MG Oral Tablet 09/05/2019 Provider: Diagnosis: Last Documented On 0 8:12AM By Dennis France ; [facility], [facility] amLODIPine Besylate 5 MG Oral Tablet 04/19/2019 Prov ider: Malia Amezquita MD Diagnosis: Last Documented On 0 1:26PM By Lorie Galarza ; [facility], [facility] Losartan Potassium-HCTZ 100-25 MG Oral Tablet 04/19/19 20 Provider: Malia Amezquita MD Diagnosis: Last Documented On 0 1:26PM By Lorie Galarza ; [facility] Potassium Chloride Amanda ER 1 0 MEQ Oral Tablet Extended Release 04/19/2019 Provider: Malia Amezquita MD Diagnosis: Last Documented On 0 1:26PM By Lorie Galarza ; [facility] ALPRAZolam 0.5 MG Oral Tablet 04/18/2019 Provider: Malia Amezquita MD Diagnosis: Last Documented On 0 1:27PM By Lorie Galarza ; [facility] Metoprolol Tartrate 50 MG Oral Tablet 04/18/2019 Pro vider: Malia Amezquita MD Diagnosis: Last Documented On 0 1:27PM By Lorie Galarza ; [facility] Clopidogrel Bisulfate 75 MG Oral Tablet 04/18/2019 P rovider: Malia Amezquita MD Diagnosis: Last Documented On 0 1:27PM By Lorie Galarza ; [facility] Furosemide 20 MG Oral Tablet 04/18/2019 Provider: Malia Amezquita MD Diagnosis: Last Documented On 0 1:26PM By Lorie Galarza ; [facility] Atorvastatin Calcium 40 MG Oral Tablet 04/18/2019 Pr ovider: Malia Amezquita MD Diagnosis: Last Documented On 0 1:26PM By Lorie Galarza ; [facility] Naproxen 500 MG Oral Tablet 04/18/2019 Provider: Malia Amezquita MD Diagnosis: Last Documented On 0 1:26PM By Lorie Galarza ; [facility] raNITIdine HCl 150 MG Oral Tablet 04/18/2019 Provide r: Malia Amezquita MD Diagnosis: Last Documented On 0 1:26PM By Lorie Galarza ; [facility], [facility] Medications Administered Includes: Administered Medications [...] Location Date Check-In Time Check-Out Time Diagnosis [facility] Outpatient Surgery Suites Serafin Burgess MD Surgery 1 6:50AM 11:59PM Insurance Includes: Active Insurance Policies Plan Name Member ID Group # Subscriber Relationship Effect carina Dates 1 - [facility] [id number] Severo Amin Self 03/26/2022 - Unknown Clinical Notes Includes: Clinical Notes from this encounter No Clinical Notes Recorded
--- OUTSIDE RECORDS SUMMARY | 2024-07-11 13:49 | XMS_ITS | Clinical Summary ---
Author Organization [facility] , [facility] Address [address] [place] [address] Phone Care Team Providers Care Solar Tech Name Role Phone Jenifer LEMON, Serafin Nazario Unavailable [phone] Malia Amezquita MD Primary Care Provider [phone] Reason for Visit and Chief Complaint [facility] Problems Includes: Problems addressed during this encounter and other active Problems All Visits Onset Date Resolved Date Provider Condition S tatus Pain in the Hands 08/26/2020 Jez akdins MD Active Last Documented On 1 2:35PM ; [facility], [facility] Joint Pain in the Left Knee 05/16/2019 Serafin Burgess MD Active Last Documented On 0 1:25PM ; [facility], [facility] Plan of Treatment No Plan of [...] On 0 8:12AM By Dennis France ; [facility], [facility] amLODIPine Besylate 5 MG Oral Tablet 04/19/2019 Prov ider: Malia Amezquita MD Diagnosis: Last Documented On 0 1:26PM By Lorie Galarza ; [facility], [facility] Losartan Potassium-HCTZ 100-25 MG Oral Tablet 04/19/19 20 Provider: Malia Amezquita MD Diagnosis: Last Documented On 0 1:26PM By Lorie Galarza ; [facility], [facility] Potassium Chloride Amanda ER 1 0 MEQ Oral Tablet Extended Release 04/19/2019 Provider: Malia Amezquita MD Diagnosis: Last Documented On 0 1:26PM By Lorie Galarza ; [facility], [facility] ALPRAZolam 0.5 MG Oral Tablet 04/18/2019 Provider: Malia Amezquita MD Diagnosis: Last Documented On 0 1:27PM By Lorie Galarza ; [facility], [facility] Metoprolol Tartrate 50 MG Oral Tablet 04/18/2019 Pro vider: Malia Amezquita MD Diagnosis: Last Documented On 0 1:27PM By Lorie Galarza ; [facility], [facility] Clopidogrel Bisulfate 75 MG Oral Tablet 04/18/2019 P rovider: Malia Amezquita MD Diagnosis: Last Documented On 0 1:27PM By Lorie Galarza ; [facility], [facility] Furosemide 20 MG Oral Tablet 04/18/2019 Provider: Malia Amezquita MD Diagnosis: Last Documented On 0 1:26PM By Lorie Galarza ; [facility], [facility] Atorvastatin Calcium 40 MG Oral Tablet 04/18/2019 Pr ovider: Malia Amezquita MD Diagnosis: Last Documented On 0 1:26PM By Lorie Galarza ; [facility], [facility] Naproxen 500 MG Oral Tablet 04/18/2019 Provider: Malia Amezquita MD Diagnosis: Last Documented On 0 1:26PM By Lorie Galarza ; [facility], [facility] raNITIdine HCl 150 MG Oral Tablet 04/18/2019 Provide r: Malia Amezquita MD Diagnosis: Last Documented On 0 1:26PM By Lorie Galarza ; [facility], [facility] Medications Administered Includes: Administered Medications [...] Services – [facility] [id number] Sveero Amin Self 03/26/2022 - Unknown Clinical Notes Includes: Clinical Notes from this encounter No Clinical Notes Recorded
--- OUTSIDE RECORDS SUMMARY | 2024-07-11 13:49 | XMS_ITS | Clinical Summary ---
Author Organization [facility] , [facility] Address [address] [place] [address] Phone Care Team Providers Care Rock Picker Name Role Phone Jenifer LEMON, Serafin Nazario Unavailable [phone] Malia Amezquita MD Primary Care Provider [phone] Reason for Visit and Chief Complaint Follow Up Problems Includes: Problems addressed during this encounter and other active Problems All Visits Onset Date Resolved Date Provider Condition S tatus Pain in the Hands 08/26/2020 Jez adkins MD Active Last Documented On 1 2:35PM ; [facility] Joint Pain in the Left Knee 05/16/2019 Serafin Burgess MD Active Last Documented On 0 1:25PM ; [facility] Plan of Treatment The next follow-up appointment will be scheduled at the 5 year postoperative point in time and he will call the office if he has any questions or concerns in the meantime. - Last Documented On 03/30/2022 4:13PM ; [facility] Assessments Includes: Assessments from this encounter Findings [...] - Last Documented On 03/30/2022 4:13PM ; [facility] Medical Equipment - Implanted Devices Includes: Current Devices No Medical Equipment Recorded Medications Includes: Medications discussed during this encounter and other current Medications Current Medications (continue as prescribed) traMADol HCl 50 MG Oral Tablet 09/05/2019 Provider: Diagnosis: Last Documented On 0 8:12AM By Dennis France ; [facility] amLODIPine Besylate 5 MG Oral Tablet 04/19/2019 Prov ider: Malia Amezquita MD Diagnosis: Last Documented On 0 1:26PM By Lorie Galarza ; [facility] Losartan Potassium-HCTZ 100-25 MG Oral Tablet 04/19/19 20 Provider: Malia Amezquita MD Diagnosis: Last Documented On 0 1:26PM By Lorie Galarza ; [facility] Potassium Chloride Amanda ER 1 0 MEQ Oral Tablet Extended Release 04/19/2019 Provider: Malia Amezquita MD Diagnosis: Last Documented On 0 1:26PM By Lorie Galarza ; [facility] ALPRAZolam 0.5 MG Oral Tablet 04/18/2019 Provider: Malia Amezquita MD Diagnosis: Last Documented On 0 1:27PM By Lorie Galarza ; [facility], [facility] Metoprolol Tartrate 50 MG Oral Tablet 04/18/2019 Pro vider: Malia Amezquita MD Diagnosis: Last Documented On 0 1:27PM By Lorie Galarza ; [facility] Clopidogrel Bisulfate 75 MG Oral Tablet 04/18/2019 P rovider: Malia Amezquita MD Diagnosis: Last Documented On 0 1:27PM By Lorie Galarza ; [facility], [facility] Furosemide 20 MG Oral Tablet 04/18/2019 Provider: Malia Amezquita MD Diagnosis: Last Documented On 0 1:26PM By Lorie Galarza ; [facility] Atorvastatin Calcium 40 MG Oral Tablet 04/18/2019 Pr ovider: Malia Amezquita MD Diagnosis: Last Documented On 0 1:26PM By Loire Galarza ; [facility] Naproxen 500 MG Oral Tablet 04/18/2019 Provider: Malia Amezquita MD Diagnosis: Last Documented On 0 1:26PM By Lorie Galarza ; [facility] raNITIdine HCl 150 MG Oral Tablet 04/18/2019 Provide r: Malia Amezquita MD Diagnosis: Last Documented On 0 1:26PM By Lorie Galarza ; [facility] Past Medications on file Aspirin EC 81 MG Oral Tablet Delayed Release 03/14/2021 - 04/25/2021 Provider: Serafin Burgess MD Diagnosis: 1 tab every 12 hours Last Documented On 1 7:09AM By Serafin Burgess ; [facility] Acetaminophen 500 MG Oral Tablet 03/14/2021 - 03/28/2021 Provider: Serafin Niño MD Diagnosis: Take 2 tablets by mouth every 8 hours Last Documented On 1 7:09AM By Serafin Burgess ; [facility] Meloxicam 15 MG Oral Tablet 03/14/2021 - 03/28/2021 Pr ovider: Serafin Burgess MD Diagnosis: once a day Last Documented On 1 7:09AM By Serafin Burgess ; [facility] Cefadroxil 500 MG Oral Capsule 03/14/2021 - 03/17/2021 Provider: Serafin Niño MD Diagnosis: Take 1 capsule by mouth every 12 hours Last Documented On 1 7:09AM By Serafin Burgess ; [facility] Vitamin D3 50 MCG (1999 [place]) Oral Tablet 03/14/2021 - 05/13/2021 Provider: Serafin Nñio MD Diagnosis: Take 1 tablet by mouth daily Last Documented On 1 7:24AM By Serafin Burgess ; [facility] Zofran 4 MG Oral Tablet 03/14/2021 - 03/21/2021 Provid er: Serafin Burgess MD Diagnosis: 1 po q 6h prn nausea Last Documented On 1 7:09AM By Serafin Burgess ; [facility] Colace 100 MG Oral Capsule 03/14/2021 - 06/12/2021 Pro vider: Serafin Burgess MD Diagnosis: Take 1-2 capsules daily as needed Last Documented On 1 7:09AM By Serafin Burgess ; [facility] oxyCODONE HCl 5 MG Oral Tablet 03/14/2021 - 03/24/2021 Provider: Serafin Niño MD Diagnosis: Take 1 tablet by mouth every 4-6hrs for moderate pain Last Documented On 1 7:09AM By Serafin Burgess ; [facility] traMADol HCl 50 MG Oral Tablet 03/14/2021 - 03/22/2021 Provider: Serafin Niño MD Diagnosis: 2 tablets every 6 hours Last Documented On 1 7:09AM By Serafin Burgess ; [facility] Naproxen 500 MG Oral Tablet 12/09/2020 - 01/08/2021 Pr ovider: Jez Burt MD Diagnosis: take one tablet twice a day prn following surger y Last Documented On 1 11:16AM By Dr. Burt ; [facility] Vitamin C 1000 MG Oral Tablet 12/09/2020 - 02/07/2021 Provider: Jez moncada MD Diagnosis: take one tablet, once a day post surgery Last Documented On 1 11:16AM By Dr. Burt ; [facility] Vitamin C 1000 MG Oral Tablet 10/08/2020 - 12/07/2020 Provider: Jez moncada MD Diagnosis: take one tablet, once a day post surgery Last Documented On 1 9:57AM By Afsaneh Reyes ; [facility] Naproxen 500 MG Oral Tablet 10/08/2020 - 11/07/2020 Pr ovider: Jez Burt MD Diagnosis: take one tablet twice a day prn following surger y Last Documented On 1 9:56AM By Afsaneh Reyes ; [facility] Medications Administered Includes: Administered Medications from [...] 08/26/2020 Last Documented On 3 3:21PM ; [facility] Caffeine use 08/13/2020 Last Documented On 3 3:21PM ; [facility] Non-smoker 08/13/2020 Last Documented On 3 3:21PM ; [facility] No tobacco use 05/16/2019 Last Documented On 3 3:21PM ; [facility] Smoking status : Former smoker 0 Last Documented On 3 3:21PM ; [facility] Alcohol use 05/16/2019 Last Documented On 3 3:21PM ; [facility] Exercising regularly 05/16/2019 Last Documented On 3 3:21PM ; [facility] No recent change in diet 05/16/2019 Last Documented On 3 3:21PM ; [facility] Not a current smoker 05/16/2019 Last Documented On 3 3:21PM ; [facility] Not using drugs 05/16/2019 Last Documented On 3 3:21PM ; [facility] Procedures and Surgical History Surgical History Last Updated History of heart surgery CABG (10/2016) 0 05/16/2019 Last Documented On 3 3:21PM ; [facility] Medical History Includes: Medical History addressed during this encounter Description Last Updated Arthritis 08/13/2020 Last Documented On 3 3:21PM ; [facility] Heart surgery 08/13/2020 Last Documented On 3 3:21PM ; [facility] Hypertension 08/13/2020 Last Documented On 3 3:21PM ; [facility] Recent immunization for flu 08/13/2020 Last Documented On 3 3:21PM ; [facility] Recent immunization for pneumococcal pne umonia 08/13/2020 Last Documented On 3 3:21PM ; [facility] Total knee arthroplasty 08/13/2020 Last Documented On 3 3:21PM ; [facility] Arthritic joint problems 05/16/2019 Last Documented On 3 3:21PM ; [facility] Intermittent hypertension 05/16/2019 Last Documented On 3 3:21PM ; [facility] History of heart disease 05/16/2019 Last Documented On 3 3:21PM ; [facility] Family History Includes: Family History addressed during this encounter Description Last Updated Family history of cancer 08/13/2020 Last Documented On 3 3:21PM ; [facility] Family history of heart disease 08/14/19 Last Documented On 3 3:21PM ; [facility] Maternal grandfather's history of family history of heart disease 05/16/2019 Last Documented On 3 3:21PM ; [facility] Paternal history of family history of he art disease 05/16/2019 Last Documented On 3 3:21PM ; [facility] Review of Systems Includes: Review of [...] Check- Out Time Diagnosis [facility] 3 3:05PM 3:40PM Insurance Includes: Active Insurance Policies Plan Name Member ID Group # Subscriber Relationship Effect carina Dates 1 - [facility] [id number] Severo Amin Self 03/26/2022 - Unknown Clinical Notes Includes: Clinical Notes from this encounter * Progress note Date Encounter Last Documented by 03/30/2022 Follow Up Last documented on 03/30/2022; 4:13 PM, Nakia Bearden; [facility] Active Problems & Conditions - Joint [...] Care Team - Malia Amezquita MD - BOILER/CHILLER OPERATOR Health Reminders - Assess Tobacco Use satisfied 03/30/2022.
--- OUTSIDE RECORDS SUMMARY | 2024-07-11 13:49 | XMS_ITS | Clinical Summary ---
Author Organization [facility] Address [address] [place] [address] Phone Care Team Providers Care Sugar Boiler Name Role Phone Jenifer LEMON, Serafin Nazario Unavailable [phone] Malia Amezquita MD Primary Care Provider [phone] Reason for Referral Date Encounter Description Provider [...] Last Documented On 1 2:35PM ; [facility], [facility] Joint Pain in the Left Knee 05/16/2019 Serafin Burgess MD Active Last Documented On 0 1:25PM ; [facility], [facility] Plan of Treatment He will continue participating in daily, home-based therapy exercises with focus on strengthening and range of motion. The next follow-up appointment will be scheduled at the 1 year postoperative point in time and he will call the office if he has any questions or concerns in the meantime. - Last Documented On 05/20/2021 5:44PM ; [facility], [facility] Instructions to patient Lose weight Last Documented On 2 4:00PM ; [facility], [facility] Assessments Includes: Assessments from this encounter [...] - Last Documented On 05/20/2021 5:44PM ; [facility], [facility] Instructions Includes: Instructions from this encounter Instructions to patient Lose weight Last Documented On 2 4:00PM ; [facility], [facility] Medical Equipment - Implanted Devices Includes: Current Devices No Medical Equipment Recorded Medications Includes: Medications discussed during this encounter and other current Medications Current Medications (continue as prescribed) traMADol HCl 50 MG Oral Tablet 09/05/2019 Provider: Diagnosis: Last Documented On 0 8:12AM By Dennis France ; [facility], [facility] amLODIPine Besylate 5 MG Oral Tablet 04/19/2019 Prov ider: Malia Amezquita MD Diagnosis: Last Documented On 0 1:26PM By Lorie Galarza ; [facility], [facility] Losartan Potassium-HCTZ 100-25 MG Oral Tablet 04/19/19 20 Provider: Malia Amezquita MD Diagnosis: Last Documented On 0 1:26PM By Lorie Galarza ; [facility], [facility] Potassium Chloride Amanda ER 1 0 MEQ Oral Tablet Extended Release 04/19/2019 Provider: Malia Amezquita MD Diagnosis: Last Documented On 0 1:26PM By Lorie Galarza ; [facility], [facility] ALPRAZolam 0.5 MG Oral Tablet 04/18/2019 Provider: Malia Amezquita MD Diagnosis: Last Documented On 0 1:27PM By Lorie Galarza ; [facility], [facility] Metoprolol Tartrate 50 MG Oral Tablet 04/18/2019 Pro vider: Malia Amezquita MD Diagnosis: Last Documented On 0 1:27PM By Lorie Galarza ; [facility], [facility] Clopidogrel Bisulfate 75 MG Oral Tablet 04/18/2019 Paula maldonadoder: Malia Amezquita MD Diagnosis: Last Documented On 0 1:27PM By Lorie Galarza ; [facility], [facility] Furosemide 20 MG Oral Tablet 04/18/2019 Provider: Malia Amezquita MD Diagnosis: Last Documented On 0 1:26PM By Lorie Galarza ; [facility], [facility] Atorvastatin Calcium 40 MG Oral Tablet 04/18/2019 Pr ovider: Malia Amezquita MD Diagnosis: Last Documented On 0 1:26PM By Lorie Galarza ; [facility] Naproxen 500 MG Oral Tablet 04/18/2019 Provider: Malia Amezquita MD Diagnosis: Last Documented On 0 1:26PM By Lorie Galarza ; [facility] raNITIdine HCl 150 MG Oral Tablet 04/18/2019 Provide r: Malia Amezquita MD Diagnosis: Last Documented On 0 1:26PM By Lorie Galarza ; [facility], [facility] Past Medications on file Aspirin EC 81 MG Oral Tablet Delayed Release 03/14/2021 - 04/25/2021 Provider: Serafin Burgess MD Diagnosis: 1 tab every 12 hours Last Documented On 1 7:09AM By Serafin Burgess ; [facility], [facility] Acetaminophen 500 MG Oral Tablet 03/14/2021 - 03/28/2021 Provider: Serafin Niño MD Diagnosis: Take 2 tablets by mouth every 8 hours Last Documented On 1 7:09AM By Serafin Burgess ; [facility], [facility] Meloxicam 15 MG Oral Tablet 03/14/2021 - 03/28/2021 Pr ovider: Serafin Burgess MD Diagnosis: once a day Last Documented On 1 7:09AM By Serafin Burgess ; [facility], [facility] Cefadroxil 500 MG Oral Capsule 03/14/2021 - 03/17/2021 Provider: Serafin Niño MD Diagnosis: Take 1 capsule by mouth every 12 hours Last Documented On 1 7:09AM By Serafin Burgess ; [facility], [facility] Vitamin D3 50 MCG (1999 UT) Oral Tablet 03/14/2021 - 05/13/2021 Provider: Serafin Niño MD Diagnosis: Take 1 tablet by mouth daily Last Documented On 1 7:24AM By Serafin Burgess ; [facility], [facility] Zofran 4 MG Oral Tablet 03/14/2021 - 03/21/2021 Provid er: Serafin Burgess MD Diagnosis: 1 po q 6h prn nausea Last Documented On 1 7:09AM By Serafin Burgess ; [facility] Colace 100 MG Oral Capsule 03/14/2021 - 06/12/2021 Pro vider: Serafin Burgess MD Diagnosis: Take 1-2 capsules daily as needed Last Documented On 1 7:09AM By Serafin Burgess ; [facility] oxyCODONE HCl 5 MG Oral Tablet 03/14/2021 - 03/24/2021 Provider: Serafin Niño MD Diagnosis: Take 1 tablet by mouth every 4-6hrs for moderate pain Last Documented On 1 7:09AM By Serafin Burgess ; [facility] traMADol HCl 50 MG Oral Tablet 03/14/2021 - 03/22/2021 Provider: Serafin Niño MD Diagnosis: 2 tablets every 6 hours Last Documented On 1 7:09AM By Serafin Burgess ; [facility] Naproxen 500 MG Oral Tablet 12/09/2020 - 01/08/2021 Pr ovider: Jez Burt MD Diagnosis: take one tablet twice a day prn following surger y Last Documented On 1 11:16AM By Dr. Burt ; [facility] Vitamin C 1000 MG Oral Tablet 12/09/2020 - 02/07/2021 Provider: Jez moncada MD Diagnosis: take one tablet, once a day post surgery Last Documented On 1 11:16AM By Dr. Burt ; [facility] Vitamin C 1000 MG Oral Tablet 10/08/2020 - 12/07/2020 Provider: Jez moncada MD Diagnosis: take one tablet, once a day post surgery Last Documented On 1 9:57AM By Afsaneh Reyes ; [facility] Naproxen 500 MG Oral Tablet 10/08/2020 - 11/07/2020 Pr ovider: Jez Burt MD Diagnosis: take one tablet twice a day prn following surger y Last Documented On 1 9:56AM By Afsaneh Reyes ; [facility], [facility] Medications Administered Includes: Administered Medications from this encounter No Administered Medications Recorded Vital Signs Includes: Vital Signs from this encounter Vital Name 05/20/2021 03:59P Blood Pressure Sitting (mmHg) 145/84 Pulse Rate-Sitting (bpm) 70 Height (in) 70 Weight (lb) 193.6 Body Mass Index (kg/m2) 27.8 Body Surface Area (m2) 2.1 Note: sd Last Documented: On 05/20/2021 4:00PM ; [facility], [facility] Results Includes: Results discussed during this [...] 08/26/2020 Last Documented On 2 3:23PM ; [facility] Caffeine use 08/13/2020 Last Documented On 2 3:23PM ; [facility], [facility] Non-smoker 08/13/2020 Last Documented On 2 3:23PM ; [facility] No tobacco use 05/16/2019 Last Documented On 2 3:23PM ; [facility], [facility] Smoking status : Former smoker 0 Last Documented On 2 3:23PM ; [facility], [facility] Alcohol use 05/16/2019 Last Documented On 2 3:23PM ; [facility] Exercising regularly 05/16/2019 Last Documented On 2 3:23PM ; [facility], [facility] No recent change in diet 05/16/2019 Last Documented On 2 3:23PM ; [facility], [facility] Not a current smoker 05/16/2019 Last Documented On 2 3:23PM ; [facility] Not using drugs 05/16/2019 Last Documented On 2 3:23PM ; [facility] Procedures and Surgical History Includes: Procedures from this encounter Procedures Code Diagnosis Performing Provider Service L ocation Service Date use of tobacco assessment performed 1000F Last Documented On 2 3:23PM ; [facility] referral to physician Pt to follow up wi th pcp for bp control Last Documented On 2 3:23PM ; [facility] an X-ray was performed 43667 Last Documented On 2 3:23PM ; [facility] Surgical History Last Updated History of heart surgery CABG (10/2016) 0 05/16/2019 Last Documented On 2 3:23PM ; [facility] Medical History Includes: Medical History addressed during this encounter Description Last Updated Arthritis 08/13/2020 Last Documented On 2 3:23PM ; [facility], [facility] Heart surgery 08/13/2020 Last Documented On 2 3:23PM ; [facility], [facility] Hypertension 08/13/2020 Last Documented On 2 3:23PM ; [facility] Recent immunization for flu 08/13/2020 Last Documented On 2 3:23PM ; [facility], [facility] Recent immunization for pneumococcal pne umonia 08/13/2020 Last Documented On 2 3:23PM ; [facility] Total knee arthroplasty 08/13/2020 Last Documented On 2 3:23PM ; [facility], [facility] Arthritic joint problems 05/16/2019 Last Documented On 2 3:23PM ; [facility], [facility] Intermittent hypertension 05/16/2019 Last Documented On 2 3:23PM ; [facility], [facility] History of heart disease 05/16/2019 Last Documented On 2 3:23PM ; [facility], [facility] Family History Includes: Family History addressed during this encounter Description Last Updated Family history of cancer 08/13/2020 Last Documented On 2 3:23PM ; [facility], [facility] Family history of heart disease 08/14/19 Last Documented On 2 3:23PM ; [facility] Maternal grandfather's history of family history of heart disease 05/16/2019 Last Documented On 2 3:23PM ; [facility], [facility] Paternal history of family history of he art disease 05/16/2019 Last Documented On 2 3:23PM ; [facility], [facility] Review of Systems Includes: Review [...] Time Diagnosis Post Op Nakia Faria PA-C [facility] 2 3:12PM 4:34PM Insurance Includes: Active Insurance Policies Plan Name Member ID Group # Subscriber Relationship Effect carina Dates - [facility] [id number] Severo Amin Self 03/26/2022 - Unknown Clinical Notes Includes: Clinical Notes from this encounter No Clinical Notes Recorded
--- OUTSIDE RECORDS SUMMARY | 2024-07-11 13:49 | XMS_ITS | Clinical Summary ---
Author Organization [facility] Address [address] [place] [address] Phone Care Team Providers Care Computer Systems Manager Name Role Phone Jenifer LEMON, Serafin Nazario Unavailable [phone] Malia Amezquita MD Primary Care Provider [phone] Reason for Referral Date Encounter Description Provider [...] Active Last Documented On 1 2:35PM ; [facility], [facility] Joint Pain in the Left Knee 05/16/2019 Serafin Burgess MD Active Last Documented On 0 1:25PM ; [facility], [facility] Plan of Treatment 48-year-old male status post left partial knee replacement to very well continue work with physical therapy can see our PA Nakiatenisha Faria back in 6 weeks - Last Documented On 03/31/2021 10:57AM ; [facility], [facility] Assessments Includes: Assessments from this encounter No Assessments Recorded Medical Equipment - Implanted Devices Includes: Current Devices No Medical Equipment Recorded Medications Includes: Medications discussed during this encounter and other current Medications Current Medications (continue as prescribed) traMADol HCl 50 MG Oral Tablet 09/05/2019 Provider: Diagnosis: Last Documented On 0 8:12AM By Dennis France ; [facility], [facility] amLODIPine Besylate 5 MG Oral Tablet 04/19/2019 Prov ider: Malia Amezquita MD Diagnosis: Last Documented On 0 1:26PM By Lorie Galarza ; [facility], [facility] Losartan Potassium-HCTZ 100-25 MG Oral Tablet 04/19/19 Provider: Malia Amezquita MD Diagnosis: Last Documented On 0 1:26PM By Lorie Galarza ; [facility], [facility] Potassium Chloride Amanda ER 1 0 MEQ Oral Tablet Extended Release 04/19/2019 Provider: Malia Amezquita MD Diagnosis: Last Documented On 0 1:26PM By Lorie Galarza ; [facility], [facility] ALPRAZolam 0.5 MG Oral Tablet 04/18/2019 Provider: Malia Amezquita MD Diagnosis: Last Documented On 0 1:27PM By Lorie Galarza ; [facility], [facility] Metoprolol Tartrate 50 MG Oral Tablet 04/18/2019 Pro vider: Malia Amezquita MD Diagnosis: Last Documented On 0 1:27PM By Lorie Galarza ; [facility], [facility] Clopidogrel Bisulfate 75 MG Oral Tablet 04/18/2019 P rovider: Malia Amezquita MD Diagnosis: Last Documented On 0 1:27PM By Lorie Galarza ; [facility], [facility] Furosemide 20 MG Oral Tablet 04/18/2019 Provider: Malia Amezquita MD Diagnosis: Last Documented On 0 1:26PM By Lorie Galarza ; [facility], [facility] Atorvastatin Calcium 40 MG Oral Tablet 04/18/2019 Pr ovider: Malia Amezquita MD Diagnosis: Last Documented On 0 1:26PM By Lorie Galarza ; [facility], [facility] Naproxen 500 MG Oral Tablet 04/18/2019 Provider: Malia Amezquita MD Diagnosis: Last Documented On 0 1:26PM By Lorie Galarza ; [facility], [facility] raNITIdine HCl 150 MG Oral Tablet 04/18/2019 Provide r: Malia Amezquita MD Diagnosis: Last Documented On 0 1:26PM By Lorie Galarza ; [facility], [facility] Past Medications on file Aspirin EC 81 MG Oral Tablet Delayed Release 03/14/2021 - 04/25/2021 Provider: Serafin Burgess MD Diagnosis: 1 tab every 12 hours Last Documented On 1 7:09AM By Serafin Burgess ; [facility], [facility] Acetaminophen 500 MG Oral Tablet 03/14/2021 - 03/28/2021 Provider: Serafin Niño MD Diagnosis: Take 2 tablets by mouth every 8 hours Last Documented On 1 7:09AM By Serafin Burgess ; [facility], [facility] Meloxicam 15 MG Oral Tablet 03/14/2021 - 03/28/2021 Pr ovider: Serafin Burgess MD Diagnosis: once a day Last Documented On 1 7:09AM By Serafin Burgess ; [facility], [facility] Cefadroxil 500 MG Oral Capsule 03/14/2021 - 03/17/2021 Provider: Serafin Niño MD Diagnosis: Take 1 capsule by mouth every 12 hours Last Documented On 1 7:09AM By Serafin Burgess ; [facility], [facility] Vitamin D3 50 MCG (1999 UT) Oral Tablet 03/14/2021 - 05/13/2021 Provider: Serafin Niño MD Diagnosis: Take 1 tablet by mouth daily Last Documented On 1 7:24AM By Serafin Burgess ; [facility], [facility] Zofran 4 MG Oral Tablet 03/14/2021 - 03/21/2021 Provid er: Serafin Burgess MD Diagnosis: 1 po q 6h prn nausea Last Documented On 1 7:09AM By Serafin Burgess ; [facility], [facility] Colace 100 MG Oral Capsule 03/14/2021 - 06/12/2021 Pro vider: eSrafin Burgess MD Diagnosis: Take 1-2 capsules daily as needed Last Documented On 1 7:09AM By Serafin Burgess ; [facility], [facility] oxyCODONE HCl 5 MG Oral Tablet 03/14/2021 - 03/24/2021 Provider: Serafin Niño MD Diagnosis: Take 1 tablet by mouth every 4-6hrs for moderate pain Last Documented On 1 7:09AM By Serafin Burgess ; [facility], [facility] traMADol HCl 50 MG Oral Tablet 03/14/2021 - 03/22/2021 Provider: Serafin Niño MD Diagnosis: 2 tablets every 6 hours Last Documented On 7:09AM By Serafin Burgess ; [facility], [facility] Naproxen 500 MG Oral Tablet 12/09/2020 - 01/08/2021 Pr ovider: Jez Burt MD Diagnosis: take one tablet twice a day prn following surger y Last Documented On 11:16AM By Dr. Burt ; [facility], [facility] Vitamin C 1000 MG Oral Tablet 12/09/2020 - 02/07/2021 Provider: Jez moncada MD Diagnosis: take one tablet, once a day post surgery Last Documented On 11:16AM By Dr. Burt ; [facility], [facility] Vitamin C 1000 MG Oral Tablet 10/08/2020 - 12/07/2020 Provider: Jez moncada MD Diagnosis: take one tablet, once a day post surgery Last Documented On 9:57AM By Afsaneh Reyes ; [facility], [facility] Naproxen 500 MG Oral Tablet 10/08/2020 - 11/07/2020 Pr ovider: Jez Burt MD Diagnosis: take one tablet twice a day prn following surger y Last Documented On 9:56AM By Afsaneh Reyes ; [facility], [facility] Medications Administered Includes: Administered Medications from this encounter No Administered Medications Recorded Vital Signs Includes: Vital Signs from this encounter Vital Name 03/29/2021 09:54A Blood Pressure Sitting (mmHg) 168/82 Pulse Rate-Sitting (bpm) 67 Height (in) 70 Weight (lb) 185 Body Mass Index (kg/m2) 26.5 Body Surface Area (m2) 2.0 Note: sg Last Documented: On 03/29/2021 9:54AM ; [facility], [facility] Results Includes: Results discussed during this [...] 08/26/2020 Last Documented On 2 9:38AM ; [facility], [facility] Caffeine use 08/13/2020 Last Documented On 2 9:38AM ; [facility], [facility] Non-smoker 08/13/2020 Last Documented On 2 9:38AM ; [facility], [facility] No tobacco use 05/16/2019 Last Documented On 2 9:38AM ; [facility], [facility] Smoking status : Former smoker 0 Last Documented On 2 9:38AM ; [facility], [facility] Alcohol use 05/16/2019 Last Documented On 2 9:38AM ; [facility], [facility] Exercising regularly 05/16/2019 Last Documented On 2 9:38AM ; [facility], [facility] No recent change in diet 05/16/2019 Last Documented On 2 9:38AM ; [facility], [facility] Not a current smoker 05/16/2019 Last Documented On 2 9:38AM ; [facility], [facility] Not using drugs 05/16/2019 Last Documented On 2 9:38AM ; [facility], [facility] Procedures and Surgical History Includes: Procedures from this encounter Procedures Code Diagnosis Performing Provider Service L ocation Service Date use of tobacco assessment performed 1000F Last Documented On 2 9:53AM ; [facility], [facility] referral to physician Pt to follow up [facility] pcp for bp control Last Documented On 2 9:38AM ; [facility] [id number] Last Documented On 2 9:53AM ; [facility], [facility] Surgical History Last Updated History of heart surgery CABG (10/2016) 0 05/16/2019 Last Documented On 2 9:38AM ; [facility], [facility] Medical History Includes: Medical History addressed during this encounter Description Last Updated Arthritis 08/13/2020 Last Documented On 2 9:38AM ; [facility] Heart surgery 08/13/2020 Last Documented On 2 9:38AM ; [facility] Hypertension 08/13/2020 Last Documented On 2 9:38AM ; [facility] Recent immunization for flu 08/13/2020 Last Documented On 2 9:38AM ; [facility] Recent immunization for pneumococcal pne umonia 08/13/2020 Last Documented On 2 9:38AM ; [facility] Total knee arthroplasty 08/13/2020 Last Documented On 2 9:38AM ; [facility] Arthritic joint problems 05/16/2019 Last Documented On 2 9:38AM ; [facility] Intermittent hypertension 05/16/2019 Last Documented On 2 9:38AM ; [facility] History of heart disease 05/16/2019 Last Documented On 2 9:38AM ; [facility], [facility] Family History Includes: Family History addressed during this encounter Description Last Updated Family history of cancer 08/13/2020 Last Documented On 2 9:38AM ; [facility] Family history of heart disease 08/14/19 Last Documented On 2 9:38AM ; [facility] Maternal grandfather's history of family history of heart disease 05/16/2019 Last Documented On 2 9:38AM ; [facility] Paternal history of family history of he art disease 05/16/2019 Last Documented On 2 9:38AM ; [facility], [facility] Review of Systems Includes: Review of [...] Time Diagnosis Post Op Serafin Burgess MD [facility] 2 9:30AM 10:32AM Insurance Includes: Active Insurance Policies Plan Name Member ID Group # Subscriber Relationship Effect carina Dates 1 - [facility] [id number] Severo Amin Self 03/26/2022 - Unknown Clinical Notes Includes: Clinical Notes from this encounter No Clinical Notes Recorded
--- OUTSIDE RECORDS SUMMARY | 2024-07-11 13:49 | XMS_ITS ---
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 Role Phone Jenifer LEMON, Serafin Nazario Unavailable [phone] Malia Amezquita MD Primary Care Provider [phone] Reason for Referral Date Encounter Description Provider [...] Active Last Documented On 1 2:35PM ; [facility], [facility] Joint Pain in the Left Knee 05/16/2019 Serafin Burgess MD Active Last Documented On 0 1:25PM ; [facility], [facility] Plan of Treatment Pending Tests Order Diagnosis Results Due Ordering P rovider Procedure/Tests EMG 09/09/20 Jez Burt MD Last Documented On 1 1:57PM ; [facility], [facility] Instructions to patient Lose weight Last Documented On 2 4:00PM ; [facility] Instructions for patient con tinue to manage bp Last Documented On 0 9:22AM ; [facility] Instructions for patient con tinue to manage bp Last Documented On 0 8:12AM ; [facility] Instructions for patient Last Documented On 0 1:55PM ; [facility] Assessments Includes: Assessments for all patient encounters No Assessments Recorded Instructions Includes: Instructions for all patient encounters Instructions to patient Lose weight Last Documented On 2 4:00PM ; [facility] Instructions for patient con tinue to manage bp Last Documented On 0 9:22AM ; [facility] Instructions for patient con tinue to manage bp Last Documented On 0 8:12AM ; [facility] Instructions for patient Last Documented On 0 1:55PM ; [facility], [facility] Medical Equipment - Implanted Devices Includes: Current and historical Devices No Medical Equipment Recorded Medications Includes: Current and historical Medications Current Medications (continue as prescribed) traMADol HCl 50 MG Oral Tablet 09/05/2019 Provider: Diagnosis: Last Documented On 0 8:12AM By Dennis France ; [facility], [facility] amLODIPine Besylate 5 MG Oral Tablet 04/19/2019 Prov ider: Malia Amezquita MD Diagnosis: Last Documented On 0 1:26PM By Lorie Galarza ; [facility], [facility] Losartan Potassium-HCTZ 100-25 MG Oral Tablet 04/19/19 20 Provider: Malia Amezquita MD Diagnosis: Last Documented On 0 1:26PM By Lorie Galarza ; [facility], [facility] Potassium Chloride Amanda ER 1 0 MEQ Oral Tablet Extended Release 04/19/2019 Provider: Malia Amezquita MD Diagnosis: Last Documented On 0 1:26PM By Lorie Galarza ; [facility], [facility] ALPRAZolam 0.5 MG Oral Tablet 04/18/2019 Provider: Malia Amezquita MD Diagnosis: Last Documented On 0 1:27PM By Lorie Galarza ; [facility], [facility] Metoprolol Tartrate 50 MG Oral Tablet 04/18/2019 Pro vider: Malia Amezquita MD Diagnosis: Last Documented On 0 1:27PM By Lorie Galarza ; [facility], [facility] Clopidogrel Bisulfate 75 MG Oral Tablet 04/18/2019 P rovider: Malia Amezquita MD Diagnosis: Last Documented On 0 1:27PM By Lorie Galarza ; [facility], [facility] Furosemide 20 MG Oral Tablet 04/18/2019 Provider: Malia Amezquita MD Diagnosis: Last Documented On 0 1:26PM By Lorie Galarza ; [facility], [facility] Atorvastatin Calcium 40 MG Oral Tablet 04/18/2019 Pr ovider: Malia Amezquita MD Diagnosis: Last Documented On 0 1:26PM By Lorie Galarza ; [facility], [facility] Naproxen 500 MG Oral Tablet 04/18/2019 Provider: Malia Amezquita MD Diagnosis: Last Documented On 0 1:26PM By Lorie Galarza ; [facility], [facility] raNITIdine HCl 150 MG Oral Tablet 04/18/2019 Provide r: Malia Amezquita MD Diagnosis: Last Documented On 0 1:26PM By Lorie Galarza ; [facility], [facility] Past Medications on file Aspirin EC 81 MG Oral Tablet Delayed Release 03/14/2021 - 04/25/2021 Provider: Serafin Burgess MD Diagnosis: 1 tab every 12 hours Last Documented On 1 7:09AM By Serafin Burgess ; [facility], [facility] Acetaminophen 500 MG Oral Tablet 03/14/2021 - 03/28/2021 Provider: Serafin Niño MD Diagnosis: Take 2 tablets by mouth every 8 hours Last Documented On 1 7:09AM By Serafin Burgess ; [facility], [facility] Meloxicam 15 MG Oral Tablet 03/14/2021 - 03/28/2021 Pr ovider: Serafin Burgess MD Diagnosis: once a day Last Documented On 1 7:09AM By Serafin Burgess ; [facility] Cefadroxil 500 MG Oral Capsule 03/14/2021 - 03/17/2021 Provider: Serafin Niño MD Diagnosis: Take 1 capsule by mouth every 12 hours Last Documented On 1 7:09AM By Serafin Burgess ; [facility] Vitamin D3 50 MCG (2000 UT) Oral Tablet 03/14/2021 - 05/13/2021 Provider: Serafin Niño MD Diagnosis: Take 1 tablet by mouth daily Last Documented On 1 7:24AM By Serafin Burgess ; [facility] Zofran 4 MG Oral Tablet 03/14/2021 - 03/21/2021 Provid er: Serafin Burgess MD Diagnosis: 1 po q 6h prn nausea Last Documented On 1 7:09AM By Serafin Burgess ; [facility] Colace 100 MG Oral Capsule 03/14/2021 - 06/12/2021 Pro vider: Serafin Burgess MD Diagnosis: Take 1-2 capsules daily as needed Last Documented On 1 7:09AM By Serafin Burgess ; [facility] oxyCODONE HCl 5 MG Oral Tablet 03/14/2021 - 03/24/2021 Provider: Serafin Niño MD Diagnosis: Take 1 tablet by mouth every 4-6hrs for moderate pain Last Documented On 1 7:09AM By Serafin Burgess ; [facility] traMADol HCl 50 MG Oral Tablet 03/14/2021 - 03/22/2021 Provider: Serafin Niño MD Diagnosis: 2 tablets every 6 hours Last Documented On 1 7:09AM By Serafin Burgess ; [facility] Naproxen 500 MG Oral Tablet 12/09/2020 - 01/08/2021 Pr ovider: Jez Burt MD Diagnosis: take one tablet twice a day prn following surger y Last Documented On 1 11:16AM By Dr. Burt ; [facility] Vitamin C 1000 MG Oral Tablet 12/09/2020 - 02/07/2021 Provider: Jez moncada MD Diagnosis: take one tablet, once a day post surgery Last Documented On 1 11:16AM By Dr. Burt ; [facility] Vitamin C 1000 MG Oral Tablet 10/08/2020 - 12/07/2020 Provider: Jez moncada MD Diagnosis: take one tablet, once a day post surgery Last Documented On 1 9:57AM By Afsaneh Reyes ; [facility] Naproxen 500 MG Oral Tablet 10/08/2020 - 11/07/2020 Pr ovider: Jez Burt MD Diagnosis: take one tablet twice a day prn following surger y Last Documented On 1 9:56AM By Afsaneh Reyes ; [facility], [facility] Medications Administered Includes: Administered Medications in patient's chart No Administered Medications Recorded Results Includes: Results from 07/12/2023 through 07/11/2024 No Results Recorded For Specified Dates History of Present Illness History of Present Illness not supported for this document type No History of Present Illness Recorded Social History Description Last Updated Not a current smoker. 08/26/2020 Last Documented On 1 1:57PM ; [facility] Caffeine use 08/13/2020 Last Documented On 1 6:47PM ; [facility] Non-smoker 08/13/2020 Last Documented On 1 6:47PM ; [facility] No tobacco use 05/16/2019 Last Documented On 0 8:04AM ; [facility] Smoking status : Former smoker 0 Last Documented On 0 8:04AM ; [facility] Alcohol use 05/16/2019 Last Documented On 0 8:04AM ; [facility] Exercising regularly 05/16/2019 Last Documented On 0 8:04AM ; [facility] No recent change in diet 05/16/2019 Last Documented On 0 8:04AM ; [facility] Not a current smoker 05/16/2019 Last Documented On 0 8:04AM ; [facility], [facility] Not using drugs 05/16/2019 Last Documented On 0 8:04AM ; [facility], [facility] Procedures and Surgical History Surgical History Last Updated History of heart surgery CABG (10/2016) 0 05/16/2019 Last Documented On 0 8:04AM ; [facility] Medical History Includes: Medical History in patient's chart Description Last Updated Arthritis 08/13/2020 Last Documented On 1 6:47PM ; [facility] Heart surgery 08/13/2020 Last Documented On 1 6:47PM ; [facility] Hypertension 08/13/2020 Last Documented On 1 6:47PM ; [facility], [facility] Recent immunization for flu 08/13/2020 Last Documented On 1 6:47PM ; [facility] Recent immunization for pneumococcal pne umonia 08/13/2020 Last Documented On 1 6:47PM ; [facility], [facility] Total knee arthroplasty 08/13/2020 Last Documented On 1 6:47PM ; [facility], [facility] Arthritic joint problems 05/16/2019 Last Documented On 0 8:04AM ; [facility], [facility] Intermittent hypertension 05/16/2019 Last Documented On 0 8:04AM ; [facility], [facility] History of heart disease 05/16/2019 Last Documented On 0 8:04AM ; [facility], [facility] Family History Includes: Family History in patient's chart Description Last Updated Family history of cancer 08/13/2020 Last Documented On 1 6:47PM ; [facility], [facility] Family history of heart disease 08/14/19 Last Documented On 1 6:47PM ; [facility], [facility] Maternal grandfather's history of family history of heart disease 05/16/2019 Last Documented On 0 8:04AM ; [facility], [facility] Paternal history of family history of he art disease 05/16/2019 Last Documented On 0 8:04AM ; [facility], [facility] Review of Systems Review of Systems [...] Patient Last Documented On 1 4:41PM ; [facility] PCV (Pneumovax 23) 1 03/26/2019 Complete ( Reported) Patient Last Documented On 1 4:41PM ; [facility], [facility] Allergies Includes: Active, inactive, and resolved Allergies No Known Allergies Insurance Includes: Active Insurance Policies Plan Name Member ID Group # Subscriber Relationship Effect carina Dates - [facility] [id number] Severo Amin Self 03/26/2022 - Unknown Clinical Notes Includes: Signed Clinical Notes starting from 03/09/2022 No Clinical Notes Recorded
--- OUTSIDE RECORDS SUMMARY | 2024-07-11 13:49 | XMS_ITS ---
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
--- OUTSIDE RECORDS SUMMARY | 2024-07-11 13:49 | XMS_ITS | Data Portability ---
Author Organization YECENIA SAMMIE [facility] Address [address] [place] [address] Care Team Providers Care Federal Judge Name Role Phone CHRISTOPH SEWELL Primary Care Provider Assessment Encounter Date Assessment Date Assessment LastModified by Organization Details LastModified Time 12/19/2023 12/19/2023 1. Functional neurological disorder. He has had trouble with balance, speech, and atypical tremor x two years. 2. Stroke in October. I do not have records about this and I am not sure what happened. 3. H/o traumatic right SDH and SAH in 2021. 4. Chronic migraines, on Quilipta. 5. Hospitalization in July with metabolic encephalopathy (?). Discussed the above as best as possible. He has a complicated history, and I need to spent more time reviewing records, especially those related to this recent stroke which were requested. He is taking ASA, Plavix, statin. He is a smoker. He is wearing a heart monitor and apparently NAVEEN is pending. Discussed the nature of FND. His asked for medication for associated tremor, but typically functional tremor does not respond to medicine, and right now there is no real tremor on exam anyway. He is getting PT/OT/ST now. will have f/u in couple of mos [email or web address] Not available 12/23/2023 12:43:08 02/13/2024 02/13/2024 1. Functional neurological disorder 2. 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 3. H/o traumatic right SDH and SAH in 2021. 4. Chronic migraines, on Quilipta. 5. Hospitalization in July with metabolic encephalopathy (?). I still would like to review further records which frustratingly I have not received. He is working with PT still. Not available 05/01/2024 15:24:57 05/01/2024 05/01/2024 1. Functional neurological disorder. He has had trouble with balance, speech, and atypical tremor x 2-3 years. He was evaluated at and the [facility]. 2. Stroke in October involving the right superior cerebellum and adjacent midbrain. 3. H/o traumatic right SDH and SAH in 2021. 4. Chronic migraines 5. Hospitalization last July with metabolic encephalopathy (?). Discussed the above as best as possible. He is very frustrated by the persistence of tremor and feels like no one is doing anything. It is possible there is a cerebellar component but I believe this is functional because this predates the stroke. Medication does not typically work well for either of these things, but I will try primidone, titrate to 50 mg bid. Possible side effects discussed. I told him to call me in about a month to let me know how he responds to this. He should continue to work with PT and we discussed gait/balance precautions. Discussed importance of smoking cessation to reduce stroke risk. My understanding is that he was following with a psychologist but this is not the case. Will try to arrange for this. We no longer participate with his Medicaid insurance, unfortunately. I am going to try to make referral to , where he was followed in the past. He knows to call me, though, anytime if I can be helpful and again in a few weeks to let me know how he does with primidone. [email or web address] Not available 05/01/2024 15:28:56 Plan of Treatment Reminders Order Date Submit Date Provider Last Modified By Organization Details Last Modified Time Details Appointments None recorded. Lab None recorded. Referral psychologis t referral 2024 025 [email or web address] 3 [facility], [address] [place] [address] [address], [place], [address], 5 09:10:59 neurologist referral 2024 025 [email or web address] 3 [facility], [address] [place] [address], [place], [address], 10:55:47 Procedures None recorded. Surgeries None recorded. Imaging None recorded. Medication Orders primidone 50 mg tablet 2024 025 [facility], [address], [address], 16:08:08 cyclobenzap rine 10 mg tablet 2023 024 [email or web address] [facility] [id number], [address] [place], [address], 08:23:13 Patient TargetsNo targets recorded. Patient Instructions Encounter Date Encounter Id Patient Instructions Last Modified By Organization Details Last Modified Time 08/06/2023 [id number] Patient is progressing appropriately in the postoperative setting Continue take aspirin for 6 weeks or until back to normal mobility. We discussed care for the next 4 weeks Motion permitted- ROM should be passive at this time. He/She may begin to incorporate gentle active assisted range of motion with physical therapist. Wound Care- Keep incisions clean and dry. Showering is permitted. Swelling management- RICE, NSAIDS permitted 30 days after surgery. Sling-discontinued today Driving Status- Driving is permitted. Infection / DVT- Report any adverse events immediately including redness, wound discharge beyond blood, rashes, and fever. Report numbness, tingling, and/or shiny skin. PT-passive range of motion as well as gentle active assisted range of motion during PT visits. Work- desk work only with arm in protected positions. Activity restrictions- No lifting, pushing, or pulling. May move arm far enough away from body to put on shirt sleeve, wash. PT prescription active F/u in 4 weeks. [email or web address] Not available 08/06/2023 11:06:52 12/19/2023 [id number] medical record request* [email or web address] Not available 12/26/2023 08:47:38 I spent 50+ min with pt (history, exam, discussion), and at least 15+ min reviewing records and typing this [email or web address] Not available 12/23/2023 12:43:35 Reason for Referral Psychologist Referral for Fu nctional neurological disorder Referring Physician: Ahsan Four[facility], Encounter Date: 05/01/2024 Neurologist Referral for Fun ctional neurological disorder Referring Physician: Ahsan Fournier [facility], Encounter Date: 05/01/2024 Problems No Known Problems Procedures Surgical History Date Name Laterality Status Provider Name and Address Organization Details Recorded Time repair of shoulder completed [facility] 12/19/2023 08:24:46 Carpal tunnel surgery completed [facility] 12/19/2023 08:25:10 total knee replacement completed [facility] 12/19/2023 08:25:56 Imaging Results None recorded. Procedure Notes None recorded. Medical Equipment None Reported. Allergies No known drug allergies Medications Name Sig Start Date Stop Date Status Note LastModified by Organization Details LastModified Time cyclobenz aprine 10 mg tablet TAKE 1 TABLET BY MOUTH 2 TIMES A DAY NEEDED FOR SPASM FOR 15 days 2023 active no longer taking med Not Available Not Available Not Available furosemid e 40 mg tablet Take 1 tablet every day by oral route. active Not Available Not Available No t Available primidone 50 mg tablet 1/2 per day x first week then 1/2 bid x one week then 1/2 am, 1 pm x one week, then 1 bid 2024 active Not Available Not Available Not Avai lable metoprolo l succinate ER 50 mg tablet,ex tended release 24 hr Take 1 tablet every day by oral route. active on hold due to upcoming procedur e () Not Available Not Available Not Available hydrocodo ne 5 mg-acetam inophen 325 mg tablet Take 1 tablet every 6-8 hours by oral route as needed. 2023 active Not Available Not Available Not Avai lable Claritin 10 mg tablet Take 1 tablet every day by oral route. active Not Available Not Available No t Available Medrol (Andi) 4 mg tablets in a dose pack Take 1 dose pk by oral route. 12/18 completed Not Available Not Available Not Available clopidogr el 75 mg tablet Take 1 tablet every day by oral route. active on hold due to upcoming procedur e () Not Available Not Available Not Available baclofen 20 mg tablet Take 1 tablet 3 times a day by oral route. active Not Available Not Available No t Available losartan 100 mg-hydroc hlorothia zide 25 mg tablet Take 1 tablet every day by oral route. active on hold Not Available Not Available No t Available alprazola m 0.5 mg tablet Take 1 tablet 3 times a day by oral route. active Not Available Not Available No t Available famotidin e 20 mg tablet Take 1 tablet twice a day by oral route. active Not Available Not Available No t Available amlodipin e 10 mg tablet Take 1 tablet every day by oral route. active med temporia ly on hold Not Available Not Available Not Available gabapenti n 100 mg capsule Take 1 capsule every day by oral route at bedtime. 2023 active Not Available Not Available Not Avai lable Vitamin D2 1,250 mcg (50,000 unit) capsule Take by oral route. active Not Available Not Available No t Available Percocet 5 mg-325 mg tablet Take 1 tablet every 4-6 hours by oral route as needed. 12/18 completed Not Available Not Available Not Available ondansetr on 4 mg disintegr ating tablet PLACE 1 TABLET BY MOUTH EVERY 8 HOURS NEEDED active Not Available Not Available No t Available escitalop roxann 10 mg tablet Take 1 tablet every day by oral route. active Not Available Not Available No t Available sildenafi l (pulmonar y hypertens ion) 20 mg tablet Take 1 tablet 3 times a day by oral route. active Not Available Not Available No t Available calcium active Not Available Not Avail able Not Available Fish Oil active Not Available Not Avai lable Not Available magnesium oxide active Not Available Not Available Not Available potassium 10 meq daily active Not Available Not Available No t Available Iron (ferrous sulfate) active Not Available Not Available Not Available aspirin 81 mg capsule Take 1 capsule every day by oral route. active Not Available Not Available No t Available Vitals Date Recorded Body height Body mass index (BMI) Body weight Provider Name and Address Organization Details Last Updated DateTime 08/06/2023 175.26 cm 27.3 kg/m2 29283.59 g Ervin [facility] 08/06/2023 10:45:06 Date Recorded Body height Body mass index (BMI) Body weight Provider Name and Address Organization Details Last Updated DateTime 09/10/2023 175.26 cm 27.3 kg/m2 87049.59 g Ervin Patel [facility] 09/10/2023 10:04:33 Date Recorded Body height Body mass index (BMI) Body weight Heart rate Oxygen saturation Oxygen saturation in Arterial blood by Pulse oximetry Systolic blood pressure Diastolic blood pressure Provider Name and Address Organization Details Last Updated DateTime 4 172.72 cm 25.8 kg/m2 70560.7 g 66 /min 97 % 97 % 122 mm[Hg] 79 mm[Hg] Chyna Hinton [facility] 4 08:21:03 Date Recorded Body height Heart rate Oxygen saturation Oxygen saturation in Arterial blood by Pulse oximetry Systolic blood pressure Diastolic blood pressure Provider Name and Address Organization Details Last Updated DateTime 4 172.72 cm 87 /min 94 % 94 % 104 mm[Hg] 62 mm[Hg] Angiemelva Forbes [facility] 4 16:21:54 Date Recorded Body height Oxygen saturation Oxygen saturation in Arterial blood by Pulse oximetry Heart rate Systolic blood pressure Diastolic blood pressure Provider Name and Address Organization Details Last Updated DateTime 5 172.72 cm 94 % 94 % 76 /min 142 mm[Hg] 84 mm[Hg] Maggie Coombs [facility] 5 08:28:11 Social History Question Answer Notes LastModified by Organizat ion Details LastModified Time Tobacco Smoking Status Current Every Day Smoker Chyna Hinton [facility] 12/19/2023 08:24:23 What Is Your Level Of Alcohol Consumption? None Information not available 12/19/2023 What Was The Date Of Your Most Recent Tobacco Screening? 05/01/2024 [email or web address] Information not available 05/01/2024 Do You Use Any Illicit Or Recreational Drugs? No [email or web address] Information not available 12/19/2023 Sex: Male Functional Status None recorded. Mental Status None recorded. Family History Relationship Description Onset Age of this Age Resolved Age Notes LastModified by Organization Details LastModified Time Father Malignant neoplastic disease Father side of family [email or web address] Not available 12/19/2023 08:22:57 Father Heart disease [email or web address] Not available 2023 08:23:08 Brother Heart disease [email or web address] Not available 2023 08:23:08 Daughter Diabetes mellitus [email or web address] Not available 2023 08:23:44 Daughter Fibromyalgia [email or web address] Not av ailable 12/19/2023 08:24:02 Medical History Condition Response Anxiety Disorder Y Arthritis Y Hypertension Y Depression Y High Cholesterol Y Immunizations Vaccine Type Date Status Note Provider Nam e and Address Organization Details Recorded Time zoster recombinant 0 completed [facility] 05/01/2024 08:15:27 COVID-19, mRNA, LNP-S, PF, 100 mcg/0.5mL dose or 50 mcg/0.25mL dose 1 completed [facility] 05/01/2024 08:15:27 COVID-19, mRNA, LNP-S, PF, 100 mcg/0.5mL dose or 50 mcg/0.25mL dose 2 completed [facility] 05/01/2024 08:15:27 COVID-19, mRNA, LNP-S, PF, 100 mcg/0.5mL dose or 50 mcg/0.25mL dose 1 completed [facility] 05/01/2024 08:15:27 COVID-19, mRNA, LNP-S, PF, 100 mcg/0.5mL dose or 50 mcg/0.25mL dose 1 completed [facility] 05/01/2024 08:15:27 Pneumococcal conjugate PCV20, polysaccharide [id number] conjugate, adjuvant, PF 3 completed [facility] 05/01/2024 08:15:27 COVID-19, mRNA, LNP-S, bivalent, PF, 50 mcg/0.5 mL or 25mcg/0.25 mL dose 2 completed [facility] 05/01/2024 08:15:27 Tdap 7 completed [facility] 05/01/2024 08:15:27 [facility] 08:15:27 Influenza, split virus, quadrivalent, PF 3 completed Maggie [facility] 05/01/2024 08:15:27 Influenza, split virus, quadrivalent, PF [facility] 08:15:27 Influenza, split virus, quadrivalent, PF 1 completed Maggie [facility] 05/01/2024 08:15:27 zoster recombinant 5 completed Maggie [facility] 05/01/2024 08:15:51 RSV, recombinant, protein subunit RSVpreF, adjuvant reconstituted, 0.5 mL, PF 5 [facility]01[facility]24 08:15:51 Influenza, split virus, trivalent, PF 5 completed [facility] 05/01/2024 08:15:51 Past Encounters Encounter ID Performer Location Encounter Start Date Encounter Closed Date Diagnosis/Indication Diagnosis SNOMED-CT Code Diagnosis ICD10 Code Diagnosis Note [id number] JORGE MALIK PA-C [facility] [address] [address] 04/16/2023 15:50:12 04/16/2023 17:06:41 Full thickness rotator cuff tear 911755942 M75.121 Concerns for rotator cuff tear. Discussed conservati ve treatment options with Tylenol, corticoste roid injections , muscle relaxers. We also discussed MRI will be necessary for definitive diagnosis, however may not be necessary at this point is largely therapy would be recommende d. Patient wanting to get MRI to have all informatio n on the table. I did demonstrat e passive range of motion exercises he can begin doing to prevent stiffness. Order MRI of the right shoulder without contrast. Follow-up Dr. Lux to discuss definitive management . Patient's familiar with Dr. Lux, is a previous patient of his. Notify of any worsening. Call with any questions or concerns. Patient voiced understand ing and agreement with this plan. Medrol pack to help with acute inflammati on, along with cyclobenza don. Avoid oral NSAIDs with cardiac history. [id number] WARNER LUX MD [facility] [address] [place] [address] 05/03/2023 09:18:18 05/03/2023 10:05:16 Full thickness rotator cuff tear 945751467 M75.121 SS/IS Subluxatio n of long head of biceps 627345340 S43.391A Glenoid labrum tear 2022 42511 S43.431A Arthritis of acromioclavicular joint 652611633 M13.811 [id number] WARNER LUX MD SURGERY SCHEDULE [address] [place] [address] 07/04/2023 07:47:40 07/04/2023 07:48:28 [id number] ISAI GUERRERO IV, PA-C [facility] [address] [place] [address] 07/16/2023 12:28:26 07/16/2023 13:45:54 Postoperative care [id number] Z48.89 Patient is a 58 y/o male/Femal e who presents to the clinic today for his/her 1 week follow-up visit after undergoing a Rt RCR with BTD. Today the patient states that he/she is doing well and denies any postoperat carina complicati ons. In the office, incision sites were examined and revealed no evidence of erythema, drainage or wound dehiscence . As a result the sutures were removed and sterile dressings were placed over the wounds. At this time the patient will be provided with a referral to physical therapy and we will see her/him back in the office in 3 weeks for their 1 month postoperat carina visit. [id number] ISAI GUERRERO IV, PA-C [facility] [address] [place] [address] 08/06/2023 10:38:15 08/06/2023 11:01:32 Postoperative care [id number] Z48.89 Patient is a 58 y/o male/Femal e who presents to the clinic today for his/her 1 month follow-up visit after undergoing a Rt RCR(SS, IS) with BTD. Today the patient states that he/she is doing well and denies any postoperat carina complicati ons. In the office, incision sites were examined and revealed no evidence of erythema, drainage or wound dehiscence . Range of motion was then evaluated and noted forward flexion to 130 degrees and abduction to 90, as result patient was instructed to continue taking postoperat carina aspirin for 2 more weeks as well as continue to be dissipate in physical therapy. Will see the patient back in the office in 4 weeks for his 2-month follow-up. Sling was discontinu ed during today's visit. [id number] WINIFRED GUZMAN PA-C [facility] [address] [place] [address] 09/10/2023 09:38:41 09/10/2023 10:16:42 Postoperative care [id number] Z48.89 Assessment : Status just over 2 months post right rotator cuff repair, arthroscop ic labral debridemen t and open biceps tenodesis on 07/04/2023. Plan: He has done very well so far. Continue with therapy until he feels he is plateauing . Follow-up as needed. [id number] AHSAN FOURNIER MD NEUROLOGY [address] [address] 12/19/2023 08:14:24 12/24/2023 06:51:35 Ischemic stroke 103946141 I63.9 Functional neurological disorder 529317231 F44.9 [id number] AHSAN FOURNIER MD NEUROLOGY [address] [place] [address] 02/13/2024 15:39:40 05/02/2024 04:55:16 Functional neurological disorder 648586650 F44.9 History of cerebrovascular accident 780343166 Z86.73 [id number] AHSAN FOURNIER MD NEUROLOGY [facility] [address] [place] [address] 05/01/2024 08:11:51 05/02/2024 04:57:54 Functional neurological disorder 360405151 F44.9 History of cerebrovascular accident 351820620 Z86.73 Tremor 41318369 R25.1 Health Concerns Section Related Observation LastModified by Organization Detai ls LastModified Time None Recorded Concern Status LastModified by Organization Details LastModified Time None Recorded Advance Directives Directive None Recorded Payers Encounter Date Sequence Insurance Name Policy Number Policy Craft Covered Member ID Craft Member ID Guarantor Name 08/06/2023 1 [place] [id number] Severo Amin [id number] Severo Amin 09/10/2023 1 [place] [id number] Severo Amin [id number] Severo Amin 12/19/2023 1 [place] [id number] A Severo Amin [id number] Severo Amin 02/13/2024 1 [place] [id number] A Severo Amin [id number] Severo Amin 05/01/2024 1 [facility] Severo Amin [id number] Severo Amin Notes Date Note Type Note Provider Name and Address Organization Details Recorded Time 08/06/2023 text/html Patient comes in today for FU {{Right* Left Bilat eral}} {{Knee Ankle Hip T high Lower Leg Shoulder* Elbow Wrist/Hand}}.Patien t states they are {{better* worse catherine e}} than last visit.Patient {{reports new injury since last visit denies new injury since last visit*}}Pain is {{constant intermitt ent*}} {{sharp pain dull ache* throbbing}} in nature.The patient {{has does not have*}} numbness or tinglingThey {{have do not have*}} popping and clickingThey {{are* are not}} able to sleep comfortably with this injury.Patient is currently doing physical therapy and is seeing improvement. ISAI GUERRERO IV, ANDREEA [address] [place], [address], [facility] 08/06/2023 11:10:13 09/10/2023 text/html Patient comes in today for FU {{Right* Left Bilat eral}} {{Knee Ankle Hip T high Lower Leg Shoulder* Elbow Wrist/Hand}}.Patien t states they are {{better* worse catherine e}} than last visit.Patient {{reports new injury since last visit denies new injury since last visit*}}Pain is {{constant intermitt ent*}} {{sharp pain dull ache* throbbing}} in nature.The patient {{has does not have*}} numbness or tinglingThey {{have do not have*}} popping and clickingThey {{are* are not}} able to sleep comfortably with this injury.Their pain is made better with {{resting the limb* moving the affected limb}}Their pain is exacerbated by {{bearing weight on the affected limb putting weight on and moving the affected limb* nothing}}Overa ll, the patient would say that their pain {{is* is not}} well-controlled at this time.Patient is currently doing physical therapy and is seeing improvement. WINIFRED GUZMAN PA-C [address] [place] [address], [phone], [facility] 09/10/2023 10:33:21 12/19/2023 text/html This is a 58 yea r-old RH man seen at the request of Dr. Sewell for evaluation.The listed reason for referral was functional movement disorder.He was accompanied by his girlfriend. He has a complicated history. I have some but not all relevant records. Symptoms started in 2021 with a range of symptoms including balance difficulty, falls, tremor/spasm in the arms and legs, internal vibrations, trouble with speech or saliva control, possibly right sided weakness, at least. He was seen by neurology at [facility] and no specific diagnosis was made as far as I can tell.Brain MRI showed nonspecific WM change. LP showed no oligoclonal bands. EMG showed no meaningful abnormality. He was then seen at and at the [facility], and he was felt to have functional neurological disorder. In late 2021, he fell and hit his head and had traumatic right SDH and SAH. He continued to follow at [facility] to some extent into this year.Symptoms more or less have been the same. He can be shaky in the arms and body, and his balance is off, and he uses a wheelchair at times. He has seen a mental health therapist. Then, he had stroke in October. This happened the day after upper and lower endoscopy.Speech more slurred, gait worse, ?weaker on the right side.Presented to [facility], for a week, then spent a week at [facility].I do not see any records about this.The previous FND symptoms were better for a few weeks afterward but have started to recur. He is receiving PT/OT/ST. Can stand to transfer, not really walking Also, in July, he was admitted to the hospital with acute encephalopathy - confusion, lethargy, felt ?metabolic. Creatinine and lactate were elevated. MD [place], [address], [facility] 12/23/2023 12:43:50 02/13/2024 text/html I met this man t wo months ago with an exceptionally complicated history of functional neurological disorder and stroke. Two weeks ago, he presented to [facility] with concern for stroke. He slumped over in the chair (?) at home and there was question of right sided weakness and BP was low, and he was sent to where this was not felt stroke but he was hypotensive and on pressors briefly and he was felt to have pneumonia or aspiration. Head CT - Encephalomalacia in the right temporal lobe and right cerebellar hemisphere which could be due to prior ischemic insult or trauma. He has a bad heart valve and is supposed to see a surgeon Sunday. Receiving IV iron for anemia I received limited records from hospitalization in October. This was stroke of right superior cerebellum and adjacent dorsal midbrain. NAVEEN, heart monitor were done and I do not have these records[place], [address], [facility] 05/01/2024 15:25:12 05/01/2024 text/html He was seen in January.Here with his girlfriend. He has been about the same, or maybe tremors are getting worse, on the right side.He has falls occasionally, most recent a couple of weeks ago, almost fell today.Mostly uses wheelchair at home.When he is up and around, does not use walker.He goes to physical therapy twice a week still, and walks 150 feet at a time there.He is very frustrated by the persistence of tremor and feels that no one is doing anything. not o/w illnot recently hospitalized. smokes still, <1 ppd AHSAN FOURNIER MD [address] [place], [address], [facility] 05/01/2024 15:29:11
== END 2024-07-11 23:59 | disposition home or self-care (01) ==
PROVIDERS: PCP Family Medicine; Visit Provider Family Medicine
DX: N23 Unspecified renal colic (principal)
CPT/HCPCS: 76770

== ENCOUNTER 2024-07-31 12:38 | Outpatient (CLI) | payer OTHER, SELFPAY ==
--- NOTE | 2024-07-31 13:00 | CT_ITS ---
FINAL REPORT TECHNIQUE: Pre-and postcontrast axial imaging of the abdomen and pelvis was obtained.This study was performed with techniques to keep radiation doses as low as reasonably achievable, (ALARA). Individualized dose reduction technique using automated exposure control or adjustment of mA and/or kV according to the patient's size were employed. CLINICAL HISTORY: renal mass. INCREASED INSTABILITY. LOW BACK PAIN. RIGHT SIDED LEG WEAKNESS SINCE STROKE IN 2023 BUT RECENTLY GETTING WORSE. PATIENT HAS NEUROLOGIC DISORDER FND. COMPARISON: Renal ultrasound 07/11/2024 FINDINGS: The lung bases are clear. There is a small hypervascular liver lesion measuring 16 mm, not well seen on either the noncontrast or delayed imaging. This could be a vascular anomaly but small hepatic lesion is not excluded. No other liver lesions identified. The gallbladder is present. Spleen and adrenal glands are without acute abnormality. There are few small pancreatic calcifications consistent with chronic pancreatitis. No evidence of pancreatic mass. There are tiny bilateral renal stones. Renal vascular calcifications are noted. No renal mass seen. Abnormality seen within the left kidney on recent ultrasound not present on CT scan. On precontrast imaging, GI tract demonstrates no evidence of small-bowel obstruction. The appendix is normal. The GI tract is without acute abnormality. No ascites. Multiple mildly enlarged retroperitoneal lymph nodes are noted. Abnormal paraspinal soft tissue at the level of L2-3 is noted. There is bony destruction involving the inferior endplate of L2 and superior endplate of L3 with collapse of the disc space and abnormal alignment. Given abnormal paraspinal soft tissue, this is very concerning for osteomyelitis/discitis. IMPRESSION: Findings concerning for acute osteomyelitis/discitis at L2-3 with abnormal paraspinal soft tissue. No renal mass identified. Reviewed, Interpreted and Dictated by Lorie Hoskins MD Transcribed by Bárbara Gary Authenticated and [facility]
[2024-07-31 13:04] LABS: Blood Urea Nitrogen 11 mg/dl (9-20); Estimated Glomerular Filt Rate 169 ml/min (>60); GFR (African American) 205 ML/MIN (>60)
[2024-07-31] MEDS: SODIUM CHLORIDE 0.9% 10ML SYR (RAD ONLY) 10 ML IV (13:38)
[2024-07-31] MEDS: IOPAMIDOL-370 (76%);100ML BOTTLE 75 ML IV (13:38)
== END 2024-07-31 23:59 | disposition home or self-care (01) ==
LOC: RAD 12:39
PROVIDERS: PCP Family Medicine; Visit Provider Family Medicine
DX: N28.89 Other specified disorders of kidney and ureter (principal); N23 Unspecified renal colic; M54.50 Low back pain, unspecified; R53.1 Weakness
CPT/HCPCS: 36415; 74178; 82565; 84520; Q9967

== ENCOUNTER 2024-08-14 13:49 | Outpatient (CLI) | payer OTHER, SELFPAY ==
[2024-08-14 13:50] VITALS: BMI 22.1
[2024-08-14 14:05] LABS: Basophils # 0.1 K/mm3 (0-0.2); Basophils % 0.6 % (0.1-2.0); Eosinophils # 0.4 Kmm3 (0.0-0.4); Hematocrit 32.2 % (42.0-52.0); Hemoglobin 10.7 g/dL (14.1-18.0); Immature Granulocytes # 0.06 10^3uL; Immature Granulocytes % 0.6 %; Lymphocytes # 1.4 K/mm3 (0.7-4.5); Lymphocytes % 15.1 % (10-50); Mean Corpuscular HGB Conc 33.2 g/dL (31.8-35.4); Mean Corpuscular Hemoglobin 27.2 pg (27.0-31.2); Mean Corpuscular Volume 81.7 fl (80-94); Mean Platelet Volume 8.2 fl (7.4-10.4); Monocytes # 1.2 K/mm3 (0.1-1.0); Monocytes % 12.8 % (1.7-9.3); Neutrophils # 6.3 K/mm3 (1.8-7.8); Neutrophils % 66.9 % (37.0-80.0); Nucleated Red Blood Cells # 0 10^3/uL; Nucleated Red Blood Cells % 0 %; Platelet Count 357 K/mm3 (142-424); Red Blood Count 3.94 M/mm3 (4.60-6.20); Red Cell Distribution Width 16.7 % (11.5-17.5); Red Cell Distribution Width-SD 49.9 fL; White Blood Count 9.4 K/mm3 (4.8-10.8)
[2024-08-14 14:07] LABS: Albumin Level 3.6 g/dl (3.5-5.0); Chloride 100 mmol/L (98-107); Potassium 3.1 mmoL/L (3.5-5.1); Sodium 133 mmol/L (136-145)
[2024-08-14 14:10] LABS: Alanine Aminotransferase 32 U/L (12-78); Albumin/Globulin Ratio 1.1 (1.1-1.8); Alkaline Phosphatase 85 U/L (38-126); Anion Gap 7.1 mEq/L (5-15); Aspartate Amino Transferase 42 U/L (17-59); Bilirubin,Total 0.3 mg/dl (0.2-1.3); Blood Urea Nitrogen 7 mg/dl (9-20); Calcium 9.5 mg/dl (8.4-10.2); Carbon Dioxide 29 mmol/L (22.0-30.0); Creatine Kinase 758 U/L (55-170); Creatinine Clearance Estimated 77 mL/min (50-200); Estimated Glomerular Filt Rate 219 ml/min (>60); GFR (African American) 265 ML/MIN (>60); Globulin 3.3 g/dL (1.3-3.2); Glucose 88 mg/dl (74-100); Total Protein,Serum 6.9 g/dl (6.3-8.2)
[2024-08-14 14:16] LABS: C-Reactive Protein 104.9 mg/L (0-4)
[2024-08-14 14:46] LABS: Erythrocyte Sedimentation Rate 79 mm/hr (0-20)
== END 2024-08-14 14:52 | disposition home or self-care (01) ==
LOC: INF 13:50
PROVIDERS: PCP Family Medicine; Visit Provider Internal Medicine Infectious Disease
DX: A41.1 Sepsis due to other specified staphylococcus (principal)
CPT/HCPCS: 36592; 80053; 82550; 85025; 85651; 86140

== ENCOUNTER 2024-08-15 11:31 | Outpatient (CLI) | payer OTHER, SELFPAY ==
[2024-08-15 11:34] VITALS: BMI 22.8
[2024-08-15 11:54] LABS: Creatine Kinase 456 U/L (55-170)
== END 2024-08-15 11:40 | disposition home or self-care (01) ==
LOC: INF 11:32
PROVIDERS: PCP Internal Medicine Infectious Disease; Visit Provider Internal Medicine Infectious Disease
DX: N18.4 Chronic kidney disease, stage 4 (severe) (principal); E86.0 Dehydration
CPT/HCPCS: 36592; 82550

== ENCOUNTER 2024-08-19 08:35 | Outpatient (CLI) | payer OTHER, SELFPAY ==
[2024-08-19 08:42] VITALS: BMI 24.3
[2024-08-19 09:02] LABS: Basophils # 0.1 K/mm3 (0-0.2); Basophils % 1.1 % (0.1-2.0); Eosinophils # 0.5 Kmm3 (0.0-0.4); Eosinophils % 6.3 % (0.1-12.0); Hematocrit 36.2 % (42.0-52.0); Hemoglobin 11.4 g/dL (14.1-18.0); Immature Granulocytes # 0.03 10^3uL; Immature Granulocytes % 0.4 %; Lymphocytes # 1.7 K/mm3 (0.7-4.5); Lymphocytes % 20.7 % (10-50); Mean Corpuscular HGB Conc 31.5 g/dL (31.8-35.4); Mean Corpuscular Volume 82.5 fl (80-94); Mean Platelet Volume 8.4 fl (7.4-10.4); Monocytes # 0.6 K/mm3 (0.1-1.0); Monocytes % 7.4 % (1.7-9.3); Neutrophils # 5.4 K/mm3 (1.8-7.8); Neutrophils % 64.1 % (37.0-80.0); Nucleated Red Blood Cells # 0 10^3/uL; Nucleated Red Blood Cells % 0 %; Platelet Count 367 K/mm3 (142-424); Red Blood Count 4.39 M/mm3 (4.60-6.20); Red Cell Distribution Width 16.4 % (11.5-17.5); Red Cell Distribution Width-SD 49.3 fL; White Blood Count 8.4 K/mm3 (4.8-10.8)
[2024-08-19 09:14] LABS: Alanine Aminotransferase 26 U/L (12-78); Albumin Level 3.8 g/dl (3.5-5.0); Albumin/Globulin Ratio 1.1 (1.1-1.8); Alkaline Phosphatase 82 U/L (38-126); Anion Gap 8.7 mEq/L (5-15); Aspartate Amino Transferase 28 U/L (17-59); Bilirubin,Total 0.3 mg/dl (0.2-1.3); Blood Urea Nitrogen 13 mg/dl (9-20); Calcium 9.6 mg/dl (8.4-10.2); Carbon Dioxide 33 mmol/L (22.0-30.0); Chloride 101 mmol/L (98-107); Creatine Kinase 87 U/L (55-170); Creatinine Clearance Estimated 82 mL/min (50-200); Estimated Glomerular Filt Rate 169 ml/min (>60); GFR (African American) 205 ML/MIN (>60); Globulin 3.4 g/dL (1.3-3.2); Glucose 88 mg/dl (74-100); Potassium 3.7 mmoL/L (3.5-5.1); Sodium 139 mmol/L (136-145); Total Protein,Serum 7.2 g/dl (6.3-8.2)
[2024-08-19 09:19] LABS: C-Reactive Protein 18.9 mg/L (0-4)
[2024-08-19 09:36] LABS: Erythrocyte Sedimentation Rate 94 mm/hr (0-20)
== END 2024-08-19 08:55 | disposition home or self-care (01) ==
LOC: INF 08:36
PROVIDERS: PCP Internal Medicine Infectious Disease; Visit Provider Internal Medicine Infectious Disease
DX: A41.1 Sepsis due to other specified staphylococcus (principal)
CPT/HCPCS: 36592; 80053; 82550; 85025; 85651; 86140; 96523

== ENCOUNTER 2024-08-25 15:11 | Outpatient (CLI) | payer OTHER, SELFPAY ==
[2024-08-25 15:22] VITALS: BMI 24.5
[2024-08-25 15:36] LABS: Albumin Level 3.8 g/dl (3.5-5.0); Basophils # 0.1 K/mm3 (0-0.2); Basophils % 0.9 % (0.1-2.0); Chloride 98 mmol/L (98-107); Eosinophils # 0.5 Kmm3 (0.0-0.4); Eosinophils % 5.2 % (0.1-12.0); Hematocrit 36.7 % (42.0-52.0); Hemoglobin 11.6 g/dL (14.1-18.0); Immature Granulocytes # 0.04 10^3uL; Immature Granulocytes % 0.4 %; Lymphocytes % 19.9 % (10-50); Mean Corpuscular HGB Conc 31.6 g/dL (31.8-35.4); Mean Corpuscular Hemoglobin 25.8 pg (27.0-31.2); Mean Corpuscular Volume 81.7 fl (80-94); Mean Platelet Volume 8.7 fl (7.4-10.4); Monocytes # 0.7 K/mm3 (0.1-1.0); Monocytes % 6.9 % (1.7-9.3); Neutrophils # 6.7 K/mm3 (1.8-7.8); Neutrophils % 66.7 % (37.0-80.0); Nucleated Red Blood Cells # 0 10^3/uL; Nucleated Red Blood Cells % 0 %; Platelet Count 287 K/mm3 (142-424); Potassium 4.3 mmoL/L (3.5-5.1); Red Blood Count 4.49 M/mm3 (4.60-6.20); Red Cell Distribution Width 16.5 % (11.5-17.5); Red Cell Distribution Width-SD 49.3 fL; Sodium 134 mmol/L (136-145); White Blood Count 10.1 K/mm3 (4.8-10.8)
[2024-08-25 15:39] LABS: Alanine Aminotransferase 18 U/L (12-78); Albumin/Globulin Ratio 1.1 (1.1-1.8); Alkaline Phosphatase 115 U/L (38-126); Anion Gap 7.3 mEq/L (5-15); Aspartate Amino Transferase 25 U/L (17-59); Bilirubin,Total 0.2 mg/dl (0.2-1.3); Blood Urea Nitrogen 10 mg/dl (9-20); Calcium 9.6 mg/dl (8.4-10.2); Carbon Dioxide 33 mmol/L (22.0-30.0); Creatine Kinase 47 U/L (55-170); Creatinine Clearance Estimated 83 mL/min (50-200); Estimated Glomerular Filt Rate 169 ml/min (>60); GFR (African American) 205 ML/MIN (>60); Globulin 3.6 g/dL (1.3-3.2); Glucose 81 mg/dl (74-100); Total Protein,Serum 7.4 g/dl (6.3-8.2)
[2024-08-25 15:53] LABS: Iron 53 ug/dL (49-181)
[2024-08-25 16:06] LABS: Total Iron Binding Capacity 372 ug/dL (261-462)
[2024-08-25 16:28] LABS: Erythrocyte Sedimentation Rate 48 mm/hr (0-20)
[2024-08-25 16:31] LABS: Ferritin 54.3 ng/ml (17.9-464)
== END 2024-08-25 15:38 | disposition home or self-care (01) ==
LOC: INF 15:12
PROVIDERS: Internal Medicine Medical Oncology; PCP Family Medicine; Visit Provider Internal Medicine Infectious Disease
DX: M46.36 Infection of intervertebral disc (pyogenic), lumbar region (principal); M46.26 Osteomyelitis of vertebra, lumbar region; A41.1 Sepsis due to other specified staphylococcus; D50.0 Iron deficiency anemia secondary to blood loss (chronic); K90.9 Intestinal malabsorption, unspecified
CPT/HCPCS: 36592; 80053; 82550; 82728; 83540; 83550; 85025; 85651; 86140

== ENCOUNTER 2024-09-01 14:40 | Outpatient (CLI) | payer OTHER, SELFPAY ==
--- OUTSIDE RECORDS SUMMARY | 2024-07-09 15:00 | XMS_ITS | Encounter Summary ---
Author Organization [facility] Address [address] [place] [address] Care Team Providers Care Metal Template Maker Name Role Phone Malia Amezquita MD Primary Care Provider Malia Amezquita MD Unavailable [phone] Jakbu Longoria MD Unavailable Reason for Visit * Reason Comments Physical debility Encounter Details Date Type Department Care Team (Late st Contact Info) Description 07/09/2024 3:00 PM EDT Office Visit [facility] [address] [place] [address] Beatriz Rivera MD [address] [place] [address] Physical debility (Primary Dx) Social History Tobacco Use Types Packs/Day Years Used Date Smoking Tobacco: Some Days Cigarettes 1 25.4 Started: 1999 Smokeless Tobacco: Never Tobacco Cessation:Ready to Q uit: Not Asked; Counseling Given: Not Answered Alcohol Use Standard Drinks/Week Comments Not Currently 4 (1 standard drink = 0.6 oz pur e alcohol) CAGE ASSESSMENT Answer Date Recorded Cage unable to access Not on file 02/12/2022 Maximum number of drinks you had on a given occasion in the last month? 2 drinks 02/12/2022 How many alcoholic Beverages do you typically drink in a week? 8 - 14 per week 02/12/2022 Have you ever felt you shoul d CUT down on your drinking? 0 02/12/2022 Have you been ANNOYED by peo ple criticizing your drinking? 1 02/12/2022 Have you felt GUILTY about your drinking? 0 02/12/2022 Have you had a drink first t marylou in the morning ([employer]) to steady your nerves or to get rid of a hangover? 0 02/12/2022 CAGE Questionnaire Score 1 022 Sex and Gender Information Value Date Recorded Sex Assigned at Not on file Legal Sex Male 8:29 PM EDT Gender Identity Not on file Sexual Orientation Not on file documented as of this encounter Last Filed Vital Signs Vital Sign Reading Time Taken Comments Blood Pressure 134/83 07/09/2024 3:13 PM EDT Pulse 79 07/09/2024 3:13 PM EDT Temperature 36.7 C (98 F) 07/09/2024 3:13 PM EDT Respiratory Rate - - Oxygen Saturation 98% 07/09/2024 3:13 PM EDT Inhaled Oxygen Concentration - - Weight 69.9 kg (154 lb) 07/09/2024 3:13 PM EDT Height 175.3 cm (5' 9 ) 07/09/2024 3:13 PM EDT Body Mass Index 22.74 07/09/2024 3:13 PM EDT documented in this encounter Miscellaneous Notes * Progress Notes - Bárbara Becerra, PHARMACY HELPER, DNP - 07/09/2024 3:00 PM EDT Images from the original note were not included. Answers submitted by the patient for this visit: Pulmonology Questionnaire (Submitted on 04/03/2024) Chief Complaint: Primary symptoms Do you have difficulty breathing?: Yes Do you experience frequent throat clearing?: Yes Chronicity: chronic When did you first notice your symptoms?: more than 1 month ago How often do your symptoms occur?: 2 to 4 times per day Since you first noticed this problem, how has it changed?: gradually worsening Do you have shortness of breath that occurs with effort or exertion?: Yes Do you have fatigue?: Yes Do you have shortness of breath when lying flat?: Yes Do you have sweats?: Yes Have you experienced weight loss?: Yes Which of the following makes your symptoms worse?: any activity, eating, emotional stress, lying down Risk factors for lung disease: smoking/tobacco exposure Answers submitted by the patient for this visit: Pulmonology Questionnaire (Submitted on 03/03/2024) Chief Complaint: Primary symptoms Do you have a cough?: Yes Do you have difficulty breathing?: Yes Division of Pulmonary, Critical Care and Sleep Medicine Post-ICU Transitional Care Management Progress Note: Ridn-hg-Hpub Visit Patient: Severo Amin : 1965 PCP: Malia Amezquita MD Subjective Severo Amin is a 59 y.o. male presenting today for follow-up after being discharged from the hospital 9 days ago. The main problem requiring admission was altered mental status. The discharge summary and/or Transitional Care Management documentation was reviewed. Medication reconciliation was performed as indicated via the Travis as Reviewed timestamp. Severo Amin was contacted by Transitional Care Management services 2 days after his discharge. This encounter and supporting documentation was reviewed. The complexity of medical decision making for this patient's transitional care is moderate. Mr. Amin is a 59 yo male with past medical history of COPD, hypertension, CAD, functional neurologic disorder, CVA, traumatic brain bleed, GI bleed who arrived to ED as a stroke alert from outside hospital on 01/25/2024. Patient was reported to be found by his girlfriend at around 6:00 p.m.on 01/24 with new right-sided deficits and right-sided facial droop. EMS was called where upon their arrival he was hypotensive 79/48 and requiring 4 L nasal cannula. His girlfriend reported that hisfacial droop and right-sided deficit resolved shortly after EMS arrival. He was taken to the outside emergency department for stroke alert where CT head was performed showing no acute infarction or he morrhage, but with possible hypodensity in the left cerebellum, unclear if this was new from his prior stroke. He was then transferred to for further care. At time of arrival, the patient was noted to have delayed speech consistent with his baseline following stroke in October. He remained hypotensive in the ED and was given 3 L of fluid resuscitation and started on low-dose norepinephrine. CT chest showed endobronchial debris in the left lower lobe representing possible mucus or aspiration content. During the first 24 hours of admission, he continued to require vasopressors and had symptomatic bradycardic episodes. He was weaned from vasopressor requirements early on 01/25 after receivingan additional 1L of IVF resuscitation. Symptomatic bradycardia resolved and the patient returned tohis baseline clinical status. Notably, his neurological symptoms resolved with correction of hypotension. Speech was consulted and performed a FEES on 01/27 with recommendations for Soft and bite-sized (IDDSI Level 6) diet w/ thin liquids (Level 0), single sips only and chin tuck when using straws. PT/OT evaluated and recommended he return home with 24 hour assistance and have home health for physical therapy and occupational therapy. 02/05: Patient here for follow-up after ICU stay for hypotension and AMS. He presents in a wheelchair with his brother. His brother states that patient lives in [place] with his significant other,Justina, but she wasn't able to make appointment today. Patient states that he his frustrated with his lack of independence and being unable to walk. He is primarily wheelchair bound and is able to move around first floor independently. Justina helps with ADL's, cooking, and cleaning. Patient states that he is sleeping well. Overall nutrition is poor -- prefers to eat sweets over vegetables/protein. Still smoking, enjoys sitting on his patio smoking. Follows with multiple doctors and seeing Dr. Fournier at [facility] for FND and CVA. Most recently was noticed to have severe mitral regurgitation -- referral made to Dr. Mallory for possible mitralclip. Patient was receiving home health;however, it looks like they have stopped coming due to lack of progression. Unsure if this is related to underlying FND, CVA, or hospital stay. Phone call with Justina: Patient has had multiple issues with falls since 2021 -- he had a fall off their back patio and was in the ICU for approximately a week. He was diagnosed at this time with FND. Then in 10/2023 he suffered a stroke. Since then, has been primarily wheelchair bound -- strength seems good, but coordination and control is his primary issue. Justina agrees with above statement that he does not eat well -- preferring sweets over more nutritional foods. Follows with multiple doctors and seeing Dr. Fournier at [facility] for FND and CVA. 03/05: Follow-up with telehealth visit today. Saw Dr Mallory who strongly recommended smoking cessation prior to any type of surgical intervention. Patient angry/frustrated with this explanation stating I've never been told to stop smoking before other procedures. Doesn't understand if there is a procedure that can be done to help him, why can't we just do it. Discussed smoking cessation at length -- offered multiple resources; however, patient is reluctant to try anything. Justina discussed her frustration with patient's inability to work with MD/providers to try to help him. She's requesting Psychological/Palliative discussion help. Will attempt to find additional resources to help. Seeing PT in [place] weekly -- hoping to advance to twice weekly. Referral made to Speech Therapy/Cognitive therapy at [facility]. 04/09/2024: Dealing with nausea more lately -- seems like it started with iron infusions; however he states that it is primarily with movement. Patient remains frustrated that he cannot have mitral clip done without smoking cessation. He feels that if this problem was fixed he could participate more in PT/OT and get stronger which would allow him to be more independent. He is going to PT/OT once a week; however, due to severe mitral regurgitation it seems everyone is hesitant to push him too hard. Brother here today and feels like his tremors are getting worse --- repetitive motion noted in bilateral hands and right foot tapping. Brother also concerned about mental health/depression since he is limited to wheelchair and unable to get out and do things independently on top of all of his medical issues. Appears tremors/instability is biggest concern. Reached out to [facility] Neurology, Dr. Fournier to try to move up his next appointment. 07/09/2024: Reports improvement in mobility since starting PT; de He is going twice a week. Havingback/flank pain. Discussed with PCP and is having a right kidney ultrasound on Sunday -- started two months ago. Thought it was a pulled muscle, but its not healing. Now seeing therapist and believesit is helping with his mood/emotions. Still smoking, but has cut back significantly - still angry that they will not do valve repair surgery. Review of Systems: Review of Systems Constitutional: Negative. HENT: Negative. Eyes: Negative. Respiratory: Negative. Cardiovascular: Negative. Gastrointestinal: Negative. Endocrine: Negative. Genitourinary: Positive for flank pain. Musculoskeletal: Positive for gait problem and myalgias. Skin: Negative. Allergic/Immunologic: Negative. Neurological: Positive for tremors and weakness. Hematological: Negative. Psychiatric/Behavioral: Positive for agitation. Angry/frustrated with Cardiology that they wouldn't do procedure -- only told him to quit smoking Past Medical History: Anxiety CAD with 4 vessel CABG in 2017 Functional neurological syndrome GERD Tremor HTN Migraines Stroke with right sided deficits and wheelchair bound in 10/2023 Past Surgical History: CABG x4 in 2017 Knee Surgery Wrist Surgery Family History: Mother: pacemaker Father: HTN, DM, Prostate cancer Brother: Cancer Medications: Current Outpatient Medications: ALPRAZolam (Xanax) 0.5 MG tablet, Take 0.5 tablets (0.25 mg) by mouth 1 (one) time each day if needed for anxiety., Disp: , Rfl: ascorbic acid (vitamin C with jessica hips) 500 MG tablet, Take 1 tablet (500 mg) by mouth 1 (one) time each day., Disp: , Rfl: aspirin 81 MG EC tablet, Take 1 tablet (81 mg) by mouth 1 (one) time each day., Disp: , Rfl: Atogepant (Qulipta) 60 MG tablet, Take 60 mg by mouth 1 (one) time each day., Disp: , Rfl: atorvastatin (Lipitor) 80 MG tablet, Take 1 tablet (80 mg) by mouth 1 (one) time each day., Disp: ,Rfl: baclofen (Lioresal) 20 MG tablet, Take 1 tablet (20 mg) by mouth 3 (three) times a day., Disp: , Rfl: calcium carbonate (Tums) 500 MG chewable tablet, Chew 1 tablet (500 mg) if needed for indigestion or heartburn., Disp: , Rfl: EPINEPHrine (Epipen) 0.3 MG/0.3ML injection syringe, Inject 0.3 mL (0.3 mg) into the muscle if needed for anaphylaxis. Inject into upper leg. Call 911 after use., Disp: , Rfl: escitalopram (Lexapro) 20 MG tablet, Take 1 tablet (20 mg) by mouth 1 (one) time each day., Disp: ,Rfl: famotidine (Pepcid) 20 MG tablet, Take 1 tablet (20 mg) by mouth 1 (one) time each day if needed for heartburn., Disp: , Rfl: ferrous sulfate 324 (65 Fe) MG EC tablet, Take 1 tablet (324 mg) by mouth 1 (one) time each day with breakfast. Do not crush, chew, or split., Disp: , Rfl: furosemide (Lasix) 20 MG tablet, Take 2 tablets (40 mg) by mouth 1 (one) time each day., Disp: , Rfl: gabapentin (Neurontin) 600 MG tablet, Take 1 tablet (600 mg) by mouth 3 (three) times a day., Disp:, Rfl: ibuprofen 600 MG tablet, Take 1 tablet (600 mg) by mouth every 6 (six) hours if needed for mild pain., Disp: , Rfl: Magnesium Chloride-Calcium (SLOW MAGNESIUM/CALCIUM PO), Take 1 tablet by mouth 1 (one) time each day., Disp: , Rfl: nicotine (Nicoderm CQ) 21 MG/24HR patch, Place 1 patch on the skin 1 (one) time each day at the same time., Disp: 30 patch, Rfl: 0 nicotine polacrilex (Commit) 4 MG lozenge, Dissolve 1 lozenge (4 mg) in the mouth every 2 (two) hours if needed for smoking cessation., Disp: 100 lozenge, Rfl: 0 potassium chloride CR (Klor-Con M10) 10 MEQ ER tablet, Take 1 tablet (10 mEq) by mouth 1 (one) timeeach day. Do not crush or chew., Disp: , Rfl: Rimegepant Sulfate (Nurtec) 75 MG orally disintegrating tablet, Take 1 tablet (75 mg) by mouth if needed., Disp: , Rfl: Objective Physical Exam Constitutional: Appearance: Normal appearance. HENT: Head: Normocephalic and atraumatic. Nose: Nose normal. Cardiovascular: Rate and Rhythm: Normal rate and regular rhythm. Pulmonary: Effort: Pulmonary effort is normal. Breath sounds: Normal breath sounds. Abdominal: Palpations: Abdomen is soft. Musculoskeletal: General: Tenderness present. Cervical back: Normal range of motion. Comments: Right flank Neurological: Mental Status: He is alert and oriented to person, place, and time. Cranial Nerves: Dysarthria present. Motor: Tremor present. Gait: Gait abnormal. Comments: Slow to respond Psychiatric: Comments: Pleasant until discussed heart surgery Assessment/Plan Mr. Amin is a 59 yo male with past medical history of COPD, hypertension, CAD, functional neurologic disorder, CVA, traumatic brain bleed, GI bleed who presents 02/05 for follow-up after ICU stay for altered mental status thought to be related to hypotension. Acute Hypoxic Respiratory Failure requiring supplemental oxygen via nasal cannula - resolved COPD Concern for aspiration Impaired nutrition - No supplemental oxygen needed at home - CT Chest: endobronchial debris present in LLL bronchus and subsegmental branches with mild diffuse bronchial wall thickening; negative for PE - FEES on 01/27 with recommendations for Soft and bite-sized (IDDSI Level 6) diet w/ thin liquids (Level 0) - Justina says poor nutrition -- only wants to eat sweets; decreased protein/vegetable intake PLAN: - Adding protein to milkshake -- still prefers ice cream, but is eating better - Continue to reduce #cigarettes/day -- prefers nicotine patches; has cut back to 1/2 PPD - lozenges ordered CAD s/p CABG in 2016 HTN Mitral valve regurgitation - ECHO showed severe mitral regurgitation due to flail anterior leaflet 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 Boyd on 02/17 -- recommended smoking cessation prior to any type of procedure CVA in 10/2023 Functional neurological disorder - Wheelchair bound at baseline - Followed with Dr. Fournier at [facility] for FND and CVA; called his office and was able to move appointment to earlier date - Transitioning to [facility] due to change in insurance Flank pain - Has appointment for Renal ultrasound - Discussed muscle healing options such as lidocaine patch, voltaren get, massage therapies # PIC Syndrome: Physical: - Prior to diagnosis of FND in 2021 was independent; functional decline has continued since CVA in 10/2023 - Wheelchair bound since stroke in 10/2023 - Odalys girlfriend is there to help; home health stopped coming due to lack of progression - Continue PT/OT two times per week; noticed significant improvement in strength - Still has had several falls - Has a lift chair that is helpful with transfers Cognitive: - Encouraged online CVA support groups - Activities to keep brain active such as playing solitaire, sodoku, reading - Reached out to [facility] or [facility] to see if they have resources that may be beneficial for himin the future; will follow-up with them - Information on [place] [facility] provided Emotional: - Brother expresses concern that he is becoming more depressed due to being home alone/unable to walk/socialize regularly - Encouraged outpatient PT/OT -- gives opportunity to get out of the house and interact with others - Encouraged support groups - Has a licensed therapist through [facility] - medication changes have been beneficial Sleep: - Uses xanax at night time to help him sleep - States he has tried multiple medications in the past without success Scoring: Deferred today PFTs on 04/09/2024: FVC: 3.56, FEV1: 2.16 FEV1/FVC: 61 (pre) FVC: 3.78 FEV1: 2.31 FEV1/FVC: 61 (post) Interpretation: mild obstruction without significant bronchodilator response; lung volumes with elevated RV/TLC which is suggestive of air trapping Plan for today: - Follow-up after renal ultrasound - RX sent for nicotine lozenges Bárbara Becerra APRN, DNP Pulmonary Critical Care and Sleep Medicine [phone] [facility] preferred Answers submitted by the patient for this visit: Pulmonology Questionnaire (Submitted on 07/08/2024) Chief Complaint: Primary symptoms Do you experience frequent throat clearing?: Yes Do you have a wet cough?: Yes Chronicity: chronic When did you first notice your symptoms?: more than 1 month ago How often do your symptoms occur?: daily Since you first noticed this problem, how has it changed?: gradually improving Have you experienced weight loss?: Yes Which of the following makes your symptoms worse?: minimal activity Which of the following makes your symptoms better?: steroid inhaler Risk factors for lung disease: smoking/tobacco exposure documented in this encounter Plan of Treatment Upcoming Encounters Date Type Department Care Team (Late st Contact Info) Description 11/04/2024 4:00 PM EDT Consult [facility] [address] [place] [address] Tera Carvalho MD [address] [place] [address] documented as of this encounter Visit Diagnoses Diagnosis Physical debility- Primary documented in this encounter Additional Health Concerns Assessment Noted Time A fall risk assessment has been complete d for the patient 07/09/2024 3:17 PM EDT A Body Mass Index follow-up plan has been documented for the patient 07/14/2024 12:21 PM EDT documented as of this encounter Care Teams Metal Template Maker Relationship Specialty Start Date End Date Malia Amezquita MD [address] [place] [address] PCP - General 12/26/23 Malia Amezquita MD [address] [place] [address] 12/26/23 Jakub Longoria MD [address] [place] [address] Consulting Physician Neurology 04/12/22 documented as of this encounter
--- OUTSIDE RECORDS SUMMARY | 2024-08-20 11:49 | XMS_ITS ---
Author Organization [facility] Address [address] [place] [address] Phone Care Team Providers Care Manager Administration Name Role Phone Denisa LEMON, Pola Clark Unavailable [ ] Conditions or Problems No information available. Medications No information available. Medications Administered No information available. Allergies, Adverse Reactions, Alerts No information available. Results Date Name Value Unit Range Flag Description Office Visit: Office Visit:r simon 7 [facility] MEDS REVIEW Done Documenta tion of current medications (procedure) SEXUAL ACTIV yes Have you ever had vaginal intercourse [PhenX] SMOK STATUS Current every da y smoker Tobacco smoking status Plan of Care Type Date Detail Appointment 11:15 AM Pola Trotter se, MD, [facility], [address], [place], [address], Procedures Code Procedure Name Date Entry Date [...] Directives Directive Description Start Date POWER OF SKIVER BLOCKERS
--- OUTSIDE RECORDS SUMMARY | 2024-08-27 10:12 | XMS_ITS ---
Author Organization [facility] Address [address] [place] [address] [place] [address] Phone Care Team Providers Care Senior Portfolio Manager Name Role Phone Denisa LEMON, Pola [...] Appointment 11:15 AM Pola Trotter se, MD, [address] [place] [address], [address], [place], [address], Pending order Continue IV anti biotics Pending [...]
[2024-09-01 14:45] VITALS: BMI 24.5
--- OUTSIDE RECORDS SUMMARY | 2024-09-01 14:51 | XMS_ITS | Clinical Summary ---
Author Organization [facility] Address [address] [facility] [address] [place] [address] Phone Care Team Providers Care Crew Caller Name Role Phone Jd Almaraz Unavailable Unavailable Conditions or Problems Problem Name Problem Code Onset Date Status Entry Date Provider Comment Standard Description Annotate Staph epi Sepsis A41.1 (ICD-10-CM ) 08/13 Active 08/13 Nilam Deric Sepsis due to other specified staphylococcus Osteomyelitis of vertebra, lumbar region M46.26 (ICD-10-CM ) 08/13 Active 08/13 Nilam Deric Osteomyelitis of vertebra, lumbar region Lumbar region, infected discitis (pyogenic) (document infectious agent) M46.36 (ICD-10-CM ) 08/13 Active 08/13 Nilam Deric Infection of intervertebral disc (pyogenic), lumbar region Personal history of traumatic brain injury 108825158 (SNOMED CT) 08/13 Active 08/13 Nilam Leos History of head injury Nicotine dependence, cigarettes F17.210 (ICD-10-CM ) 08/13 Active 08/13 Nilam Deric Nicotine dependence, cigarettes, uncomplicated Coronary artery disease, S/P CABG 072585129 (SNOMED CT) 08/13 Active 08/13 Nilam Leos Arteriosclerosis of coronary artery bypass graft Benign Essential Hypertension 06386814 (SNOMED CT) 08/13 Active 08/13 Nilamrachel Leos Benign hypertension Medications Medication Instructions Start Date Stop Date Generic Name ND Provider daptomycin 600mg Q 24hrs x 6wks [facility] Outpt daptomycin [facility] PROMETHAZINE HCL 12.5 MG TABS Take 1 tablet by mouth Every 6 (Six) Hours As Needed for Nausea or Vomiting. promethazine 02833956105 QIE [facility]ieuser PRIMIDONE 50 MG TABS Take 1 tablet by mouth 2 (Two) Times a Day. primidone 18005282183 QIE qieuser POTASSIUM CHLORIDE VIVIEN ER 10 MEQ CR-TABS Take 1 tablet by mouth Daily. potassium chloride 36031482516 QIE qieuser ONDANSETRON [address] 1 tablet on the tongue Every 6 (Six) Hours As Needed for Nausea or Vomiting. ondansetron 57902301582 QIE qieuser NICOTINE STEP 1 21 MG/24HR PT24 Place 1 patch on the skin as directed by provider. nicotine 13766734779 QIE [facility]user METHOCARBAMOL 750 MG TABS Take 1 tablet by mouth 3 (Three) Times a Day As Needed for Muscle Spasms. methocarbamol 66017688406 QIE qieuser MAGNESIUM OXIDE 400 MG TABS Take 1 tablet by mouth Daily. magnesium oxide 79063859938 QIE qieuser LORATADINE 10 MG TABS Take 1 tablet by mouth Daily As Needed for Allergies. loratadine 82576472405 QIE [facility]user GUAIFENESIN ER 1200 MG [id number] Take 1 tablet by mouth 2 (Two) Times a Day As Needed (COUGH / CONGESTION). guaifenesin 97292755402 QIE qieuser GABAPENTIN 600 MG TABS Take 1 tablet by mouth 3 (Three) Times a Day. gabapentin 36898322751 QIE qieuser FUROSEMIDE 20 MG TABS Take 1 tablet by mouth Daily. Indications: Edema furosemide 47351380473 QIE qieuser FERROUS SULFATE 324 (65 Fe) MG TBEC Take 1 tablet by mouth Daily With Breakfast. ferrous sulfate 76595316418 QIE qieuser ESCITALOPRAM OXALATE 20 MG TABS Take 1 tablet by mouth Daily. escitalopram oxalate 11530843385 QIE qieuser EPINEPHRINE 0.3 MG/0.3ML SOAJ Inject 0.3 mL into the appropriate muscle as directed by prescriber. epinephrine 59503025965 QIE qieuser BACLOFEN 20 MG TABS TAKE ONE TABLET BY MOUTH THREE TIMES A DAY baclofen 82519887531 QIE qieuser ATORVASTATIN CALCIUM 80 MG TABS Take 1 tablet by mouth Daily. Indications: Cerebrovascular Accident or Stroke, High Amount of Fats in the Blood atorvastatin 23314850102 QIE qieuser Atogepant 60 MG tablet Take 1 tablet by mouth Daily. Indications: Migraine Headache Atogepant 60 MG tablet QIE qieuser ASPIRIN EC (ASPIRIN) 81 MG TBEC Take 1 tablet by mouth Daily. Indications: Disease involving Lipid Deposits in the Arteries ASPIRIN QIE qieuser ASCORBIC ACID 500 MG TABS Take 1 tablet by mouth Daily. ascorbic acid (vitamin c) 12101971693 QIE qieuser ALPRAZOLAM 0.5 MG TABS Take 0.5 tablets by mouth 2 (Two) Times a Day As Needed for Anxiety. Indications: Feeling Anxious alprazolam 58743460968 QIE qieuser ALBUTEROL SULFATE HFA 108 (90 Base) MCG/ACT AERS Inhale 2 puffs Every 4 (Four) Hours As Needed for Wheezing or Shortness of Air. albuterol sulfate 66387887021 QIE qieuser Medications Administered No information available. Allergies, Adverse Reactions, Alerts Allergy Name Reaction Description Start Date Severity Statu s Provider BEE VENOM Anaphylaxis Critical Active Desirae miranda Results Date Name Value Unit Range Flag Description Clinical Lists Update: Prelo ad VAPE_USE Never Tobacco smok ing status Chart Maintenance: Updated H H labs 08/25/24 CPK 47 U/L Creatine brandon se [Enzymatic activity/volume] in Serum or Plasma POTASSIUM 4.3 mmol/L Potassium [Moles/volume] in Serum or Plasma SODIUM 134 mmol/L Sodium [Moles /volume] in Serum or Plasma CREATININE 0.50 mg/dL Creatinine [Mass/volume] in Serum or Plasma BUN 10 mg/dL Urea nitrogen [Mass/volume] in Serum or Plasma ESR 48 mm/h Erythrocyte sedimentation rate by Westergren method HCT 36.7 % Hematocrit [V olume Fraction] of Blood by Automated count HGB 11.6 g/dL Hemoglobin [Mass/volume] in Blood RBC 4.49 10*6/mm3 Erythrocytes [#/volume] in Blood by Automated count WBC 10.1 10*3/mm3 Leukocytes [ #/volume] in Blood by Automated count CRP 5.0 mg/dL C reactive pr otein [Mass/volume] in Serum or Plasma BILI TOTAL 0.2 mg/dL Bilirubin. total [Mass/volume] in Serum or Plasma ALK PHOS 115 U/L Alkaline mike sphatase [Enzymatic activity/volume] in Blood SGPT (ALT) 18 U/L Alanine aminotransferase [Enzymatic activity/volume] in Serum or Plasma SGOT (AST) 25 U/L Aspartate aminotransferase [Enzymatic activity/volume] in Serum or Plasma CALCIUM 9.6 mg/dL Calcium [Mole s/volume] in Serum or Plasma GLUCOSE SER 81 mg/dL Glucose [ Mass/volume] in Serum or Plasma LYMPHS % 19.9 % Lymphocytes/ 100 leukocytes in Blood by Automated count PMN % 66.7 % Neutrophils/1 00 leukocytes in Blood by Automated count PLATELETS 287 10*3/mm3 Platelets [#/volume] in Blood by Automated count Office Visit: Office Visit:ubaldo adkinsom 6 MEDS REVIEW Done Documenta tion of current medications (procedure) SEXUAL ACTIV yes Have you ever had vaginal intercourse [PhenX] SMOK STATUS Current every day smoker Tobacco smoking status Plan of Care Type Date Detail Appointment 11:15 AM Pola Trotter se, MD, [address] [facility], [facility] [address], [place], [address], Pending order Continue IV anti biotics Pending order PICC Removal Pending order Weekly PICC Line Care Pending order PICC Line Insert ion Pending order CMP Pending order CBC w/o Differen tial Pending order C- reactive prot ein Pending order CPK Pending order Sedimentation Ra te (ESR) Pending order CMP Pending order CBC w/o Differen tial Pending order CPK Pending order Sedimentation Ra te (ESR) Pending order STAT Labs Pending order Daptomycin Pending order Weekly PICC Line Care Pending order Stat Weekly Labs Procedures Code Procedure Name Date Entry Date G2 Complex E&M visit add-on (G221) G221 Complex E&M visit add-on (G221) CPT-sl STAT Labs CPT-J0878 Daptomycin CPT-wpc Weekly PICC Line Care 08/13 CPT- stat weekly Stat Weekly Labs Vital Signs Date Name Value Unit Description [...] Directives Directive Description Start Date POWER OF SALES SUPPORT TECHNICIAN
--- OUTSIDE RECORDS SUMMARY | 2024-09-01 14:52 | XMS_ITS | Encounter Summary ---
Author Organization [facility] Address [address] [place] [address] Care Team Providers Care Non Destructive Evaluation Specialist Name Role Phone Malia Amezquita MD Primary Care Provider [phone] Malia Amezquita MD Unavailable [phone] Jakub Longoria MD Unavailable Encounter Details Date Type Department Care Team (Latest Contact Info) Description 07/09/2024 Travel Social History Tobacco Use Types Packs/Day Years Used Date Smoking Tobacco: Some Days Cigarettes 1 25.4 Started: 1999 Smokeless Tobacco: Never Alcohol Use Standard Drinks/Week Comments Not Currently [...] drink first t marylou in the morning (EYE-CORE FINISHER) to steady your nerves or to get rid of a hangover? 0 02/12/2022 CAGE Questionnaire Score 1 022 Sex and Gender Information Value Date Recorded Sex Assigned at Not on file Legal Sex Male 8:29 PM EDT Gender Identity Not on file Sexual Orientation Not on file documented as of this encounter Plan of Treatment Upcoming Encounters Date Type Department Care Team (Late st Contact Info) Description 11/04/2024 4:00 PM EDT Consult [place] [facility] [address] [place] [address] Tera Carvalho MD [address] [place] [address] documented as of this encounter Visit Diagnoses Not on filedocumented in this encounter Additional Health Concerns Assessment Noted Time A fall risk assessment has been complete d for the patient 07/09/2024 3:17 PM EDT A Body Mass Index follow-up plan has been documented for the patient 07/14/2024 12:21 PM EDT documented as of this encounter Care Teams Non Destructive Evaluation Specialist Relationship Specialty Start Date End Date Malia Amezquita MD [address] [place] [address] PCP - General 12/26/23 Malia Amezquita MD [address] [place] [address] 12/26/23 Jakub Longoria MD [address] [place] [address] Consulting Physician Neurology 04/12/22 documented as of this encounter
--- OUTSIDE RECORDS SUMMARY | 2024-09-01 14:52 | XMS_ITS | Encounter Summary ---
Author Organization [facility] Address [address] [place] [address] Care Team Providers Care Fulling Mill Operator Name Role Phone Malia Amezquita MD Primary Care Provider Malia Amezquita MD Unavailable [phone] Jakub Longoria MD Unavailable Encounter Details Date Type Department Care Team (Late st Contact Info) Description 07/14/2024 Refill [place] [facility] Special[facility] [address] [place] [address] Loco Pelaez, PharmD [address] [place] [address] Nicotine dependence, uncomplicated, unspecified nicotine product type (Primary Dx) Social History Tobacco Use Types [...] drink first t marylou in the morning (EYE-TAXI PROPRIETOR) to steady your nerves or to get [...] Info) Description 11/04/2024 4:00 PM EDT Consult [place] [facility] [address] [place] [address] Tera Carvalho MD [address] [facility] [address] [place] [address] documented as of this encounter Visit Diagnoses Diagnosis Nicotine dependence, uncomplicated, unspecified nicotine product type- Primary documented in this encounter Additional Health Concerns Assessment Noted Time A fall risk assessment has been complete d for the patient 07/09/2024 3:17 PM EDT A Body Mass Index follow-up plan has been documented for the patient 07/14/2024 12:21 PM EDT documented as of this encounter Care Teams Fulling Mill Operator Relationship Specialty Start Date End Date Malia Amezquita MD [address] [place] [address] PCP - General 12/26/23 Malia Amezquita MD [address] [place] [address] 12/26/23 Jakub Longoria MD [address] [facility] [address] [place] [address] Consulting Physician Neurology 04/12/22 documented as of this encounter
--- OUTSIDE RECORDS SUMMARY | 2024-09-01 14:52 | XMS_ITS | Encounter Summary ---
Author Organization [facility] Address [address] [place] [address] Care Team Providers Care Criminal Lawyer Name Role Phone Malia Amezquita MD Primary Care Provider [phone] Malia Amezquita MD Unavailable [phone] Jakub Longoria MD Unavailable Encounter Details Date Type Department Care Team (Late st Contact Info) Description 07/14/2024 Telephone [place] [facility] [address], [address] [place] [address] Sonia Powell RN [facility] INTERVENTIONAL RADIOLOGY Social History Tobacco Use Types Packs/Day Years [...] drink first t marylou in the morning (EYE-WEBSPHERE PORTAL ARCHITECT) to steady your nerves or to get [...] Consult [place] [facility] [address] [place] [address] Tera Carvalho MD [address] [place] [address] documented as of this encounter Visit Diagnoses Not on filedocumented in this encounter Additional Health Concerns Assessment Noted Time A fall risk assessment has been complete d for the patient 07/09/2024 3:17 PM EDT A Body Mass Index follow-up plan has been documented for the patient 07/14/2024 12:21 PM EDT documented as of this encounter Care Teams Criminal Lawyer Relationship Specialty Start Date End Date Malia Amezquita MD [address] [place] [address] PCP - General 12/26/23 Malia Amezquita MD [address] [place] [address] 12/26/23 Jakub Longoria MD [address] [place] [address] Consulting Physician Neurology 04/12/22 documented as of this encounter
--- OUTSIDE RECORDS SUMMARY | 2024-09-01 14:52 | XMS_ITS | Encounter Summary ---
Author Organization [facility] Address [address] [place] [address] Care Team Providers Care Dispersion Mixer Name Role Phone Pcp, No Primary Care Provider Unavailabl e Malia Amezquita MD Primary Care Provider [phone] Malia Amezquita MD Primary Care Provider [phone] Malia Amezquita MD Unavailable [phone] Jakub Longoria MD Unavailable Cassia Mayorga LPN Unavailable Unavailable Encounter Details Date Type Department Care Team (Late st Contact Info) Description 01/20/2022 Orders Only External Location [address] [place] [address] Provider, External Social History Tobacco Use Types Packs/Day Years Used Date Smoking Tobacco: Never Assessed Sex and Gender Information Value Date Recorded Sex Assigned at Not on file Legal Sex Male 8:29 PM EDT Gender Identity Not on file Sexual Orientation Not on file documented as of this encounter Plan of Treatment Upcoming Encounters Date Type Department Care Team (Late st Contact Info) Description 11/04/2024 4:00 PM EDT Consult [place] [facility] [address] [place] [address] Tera Carvalho MD [address] [place] [address] documented as of this encounter Procedures Procedure Name Priority Date/Time Associated Diagnosis Comments MR NEURO OUTSIDE IMAGES 01/20/2022 8:16 AM EDT documented in this encounter Results * MR NEURO OUTSIDE IMAGES (01/20/2022 8:16 AM EDT) Anatomical Region Laterality Modality Magnetic Resonan ce 01/20/2022 8:16 AM EDT us External Provider IMG MRI PROCEDURES Final Resul t documented in this encounter Visit Diagnoses Not on filedocumented in this encounter Additional Health Concerns Infection Onset Date Last Indicated Resolved Time Respiratory Rule-Out 08/18/2023 08/18/2023 024 7:10 AM EDT Respiratory Rule-Out 01/26/2024 01/26/2024 024 7:28 AM EDT Gastrointestinal Rule-Out 01/26/2024 01/26/2024 5:23 AM EST documented as of this encounter Care Teams Dispersion Mixer Relationship Specialty Start Date End Date Pcp, No [address] [place] [address] PCP - General Family Medicine 02/11/22 04/03/22 Malia Amezquita MD [address] [place] [address] PCP - General 04/04/22 12/25/23 Malia Amezquita MD [address] [place] [address] PCP - General 12/26/23 Malia Amezquita MD [address] [place] [address] 12/26/23 Jakub Longoria MD [address] [place] [address] Consulting Physician Neurology 04/12/22 Cassia Mayorga LPN VALUE-BASED [place] [address] TCM Nurse 01/29/24 02/28/24 documented as of this encounter
--- OUTSIDE RECORDS SUMMARY | 2024-09-01 14:52 | XMS_ITS | Encounter Summary ---
Author Organization [facility] Address [address] [place] [address] Care Team Providers Care Chief Development Officer Name Role Phone Pcp, No Primary Care Provider Unavailabl e Malia Amezquita MD Primary Care Provider [phone] Malia Amezquita MD Primary Care Provider [phone] Malia Amezquita MD Unavailable [phone] Jakub Longoria MD Unavailable Cassia Mayorga LPN Unavailable Unavailable Reason for Referral * Consultation (Routine) - Closed Specialty Diagnoses / Procedures Referred By Contac t Referred To Contact Neurology Diagnoses Weakness Sean Silva MD [address] [place] [address] Phone: tel: fax: Referral ID Status Reason Start Date Expiration Date V isits Requested Visits Authorized [id number] Closed Specialty Services Required 03/08/2022 09/07/2023 1 1 Encounter Details Date Type Department Care Team (Late st Contact Info) Description 03/08/2022 [facility] Practice [address] [place] [address] Sean Silva MD [address] [place] [address] Weakness (Primary Dx) Social History Tobacco Use Types Packs/Day Years Used Date Smoking Tobacco: Never Assessed Alcohol Use Standard Drinks/Week Comments Yes 0 (1 standard drink = 0.6 oz pur [...] drink first t marylou in the morning (EYE-MATERIAL CONTROL ANALYST) to steady your nerves or to get rid of a hangover? 0 02/12/2022 CAGE Questionnaire Score 1 022 Sex and Gender Information Value Date Recorded Sex Assigned at Not on file Legal Sex Male 8:29 PM EDT Gender Identity Not on file Sexual Orientation Not on file COVID-19 Exposure Response Date Recorded In the last 10 days, have yo u been in contact with someone who was confirmed or suspected to have Coronavirus/COVID-19? No / Unsure 02/11/2022 10:08 PM EST documented as of this encounter Plan of Treatment Upcoming Encounters Date Type Department Care Team (Late st Contact Info) Description 11/04/2024 4:00 PM EDT Consult [place] [facility] [address], [address] [place] [address] Tera Carvalho MD [address] [place] [address] Scheduled Referrals Name Type Priority Associated Diagnoses Order Schedule Ambulatory referral to Neurology Outpatient Referral Routine Weakness Expected: 03/08/2022 (Approximate), Expires: 09/07/2023 documented as of this encounter Visit Diagnoses Diagnosis Weakness- Primary Other malaise and fatigue documented in this encounter Additional Health Concerns Infection Onset Date Last Indicated Resolved Time Respiratory Rule-Out 08/18/2023 08/18/2023 024 7:10 AM EDT Respiratory Rule-Out 01/26/2024 01/26/2024 024 7:28 AM EDT Gastrointestinal Rule-Out 01/26/2024 01/26/2024 5:23 AM EST documented as of this encounter Care Teams Chief Development Officer Relationship Specialty Start Date End Date Pcp, No [address] [place] [address] PCP - General Family Medicine 02/11/22 04/03/22 Malia Amezquita MD [address] [place] [address] PCP - General 04/04/22 12/25/23 Malia Amezquita MD [address] [place] [address] PCP - General 12/26/23 Malia Amezquita MD [address] [place] [address] 12/26/23 Jakub Longoria MD [address] [place] [address] Consulting Physician Neurology 04/12/22 Cassia Mayorga LPN [employer] [address] TCM Nurse 01/29/24 02/28/24 documented as of this encounter
--- OUTSIDE RECORDS SUMMARY | 2024-09-01 14:52 | XMS_ITS | Encounter Summary ---
Author Organization [facility] Address [address] [place] [address] Care Team Providers Care Sales Advisor Name Role Phone Malia Amezquita MD Primary Care Provider [phone] Malia Amezquita MD Primary Care Provider [phone] Malia Amezquita MD Unavailable [phone] Jakub Longoria MD Unavailable Cassia Mayorga LPN Unavailable Unavailable Reason for Referral * Consultation (Routine) - Authorized Specialty Diagnoses / Procedures Referred By Contact Referred To Contact Physical Medicine and Rehabilitation Diagnoses Functional movement disorder Malia Amezquita MD [address] [place] [address] Phone: tel:[phone] fax:[phone] [facility] [address] [place] [address] Phone: tel: fax: Referral ID Status Reason Start Date Expiration Date Visits Requested Visits Authorized [id number] Authorized Specialty Services Required 09/26/2023 03/27/2025 1 1 Encounter Details Date Type Department Care Team (Late Contact Info) Description 09/26/2023 [facility] [address] [place] [address] Malia Amezquita MD [address] [place] [address] Functional movement disorder (Primary Dx) Social History Tobacco Use Types Packs/Day Years Used Date Smoking Tobacco: Every Day Cigarettes Smokeless Tobacco: Never Alcohol Use Standard Drinks/Week Comments Yes 4 (1 standard drink = 0.6 oz [...] drink first t marylou in the morning (EYE-EDUCATIONAL CONSULTANT) to steady your nerves or to get rid of a hangover? 0 02/12/2022 CAGE Questionnaire Score 1 022 Sex and Gender Information Value Date Recorded Sex Assigned at Not on file Legal Sex Male 8:29 PM EDT Gender Identity Not on file Sexual Orientation Not on file documented as of this encounter Plan of Treatment Upcoming Encounters Date Type Department Care Team (Late Contact Info) Description 11/04/2024 4:00 PM EDT Consult [place] [facility] [address] [place] [address] Tera Carvalho MD [address] [place] [address] Scheduled Referrals Name Type Priority Associated Diagnoses Order Schedule Ambulatory referral to Physical Medicine Rehab Outpatient Referral Routine Functional movement disorder Expected: 09/26/2023 (Approximate), Expires: 03/28/2025 documented as of this encounter Visit Diagnoses Diagnosis 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 documented in this encounter Additional Health Concerns Infection Onset Date Last Indicated Resolved Time Respiratory Rule-Out 01/26/2024 01/26/2024 024 7:28 AM EDT Gastrointestinal Rule-Out 01/26/2024 01/26/2024 5:23 AM EST Assessment Noted Time A fall risk assessment has been complete d for the patient 06/22/2022 2:55 PM EDT A Body Mass Index follow-up plan has been documented for the patient 08/21/2023 11:21 AM EDT documented as of this encounter Care Teams Sales Advisor Relationship Specialty Start Date End Date Malia Amezquita MD [address] [place] [address] PCP - General 04/04/22 12/25/23 Malia Amezquita MD [address] [place] [address] PCP - General 12/26/23 Malia Amezquita MD [address] [place] [address] 12/26/23 Jakub Longoria MD [address] [place] [address] Consulting Physician Neurology 04/12/22 Cassia Mayorga LPN VALUE-[employer] [place] [address] TCM Nurse 01/29/24 02/28/24 documented as of this encounter
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
--- OUTSIDE RECORDS SUMMARY | 2024-09-01 14:52 | XMS_ITS | Encounter Summary ---
Author Organization [facility] Address [address] [place] [address] Care Team Providers Care Stretcher And Drier Name Role Phone Malia Amezquita MD Primary Care Provider [phone] Malia Amezquita MD Unavailable [phone] Jakub Longoria MD Unavailable Encounter Details Date Type Department Care Team (Latest Contact Info) Description 07/08/2024 Travel Social History Tobacco Use Types Packs/Day [...] drink first t marylou in the morning (EYE-HIDE OR SKIN BUFFER) to steady your nerves or to get [...] Consult [place] [facility] [address] [place] [address] Tera Carvalho MD [address] [place] [address] documented as of this encounter Visit Diagnoses Not on filedocumented in this encounter Additional Health Concerns Assessment Noted Time A fall risk assessment has been complete d for the patient 04/09/2024 12:55 PM EST A Body Mass Index follow-up plan has been documented for the patient 04/16/2024 6:51 AM EST documented as of this encounter Care Teams Stretcher And Drier Relationship Specialty Start Date End Date Malia Amezquita MD [address] [place] [address] PCP - General 12/26/23 Malia Amezquita MD [address] [place] [address] 12/26/23 Jakub Longoria MD [address] [place] [address] Consulting Physician Neurology 04/12/22 documented as of this encounter
[2024-09-01 15:15] LABS: Chloride 102 mmol/L (98-107)
[2024-09-01 15:16] LABS: Albumin Level 3.9 g/dl (3.5-5.0); Potassium 3.8 mmoL/L (3.5-5.1); Sodium 136 mmol/L (136-145)
[2024-09-01 15:18] LABS: Blood Urea Nitrogen 4 mg/dl (9-20)
[2024-09-01 15:19] LABS: Alanine Aminotransferase 18 U/L (12-78); Albumin/Globulin Ratio 1.2 (1.1-1.8); Alkaline Phosphatase 95 U/L (38-126); Anion Gap 4.8 mEq/L (5-15); Aspartate Amino Transferase 25 U/L (17-59); Bilirubin,Total 0.3 mg/dl (0.2-1.3); Calcium 9.5 mg/dl (8.4-10.2); Carbon Dioxide 33 mmol/L (22.0-30.0); Creatine Kinase 92 U/L (55-170); Creatinine Clearance Estimated 83 mL/min (50-200); Estimated Glomerular Filt Rate 169 ml/min (>60); GFR (African American) 205 ML/MIN (>60); Globulin 3.3 g/dL (1.3-3.2); Glucose 112 mg/dl (74-100); Total Protein,Serum 7.2 g/dl (6.3-8.2)
[2024-09-01 15:58] LABS: Basophils # 0.1 K/mm3 (0-0.2); Basophils % 0.7 % (0.1-2.0); Eosinophils # 0.6 Kmm3 (0.0-0.4); Eosinophils % 6.1 % (0.1-12.0); Hematocrit 35.7 % (42.0-52.0); Hemoglobin 11.7 g/dL (14.1-18.0); Immature Granulocytes # 0.04 10^3uL; Immature Granulocytes % 0.4 %; Lymphocytes # 1.6 K/mm3 (0.7-4.5); Lymphocytes % 15.5 % (10-50); Mean Corpuscular HGB Conc 32.8 g/dL (31.8-35.4); Mean Corpuscular Hemoglobin 26.3 pg (27.0-31.2); Mean Corpuscular Volume 80.2 fl (80-94); Mean Platelet Volume 9.6 fl (7.4-10.4); Monocytes # 0.9 K/mm3 (0.1-1.0); Monocytes % 8.5 % (1.7-9.3); Neutrophils # 7.3 K/mm3 (1.8-7.8); Neutrophils % 68.8 % (37.0-80.0); Nucleated Red Blood Cells # 0 10^3/uL; Nucleated Red Blood Cells % 0 %; Platelet Count 214 K/mm3 (142-424); Red Blood Count 4.45 M/mm3 (4.60-6.20); Red Cell Distribution Width 17.1 % (11.5-17.5); Red Cell Distribution Width-SD 50.4 fL; White Blood Count 10.6 K/mm3 (4.8-10.8)
[2024-09-01 16:14] LABS: Erythrocyte Sedimentation Rate 41 mm/hr (0-20)
== END 2024-09-01 15:25 | disposition home or self-care (01) ==
LOC: INF 14:43
PROVIDERS: PCP Family Medicine; Visit Provider Internal Medicine Infectious Disease
DX: M46.36 Infection of intervertebral disc (pyogenic), lumbar region (principal)
CPT/HCPCS: 36592; 80053; 82550; 85025; 85651; 86140

== ENCOUNTER 2024-09-06 11:26 | Outpatient (CLI) | payer OTHER, SELFPAY ==
--- OUTSIDE RECORDS SUMMARY | 2024-08-20 11:49 | XMS_ITS ---
Author Organization [facility] Address [address] [place] [address] Phone Care Team Providers Care Slackline Operator Name Role Phone Denisa LEMON, Pola Clark Unavailable [phone] [ ] Conditions or Problems No information available. Medications No information available. Medications Administered No information available. Allergies, Adverse Reactions, Alerts No information available. Results Date Name Value Unit Range Flag Description Office Visit: Office Visit:r simon 7 [facility] [[email or web address] MEDS REVIEW Done Documenta tion of current medications (procedure) SEXUAL ACTIV yes Have you ever had vaginal intercourse [PhenX] SMOK STATUS Current every da y smoker Tobacco smoking status Plan of Care Type Date Detail Appointment 10:45 AM Pola Trotter se, MD, [facility], [address], [place], [address], Procedures Code Procedure Name Date Entry Date G2211 Complex E&M visit add-on (G2211) Vital Signs Date Name Value Unit Description BMI (Body Mass Index) 22.89 kg/m2 Bod y Mass Index (Ratio) Body Temperature 97.8 [degF] temperat ure E&M BP Diastolic 74 mm[Hg] blood pressu re, diastolic BP Systolic 111 mm[Hg] blood pressur e, systolic Heart Rate 76 /min pulse rate Height 69 [in_us] height E&M Respiratory Rate 16 /min respirat ory rate E&M Weight Measured 155 [lb_av] weight E& M Weight Measured 155 [lb_av] weight E& M Immunizations No information available. Advance Directives Directive Description Start Date POWER OF ETHNOGRAPHER
--- OUTSIDE RECORDS SUMMARY | 2024-08-27 10:12 | XMS_ITS ---
Author Organization [facility] Address [address] [place] [address] [place] [address] Phone Care Team Providers Care Hospice Social Worker Name Role Phone Denisa LEMON, Pola Clark [...] Appointment 10:45 AM Pola Trotter se, MD, [address] [place] [address], [address], [place], [address], Pending order Continue IV anti biotics Pending [...]
--- OUTSIDE RECORDS SUMMARY | 2024-09-02 11:21 | XMS_ITS ---
Author Organization [facility] Address [address] [place] [address] Phone Care Team Providers Care Transmitter Operator Name Role Phone Pola Crawley MD [phone] [ ] Conditions or Problems No information available. Medications Medication Instructions Start Date Stop Date Generic Name NDC Provider ONDANSETRON [address] 1 tablet by mouth every six hours as needed ondansetron 70482553064 [facility] ASCORBIC ACID 500 MG TABS Take 1 tablet by mouth once a day ascorbic acid (vitamin c) 30527242983 [facility] Atogepant 60 MG tablet Take 1 tablet by mouth once a day Atogepant 60 MG tablet [facility] METHOCARBAMOL 750 MG TABS Take 1 tablet by mouth three times a day as needed methocarbamol 47511731836 [facility] ESCITALOPRAM OXALATE 20 MG TABS Take 1 tablet by mouth once a day escitalopram oxalate 46645320896 [facility] GABAPENTIN 600 MG TABS Take 1 tablet by mouth three times a day gabapentin 99008731501 [facility] ALBUTEROL SULFATE HFA 108 (90 Base) MCG/ACT AERS Inhale 2 puff every four hours as needed albuterol sulfate 43263897289 [facility] LORATADINE 10 MG TABS Take 1 tablet by mouth once a day as needed loratadine 17646661891 [facility] PROMETHAZINE HCL 12.5 MG TABS Take 1 tablet by mouth every six hours as needed promethazine 50973121127 [facility] EPINEPHRINE 0.3 MG/0.3ML SOAJ Inject 0.3 ml intramuscularly as directed epinephrine 97977178658 [facility] NICOTINE STEP 1 21 MG/24HR PT24 Place 1 patch to skin as directed nicotine 45821472110 [facility] PRIMIDONE 50 MG TABS Take 1 tablet by mouth twice a day primidone 23045563473 [facility] ASPIRIN EC (ASPIRIN) 81 MG TBEC Take 1 tablet by mouth once a day ASPIRIN [facility] FERROUS SULFATE 324 (65 Fe) MG TBEC Take 1 tablet by mouth every morning ferrous sulfate 81188187135 [facility] POTASSIUM CHLORIDE VIVIEN ER 10 MEQ CR-TABS Take 1 tablet by mouth once a day potassium chloride 55350928795 [facility] ATORVASTATIN CALCIUM 80 MG TABS Take 1 tablet by mouth once a day On Hold atorvastatin 98745722523 [facility] MAGNESIUM OXIDE 400 MG TABS Take 1 tablet by mouth once a day magnesium oxide 11872598605 [facility] ALPRAZOLAM 0.5 MG TABS Take 0.5 tablet by mouth twice a day as needed alprazolam 85444796611 [facility] GUAIFENESIN ER 1200 MG [id number] Take 1 tablet by mouth twice a day as needed guaifenesin 26255184415 [facility] BACLOFEN 20 MG TABS Take 1 tablet by mouth three times a day baclofen 65431721700 [facility] FUROSEMIDE 20 MG TABS Take 1 tablet by mouth once a day furosemide 52661671321 [facility] WARFARIN SODIUM 2 MG TABS warfarin 79613771159 [facility] Medications Administered No information available. Allergies, Adverse [...] 10:45 AM Pola Trotter se, MD, [address], [address], [place], [address], Pending order Continue IV anti biotics Pending order Weekly PICC Line Care Pending order Weekly Labs (Con tinue) Pending order CMP Pending order CBC w/o Differen tial Pending order C- reactive prot ein Pending order Sedimentation Ra te (ESR) Procedures Code Procedure Name Date Entry Date Complex E&M visit add-on () Vital Signs Date Name Value Unit Description [...]
--- OUTSIDE RECORDS SUMMARY | 2024-09-08 11:29 | XMS_ITS | Encounter Summary ---
Author Organization [facility] Address [address] [place] [address] Care Team Providers Care Smutter Name Role Phone Malia Amezquita MD Primary Care Provider [phone] Malia Amezquita MD Unavailable [phone] Jakub Longoria MD Unavailable Encounter Details Date Type Department Care Team (Late st Contact Info) Description 07/14/2024 Telephone [place] [facility] [address], [address] [place] [address] Sonia Powell RN [facility] INTERVENTIONAL RADIOLOGY Social History Tobacco Use Types Packs/Day Years Used Date Smoking Tobacco: Some Days Cigarettes 1 25.5 Started: 2001 Smokeless Tobacco: Never Alcohol Use [...] drink first t 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) to steady your nerves or to get [...] Consult [place] [facility] [address] [place] [address] Tera Carvalho MD [address] [place] [address] documented as of this encounter Visit Diagnoses Not on filedocumented in this encounter Additional Health Concerns Assessment Noted Time A fall risk assessment has been complete d for the patient 07/09/2024 3:17 PM EDT A Body Mass Index follow-up plan has been documented for the patient 07/14/2024 12:21 PM EDT documented as of this encounter Care Teams Smutter Relationship Specialty Start Date End Date Malia Amezquita MD [address] [place] [address] PCP - General 12/26/23 Malia Amezquita MD [address] [place] [address] 12/26/23 Jakub Longoria MD [address] [place] [address] Consulting Physician Neurology 04/12/22 documented as of this encounter
--- OUTSIDE RECORDS SUMMARY | 2024-09-08 11:29 | XMS_ITS | Encounter Summary ---
Author Organization [facility] Address [address] [place] [address] Care Team Providers Care Field Project Manager Name Role Phone Pcp, No Primary Care Provider Unavailabl e Malia Amezquita MD Primary Care Provider [phone] Malia Amezquita MD Primary Care Provider [phone] Malia Amezquita MD Unavailable Jakub Longoria MD Unavailable Cassia Mayorga LPN Unavailable Unavailable Reason for Referral * Consultation (Routine) - Closed Specialty Diagnoses / Procedures Referred By Contac t Referred To Contact Neurology Diagnoses Weakness Sean Silva MD [address] [place] [address] Phone: tel: fax: Referral ID Status Reason Start Date Expiration Date V isits Requested Visits Authorized [id number] Closed Specialty Services Required 03/08/2022 09/07/2023 1 1 Encounter Details Date Type Department Care Team (Late st Contact Info) Description 03/08/2022 Community [facility] [address] [place] [address] Sean Silva MD [address] [place] [address] Weakness (Primary Dx) Social History Tobacco Use [...] drink first t marylou in the 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) to steady your nerves or to get [...] Info) Description 11/04/2024 4:00 PM EDT Consult [place] [facility] [address], [address] [place] [address] Tera Carvalho MD [address] [place] [address] Scheduled Referrals Name Type Priority [...] documented as of this encounter Care Teams Field Project Manager Relationship Specialty Start Date End Date Pcp, No [address] [place] [address] PCP - General Family Medicine 02/11/22 04/03/22 Malia Amezquita MD [address] [place] [address] PCP - General 04/04/22 12/25/23 Malia Amezquita MD [address] [place] [address] PCP - General 12/26/23 Malia Amezquita MD [address] [place] [address] 12/26/23 Jakub Longoria MD [address] [place] [address] Consulting Physician Neurology 04/12/22 Cassia Mayorga LPN [employer]UE[employer]ED [place] [address] TCM Nurse 01/29/24 02/28/24 documented as of this encounter
--- OUTSIDE RECORDS SUMMARY | 2024-09-08 11:29 | XMS_ITS | Clinical Summary ---
Author Organization [facility] Address [address] [place] [address] Care Team Providers Care Sales Associate Name Role Phone Malia Amezquita MD Primary Care Provider [phone] Malia Amezquita MD Unavailable [phone] Jakub Longoria MD Unavailable Allergies Active [...] Type Department Care Team Description 07/14/[address] [facility] Medicine Specialties [address] [place] [address] Loco Pelaez, PharmD Nicotine dependence, uncomplicated, unspecified nicotine product type (Primary Dx) 07/14/[address] [facility] Medicine Specialties [address] [place] [address] Sonia Powell RN 07/09/2024 3:00 PM EDT Office Visit 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) to steady your nerves or to get [...] Consult [place] [facility] [address] [place] [address] Tera Carvalho MD [address] [place] [address] Health Maintenance Due Date Last Done Comments [facility]-Depression Screening 1963 [facility]-/Child/Adol SDOH Screenings 1965 [facility]- SDOH Screenings 1981 [facility]-Adult SDOH Screenings 1981 CT Colonography 01/12/2008 FIT-DNA 01/12/2008 FIT 01/12/2008 FOBT 01/12/2008 Sigmoidoscopy 01/12/2008 [id number] Vaccine ( season) 2023 12/24/2021, 07/02/2021, 01/29/2021, [...] HIV 1/2 Differentiation (01/25/2024 8:32 PM EDT) [facility] HIV 1 & 2 Antibody/Antigen Screen Non Reactive Non Reactive 01/25/2024 10:07 PM EDT [facility] Comment:Screening for HIV 1 & 2 antibodies, and P24 antigen is NONREACTIVE. No confirmatory testing is required. Blood Venous blood specimen / Unknown Venipuncture / Unknown 01/25/2024 8:32 PM EDT 01/25/2024 9:05 PM EDT us Bárbara Rios MD LAB BLOOD [place]AB[place] [address] * Hepatitis C Antibody - ED (01/25/2024 8:32 PM EDT) [facility] Hepatitis C Antibody Negative Negative 01/25/2024 10:08 PM EDT [facility] Blood Venous blood specimen / Unknown Venipuncture / Unknown 01/25/2024 8:32 PM EDT 01/25/2024 9:05 PM EDT us Bárbara Rios MD LAB BLOOD [place]ABLES [place] [address] * CT Angio Pulmonary Embolism (01/25/2024 8:16 [...] Most Recently Relevant to Health Maintenance Insurance [facility] MEDICAID Care Teams Sales Associate Relationship Specialty Start Date End Date Malia Amezquita MD [address] [place] [address] PCP - General 12/26/23 Malia Amezquita MD [address] [place] [address] 12/26/23 Jakub Longoria MD [address] [place] [address] Consulting Physician Neurology 04/12/22
--- OUTSIDE RECORDS SUMMARY | 2024-09-08 11:29 | XMS_ITS | Encounter Summary ---
Author Organization [facility] Address [address] [place] [address] Care Team Providers Care Applied Mathematician Name Role Phone Pcp, No Primary Care Provider Unavailabl e Malia Amezquita MD Primary Care Provider [phone] Malia Amezquita MD Primary Care Provider Malia Amezquita MD Unavailable [phone] Jakub Longoria MD Unavailable Cassia Mayorga LPN Unavailable Unavailable Encounter Details Date Type Department Care Team (Late st Contact Info) Description 01/20/2022 Orders Only External Location [address] [place] [address] Provider, External Social History Tobacco Use Types [...] Info) Description 11/04/2024 4:00 PM EDT Consult [place] [facility] [address] [place] [address] Tera Carvalho MD [address] [place] [address] documented as of this encounter [...] documented as of this encounter Care Teams Applied Mathematician Relationship Specialty Start Date End Date Pcp, No [address] [place] [address] PCP - General Family Medicine 02/11/22 04/03/22 Malia Amezquita MD [address] [place] [address] PCP - General 04/04/22 12/25/23 Malia Amezquita MD [address] [place] [address] PCP - General 12/26/23 Malia Amezquita MD [address] [place] [address] 12/26/23 Jakub Longoria MD [address] [place] [address] Consulting Physician Neurology 04/12/22 Cassia Mayorga LPN [employer] [place] [address] TCM Nurse 01/29/24 02/28/24 documented as of this encounter
--- OUTSIDE RECORDS SUMMARY | 2024-09-08 11:29 | XMS_ITS | Clinical Summary ---
Author Organization [facility] Address [address] [place] [address] Phone Care Team Providers Care Shell Worker Name Role Phone Mary Mcdaniels Unavailable Unavailable Conditions or Problems Problem Name [...] region Personal history of traumatic brain injury 981866641 (SNOMED CT) 08/13 Active 08/13 Nilam Deric History of head injury Nicotine dependence, cigarettes F17.210 (ICD-10-CM ) 08/13 Active 08/13 Nilam Deric Nicotine dependence, cigarettes, uncomplicated Coronary artery disease, S/P CABG 772973067 (SNOMED CT) 08/13 Active 08/13 Nilam Deric Arteriosclerosis of coronary artery bypass graft Benign Essential Hypertension 61218474 (SNOMED CT) 08/13 Active 08/13 Nilam Deric Benign hypertension Medications Medication Instructions Start Date Stop Date Generic Name NDC Provider ONDANSETRON [address] 1 tablet by mouth every six hours as needed ondansetron [id number] [facility] ASCORBIC ACID 500 MG TABS Take 1 tablet by mouth once a day ascorbic acid (vitamin c) 68629282128 [facility] Atogepant 60 MG tablet Take 1 tablet by mouth once a day Atogepant 60 MG tablet [facility] METHOCARBAMOL 750 MG TABS Take 1 tablet by mouth three times a day as needed methocarbamol 82400141815 [facility] ESCITALOPRAM OXALATE 20 MG TABS Take 1 tablet by mouth once a day escitalopram oxalate 85049052265 [facility] GABAPENTIN 600 MG TABS Take 1 tablet by mouth three times a day gabapentin 15859711816 [facility] ALBUTEROL SULFATE HFA 108 (90 Base) MCG/ACT AERS Inhale 2 puff every four hours as needed albuterol sulfate 74145714167 [facility] LORATADINE 10 MG TABS Take 1 tablet by mouth once a day as needed loratadine 30846309727 [facility] PROMETHAZINE HCL 12.5 MG TABS Take 1 tablet by mouth every six hours as needed promethazine 91156639592 [facility] EPINEPHRINE 0.3 MG/0.3ML SOAJ Inject 0.3 ml intramuscularly as directed epinephrine 38183831007 [facility] NICOTINE STEP 1 21 MG/24HR PT24 Place 1 patch to skin as directed nicotine 57199420390 [facility] PRIMIDONE 50 MG TABS Take 1 tablet by mouth twice a day primidone 10668709205 [facility] ASPIRIN EC (ASPIRIN) 81 MG TBEC Take 1 tablet by mouth once a day ASPIRIN [facility] FERROUS SULFATE 324 (65 Fe) MG TBEC Take 1 tablet by mouth every morning ferrous sulfate 93409666418 [facility] POTASSIUM CHLORIDE VIVIEN ER 10 MEQ CR-TABS Take 1 tablet by mouth once a day potassium chloride 15512439410 [facility] ATORVASTATIN CALCIUM 80 MG TABS Take 1 tablet by mouth once a day On Hold atorvastatin 36838888861 [facility] MAGNESIUM OXIDE 400 MG TABS Take 1 tablet by mouth once a day magnesium oxide 22649327135 [facility] ALPRAZOLAM 0.5 MG TABS Take 0.5 tablet by mouth twice a day as needed alprazolam 18887997184 [facility] GUAIFENESIN ER 1200 MG [id number] Take 1 tablet by mouth twice a day as needed guaifenesin 65197461486 [facility] BACLOFEN 20 MG TABS Take 1 tablet by mouth three times a day baclofen 71121645698 [facility] FUROSEMIDE 20 MG TABS Take 1 tablet by mouth once a day furosemide 90698168372 [facility] WARFARIN SODIUM 2 MG TABS warfarin 27394622037 [facility] daptomycin 600mg Q 24hrs x 6wks [facility] Outpt daptomycin [facility] PROMETHAZINE HCL 12.5 MG TABS Take 1 tablet by mouth Every 6 (Six) Hours As Needed for Nausea or Vomiting. 09/02 promethazine 35248747349 [facility] PRIMIDONE 50 MG TABS Take 1 tablet by mouth 2 (Two) Times a Day. 09/02 primidone 93942527238 [facility] POTASSIUM CHLORIDE VIVIEN ER 10 MEQ CR-TABS Take 1 tablet by mouth Daily. 09/02 potassium chloride 70348833548 [facility] ONDANSETRON [address] 1 tablet on the tongue Every 6 (Six) Hours As Needed for Nausea or Vomiting. 09/02 ondansetron 82651799002 [facility] NICOTINE STEP 1 21 MG/24HR PT24 Place 1 patch on the skin as directed by provider. 09/02 nicotine 16899737063 [facility] METHOCARBAMOL 750 MG TABS Take 1 tablet by mouth 3 (Three) Times a Day As Needed for Muscle Spasms. 0 09/02 methocarbamol 50536527555 [facility] MAGNESIUM OXIDE 400 MG TABS Take 1 tablet by mouth Daily. 09/02 magnesium oxide 97842605689 [facility] LORATADINE 10 MG TABS Take 1 tablet by mouth Daily As Needed for Allergies. 09/02 loratadine 17538160847 [facility] GUAIFENESIN ER 1200 MG [id number] Take 1 tablet by mouth 2 (Two) Times a Day As Needed (COUGH / CONGESTION). 09/02 guaifenesin 02531681176 [facility] GABAPENTIN 600 MG TABS Take 1 tablet by mouth 3 (Three) Times a Day. 09/02 gabapentin 59078188356 [facility] FUROSEMIDE 20 MG TABS Take 1 tablet by mouth Daily. Indications: Edema 09/02 furosemide 32470233036 [facility] FERROUS SULFATE 324 (65 Fe) MG TBEC Take 1 tablet by mouth Daily With Breakfast. 09/05 ferrous sulfate 07352947467 [facility] ESCITALOPRAM OXALATE 20 MG TABS Take 1 tablet by mouth Daily. 09/02 escitalopram oxalate 94590219121 [facility] EPINEPHRINE 0.3 MG/0.3ML SOAJ Inject 0.3 mL into the appropriate muscle as directed by prescriber. 09/05 epinephrine 68418604930 [facility] BACLOFEN 20 MG TABS TAKE ONE TABLET BY MOUTH THREE TIMES A DAY 09/02 baclofen 68117827098 [facility] ATORVASTATIN CALCIUM 80 MG TABS Take 1 tablet by mouth Daily. Indications: Cerebrovascular Accident or Stroke, High Amount of Fats in the Blood 09/02 atorvastatin 74065446512 [facility] Atogepant 60 MG tablet Take 1 tablet by mouth Daily. Indications: Migraine Headache 09/02 Atogepant 60 MG tablet [facility] ASPIRIN EC (ASPIRIN) 81 MG TBEC Take 1 tablet by mouth Daily. Indications: Disease involving Lipid Deposits in the Arteries 09/02 ASPIRIN [facility] ASCORBIC ACID 500 MG TABS Take 1 tablet by mouth Daily. 09/02 ascorbic acid (vitamin c) 49021850509 [facility] ALPRAZOLAM 0.5 MG TABS Take 0.5 tablets by mouth 2 (Two) Times a Day As Needed for Anxiety. Indications: Feeling Anxious 09/02 alprazolam 31059664526 [facility] ALBUTEROL SULFATE HFA 108 (90 Base) MCG/ACT AERS Inhale 2 puffs Every 4 (Four) Hours As Needed for Wheezing or Shortness of Air. 09/02 albuterol sulfate 11057046570 [facility] Medications Administered No information available. Allergies, Adverse Reactions, Alerts Allergy Name Reaction Description Start Date Severity Statu s Provider BEE VENOM Anaphylaxis Critical Active Desirae miranda Results Date Name Value Unit Range Flag Description Clinical Lists Update: Prelo ad VAPE_USE Never Tobacco smok ing status Chart Maintenance: Updated H H labs 09/01/24 CRP 11.0 mg/dL C reactive pr otein [Mass/volume] in Serum or Plasma CPK 92 U/L Creatine brandon se [Enzymatic activity/volume] in Serum or Plasma BILI TOTAL 0.3 mg/dL Bilirubin. total [Mass/volume] in Serum or Plasma ALK PHOS 95 U/L Alkaline mike sphatase [Enzymatic activity/volume] in Blood SGPT (ALT) 18 U/L Alanine aminotransferase [Enzymatic activity/volume] in Serum or Plasma SGOT (AST) 25 U/L Aspartate aminotransferase [Enzymatic activity/volume] in Serum or Plasma CALCIUM 9.5 mg/dL Calcium [Mole s/volume] in Serum or Plasma POTASSIUM 3.8 mmol/L Potassium [Moles/volume] in Serum or Plasma SODIUM 136 mmol/L Sodium [Moles /volume] in Serum or Plasma CREATININE 0.50 mg/dL Creatinine [Mass/volume] in Serum or Plasma BUN 4 mg/dL Urea nitrogen [Mass/volume] in Serum or Plasma GLUCOSE SER 112 mg/dL Glucose [ Mass/volume] in Serum or Plasma ESR 41 mm/h Erythrocyte sedimentation rate by Westergren method LYMPHS % 15.5 % Lymphocytes/ 100 leukocytes in Blood by Automated count PMN % 68.8 % Neutrophils/1 00 leukocytes in Blood by Automated count PLATELETS 214 10*3/mm3 Platelets [#/volume] in Blood by Automated count HCT 35.7 % Hematocrit [V olume Fraction] of Blood by Automated count HGB 11.7 g/dL Hemoglobin [Mass/volume] in Blood RBC 4.45 10*6/mm3 Erythrocytes [#/volume] in Blood by Automated count WBC 10.6 10*3/mm3 Leukocytes [ #/volume] in Blood by Automated count Office Visit: Office Visit: Room 6 SEXUAL ACTIV yes Have you ever had vaginal intercourse [PhenX] SMOK STATUS Current every day smoker Tobacco smoking status MEDS REVIEW Done Documenta tion of current medications (procedure) Plan of Care Type Date Detail Appointment 10:45 AM Pola Trotter se, MD, [address] [place] [address], [facility] [address], [place], [address], Pending order Continue IV anti biotics Pending order Weekly PICC Line Care Pending order Weekly Labs (Con tinue) Pending order CMP Pending order CBC w/o Differen tial Pending order C- reactive prot ein Pending order Sedimentation Ra te (ESR) Pending order Continue IV anti biotics Pending [...] Entry Date Complex E&M visit add-on () G2 Complex E&M visit add-on () CPT-31403 CMP CPT-14326 CBC w/o Differential [id number], [id number] CPK CPT-87571 Sedimentation Rate (ESR) 07/29/27 G2 Complex E&M visit add-on () CPT-sl STAT Labs CPT-J0878 Daptomycin CPT-wpc Weekly [...] Directives Directive Description Start Date POWER OF BATCHING OPERATOR
--- OUTSIDE RECORDS SUMMARY | 2024-09-08 11:29 | XMS_ITS | Encounter Summary ---
Author Organization [facility] Address [address] [place] [address] Care Team Providers Care Computer Engineering Professor Name Role Phone Malia Amezquita MD Primary Care Provider [phone] Malia Amezquita MD Unavailable [phone] Jakub Longoria MD Unavailable Encounter Details Date Type Department Care Team (Late st Contact Info) Description 07/14/2024 Refill [place] [facility] [address] [place] [address] Loco Pelaez, PharmD [address] [place] [address] Nicotine dependence, uncomplicated, unspecified nicotine [...] drink first t marylou in the morning (EYE-ELECTROPLATING SALES REPRESENTATIVE) to steady your nerves or to get [...] Info) Description 11/04/2024 4:00 PM EDT Consult [place] [facility] [address] [place] [address] Tera Carvalho MD [address] [facility] [address] [place] [address] documented as of this encounter Visit Diagnoses [...] documented as of this encounter Care Teams Computer Engineering Professor Relationship Specialty Start Date End Date Malia Amezquita MD [address] [place] [address] PCP - General 12/26/23 Malia Amezquita MD [address] [place] [address] 12/26/23 Jakub Longoria MD [address] [facility] [address] [place] [address] Consulting Physician Neurology 04/12/22 documented as of this encounter
--- OUTSIDE RECORDS SUMMARY | 2024-09-08 11:29 | XMS_ITS | Encounter Summary ---
Author Organization [facility] Address [address] [place] [address] Care Team Providers Care Hospital Nurse Name Role Phone Malia Amezquita MD Primary Care Provider [phone] Malia Amezquita MD Primary Care Provider [phone] Malia Amezquita MD Unavailable [phone] Jakub Longoria MD Unavailable Cassia Mayorga LPN Unavailable Unavailable Reason for Referral * Consultation (Routine) - Authorized Specialty Diagnoses / Procedures Referred By Contact Referred To Contact Physical Medicine and Rehabilitation Diagnoses Functional movement disorder Malia Amezquita MD [address] [place] [address] Phone: tel:[phone] fax:[phone] Physical [facility] Rehabilitation Clinic at [facility] [address] [place] [address] Phone: tel: fax: Referral ID Status Reason Start Date Expiration Date Visits Requested Visits Authorized [id number] Authorized Specialty Services Required 09/26/2023 03/27/2025 1 1 Encounter Details Date Type Department Care Team (Late Contact Info) Description 09/26/2023 Community [facility] [address] [place] [address] Malia Amezquita MD [address] [place] [address] Functional movement disorder (Primary Dx) Social History [...] drink first t marylou in the morning (EYE-MACHINE FITTER) to steady your nerves or to get [...] Consult [place] [facility] [address] [place] [address] Tera Carvalho MD [address] [place] [address] Scheduled Referrals Name Type Priority [...] documented as of this encounter Care Teams Hospital Nurse Relationship Specialty Start Date End Date Malia Amezquita MD [address] [place] [address] PCP - General 04/04/22 12/25/23 Malia Amezquita MD [address] [place] [address] PCP - General 12/26/23 Malia Amezquita MD [address] [place] [address] 12/26/23 Jakub Longoria MD [address] [place] [address] Consulting Physician Neurology 04/12/22 Cassia Mayorga LPN [employer] [place] [address] TCM Nurse 01/29/24 02/28/24 documented as of this encounter
== END 2024-09-06 23:59 | disposition home or self-care (01) ==
LOC: LAB.DROPOF 09-08 11:27
PROVIDERS: PCP Family Medicine; Visit Provider Nurse Practitioner Family
DX: N39.0 Urinary tract infection, site not specified (principal)
CPT/HCPCS: 87086; 87088; 87186

== ENCOUNTER 2024-09-08 15:22 | Outpatient (CLI) | payer OTHER, SELFPAY ==
--- OUTSIDE RECORDS SUMMARY | 2024-08-20 11:49 | XMS_ITS ---
Author Organization [facility] Address [address] [place] [address] Phone Care Team Providers Care Product Technician Name Role Phone Denisa LEMON, Pola Clark Unavailable [ ] Conditions or Problems No information available. Medications No information available. Medications Administered No information available. Allergies, Adverse Reactions, Alerts No information available. Results Date Name Value Unit Range Flag Description Office Visit: Office Visit:r simon 7 [facility] MEDS REVIEW Done Documenta tion of current medications (procedure) SEXUAL ACTIV yes Have you ever had vaginal intercourse [PhenX] SMOK STATUS Current every da y smoker Tobacco smoking status Plan of Care Type Date Detail Appointment 10:45 AM Pola Trotter se, MD, [facility], [address], [place], [address], Procedures Code Procedure Name Date Entry Date [...] Directives Directive Description Start Date POWER OF LOAN REPRESENTATIVE
--- OUTSIDE RECORDS SUMMARY | 2024-08-27 10:12 | XMS_ITS ---
Author Organization [facility] Address [address] [place] [address] [place] [address] Phone Care Team Providers Care Couture Dressmaker Name Role Phone Denisa LEMON, Pola Clark Unavailable [phone] [ ] Conditions or Problems No information available. Medications No information available. Medications Administered No information available. Allergies, Adverse Reactions, Alerts No information available. Results Date Name Value Unit Range Flag Description Office Visit: Office Visit:r oom 6 MEDS REVIEW Done Documenta tion of current medications (procedure) SEXUAL ACTIV yes Have you ever had vaginal intercourse [PhenX] SMOK STATUS Current every da y smoker Tobacco smoking status Plan of Care Type Date Detail Appointment 10:45 AM Pola Trotter se, MD, [address] [place] [address], [address], [place], [address], Pending order Continue IV anti biotics Pending order PICC Removal Pending order Weekly PICC Line Care Pending order PICC Line Insert ion Pending order CMP Pending order CBC w/o Differen tial Pending order C- reactive prot ein Pending order CPK Pending order Sedimentation Ra te (ESR) Procedures Code Procedure Name Date Entry Date G2211 Complex E&M visit add-on (G2211) Vital Signs Date Name Value Unit Description BMI (Body Mass Index) 23.63 kg/m2 Bod y Mass Index (Ratio) Body Temperature 98.4 [degF] temperat ure E&M BP Diastolic 64 mm[Hg] blood pressu re, diastolic BP Systolic 116 mm[Hg] blood pressur e, systolic Heart Rate 76 /min pulse rate Height 69 [in_us] height E&M Respiratory Rate 16 /min respirat ory rate E&M Weight Measured 160 [lb_av] weight E& M Weight Measured 160 [lb_av] weight E& M Immunizations No information available. Advance Directives No information available.
--- OUTSIDE RECORDS SUMMARY | 2024-09-02 11:21 | XMS_ITS ---
Author Organization [facility] Address [address] [place] [address] Phone Care Team Providers Care Railway Switch Operator Name Role Phone Pola Crawley MD [phone] [ ] Conditions or Problems No information available. Medications Medication Instructions Start Date Stop Date Generic Name NDC Provider ONDANSETRON [address] 1 tablet by mouth every six hours as needed ondansetron 62695014087 [facility] ASCORBIC ACID 500 MG TABS Take 1 tablet by mouth once a day ascorbic acid (vitamin c) 75680696163 [facility] Atogepant 60 MG tablet Take 1 tablet by mouth once a day Atogepant 60 MG tablet [facility] METHOCARBAMOL 750 MG TABS Take 1 tablet by mouth three times a day as needed methocarbamol 03407512434 [facility] ESCITALOPRAM OXALATE 20 MG TABS Take 1 tablet by mouth once a day escitalopram oxalate 48993989100 [facility] GABAPENTIN 600 MG TABS Take 1 tablet by mouth three times a day gabapentin 71084426714 [facility] ALBUTEROL SULFATE HFA 108 (90 Base) MCG/ACT AERS Inhale 2 puff every four hours as needed albuterol sulfate 10268803589 [facility] LORATADINE 10 MG TABS Take 1 tablet by mouth once a day as needed loratadine 61372022068 [facility] PROMETHAZINE HCL 12.5 MG TABS Take 1 tablet by mouth every six hours as needed promethazine 72249742114 [facility] EPINEPHRINE 0.3 MG/0.3ML SOAJ Inject 0.3 ml intramuscularly as directed epinephrine 33611696251 [facility] NICOTINE STEP 1 21 MG/24HR PT24 Place 1 patch to skin as directed nicotine 22719292496 [facility] PRIMIDONE 50 MG TABS Take 1 tablet by mouth twice a day primidone 05831470688 [facility] ASPIRIN EC (ASPIRIN) 81 MG TBEC Take 1 tablet by mouth once a day ASPIRIN [facility] FERROUS SULFATE 324 (65 Fe) MG TBEC Take 1 tablet by mouth every morning ferrous sulfate 23607420477 [facility] POTASSIUM CHLORIDE VIVIEN ER 10 MEQ CR-TABS Take 1 tablet by mouth once a day potassium chloride 81631101183 [facility] ATORVASTATIN CALCIUM 80 MG TABS Take 1 tablet by mouth once a day On Hold atorvastatin 30378603926 [facility] MAGNESIUM OXIDE 400 MG TABS Take 1 tablet by mouth once a day magnesium oxide 64309060622 [facility] ALPRAZOLAM 0.5 MG TABS Take 0.5 tablet by mouth twice a day as needed alprazolam 93335379347 [facility] GUAIFENESIN ER 1200 MG [id number] Take 1 tablet by mouth twice a day as needed guaifenesin 46635653331 [facility] BACLOFEN 20 MG TABS Take 1 tablet by mouth three times a day baclofen 13693191914 [facility] FUROSEMIDE 20 MG TABS Take 1 tablet by mouth once a day furosemide 40194913981 [facility] WARFARIN SODIUM 2 MG TABS warfarin 25684458738 [facility] Medications Administered No information available. Allergies, Adverse [...] 10:45 AM Pola Trotter se, MD, [address], [address], [place], [address], Pending order Continue IV anti biotics Pending [...]
--- OUTSIDE RECORDS SUMMARY | 2024-09-08 15:24 | XMS_ITS | Encounter Summary ---
Author Organization [facility] Address [address] [place] [address] Care Team Providers Care Buyer Broker Name Role Phone Pcp, No Primary Care Provider Unavailabl e Malia Amezquita MD Primary Care Provider [phone] Malia Amezquita MD Primary Care Provider [phone] Malia Amezquita MD Unavailable [phone] Jakub Longoria MD Unavailable Cassia Mayorga LPN Unavailable Unavailable Reason for Referral * Consultation (Routine) - Closed Specialty Diagnoses / Procedures Referred By Contac t Referred To Contact Neurology Diagnoses Weakness Sean Silva MD [address] [place] [address] Phone: tel: fax: Referral ID Status Reason Start Date Expiration Date V isits Requested Visits Authorized [id number] Closed Specialty Services Required 03/08/2022 09/07/2023 1 1 Encounter Details Date Type Department Care Team (Late st Contact Info) Description 03/08/2022 Community [facility] [address] [place] [address] Sean Silva MD [address] [place] [address] Weakness (Primary Dx) Social History Tobacco Use [...] drink first t marylou in the morning (EYE-ART SALES CONSULTANT) to steady your nerves or to [...] Info) Description 11/04/2024 4:00 PM EDT Consult [place] [facility] [address] [place] [address] Tera Carvalho MD [address] [place] [address] Scheduled Referrals Name Type Priority [...] documented as of this encounter Care Teams Buyer Broker Relationship Specialty Start Date End Date Pcp, No [address] [place] [address] PCP - General Family Medicine 02/11/22 04/03/22 Malia Amezquita MD [address] [place] [address] PCP - General 04/04/22 12/25/23 Malia Amezquita MD [address] [place] [address] PCP - General 12/26/23 Malia Amezquita MD [address] [place] [address] 12/26/23 Jakub Longoria MD [address] [place] [address] Consulting Physician Neurology 04/12/22 Cassia Mayorga LPN [employer] [place] [address] TCM Nurse 01/29/24 02/28/24 documented as of this encounter
--- OUTSIDE RECORDS SUMMARY | 2024-09-08 15:24 | XMS_ITS | Clinical Summary ---
Author Organization [facility] Address [address] [place] [address] Phone Care Team Providers Care Commercial Banker Name Role Phone Mary Mcdaniels Unavailable Unavailable [...] region Personal history of traumatic brain injury 252552316 (SNOMED CT) 08/13 Active 08/13 Nilam Deric History of head injury Nicotine dependence, cigarettes F17.210 (ICD-10-CM ) 08/13 Active 08/13 Nilam Deric Nicotine dependence, cigarettes, uncomplicated Coronary artery disease, S/P CABG 063684120 (SNOMED CT) 08/13 Active 08/13 Nilam Deric Arteriosclerosis of coronary artery bypass graft Benign Essential Hypertension 05661491 (SNOMED CT) 08/13 Active 08/13 Nilam Derci Benign hypertension Medications Medication Instructions Start Date Stop Date Generic Name NDC Provider ONDANSETRON [address] 1 tablet by mouth every six hours as needed ondansetron 78669215507 [facility] ASCORBIC ACID 500 MG TABS Take 1 tablet by mouth once a day ascorbic acid (vitamin c) 41241052506 [facility] Atogepant 60 MG tablet Take 1 tablet by mouth once a day Atogepant 60 MG tablet [facility] METHOCARBAMOL 750 MG TABS Take 1 tablet by mouth three times a day as needed methocarbamol 03184959504 [facility] ESCITALOPRAM OXALATE 20 MG TABS Take 1 tablet by mouth once a day escitalopram oxalate 71757677928 [facility] GABAPENTIN 600 MG TABS Take 1 tablet by mouth three times a day gabapentin 90457177409 [facility] ALBUTEROL SULFATE HFA 108 (90 Base) MCG/ACT AERS Inhale 2 puff every four hours as needed albuterol sulfate 79173172181 [facility] LORATADINE 10 MG TABS Take 1 tablet by mouth once a day as needed loratadine 52867191400 [facility] PROMETHAZINE HCL 12.5 MG TABS Take 1 tablet by mouth every six hours as needed promethazine 01708538406 [facility] EPINEPHRINE 0.3 MG/0.3ML SOAJ Inject 0.3 ml intramuscularly as directed epinephrine 97016729846 [facility] NICOTINE STEP 1 21 MG/24HR PT24 Place 1 patch to skin as directed nicotine 87314215478 [facility] PRIMIDONE 50 MG TABS Take 1 tablet by mouth twice a day primidone 37986785747 [facility] ASPIRIN EC (ASPIRIN) 81 MG TBEC Take 1 tablet by mouth once a day ASPIRIN [facility] FERROUS SULFATE 324 (65 Fe) MG TBEC Take 1 tablet by mouth every morning ferrous sulfate 05884737294 [facility] POTASSIUM CHLORIDE VIVIEN ER 10 MEQ CR-TABS Take 1 tablet by mouth once a day potassium chloride 00081663886 [facility] ATORVASTATIN CALCIUM 80 MG TABS Take 1 tablet by mouth once a day On Hold atorvastatin 90045966660 [facility] MAGNESIUM OXIDE 400 MG TABS Take 1 tablet by mouth once a day magnesium oxide 41979004836 [facility] ALPRAZOLAM 0.5 MG TABS Take 0.5 tablet by mouth twice a day as needed alprazolam 30261595846 [facility] GUAIFENESIN ER 1200 MG [id number] Take 1 tablet by mouth twice a day as needed guaifenesin 75145238260 [facility] BACLOFEN 20 MG TABS Take 1 tablet by mouth three times a day baclofen 85422329838 [facility] FUROSEMIDE 20 MG TABS Take 1 tablet by mouth once a day furosemide 70967277006 [facility] WARFARIN SODIUM 2 MG TABS warfarin 58724734066 [facility] daptomycin 600mg Q 24hrs x 6wks [facility] Outpt daptomycin [facility] PROMETHAZINE HCL 12.5 MG TABS Take 1 tablet by mouth Every 6 (Six) Hours As Needed for Nausea or Vomiting. 09/02 promethazine 50148831934 [facility] PRIMIDONE 50 MG TABS Take 1 tablet by mouth 2 (Two) Times a Day. 09/02 primidone 03842486861 [facility] POTASSIUM CHLORIDE VIVIEN ER 10 MEQ CR-TABS Take 1 tablet by mouth Daily. 09/02 potassium chloride 87766734792 [facility] ONDANSETRON [address] 1 tablet on the tongue Every 6 (Six) Hours As Needed for Nausea or Vomiting. 09/02 ondansetron 94247965565 [facility] NICOTINE STEP 1 21 MG/24HR PT24 Place 1 patch on the skin as directed by provider. 09/02 nicotine 66607434085 [facility] METHOCARBAMOL 750 MG TABS Take 1 tablet by mouth 3 (Three) Times a Day As Needed for Muscle Spasms. 0 09/02 methocarbamol 93319629374 [facility] MAGNESIUM OXIDE 400 MG TABS Take 1 tablet by mouth Daily. 09/02 magnesium oxide 51154902572 [facility] LORATADINE 10 MG TABS Take 1 tablet by mouth Daily As Needed for Allergies. 09/02 loratadine 95181347760 [facility] GUAIFENESIN ER 1200 MG [id number] Take 1 tablet by mouth 2 (Two) Times a Day As Needed (COUGH / CONGESTION). 09/02 guaifenesin 88477622252 [facility] GABAPENTIN 600 MG TABS Take 1 tablet by mouth 3 (Three) Times a Day. 09/02 gabapentin 80060335051 [facility] FUROSEMIDE 20 MG TABS Take 1 tablet by mouth Daily. Indications: Edema 09/02 furosemide 86267386210 [facility] FERROUS SULFATE 324 (65 Fe) MG TBEC Take 1 tablet by mouth Daily With Breakfast. 09/05 ferrous sulfate 72066031442 [facility] ESCITALOPRAM OXALATE 20 MG TABS Take 1 tablet by mouth Daily. 09/02 escitalopram oxalate 81877140413 [facility] EPINEPHRINE 0.3 MG/0.3ML SOAJ Inject 0.3 mL into the appropriate muscle as directed by prescriber. 09/05 epinephrine 83328698283 [facility] BACLOFEN 20 MG TABS TAKE ONE TABLET BY MOUTH THREE TIMES A DAY 09/02 baclofen 20259382584 [facility] ATORVASTATIN CALCIUM 80 MG TABS Take 1 tablet by mouth Daily. Indications: Cerebrovascular Accident or Stroke, High Amount of Fats in the Blood 09/02 atorvastatin 30449545386 [facility] Atogepant 60 MG tablet Take 1 tablet by mouth Daily. Indications: Migraine Headache 09/02 Atogepant 60 MG tablet [facility] ASPIRIN EC (ASPIRIN) 81 MG TBEC Take 1 tablet by mouth Daily. Indications: Disease involving Lipid Deposits in the Arteries 09/02 ASPIRIN [facility] ASCORBIC ACID 500 MG TABS Take 1 tablet by mouth Daily. 09/02 ascorbic acid (vitamin c) 32168100296 [facility] ALPRAZOLAM 0.5 MG TABS Take 0.5 tablets by mouth 2 (Two) Times a Day As Needed for Anxiety. Indications: Feeling Anxious 09/02 alprazolam 69608201287 [facility] ALBUTEROL SULFATE HFA 108 (90 Base) MCG/ACT AERS Inhale 2 puffs Every 4 (Four) Hours As Needed for Wheezing or Shortness of Air. 09/02 albuterol sulfate 55136136053 [facility] Medications Administered No information available. [...] Appointment 10:45 AM Pola Trotter se, MD, [address] [place] [address], [facility] [address], [place], [address], Pending order Continue IV anti biotics Pending [...] () G2 Complex E&M visit add-on () CPT-41085 CMP CPT-81994 CBC w/o Differential [id number], [id number] CPK CPT-28992 Sedimentation Rate (ESR) 07/29/27 G2 Complex E&M [...] Directives Directive Description Start Date POWER OF ELEMENTARY EDUCATOR
--- OUTSIDE RECORDS SUMMARY | 2024-09-08 15:24 | XMS_ITS | Encounter Summary ---
Author Organization [facility] Address [address] [place] [address] Care Team Providers Care Material Liaison Name Role Phone Malia Amezquita MD Primary Care Provider [phone] Malia Amezquita MD Primary Care Provider [phone] Malia Amezquita MD Unavailable [phone] Jakub Longoria MD Unavailable Cassia Mayorga LPN Unavailable Unavailable Reason for Referral * Consultation (Routine) - Authorized Specialty Diagnoses / Procedures Referred By Contact Referred To Contact Physical Medicine and Rehabilitation Diagnoses Functional movement disorder Malia Amezquita MD [address] [place] [address] Phone: tel:[phone] fax:[phone] [facility] at [facility] [address] [place] [address] Phone: tel: fax: Referral ID Status Reason Start Date Expiration Date Visits Requested Visits Authorized [id number] Authorized Specialty Services Required 09/26/2023 03/27/2025 1 1 Encounter Details Date Type Department Care Team (Late Contact Info) Description 09/26/2023 [facility] [address] [place] [address] Malia Amezquita MD [address] [place] [address] Functional movement disorder (Primary Dx) Social History [...] drink first t marylou in the morning (EYE-HISTOTECHNOLOGIST) to steady your nerves or to get [...] Consult [place] [facility] [address], [address] [place] [address] Tera Carvalho MD [address] [place] [address] Scheduled Referrals Name Type Priority [...] documented as of this encounter Care Teams Material Liaison Relationship Specialty Start Date End Date Malia Amezquita MD [address] [place] [address] PCP - General 04/04/22 12/25/23 Malia Amezquita MD [address] [place] [address] PCP - General 12/26/23 Malia Amezquita MD [address] [place] [address] 12/26/23 Jakub Longoria MD [address] [place] [address] Consulting Physician Neurology 04/12/22 Cassia Mayorga LPN VALUE[employer] [place] [address] TCM Nurse 01/29/24 02/28/24 documented as of this encounter
--- OUTSIDE RECORDS SUMMARY | 2024-09-08 15:24 | XMS_ITS | Encounter Summary ---
Author Organization [facility] Address [address] [place] [address] Care Team Providers Care Fur Trapper Name Role Phone Malia Amezquita MD Primary Care Provider Malia Amezquita MD Unavailable [phone] Jakub Longoria MD Unavailable Encounter Details Date Type Department Care Team (Late st Contact Info) Description 07/14/2024 Refill [place] [facility] [address] [place] [address] Loco Pelaez, PharmD [address] [place] [address] Nicotine dependence, uncomplicated, unspecified nicotine [...] drink first t marylou in the morning (EYE-CLEAN RICE BROKER) to steady your nerves or to get [...] Consult [place] [facility] [address], [address] [place] [address] Tera Carvalho MD [address] [facility] [address] [place] [address] documented as of this encounter Visit Diagnoses [...] documented as of this encounter Care Teams Fur Trapper Relationship Specialty Start Date End Date Malia Amezquita MD [address] [place] [address] PCP - General 12/26/23 Malia Amezquita MD [address] [place] [address] 12/26/23 Jakub Longoira MD [address] [facility] [address] [place] [address] Consulting Physician Neurology 04/12/22 documented as of this encounter
--- OUTSIDE RECORDS SUMMARY | 2024-09-08 15:24 | XMS_ITS | Clinical Summary ---
Author Organization [facility] Address [address] [place] [address] Care Team Providers Care Construction Management Assistant Name Role Phone Malia Amezquita MD Primary Care Provider [phone] Malia Amezquita MD Unavailable [phone] Jakub Longoria MD Unavailable Allergies Active [...] Type Department Care Team Description 07/14/2024 Refill [facility] Medicine Specialties [address], [address] [place] [address] Loco Pelaez, PharmD Nicotine dependence, uncomplicated, unspecified nicotine product type (Primary Dx) 07/14/2024 Telephone [facility] Medicine Specialties [address], [address] [place] [address] Sonia Powell RN 07/09/2024 3:00 PM EDT Office Visit [facility] Medicine Specialties [address], [address] [place] [address] Beatriz Rivera MD Physical debility [...] drink first t marylou in the morning (EYE-CHRISTIAN EDUCATION DIRECTOR) to steady your nerves or to [...] Consult [place] [facility] [address], [address] [place] [address] Tera Carvalho MD [address] [place] [address] Health Maintenance Due Date Last Done Comments [facility]-Depression Screening 1963 [facility]-/Child/Adol SDOH Screenings 1965 [facility]- SDOH Screenings 1981 [facility]-Adult SDOH Screenings 1981 CT Colonography 01/12/2008 FIT-DNA 01/12/2008 FIT 01/12/2008 FOBT 01/12/2008 Sigmoidoscopy 01/12/2008 [id number] Vaccine ( season) 2023 12/24/2021, 07/02/2021, 01/29/2021, [...] HIV 1/2 Differentiation (01/25/2024 8:32 PM EDT) [facility] HIV 1 & 2 Antibody/Antigen Screen Non Reactive Non Reactive 01/25/2024 10:07 PM EDT [facility] Comment:Screening for HIV 1 & 2 antibodies, and P24 antigen is NONREACTIVE. No confirmatory testing is required. Blood Venous blood specimen / Unknown Venipuncture / Unknown 01/25/2024 8:32 PM EDT 01/25/2024 9:05 PM EDT us Bárbara Rios MD LAB BLOOD [place]ABLES [place] [address] * Hepatitis C Antibody - ED (01/25/2024 8:32 PM EDT) [facility] Hepatitis C Antibody Negative Negative 01/25/2024 10:08 PM EDT [facility] Blood Venous blood specimen / Unknown Venipuncture / Unknown 01/25/2024 8:32 PM EDT 01/25/2024 9:05 PM EDT us Bárbara Rios MD LAB BLOOD ORDERABLES [place] [address] * CT Angio Pulmonary Embolism (01/25/2024 8:16 [...] Most Recently Relevant to Health Maintenance Insurance [facility] MEDICAID Care Teams Construction Management Assistant Relationship Specialty Start Date End Date Malia Amezquita MD [address] [place] [address] PCP - General 12/26/23 Malia Amezquita MD [address] [place] [address] 12/26/23 Jakub Longoria MD [address] [place] [address] Consulting Physician Neurology 04/12/22
--- OUTSIDE RECORDS SUMMARY | 2024-09-08 15:25 | XMS_ITS | Encounter Summary ---
Author Organization Address [address] [place] [address] Care Team Providers Care Milk Pickup Driver Name Role Phone Malia Amezquita MD Primary Care Provider [phone] Malia Amezquita MD Unavailable [phone] Jakub Longoria MD Unavailable Encounter Details Date Type Department Care Team (Late st Contact Info) Description 07/14/2024 Telephone [facility] [address] [place] [address] Sonia Powell RN CH-VASCULAR & [...] drink first t marylou in the morning (EYE-FOREST RESOURCES PROFESSOR) to steady your nerves or to get [...] Consult [place] [facility] [address], [address] [place] [address] Tera Carvalho MD [address] [place] [address] documented as of this encounter Visit Diagnoses Not on filedocumented in this encounter Additional Health Concerns Assessment Noted Time A fall risk assessment has been complete d for the patient 07/09/2024 3:17 PM EDT A Body Mass Index follow-up plan has been documented for the patient 07/14/2024 12:21 PM EDT documented as of this encounter Care Teams Milk Pickup Driver Relationship Specialty Start Date End Date Malia Amezquita MD [address] [place] [address] PCP - General 12/26/23 Malia Amezquita MD [address] [place] [address] 12/26/23 Jakub Longoria MD [address] [place] [address] Consulting Physician Neurology 04/12/22 documented as of this encounter
--- OUTSIDE RECORDS SUMMARY | 2024-09-08 15:25 | XMS_ITS | Encounter Summary ---
Author Organization [facility] Address [address] [place] [address] Care Team Providers Care Side Stitcher Name Role Phone Pcp, No Primary Care Provider Unavailabl e Malia Amezquita MD Primary Care Provider [phone] Malia Amezquita MD Primary Care Provider [phone] Malia Amezquita MD Unavailable [phone] Jakub Longoria MD Unavailable Cassia Mayorga LPN Unavailable Unavailable Encounter Details Date Type Department Care Team (Late st Contact Info) Description 01/20/2022 Orders Only External Location [address] [place] [address] Provider, External Social History Tobacco Use Types [...] Info) Description 11/04/2024 4:00 PM EDT Consult [place] [facility] [address] [place] [address] Tera Carvalho MD [address] [place] [address] documented as of this encounter [...] documented as of this encounter Care Teams Side Stitcher Relationship Specialty Start Date End Date Pcp, No [address] [place] [address] PCP - General Family Medicine 02/11/22 04/03/22 Malia Amezquita MD [address] [place] [address] PCP - General 04/04/22 12/25/23 Malia Amezquita MD [address] [place] [address] PCP - General 12/26/23 Malia Amezquita MD [address] [place] [address] 12/26/23 Jakub Longoria MD [address] [place] [address] Consulting Physician Neurology 04/12/22 Cassia Mayorga LPN [employer] [address] TCM Nurse 01/29/24 02/28/24 documented as of this encounter
[2024-09-08 15:33] VITALS: BMI 24.5
[2024-09-08 15:55] LABS: Basophils # 0.1 K/mm3 (0-0.2); Basophils % 0.9 % (0.1-2.0); Eosinophils # 0.8 Kmm3 (0.0-0.4); Eosinophils % 9.3 % (0.1-12.0); Hematocrit 35.3 % (42.0-52.0); Hemoglobin 11.5 g/dL (14.1-18.0); Immature Granulocytes # 0.02 10^3uL; Immature Granulocytes % 0.2 %; Lymphocytes # 1.8 K/mm3 (0.7-4.5); Lymphocytes % 21.6 % (10-50); Mean Corpuscular HGB Conc 32.6 g/dL (31.8-35.4); Mean Corpuscular Hemoglobin 26.7 pg (27.0-31.2); Mean Corpuscular Volume 81.9 fl (80-94); Mean Platelet Volume 8.8 fl (7.4-10.4); Monocytes # 0.7 K/mm3 (0.1-1.0); Monocytes % 8.8 % (1.7-9.3); Neutrophils # 4.8 K/mm3 (1.8-7.8); Neutrophils % 59.2 % (37.0-80.0); Nucleated Red Blood Cells # 0 10^3/uL; Nucleated Red Blood Cells % 0 %; Platelet Count 164 K/mm3 (142-424); Red Blood Count 4.31 M/mm3 (4.60-6.20); Red Cell Distribution Width-SD 50.5 fL; White Blood Count 8.2 K/mm3 (4.8-10.8)
[2024-09-08 16:04] LABS: Albumin Level 3.8 g/dl (3.5-5.0); Chloride 102 mmol/L (98-107); Potassium 3.3 mmoL/L (3.5-5.1); Sodium 134 mmol/L (136-145)
[2024-09-08 16:07] LABS: Alanine Aminotransferase 16 U/L (12-78); Albumin/Globulin Ratio 1.2 (1.1-1.8); Alkaline Phosphatase 90 U/L (38-126); Anion Gap 7.3 mEq/L (5-15); Aspartate Amino Transferase 24 U/L (17-59); Bilirubin,Total 0.2 mg/dl (0.2-1.3); Blood Urea Nitrogen 7 mg/dl (9-20); Carbon Dioxide 28 mmol/L (22.0-30.0); Creatine Kinase 50 U/L (55-170); Creatinine Clearance Estimated 83 mL/min (50-200); Estimated Glomerular Filt Rate 137 ml/min (>60); GFR (African American) 166 ML/MIN (>60); Globulin 3.3 g/dL (1.3-3.2); Total Protein,Serum 7.1 g/dl (6.3-8.2)
[2024-09-08 16:08] LABS: Calcium 9.6 mg/dl (8.4-10.2); Glucose 138 mg/dl (74-100)
[2024-09-08 16:13] LABS: C-Reactive Protein 16.4 mg/L (0-4)
[2024-09-08 16:32] LABS: Erythrocyte Sedimentation Rate 48 mm/hr (0-20)
== END 2024-09-08 16:05 | disposition home or self-care (01) ==
LOC: INF 15:22
PROVIDERS: PCP Family Medicine; Visit Provider Internal Medicine Infectious Disease
DX: M46.36 Infection of intervertebral disc (pyogenic), lumbar region (principal)
CPT/HCPCS: 36592; 80053; 82550; 85025; 85651; 86140; 96523

== ENCOUNTER 2024-09-15 15:30 | Outpatient (CLI) | payer OTHER, SELFPAY ==
--- OUTSIDE RECORDS SUMMARY | 2024-08-20 11:49 | XMS_ITS ---
Author Organization [facility] Address [address] [place] [address] Phone Care Team Providers Care Unit Aid Name Role Phone Denisa LEMON, Pola Clark Unavailable [phone] [ ] Conditions or Problems No information available. Medications No information available. Medications Administered No information available. Allergies, Adverse Reactions, Alerts No information available. Results Date Name Value Unit Range Flag Description Office Visit: Office Visit:r simon 7 [facility] MEDS REVIEW Done Documenta tion of current medications (procedure) SEXUAL ACTIV yes Have you ever had vaginal intercourse [PhenX] SMOK STATUS Current every da y smoker Tobacco smoking status Plan of Care Type Date Detail Appointment 08:45 AM Pola Trotter se, MD, [facility], [address], [place], [address], Procedures Code Procedure Name Date Entry Date [...] Directives Directive Description Start Date POWER OF DATABASE CONSULTANT
--- OUTSIDE RECORDS SUMMARY | 2024-08-27 10:12 | XMS_ITS ---
Author Organization [facility] Address [address] [place] [address] [place] [address] Phone Care Team Providers Care Intelligence Specialist Name Role Phone Denisa LEMON, Pola Clark [...] Appointment 08:45 AM Pola Trotter se, MD, [address] [place] [address], [address], [place], [address], Pending order Continue IV anti biotics Pending [...] Removal CPT-wpc Weekly PICC Line Care 08/27 CPT-18240 PICC Line Insertion CPT-61160 CMP CPT-35886 CBC w/o Differential CPT-41047 C- reactive protein [id number], [id number] CPK CPT-36399 Sedimentation Rate (ESR) 202 07/30/03 Vital Signs [...]
--- OUTSIDE RECORDS SUMMARY | 2024-09-02 11:21 | XMS_ITS ---
Author Organization [facility] Address [address] [place] [address] Phone Care Team Providers Care Cupola Tapper Name Role Phone Pola Crawley MD [ ] Conditions or Problems No information available. Medications Medication Instructions Start Date Stop Date Generic Name NDC Provider ONDANSETRON [address] 1 tablet by mouth every six hours as needed ondansetron 10609700175 [facility] ASCORBIC ACID 500 MG TABS Take 1 tablet by mouth once a day ascorbic acid (vitamin c) 44008627946 [facility] Atogepant 60 MG tablet Take 1 tablet by mouth once a day Atogepant 60 MG tablet [facility] METHOCARBAMOL 750 MG TABS Take 1 tablet by mouth three times a day as needed methocarbamol 76337372544 [facility] ESCITALOPRAM OXALATE 20 MG TABS Take 1 tablet by mouth once a day escitalopram oxalate 09128814787 [facility] GABAPENTIN 600 MG TABS Take 1 tablet by mouth three times a day gabapentin 24998783283 [facility] ALBUTEROL SULFATE HFA 108 (90 Base) MCG/ACT AERS Inhale 2 puff every four hours as needed albuterol sulfate 82880785790 [facility] LORATADINE 10 MG TABS Take 1 tablet by mouth once a day as needed loratadine 58771027415 [facility] PROMETHAZINE HCL 12.5 MG TABS Take 1 tablet by mouth every six hours as needed promethazine 15483409265 [facility] EPINEPHRINE 0.3 MG/0.3ML SOAJ Inject 0.3 ml intramuscularly as directed epinephrine 07432134548 [facility] NICOTINE STEP 1 21 MG/24HR PT24 Place 1 patch to skin as directed nicotine [id number] [facility] PRIMIDONE 50 MG TABS Take 1 tablet by mouth twice a day primidone 21942726233 [facility] ASPIRIN EC (ASPIRIN) 81 MG TBEC Take 1 tablet by mouth once a day ASPIRIN [facility] FERROUS SULFATE 324 (65 Fe) MG TBEC Take 1 tablet by mouth every morning ferrous sulfate 58497552297 [facility] POTASSIUM CHLORIDE VIVIEN ER 10 MEQ CR-TABS Take 1 tablet by mouth once a day potassium chloride 03524577918 [facility] ATORVASTATIN CALCIUM 80 MG TABS Take 1 tablet by mouth once a day On Hold atorvastatin 28511824079 [facility] MAGNESIUM OXIDE 400 MG TABS Take 1 tablet by mouth once a day magnesium oxide 09334409588 [facility] ALPRAZOLAM 0.5 MG TABS Take 0.5 tablet by mouth twice a day as needed alprazolam 23741708591 [facility] GUAIFENESIN ER 1200 MG [id number] Take 1 tablet by mouth twice a day as needed guaifenesin 73363073320 [facility] BACLOFEN 20 MG TABS Take 1 tablet by mouth three times a day baclofen 37659285177 [facility] FUROSEMIDE 20 MG TABS Take 1 tablet by mouth once a day furosemide 13075123452 [facility] WARFARIN SODIUM 2 MG TABS warfarin [id number] [facility] Medications Administered No information available. Allergies, Adverse Reactions, Alerts No information available. Results Date Name Value Unit Range Flag Description Office Visit: Office Visit: Room 6 SEXUAL ACTIV yes Have you ever had vaginal intercourse [PhenX] SMOK STATUS Current every da y smoker Tobacco smoking status MEDS REVIEW Done Documenta tion of current medications (procedure) Plan of Care Type Date Detail Appointment 08:45 AM Pola Trotter se, MD, [address], [address], [place], [address], Pending order Continue IV anti biotics Pending order Weekly PICC Line Care Pending order Weekly Labs (Con tinue) Pending order CMP Pending order CBC w/o Differen tial Pending order C- reactive prot ein Pending order Sedimentation Ra te (ESR) Procedures Code Procedure Name Date Entry Date G2 Complex E&M visit add-on (G2) CPT-ca Continue IV antibiotics 2024 CPT-wpc Weekly PICC Line Care 09/02 CPT-cwl Weekly Labs (Continue) 09/02 CPT-85718 CMP CPT-92308 CBC w/o Differential CPT-21789 C- reactive protein CPT-40148 Sedimentation Rate (ESR) 07/29/09 Vital Signs Date Name Value Unit Description BMI (Body Mass Index) 23.63 kg/m2 Bod y Mass Index (Ratio) Body Temperature 98 [degF] temperat ure E&M BP Diastolic 70 mm[Hg] blood pressu re, diastolic BP Systolic 124 mm[Hg] blood pressur e, systolic Heart Rate 86 /min pulse rate Height 69 [in_us] height E&M Respiratory Rate 16 /min respirat ory rate E&M Weight Measured 160 [lb_av] weight E& M Weight Measured 160 [lb_av] weight E& M Immunizations No information available. Advance Directives No information available.
--- OUTSIDE RECORDS SUMMARY | 2024-09-12 10:40 | XMS_ITS ---
Author Organization [facility] Address [address] [place] [address] [place] [address] Phone Care Team Providers Care Industrial Roofer Name Role Phone Denisa LEMON, Pola Clark Unavailable [phone] [ ] Conditions or Problems No [...] Appointment 08:45 AM Pola Trotter se, MD, [facility], [address], [place], [address], Pending order Continue IV anti biotics Pending [...]
[2024-09-15 15:33] VITALS: BMI 24.5
--- OUTSIDE RECORDS SUMMARY | 2024-09-15 15:33 | XMS_ITS | Clinical Summary ---
Author Organization [facility] Address [address] [place] [place] [address] Care Team Providers Care Entertainment Musician Name Role Phone Malia Amezquita MD Primary Care Provider [phone] Malia Amezquita MD Unavailable [phone] Jakub Longoria MD Unavailable Allergies Active [...] Type Department Care Team Description 07/14/2024 Refill [facility] [address] [place] [address] Loco Pelaez, PharmD Nicotine dependence, uncomplicated, unspecified nicotine product type (Primary Dx) 07/14/2024 Telephone [facility] [address], [address] [place] [address] Sonia Powell RN 07/09/2024 3:00 PM EDT Office Visit [facility] [address], [address] [place] [address] Beatriz Rivera MD Physical debility [...] drink first t marylou in the morning (EYE-AUTO BODY WORKER) to steady your nerves or to get [...] Consult [place] [facility] [address], [address] [place] [address] Tera Carvalho MD [address] [place] [address] Health Maintenance Due Date Last Done Comments [facility]-Depression Screening 1963 [facility]-/Child/Adol SDOH Screenings 1963 [facility]- SDOH Screenings 1981 [facility]-Adult SDOH Screenings [address] CT Colonography 01/12/2008 FIT-DNA 01/12/2008 FIT 01/12/2008 FOBT 01/12/2008 Sigmoidoscopy 01/12/2008 [id number] Vaccine ( season) 2023 12/24/2021, 07/02/2021, 01/29/2021, [...] HIV 1/2 Differentiation (01/25/2024 8:32 PM EDT) [facility] HIV 1 & 2 Antibody/Antigen Screen Non Reactive Non Reactive 01/25/2024 10:07 PM EDT [facility] Comment:Screening for HIV 1 & 2 antibodies, and P24 antigen is NONREACTIVE. No confirmatory testing is required. Blood Venous blood specimen / Unknown Venipuncture / Unknown 01/25/2024 8:32 PM EDT 01/25/2024 9:05 PM EDT us Bárbara Rios MD LAB [place] [address] * Hepatitis C Antibody - ED (01/25/2024 8:32 PM EDT) [facility] Hepatitis C Antibody Negative Negative 01/25/2024 10:08 PM EDT [facility] Blood Venous blood specimen / Unknown Venipuncture / Unknown 01/25/2024 8:32 PM EDT 01/25/2024 9:05 PM EDT us Bárbara Rios MD LAB [place] [address] * CT Angio Pulmonary Embolism (01/25/2024 8:16 [...] Most Recently Relevant to Health Maintenance Insurance [facility] MEDICAID Care Teams Entertainment Musician Relationship Specialty Start Date End Date Malia Amezquita MD [address] [place] [address] PCP - General 12/26/23 Malia Amezquita MD [address] [place] [address] 12/26/23 Jakub Longoria MD [address] [place] [address] Consulting Physician Neurology 04/12/22
--- OUTSIDE RECORDS SUMMARY | 2024-09-15 15:33 | XMS_ITS | Encounter Summary ---
Author Organization [facility] Address [address] [place] [address] Care Team Providers Care Belt Repairer Name Role Phone Pcp, No Primary Care Provider Unavailabl e Malia Amezquita MD Primary Care Provider [phone] Malia Amezquita MD Primary Care Provider [phone] Malia Amezquita MD Unavailable [phone] Jakub Longoria MD Unavailable Cassia Mayorga LPN Unavailable Unavailable Encounter Details Date Type Department Care Team (Late st Contact Info) Description 01/20/2022 Orders Only External Location [address] [place] [address] Provider, External Social History Tobacco Use Types [...] Info) Description 11/04/2024 4:00 PM EDT Consult [place] [facility] [address] [place] [address] Tera Carvalho MD [address] [place] [address] documented as of this encounter [...] documented as of this encounter Care Teams Belt Repairer Relationship Specialty Start Date End Date Pcp, No [address] [place] [address] PCP - General Family Medicine 02/11/22 04/03/22 Malia Amezquita MD [address] [place] [address] PCP - General 04/04/22 12/25/23 Malia Amezquita MD [address] [place] [address] PCP - General 12/26/23 Malia Amezquita MD [address] [place] [address] 12/26/23 Jakub Longoria MD [address] [place] [address] Consulting Physician Neurology 04/12/22 Cassia Mayorga LPN VALUE-BASED [place] [address] TCM Nurse 01/29/24 02/28/24 documented as of this encounter
--- OUTSIDE RECORDS SUMMARY | 2024-09-15 15:33 | XMS_ITS | Clinical Summary ---
Author Organization [facility] Address [address] [place] [address] Phone Care Team Providers Care Die Sizer Name Role Phone Pola Crawley MD [ ] Conditions or Problems Problem Name Problem Code [...] region Personal history of traumatic brain injury 237844391 (SNOMED CT) 08/13 Active 08/13 Nilam Deric History of head injury Nicotine dependence, cigarettes F17.210 (ICD-10-CM ) 08/13 Active 08/13 Nilam Deric Nicotine dependence, cigarettes, uncomplicated Coronary artery disease, S/P CABG 738824598 (SNOMED CT) 08/13 Active 08/13 Nilam Deric Arteriosclerosis of coronary artery bypass graft Benign Essential Hypertension 41863922 (SNOMED CT) 08/13 Active 08/13 Nilam Deric Benign hypertension Medications Medication Instructions Start Date Stop Date Generic Name NDC Provider ONDANSETRON [address] 1 tablet by mouth every six hours as needed ondansetron [id number] [facility] ASCORBIC ACID 500 MG TABS Take 1 tablet by mouth once a day ascorbic acid (vitamin c) 81140469898 [facility] Atogepant 60 MG tablet Take 1 tablet by mouth once a day Atogepant 60 MG tablet [facility] METHOCARBAMOL 750 MG TABS Take 1 tablet by mouth three times a day as needed methocarbamol 40153663693 [facility] ESCITALOPRAM OXALATE 20 MG TABS Take 1 tablet by mouth once a day escitalopram oxalate 23994246356 [facility] GABAPENTIN 600 MG TABS Take 1 tablet by mouth three times a day gabapentin 73670277810 [facility] ALBUTEROL SULFATE HFA 108 (90 Base) MCG/ACT AERS Inhale 2 puff every four hours as needed albuterol sulfate 48097491000 [facility] LORATADINE 10 MG TABS Take 1 tablet by mouth once a day as needed loratadine 98775070024 [facility] PROMETHAZINE HCL 12.5 MG TABS Take 1 tablet by mouth every six hours as needed promethazine 58554650968 [facility] EPINEPHRINE 0.3 MG/0.3ML SOAJ Inject 0.3 ml intramuscularly as directed epinephrine 42212633453 [facility] NICOTINE STEP 1 21 MG/24HR PT24 Place 1 patch to skin as directed nicotine 77140087017 [facility] PRIMIDONE 50 MG TABS Take 1 tablet by mouth twice a day primidone 48586152037 [facility] ASPIRIN EC (ASPIRIN) 81 MG TBEC Take 1 tablet by mouth once a day ASPIRIN [facility] FERROUS SULFATE 324 (65 Fe) MG TBEC Take 1 tablet by mouth every morning ferrous sulfate 60095484794 [facility] POTASSIUM CHLORIDE VIVIEN ER 10 MEQ CR-TABS Take 1 tablet by mouth once a day potassium chloride 60095298440 [facility] ATORVASTATIN CALCIUM 80 MG TABS Take 1 tablet by mouth once a day On Hold atorvastatin 60313919744 [facility] MAGNESIUM OXIDE 400 MG TABS Take 1 tablet by mouth once a day magnesium oxide 12929684410 [facility] ALPRAZOLAM 0.5 MG TABS Take 0.5 tablet by mouth twice a day as needed alprazolam 33501614284 [facility] GUAIFENESIN ER 1200 MG [id number] Take 1 tablet by mouth twice a day as needed guaifenesin 41232680588 [facility] BACLOFEN 20 MG TABS Take 1 tablet by mouth three times a day baclofen 24755787323 [facility] FUROSEMIDE 20 MG TABS Take 1 tablet by mouth once a day furosemide 46441876595 [facility] WARFARIN SODIUM 2 MG TABS warfarin 69395331436 [facility] daptomycin 600mg Q 24hrs x 6wks [facility] Outpt daptomycin [facility] PROMETHAZINE HCL 12.5 MG TABS Take 1 tablet by mouth Every 6 (Six) Hours As Needed for Nausea or Vomiting. 09/02 promethazine 50349818150 [facility] PRIMIDONE 50 MG TABS Take 1 tablet by mouth 2 (Two) Times a Day. 09/02 primidone 63392708286 [facility] POTASSIUM CHLORIDE VIVIEN ER 10 MEQ CR-TABS Take 1 tablet by mouth Daily. 09/02 potassium chloride 34536275111 [facility] ONDANSETRON [address] 1 tablet on the tongue Every 6 (Six) Hours As Needed for Nausea or Vomiting. 09/02 ondansetron 45687711977 [facility] NICOTINE STEP 1 21 MG/24HR PT24 Place 1 patch on the skin as directed by provider. 09/02 nicotine 38779778550 [facility] METHOCARBAMOL 750 MG TABS Take 1 tablet by mouth 3 (Three) Times a Day As Needed for Muscle Spasms. 0 09/02 methocarbamol 92559754060 [facility] MAGNESIUM OXIDE 400 MG TABS Take 1 tablet by mouth Daily. 09/02 magnesium oxide 93381967834 [facility] LORATADINE 10 MG TABS Take 1 tablet by mouth Daily As Needed for Allergies. 09/02 loratadine 07989844054 [facility] GUAIFENESIN ER 1200 MG [id number]-VNM Take 1 tablet by mouth 2 (Two) Times a Day As Needed (COUGH / CONGESTION). 09/02 guaifenesin 51142614650 [facility] GABAPENTIN 600 MG TABS Take 1 tablet by mouth 3 (Three) Times a Day. 09/02 gabapentin 59420286799 [facility] FUROSEMIDE 20 MG TABS Take 1 tablet by mouth Daily. Indications: Edema 09/02 furosemide 99323389888 [facility] FERROUS SULFATE 324 (65 Fe) MG TBEC Take 1 tablet by mouth Daily With Breakfast. 09/05 ferrous sulfate 21811178498 [facility] ESCITALOPRAM OXALATE 20 MG TABS Take 1 tablet by mouth Daily. 09/02 escitalopram oxalate 09043193019 [facility] EPINEPHRINE 0.3 MG/0.3ML SOAJ Inject 0.3 mL into the appropriate muscle as directed by prescriber. 09/05 epinephrine 44576786830 [facility] BACLOFEN 20 MG TABS TAKE ONE TABLET BY MOUTH THREE TIMES A DAY 09/02 baclofen 39954291374 [facility] ATORVASTATIN CALCIUM 80 MG TABS Take 1 tablet by mouth Daily. Indications: Cerebrovascular Accident or Stroke, High Amount of Fats in the Blood 09/02 atorvastatin 27625486010 [facility] Atogepant 60 MG tablet Take 1 tablet by mouth Daily. Indications: Migraine Headache 09/02 Atogepant 60 MG tablet [facility] ASPIRIN EC (ASPIRIN) 81 MG TBEC Take 1 tablet by mouth Daily. Indications: Disease involving Lipid Deposits in the Arteries 09/02 ASPIRIN [facility] ASCORBIC ACID 500 MG TABS Take 1 tablet by mouth Daily. 09/02 ascorbic acid (vitamin c) 35500042464 [facility] ALPRAZOLAM 0.5 MG TABS Take 0.5 tablets by mouth 2 (Two) Times a Day As Needed for Anxiety. Indications: Feeling Anxious 09/02 alprazolam 93565087638 [facility] ALBUTEROL SULFATE HFA 108 (90 Base) MCG/ACT AERS Inhale 2 puffs Every 4 (Four) Hours As Needed for Wheezing or Shortness of Air. 09/02 albuterol sulfate 78221598253 [facility] Medications Administered No information available. Allergies, Adverse Reactions, Alerts Allergy Name Reaction Description Start Date Severity Statu s Provider BEE VENOM Anaphylaxis Critical Active Desirae miranda Results Date Name Value Unit Range Flag Description Clinical Lists Update: Prelo ad VAPE_USE Never Tobacco smok ing status Chart Maintenance: Updated H H labs 09/08/24 CRP 16.4 mg/dL C reactive pr otein [Mass/volume] in Serum or Plasma CPK 50 U/L Creatine brandon se [Enzymatic activity/volume] in Serum or Plasma BILI TOTAL 0.2 mg/dL Bilirubin. total [Mass/volume] in Serum or Plasma ALK PHOS 90 U/L Alkaline mike sphatase [Enzymatic activity/volume] in Blood SGPT (ALT) 16 U/L Alanine aminotransferase [Enzymatic activity/volume] in Serum or Plasma SGOT (AST) 24 U/L Aspartate aminotransferase [Enzymatic activity/volume] in Serum or Plasma CALCIUM 9.6 mg/dL Calcium [Mole s/volume] in Serum or Plasma POTASSIUM 3.3 mmol/L Potassium [Moles/volume] in Serum or Plasma SODIUM 134 mmol/L Sodium [Moles /volume] in Serum or Plasma CREATININE 0.60 mg/dL Creatinine [Mass/volume] in Serum or Plasma BUN 7 mg/dL Urea nitrogen [Mass/volume] in Serum or Plasma GLUCOSE SER 138 mg/dL Glucose [ Mass/volume] in Serum or Plasma ESR 48 mm/h Erythrocyte sedimentation rate by Westergren method LYMPHS % 21.6 % Lymphocytes/ 100 leukocytes in Blood by Automated count PMN % 59.2 % Neutrophils/1 00 leukocytes in Blood by Automated count PLATELETS 164 10*3/mm3 Platelets [#/volume] in Blood by Automated count HCT 35.3 % Hematocrit [V olume Fraction] of Blood by Automated count HGB 11.5 g/dL Hemoglobin [Mass/volume] in Blood RBC 4.31 10*6/mm3 Erythrocytes [#/volume] in Blood by Automated count WBC 8.2 10*3/mm3 Leukocytes [ #/volume] in Blood by Automated count Office Visit: Office Visit: 6 SEXUAL ACTIV yes Have you ever had vaginal intercourse [PhenX] SMOK STATUS Current every day smoker Tobacco smoking status MEDS REVIEW Done Documenta tion of current medications (procedure) Plan of Care Type Date Detail Appointment 08:45 AM Pola Trotter se, MD, [facility], [facility] [address], [place], [address], Pending order Continue IV anti biotics Pending order Weekly PICC Line Care Pending order Weekly Labs (Con tinue) Pending order CMP Pending order CBC w/o Differen tial Pending order CPK Pending order Sedimentation Ra te (ESR) Pending order C- reactive prot ein Pending order Continue IV anti biotics Pending [...] Date G2 Complex E&M visit add-on (G221) CPT-ca Continue IV antibiotics 2024 CPT-wpc Weekly PICC Line Care 09/02 CPT-cwl Weekly Labs (Continue) 09/02 CPT-45186 CMP CPT-36732 CBC w/o Differential CPT-36286 C- reactive protein CPT-64461 Sedimentation Rate (ESR) 07/29/09 G2211 Complex E&M visit add-on (G221) CPT-ca Continue IV antibiotics 2024 CPT-PICREM PICC Removal CPT-wpc Weekly PICC Line Care 0 08/27 CPT-51770 PICC Line Insertion CPT-12934 CMP CPT-33523 CBC w/o Differential CPT-42866 C- reactive protein [id number], [id number] CPK CPT-95588 Sedimentation Rate (ESR) 202 07/30/03 CPT-93972 CMP CPT-19511 CBC w/o Differential [id number], [id number] CPK CPT-58464 Sedimentation Rate (ESR) 07/29/27 G2211 Complex E&M visit add-on (G2211) CPT-sl STAT Labs CPT-J0878 Daptomycin CPT-wpc Weekly [...] Directives Directive Description Start Date POWER OF STRANDING MACHINE OPERATOR HELPER
--- OUTSIDE RECORDS SUMMARY | 2024-09-15 15:33 | XMS_ITS | Encounter Summary ---
Author Organization [facility] Address [address] [place] [address] Care Team Providers Care Sub Prior Name Role Phone Pcp, No Primary Care Provider Unavailabl e Malia Amezquita MD Primary Care Provider [phone] Malia Amezquita MD Primary Care Provider [phone] Malia Amezquita MD Unavailable Jakub Longoria MD Unavailable Cassia Mayorga LPN Unavailable Unavailable Reason for Referral * Consultation (Routine) - Closed Specialty Diagnoses / Procedures Referred By Contac t Referred To Contact Neurology Diagnoses Weakness Sean Silva MD [address] [place] [address] Phone: tel: fax: Referral ID Status Reason Start Date Expiration Date V isits Requested Visits Authorized [id number] Closed Specialty Services Required 03/08/2022 09/07/2023 1 1 Encounter Details Date Type Department Care Team (Late st Contact Info) Description 03/08/2022 Community [facility] [address] [place] [address] Sean Silva MD [address] [place] [address] Weakness (Primary Dx) Social History Tobacco Use [...] drink first t marylou in the morning (EYE-MOVIE THEATER USHER) to steady your nerves or to get [...] Info) Description 11/04/2024 4:00 PM EDT Consult [place] [facility] [address] [place] [address] Tera Carvalho MD [address] [place] [address] Scheduled Referrals Name Type Priority [...] documented as of this encounter Care Teams Sub Prior Relationship Specialty Start Date End Date Pcp, No [address] [place] [address] PCP - General Family Medicine 02/11/22 04/03/22 Malia Amezquita MD [address] [place] [address] PCP - General 04/04/22 12/25/23 Malia Amezquita MD [address] [place] [address] PCP - General 12/26/23 Malia Amezquita MD [address] [place] [address] 12/26/23 Jakub Longoria MD [address] [place] [address] Consulting Physician Neurology 04/12/22 Cassia Mayorga LPN VALUE[employer]ED [place] [address] TCM Nurse 01/29/24 02/28/24 documented as of this encounter
--- OUTSIDE RECORDS SUMMARY | 2024-09-15 15:33 | XMS_ITS | Encounter Summary ---
Author Organization [facility] Address [address] [place] [address] Care Team Providers Care Basic Sciences Dean Name Role Phone Malia Amezquita MD Primary Care Provider [phone] Malia Amezquita MD Primary Care Provider [phone] Malia Amezquita MD Unavailable [phone] Jakub Longoria MD Unavailable Cassia Mayorga LPN Unavailable Unavailable Reason for Referral * Consultation (Routine) - Authorized Specialty Diagnoses / Procedures Referred By Contact Referred To Contact Physical Medicine and Rehabilitation Diagnoses Functional movement disorder Malia Amezquita MD [address] [place] [address] Phone: tel:[phone] fax:[phone] [facility] [address] [place] [address] Phone: tel: fax: Referral ID Status Reason Start Date Expiration Date Visits Requested Visits Authorized [id number] Authorized Specialty Services Required 09/26/2023 03/27/2025 1 1 Encounter Details Date Type Department Care Team (Late Contact Info) Description 09/26/2023 Community [facility] [address] [place] [address] Malia Amezquita MD [address] [place] [address] Functional movement disorder (Primary Dx) Social History [...] drink first t marylou in the morning (EYE-CLINIC LICENSED PRACTICAL NURSE) to steady your nerves or to get [...] Consult [place] [facility] [address] [place] [address] Tera Carvalho MD [address] [place] [address] Scheduled Referrals Name Type Priority [...] documented as of this encounter Care Teams Basic Sciences Dean Relationship Specialty Start Date End Date Malia Amezquita MD [address] [place] [address] PCP - General 04/04/22 12/25/23 Malia Amezquita MD [address] [place] [address] PCP - General 12/26/23 Malia Amezquita MD [address] [place] [address] 12/26/23 Jakub Longoria MD [address] [place] [address] Consulting Physician Neurology 04/12/22 Cassia Mayorga LPN VALUE[employer] [place] [address] TCM Nurse 01/29/24 02/28/24 documented as of this encounter
[2024-09-15 15:42] LABS: Basophils # 0.1 K/mm3 (0-0.2); Basophils % 0.7 % (0.1-2.0); Eosinophils # 0.7 Kmm3 (0.0-0.4); Eosinophils % 7.6 % (0.1-12.0); Hematocrit 35.5 % (42.0-52.0); Hemoglobin 11.5 g/dL (14.1-18.0); Immature Granulocytes # 0.04 10^3uL; Immature Granulocytes % 0.4 %; Lymphocytes # 2.4 K/mm3 (0.7-4.5); Lymphocytes % 25.4 % (10-50); Mean Corpuscular HGB Conc 32.4 g/dL (31.8-35.4); Mean Corpuscular Hemoglobin 26.4 pg (27.0-31.2); Mean Corpuscular Volume 81.4 fl (80-94); Mean Platelet Volume 8.9 fl (7.4-10.4); Monocytes # 0.7 K/mm3 (0.1-1.0); Monocytes % 7.7 % (1.7-9.3); Neutrophils # 5.5 K/mm3 (1.8-7.8); Neutrophils % 58.2 % (37.0-80.0); Nucleated Red Blood Cells # 0 10^3/uL; Nucleated Red Blood Cells % 0 %; Platelet Count 210 K/mm3 (142-424); Red Blood Count 4.36 M/mm3 (4.60-6.20); Red Cell Distribution Width 16.5 % (11.5-17.5); Red Cell Distribution Width-SD 49.2 fL; White Blood Count 9.4 K/mm3 (4.8-10.8)
[2024-09-15 15:50] LABS: Chloride 98 mmol/L (98-107)
[2024-09-15 15:51] LABS: Albumin Level 3.8 g/dl (3.5-5.0); Potassium 3.5 mmoL/L (3.5-5.1); Sodium 134 mmol/L (136-145)
[2024-09-15 15:53] LABS: Alanine Aminotransferase 15 U/L (12-78); Anion Gap 9.5 mEq/L (5-15); Aspartate Amino Transferase 27 U/L (17-59); Blood Urea Nitrogen 6 mg/dl (9-20); Carbon Dioxide 30 mmol/L (22.0-30.0); Creatine Kinase 41 U/L (55-170); Creatinine Clearance Estimated 83 mL/min (50-200); Estimated Glomerular Filt Rate 169 ml/min (>60); GFR (African American) 205 ML/MIN (>60)
[2024-09-15 15:54] LABS: Albumin/Globulin Ratio 1.1 (1.1-1.8); Alkaline Phosphatase 87 U/L (38-126); Calcium 9.2 mg/dl (8.4-10.2); Globulin 3.5 g/dL (1.3-3.2); Glucose 115 mg/dl (74-100); Total Protein,Serum 7.3 g/dl (6.3-8.2)
[2024-09-15 15:55] LABS: Bilirubin,Total < 0.1 mg/dl (0.2-1.3)
[2024-09-15 15:59] LABS: C-Reactive Protein 5.9 mg/L (0-4)
[2024-09-15 17:04] LABS: Erythrocyte Sedimentation Rate 74 mm/hr (0-20)
== END 2024-09-15 16:12 | disposition home or self-care (01) ==
LOC: INF 15:31
PROVIDERS: PCP Internal Medicine Infectious Disease; Visit Provider Internal Medicine Infectious Disease
DX: M46.36 Infection of intervertebral disc (pyogenic), lumbar region (principal)
CPT/HCPCS: 36592; 80053; 82550; 85025; 85651; 86140; 96523

== ENCOUNTER 2024-09-22 11:40 | Outpatient (CLI) | payer OTHER, SELFPAY ==
--- OUTSIDE RECORDS SUMMARY | 2024-08-20 11:49 | XMS_ITS ---
Author Organization [facility] Address [address] [place] [address] Phone Care Team Providers Care Pad Making Machine Operator Name Role Phone Denisa LEMON, Pola Clark Unavailable [ ] Conditions or Problems No information available. Medications No information available. Medications Administered No information available. Allergies, Adverse Reactions, Alerts No information available. Results Date Name Value Unit Range Flag Description Office Visit: Office Visit:r simon 7 [facility] MEDS REVIEW Done Documenta tion of current medications (procedure) SEXUAL ACTIV yes Have you ever had vaginal intercourse [PhenX] SMOK STATUS Current every da y smoker Tobacco smoking status Plan of Care Type Date Detail Appointment 10:00 AM Pola Trotter se, MD, [facility], [address], [place], [address], Procedures Code Procedure Name Date Entry Date [...] Directives Directive Description Start Date POWER OF VP RESEARCH
--- OUTSIDE RECORDS SUMMARY | 2024-08-27 10:12 | XMS_ITS ---
Author Organization [facility] Address [address] [place] [address] [place] [address] Phone Care Team Providers Care Vine Pruner Name Role Phone Denisa LEMON, Pola Clark Unavailable [phone] [ ] Conditions or Problems No [...] Appointment 10:00 AM Pola Trotter se, MD, [address] [place] [address], [address], [place], [address], Pending order Continue IV anti biotics Pending [...] Removal CPT-wpc Weekly PICC Line Care 08/27 CPT-47847 PICC Line Insertion CPT-29914 CMP CPT-51182 CBC w/o Differential CPT-05990 C- reactive protein [id number], [id number] CPK CPT-58958 Sedimentation Rate (ESR) 202 07/30/03 Vital Signs [...]
--- OUTSIDE RECORDS SUMMARY | 2024-09-02 11:21 | XMS_ITS ---
Author Organization [facility] Address [address] [place] [address] Phone Care Team Providers Care Assistant Men'S Soccer Coach Name Role Phone Pola Crawley MD [phone] [ ] Conditions or Problems No information available. Medications Medication Instructions Start Date Stop Date Generic Name NDC Provider ONDANSETRON [address] 1 tablet by mouth every six hours as needed ondansetron [id number] [facility] ASCORBIC ACID 500 MG TABS Take 1 tablet by mouth once a day ascorbic acid (vitamin c) 76142498196 [facility] Atogepant 60 MG tablet Take 1 tablet by mouth once a day Atogepant 60 MG tablet [facility] METHOCARBAMOL 750 MG TABS Take 1 tablet by mouth three times a day as needed methocarbamol 05545504186 [facility] ESCITALOPRAM OXALATE 20 MG TABS Take 1 tablet by mouth once a day escitalopram oxalate 39160917877 [facility] GABAPENTIN 600 MG TABS Take 1 tablet by mouth three times a day gabapentin 19410946482 [facility] ALBUTEROL SULFATE HFA 108 (90 Base) MCG/ACT AERS Inhale 2 puff every four hours as needed albuterol sulfate 35849624559 [facility] LORATADINE 10 MG TABS Take 1 tablet by mouth once a day as needed loratadine 01443006600 [facility] PROMETHAZINE HCL 12.5 MG TABS Take 1 tablet by mouth every six hours as needed promethazine 66676731087 [facility] EPINEPHRINE 0.3 MG/0.3ML SOAJ Inject 0.3 ml intramuscularly as directed epinephrine 87660759974 [facility] NICOTINE STEP 1 21 MG/24HR PT24 Place 1 patch to skin as directed nicotine 03336098170 [facility] PRIMIDONE 50 MG TABS Take 1 tablet by mouth twice a day primidone 68407454264 [facility] ASPIRIN EC (ASPIRIN) 81 MG TBEC Take 1 tablet by mouth once a day ASPIRIN [facility] FERROUS SULFATE 324 (65 Fe) MG TBEC Take 1 tablet by mouth every morning ferrous sulfate 85144308867 [facility] POTASSIUM CHLORIDE VIVIEN ER 10 MEQ CR-TABS Take 1 tablet by mouth once a day potassium chloride 02978668148 [facility] ATORVASTATIN CALCIUM 80 MG TABS Take 1 tablet by mouth once a day On Hold atorvastatin 87543435012 [facility] MAGNESIUM OXIDE 400 MG TABS Take 1 tablet by mouth once a day magnesium oxide 64713108762 [facility] ALPRAZOLAM 0.5 MG TABS Take 0.5 tablet by mouth twice a day as needed alprazolam 31122455703 [facility] GUAIFENESIN ER 1200 MG [id number] Take 1 tablet by mouth twice a day as needed guaifenesin 25704312916 [facility] BACLOFEN 20 MG TABS Take 1 tablet by mouth three times a day baclofen 83569030008 [facility] FUROSEMIDE 20 MG TABS Take 1 tablet by mouth once a day furosemide 77387296510 [facility] WARFARIN SODIUM 2 MG TABS warfarin 13283496694 [facility] Medications Administered No information available. Allergies, Adverse [...] Appointment 10:00 AM Pola Trotter se, MD, [address], [address], [place], [address], Pending order Continue IV anti biotics Pending [...] Care 09/02 CPT-cwl Weekly Labs (Continue) 09/02 CPT-07979 CMP CPT-73416 CBC w/o Differential CPT-11887 C- reactive protein CPT-28021 Sedimentation Rate (ESR) 07/29/09 Vital Signs Date [...]
--- OUTSIDE RECORDS SUMMARY | 2024-09-12 10:40 | XMS_ITS ---
Author Organization [facility] Address [address] [place] [address] [place] [address] Phone Care Team Providers Care Air Liaison And Special Staff Name Role Phone Denisa LEMON, Pola Clark [...] Appointment 10:00 AM Pola Trotter se, MD, [facility], [address], [place], [address], Pending order Continue IV anti biotics Pending [...]
--- OUTSIDE RECORDS SUMMARY | 2024-09-17 08:36 | XMS_ITS ---
Author Organization [facility] Address [address] [place] [address] [place] [address] Phone Care Team Providers Care Construction Crew Member Name Role Phone Denisa LEMON, Pola Clark Unavailable [phone] [ ] Conditions or Problems No information available. Medications No information available. Medications Administered No information available. Allergies, Adverse Reactions, Alerts No information available. Results Date Name Value Unit Range Flag Description Office Visit: Office Visit:r m 7 SEXUAL ACTIV yes Have you ever had vaginal intercourse [PhenX] SMOK STATUS Current every da y smoker Tobacco smoking status MEDS REVIEW Done Documenta tion of current medications (procedure) Plan of Care Type Date Detail Appointment 10:00 AM Pola Trotter se, MD, [facility], [address], [place], [address], Referral MRI Lumbar Spine with/without constrast Pending order Change IV antibi otics Pending order Weekly PICC Line Care Pending order CMP Pending order CBC w/o Differen tial Pending order C- reactive prot ein Pending order Sedimentation Ra te (ESR) Pending order Vancomycin Troug h Procedures No information available. Vital Signs Date Name Value Unit Description BMI (Body Mass Index) 23.63 kg/m2 Bod y Mass Index (Ratio) Body Temperature 97.8 [degF] temperat ure E&M BP Diastolic 80 mm[Hg] blood pressu re, diastolic BP Systolic 132 mm[Hg] blood pressur e, systolic Heart Rate 72 /min pulse rate Height 69 [in_us] height E&M Respiratory Rate 16 /min respirat ory rate E&M Weight Measured 160 [lb_av] weight E& M Weight Measured 160 [lb_av] weight E& M Immunizations No information available. Advance Directives No information available.
[2024-09-22 11:42] VITALS: BMI 22.8
--- OUTSIDE RECORDS SUMMARY | 2024-09-22 11:45 | XMS_ITS | Clinical Summary ---
Author Organization [facility] Address [address] [facility] [address] [place] [address] Phone Care Team Providers Care Mechanical Maintenance Name Role Phone Pola Crawley MD [ [...] region Personal history of traumatic brain injury 662012491 (SNOMED CT) 08/13 Active 08/13 Nilam Deric History of head injury Nicotine dependence, cigarettes F17.210 (ICD-10-CM ) 08/13 Active 08/13 Nilam Deric Nicotine dependence, cigarettes, uncomplicated Coronary artery disease, S/P CABG 851914032 (SNOMED CT) 08/13 Active 08/13 Nilam Deric Arteriosclerosis of coronary artery bypass graft Benign Essential Hypertension 28135533 (SNOMED CT) 08/13 Active 08/13 Nilam Deric Benign hypertension Medications Medication Instructions Start Date Stop Date Generic Name NDC Provider daptomycin 600mg Q 24hrs x 6wks [facility] Outpt 09/17 daptomycin Mary Mcdaniels vancomycin 2gm Q 24hrs [facility] vancomycin [facility] ONDANSETRON [address] 1 tablet by mouth every six hours as needed ondansetron 35219673875 [facility] ASCORBIC ACID 500 MG TABS Take 1 tablet by mouth once a day ascorbic acid (vitamin c) 91807374070 [facility] Atogepant 60 MG tablet Take 1 tablet by mouth once a day Atogepant 60 MG tablet [facility] METHOCARBAMOL 750 MG TABS Take 1 tablet by mouth three times a day as needed methocarbamol 97255657806 [facility] ESCITALOPRAM OXALATE 20 MG TABS Take 1 tablet by mouth once a day escitalopram oxalate 47305854762 [facility] GABAPENTIN 600 MG TABS Take 1 tablet by mouth three times a day gabapentin 76512471258 [facility] ALBUTEROL SULFATE HFA 108 (90 Base) MCG/ACT AERS Inhale 2 puff every four hours as needed albuterol sulfate 33197727515 [facility] LORATADINE 10 MG TABS Take 1 tablet by mouth once a day as needed loratadine 60141243462 [facility] PROMETHAZINE HCL 12.5 MG TABS Take 1 tablet by mouth every six hours as needed promethazine 06599012491 [facility] EPINEPHRINE 0.3 MG/0.3ML SOAJ Inject 0.3 ml intramuscularly as directed epinephrine 12056880554 [facility] NICOTINE STEP 1 21 MG/24HR PT24 Place 1 patch to skin as directed nicotine 94389073548 [facility] PRIMIDONE 50 MG TABS Take 1 tablet by mouth twice a day primidone 54295119298 [facility] ASPIRIN EC (ASPIRIN) 81 MG TBEC Take 1 tablet by mouth once a day ASPIRIN [facility] FERROUS SULFATE 324 (65 Fe) MG TBEC Take 1 tablet by mouth every morning ferrous sulfate 84398309875 [facility] POTASSIUM CHLORIDE VIVIEN ER 10 MEQ CR-TABS Take 1 tablet by mouth once a day potassium chloride 31438951252 [facility] ATORVASTATIN CALCIUM 80 MG TABS Take 1 tablet by mouth once a day On Hold atorvastatin 75425562280 [facility] MAGNESIUM OXIDE 400 MG TABS Take 1 tablet by mouth once a day magnesium oxide 69022504827 [facility] ALPRAZOLAM 0.5 MG TABS Take 0.5 tablet by mouth twice a day as needed alprazolam 03801079810 [facility] GUAIFENESIN ER 1200 MG [id number] Take 1 tablet by mouth twice a day as needed guaifenesin 84529990910 [facility] BACLOFEN 20 MG TABS Take 1 tablet by mouth three times a day baclofen 32601103386 [facility] FUROSEMIDE 20 MG TABS Take 1 tablet by mouth once a day furosemide 09219753411 [facility] WARFARIN SODIUM 2 MG TABS warfarin 25384501687 [facility] daptomycin 600mg Q 24hrs x 6wks [facility] Outpt 09/17 daptomycin [facility] PROMETHAZINE HCL 12.5 MG TABS Take 1 tablet by mouth Every 6 (Six) Hours As Needed for Nausea or Vomiting. 09/02 promethazine 61644348494 [facility] PRIMIDONE 50 MG TABS Take 1 tablet by mouth 2 (Two) Times a Day. 09/02 primidone 11012946782 [facility] POTASSIUM CHLORIDE VIVIEN ER 10 MEQ CR-TABS Take 1 tablet by mouth Daily. 09/02 potassium chloride 07184685953 [facility] ONDANSETRON [address] 1 tablet on the tongue Every 6 (Six) Hours As Needed for Nausea or Vomiting. 09/02 ondansetron 83339673471 [facility] NICOTINE STEP 1 21 MG/24HR PT24 Place 1 patch on the skin as directed by provider. 09/02 nicotine 56023029210 [facility] METHOCARBAMOL 750 MG TABS Take 1 tablet by mouth 3 (Three) Times a Day As Needed for Muscle Spasms. 09/02 methocarbamol 91674721552 [facility] MAGNESIUM OXIDE 400 MG TABS Take 1 tablet by mouth Daily. 09/02 magnesium oxide 77260303775 [facility] LORATADINE 10 MG TABS Take 1 tablet by mouth Daily As Needed for Allergies. 09/02 loratadine 56730557951 [facility] GUAIFENESIN ER 1200 MG [id number] Take 1 tablet by mouth 2 (Two) Times a Day As Needed (COUGH / CONGESTION). 09/02 guaifenesin 21868556212 [facility] GABAPENTIN 600 MG TABS Take 1 tablet by mouth 3 (Three) Times a Day. 09/02 gabapentin 08556288333 [facility] FUROSEMIDE 20 MG TABS Take 1 tablet by mouth Daily. Indications: Edema 09/02 furosemide 17723926853 [facility] FERROUS SULFATE 324 (65 Fe) MG TBEC Take 1 tablet by mouth Daily With Breakfast. 09/05 ferrous sulfate 80075576425 [facility] ESCITALOPRAM OXALATE 20 MG TABS Take 1 tablet by mouth Daily. 09/02 escitalopram oxalate 34252511704 [facility] EPINEPHRINE 0.3 MG/0.3ML SOAJ Inject 0.3 mL into the appropriate muscle as directed by prescriber. 09/05 epinephrine 65573590704 [facility] BACLOFEN 20 MG TABS TAKE ONE TABLET BY MOUTH THREE TIMES A DAY 09/02 baclofen 06520371207 [facility] ATORVASTATIN CALCIUM 80 MG TABS Take 1 tablet by mouth Daily. Indications: Cerebrovascular Accident or Stroke, High Amount of Fats in the Blood 09/02 atorvastatin 60210965388 [facility] Atogepant 60 MG tablet Take 1 tablet by mouth Daily. Indications: Migraine Headache 09/02 Atogepant 60 MG tablet [facility] ASPIRIN EC (ASPIRIN) 81 MG TBEC Take 1 tablet by mouth Daily. Indications: Disease involving Lipid Deposits in the Arteries 09/02 ASPIRIN [facility] ASCORBIC ACID 500 MG TABS Take 1 tablet by mouth Daily. 09/02 ascorbic acid (vitamin c) 39485201787 [facility] ALPRAZOLAM 0.5 MG TABS Take 0.5 tablets by mouth 2 (Two) Times a Day As Needed for Anxiety. Indications: Feeling Anxious 09/02 alprazolam 37519821411 [facility] ALBUTEROL SULFATE HFA 108 (90 Base) MCG/ACT AERS Inhale 2 puffs Every 4 (Four) Hours As Needed for Wheezing or Shortness of Air. 09/02 albuterol sulfate 79819601240 [facility] Medications Administered No information available. Allergies, Adverse Reactions, Alerts Allergy Name Reaction Description Start Date Severity Statu s Provider BEE VENOM Anaphylaxis Critical Active Desirae miranda Results Date Name Value Unit Range Flag Description Clinical Lists Update: Prelo ad VAPE_USE Never Tobacco smok ing status Chart Maintenance: Updated H H labs 09/15/24 CRP 5.9 mg/dL C reactive pr otein [Mass/volume] in Serum or Plasma CPK 41 U/L Creatine brandon se [Enzymatic activity/volume] in Serum or Plasma BILI TOTAL <0.1 mg/dL Bilirubin. total [Mass/volume] in Serum or Plasma ALK PHOS 87 U/L Alkaline mike sphatase [Enzymatic activity/volume] in Blood SGPT (ALT) 15 U/L Alanine aminotransferase [Enzymatic activity/volume] in Serum or Plasma SGOT (AST) 27 U/L Aspartate aminotransferase [Enzymatic activity/volume] in Serum or Plasma CALCIUM 9.2 mg/dL Calcium [Mole s/volume] in Serum or Plasma POTASSIUM 3.5 mmol/L Potassium [Moles/volume] in Serum or Plasma SODIUM 134 mmol/L Sodium [Moles /volume] in Serum or Plasma CREATININE 0.50 mg/dL Creatinine [Mass/volume] in Serum or Plasma BUN 6 mg/dL Urea nitrogen [Mass/volume] in Serum or Plasma GLUCOSE SER 115 mg/dL Glucose [ Mass/volume] in Serum or Plasma ESR 74 mm/h Erythrocyte sedimentation rate by Westergren method LYMPHS % 25.4 % Lymphocytes/ 100 leukocytes in Blood by Automated count PMN % 58.2 % Neutrophils/1 00 leukocytes in Blood by Automated count PLATELETS 210 10*3/mm3 Platelets [#/volume] in Blood by Automated count HCT 35.5 % Hematocrit [V olume Fraction] of Blood by Automated count HGB 11.5 g/dL Hemoglobin [Mass/volume] in Blood RBC 4.36 10*6/mm3 Erythrocytes [#/volume] in Blood by Automated count WBC 9.4 10*3/mm3 Leukocytes [ #/volume] in Blood by Automated count Office Visit: Office Visit:ubaldo montes 7 SEXUAL ACTIV yes Have you ever had vaginal intercourse [PhenX] SMOK STATUS Current every day smoker Tobacco smoking status MEDS REVIEW Done Documenta tion of current medications (procedure) Plan of Care Type Date Detail Appointment 10:00 AM Pola Trotter se, MD, [address] [facility], [address], [place], [address], Referral MRI Lumbar Spine with/without constrast Pending order Change IV antibi otics Pending order Weekly PICC Line Care Pending order CMP Pending order CBC w/o Differen tial Pending order C- reactive prot ein Pending order Sedimentation Ra te (ESR) Pending order Vancomycin Troug h Pending order New IV antibioti c Pending order Continue IV anti biotics Pending [...] Entry Date G2 Complex E&M visit add-on (G2211) CPT-ca Continue IV antibiotics 2024 CPT-wpc Weekly PICC Line Care 0 09/02 CPT-cwl Weekly Labs (Continue) 09/02 CPT-33469 CMP CPT-73272 CBC w/o Differential CPT-21542 C- reactive protein CPT-85528 Sedimentation Rate (ESR) 202 07/29/09 G2211 Complex E&M visit add-on (G221) CPT-ca Continue IV antibiotics 2024 CPT-PICREM PICC Removal CPT-wpc Weekly PICC Line Care 08/27 CPT-42124 PICC Line Insertion CPT-16456 CMP CPT-49286 CBC w/o Differential CPT-25758 C- reactive protein [id number], [id number] CPK CPT-69046 Sedimentation Rate (ESR) 202 07/30/03 CPT-56560 CMP CPT-13474 CBC w/o Differential [id number], [id number] CPK CPT-12437 Sedimentation Rate (ESR) 202 07/29/27 G2211 Complex E&M visit add-on (G221) CPT-sl STAT [...] Directives Directive Description Start Date POWER OF MACARONI PRESS OPERATOR
--- OUTSIDE RECORDS SUMMARY | 2024-09-22 11:46 | XMS_ITS | Encounter Summary ---
Author Organization [facility] Address [address] [place] [address] Care Team Providers Care Black Top Spreader Machine Operator Name Role Phone Malia Amezquita MD Primary Care Provider [phone] Malia Amezquita MD Primary Care Provider [phone] Malia Amezquita MD Unavailable [phone] Jakub Longoria MD Unavailable Cassia Mayorga LPN Unavailable Unavailable Reason for Referral * Consultation (Routine) - Authorized Specialty Diagnoses / Procedures Referred By Contact Referred To Contact Physical Medicine and Rehabilitation Diagnoses Functional movement disorder Malia Amezquita MD [address] [place] [address] Phone: tel: fax:[phone] [facility] [address] [place] [address] Phone: tel: fax: Referral ID Status Reason Start Date Expiration Date Visits Requested Visits Authorized [id number] Authorized Specialty Services Required 09/26/2023 03/27/2025 1 1 Encounter Details Date Type Department Care Team (Late Contact Info) Description 09/26/2023 Community [facility] Community Practice [address] [place] [address] Malia Amezquita MD [address] [place] [address] Functional movement disorder (Primary Dx) Social History [...] drink first t marylou in the morning (EYE-INFORMATION SYSTEMS CONSULTANT) to steady your nerves or to [...] Consult [place] [facility] [address] [place] [address] Tera Carvalho MD [address] [place] [address] Scheduled Referrals Name Type Priority [...] documented as of this encounter Care Teams Black Top Spreader Machine Operator Relationship Specialty Start Date End Date Malia Amezquita MD [address] [place] [address] PCP - General 04/04/22 12/25/23 Malia Amezquita MD [address] [place] [address] PCP - General 12/26/23 Malia Amezquita MD [address] [place] [address] 12/26/23 Jakub Longoria MD [address] [place] [address] Consulting Physician Neurology 04/12/22 Cassia Mayorga LPN VALUE-BASED [place] [address] TCM Nurse 01/29/24 02/28/24 documented as of this encounter
--- OUTSIDE RECORDS SUMMARY | 2024-09-22 11:46 | XMS_ITS | Encounter Summary ---
Author Organization [facility] Address [address] [place] [address] Care Team Providers Care Food Packer Name Role Phone Pcp, No Primary Care Provider Unavailabl e Malia Amezquita MD Primary Care Provider [phone] Malia Amezquita MD Primary Care Provider Malia Amezquita MD Unavailable [phone] Jakub Longoria MD Unavailable Cassia Mayorga LPN Unavailable Unavailable Encounter Details Date Type Department Care Team (Late st Contact Info) Description 01/20/2022 Orders Only External Location [address] [place] [address] Provider, External Social History Tobacco Use Types [...] Info) Description 11/04/2024 4:00 PM EDT Consult [place] [facility] [address] [place] [address] Tera Carvalho MD [address] [place] [address] documented as of this encounter [...] documented as of this encounter Care Teams Food Packer Relationship Specialty Start Date End Date Pcp, No [address] [place] [address] PCP - General Family Medicine 02/11/22 04/03/22 Malia Amezquita MD [address] [place] [address] PCP - General 04/04/22 12/25/23 Malia Amezquita MD [address] [place] [address] PCP - General 12/26/23 Malia Amezquita MD [address] [place] [address] 12/26/23 Jakub Longoria MD [address] [place] [address] Consulting Physician Neurology 04/12/22 Cassia Mayorga LPN VALUE-[employer]ED [place] [address] TCM Nurse 01/29/24 02/28/24 documented as of this encounter
--- OUTSIDE RECORDS SUMMARY | 2024-09-22 11:46 | XMS_ITS | Encounter Summary ---
Author Organization [facility] Address [address] [place] [address] Care Team Providers Care Pulley Mortiser Operator Name Role Phone Pcp, No Primary Care Provider Unavailabl e Malia Amezquita MD Primary Care Provider [phone] aMlia Amezquita MD Primary Care Provider [phone] Malia Amezquita MD Unavailable [phone] Jakub Longoria MD Unavailable Cassia Mayorga LPN Unavailable Unavailable Reason for Referral * Consultation (Routine) - Closed Specialty Diagnoses / Procedures Referred By Contac t Referred To Contact Neurology Diagnoses Weakness Sean Silva MD [address] [place] [address] Phone: tel: fax: Referral ID Status Reason Start Date Expiration Date V isits Requested Visits Authorized [id number] Closed Specialty Services Required 03/08/2022 09/07/2023 1 1 Encounter Details Date Type Department Care Team (Late st Contact Info) Description 03/08/2022 Community [facility] Community Practice [address] [place] [address] Sean Silva MD [address] [place] [address] Weakness (Primary Dx) Social History Tobacco Use [...] drink first t marylou in the morning (EYE-PROCESS DEVELOPMENT ENGINEER) to steady your nerves or to get [...] Consult [place] [facility] [address], [address] [place] [address] Tera Carvalho MD [address] [place] [address] Scheduled Referrals Name Type Priority [...] documented as of this encounter Care Teams Pulley Mortiser Operator Relationship Specialty Start Date End Date Pcp, No [address] [place] [address] PCP - General Family Medicine 02/11/22 04/03/22 Malia Amezquita MD [address] [place] [address] PCP - General 04/04/22 12/25/23 Malia Amezquita MD [address] [place] [address] PCP - General 12/26/23 Malia Amezquita MD [address] [place] [address] 12/26/23 Jakub Longoria MD [address] [place] [address] Consulting Physician Neurology 04/12/22 Cassia Mayorga LPN VALUE-[place] [place] [address] TCM Nurse 01/29/24 02/28/24 documented as of this encounter
--- OUTSIDE RECORDS SUMMARY | 2024-09-22 11:46 | XMS_ITS | Clinical Summary ---
Author Organization [facility] Address [address] [place] [address] Care Team Providers Care Order Dispatcher Chief Name Role Phone Malia Amezquita MD Primary Care Provider [phone] Malia Amezquita MD Unavailable [phone] Jakub Longoria MD Unavailable Allergies Active [...] Type Department Care Team Description 07/14/2024 Refill [facility] Medicine Specialties [address], [address] [place] [address] Loco Pelaez, PharmD Nicotine dependence, uncomplicated, unspecified nicotine product type (Primary Dx) 07/14/2024 Telephone [facility] Medicine Specialties [address], [address] [place] [address] Sonia Powell RN 07/09/2024 3:00 PM EDT Office Visit [facility] Medicine Specialties [address], [address] [place] [address] Beatriz Rivera MD Physical debility [...] drink first t marylou in the morning (EYE-MOBILE UI/UX DESIGNER) to steady your nerves or to [...] Consult [place] [facility] [address], [address] [place] [address] Tera Carvalho MD [address] [place] [address] Health Maintenance Due Date Last Done Comments [facility]-Depression Screening 1965 [facility]-/Child/Adol SDOH Screenings 1965 [facility]- SDOH Screenings 1981 [facility]-Adult SDOH Screenings 1981 CT Colonography 01/12/2008 FIT-DNA 01/12/2008 FIT 01/12/2008 FOBT 01/12/2008 Sigmoidoscopy 01/12/2008 [id number] Vaccine ( season) 2023 12/24/2021, 07/02/2021, 01/29/2021, [...] HIV 1/2 Differentiation (01/25/2024 8:32 PM EDT) [facility] HIV 1 & 2 Antibody/Antigen Screen Non Reactive Non Reactive 01/25/2024 10:07 PM EDT [facility] Comment:Screening for HIV 1 & 2 antibodies, and P24 antigen is NONREACTIVE. No confirmatory testing is required. Blood Venous blood specimen / Unknown Venipuncture / Unknown 01/25/2024 8:32 PM EDT 01/25/2024 9:05 PM EDT us Bárbara Rios MD LAB BLOOD ORDERABLES [place] [address] * Hepatitis C Antibody - ED (01/25/2024 8:32 PM EDT) [facility] Hepatitis C Antibody Negative Negative 01/25/2024 10:08 PM EDT [facility] Blood Venous blood specimen / Unknown Venipuncture / Unknown 01/25/2024 8:32 PM EDT 01/25/2024 9:05 PM EDT us Bárbara Rios MD LAB BLOOD ORDERABLES [place] [address] * CT Angio Pulmonary Embolism (01/25/2024 8:16 [...] Most Recently Relevant to Health Maintenance Insurance [facility] [employer] Care Teams Order Dispatcher Chief Relationship Specialty Start Date End Date Malia Amezquita MD [address] [place] [address] PCP - General 12/26/23 Malia Amezquita MD [address] [place] [address] 12/26/23 Jakub Longoria MD [address] [place] [address] Consulting Physician Neurology 04/12/22
[2024-09-22 11:58] LABS: Basophils # 0.1 K/mm3 (0-0.2); Basophils % 0.9 % (0.1-2.0); Eosinophils # 0.5 Kmm3 (0.0-0.4); Eosinophils % 5.7 % (0.1-12.0); Hematocrit 34.9 % (42.0-52.0); Hemoglobin 11.4 g/dL (14.1-18.0); Immature Granulocytes # 0.02 10^3uL; Immature Granulocytes % 0.2 %; Lymphocytes # 1.8 K/mm3 (0.7-4.5); Mean Corpuscular HGB Conc 32.7 g/dL (31.8-35.4); Mean Corpuscular Hemoglobin 26.6 pg (27.0-31.2); Mean Corpuscular Volume 81.5 fl (80-94); Mean Platelet Volume 8.9 fl (7.4-10.4); Monocytes # 0.7 K/mm3 (0.1-1.0); Monocytes % 8.1 % (1.7-9.3); Neutrophils # 5.5 K/mm3 (1.8-7.8); Neutrophils % 64.1 % (37.0-80.0); Nucleated Red Blood Cells # 0 10^3/uL; Nucleated Red Blood Cells % 0 %; Platelet Count 213 K/mm3 (142-424); Red Blood Count 4.28 M/mm3 (4.60-6.20); Red Cell Distribution Width 16.4 % (11.5-17.5); Red Cell Distribution Width-SD 48.3 fL; White Blood Count 8.5 K/mm3 (4.8-10.8)
[2024-09-22 12:07] LABS: Albumin Level 3.9 g/dl (3.5-5.0); Chloride 95 mmol/L (98-107)
[2024-09-22 12:08] LABS: Potassium 3.9 mmoL/L (3.5-5.1); Sodium 133 mmol/L (136-145)
[2024-09-22 12:10] LABS: Alanine Aminotransferase 16 U/L (12-78); Albumin/Globulin Ratio 1.2 (1.1-1.8); Alkaline Phosphatase 97 U/L (38-126); Anion Gap 8.9 mEq/L (5-15); Aspartate Amino Transferase 26 U/L (17-59); Bilirubin,Total 0.3 mg/dl (0.2-1.3); Blood Urea Nitrogen 5 mg/dl (9-20); Carbon Dioxide 33 mmol/L (22.0-30.0); Creatinine Clearance Estimated 77 mL/min (50-200); Estimated Glomerular Filt Rate 169 ml/min (>60); GFR (African American) 205 ML/MIN (>60); Globulin 3.3 g/dL (1.3-3.2); Total Protein,Serum 7.2 g/dl (6.3-8.2)
[2024-09-22 12:11] LABS: Calcium 9.1 mg/dl (8.4-10.2); Creatine Kinase 44 U/L (55-170); Glucose 87 mg/dl (74-100)
[2024-09-22 12:16] LABS: C-Reactive Protein 1.7 mg/L (0-4)
[2024-09-22 13:13] LABS: Erythrocyte Sedimentation Rate 89 mm/hr (0-20)
== END 2024-09-22 12:00 | disposition home or self-care (01) ==
LOC: INF 11:41
PROVIDERS: PCP Family Medicine; Visit Provider Internal Medicine Infectious Disease
DX: Z45.2 Encounter for adjustment and management of vascular access device (principal); R79.9 Abnormal finding of blood chemistry, unspecified
CPT/HCPCS: 36592; 80053; 82550; 85025; 85651; 86140; 96523

== ENCOUNTER 2024-09-29 15:41 | Outpatient (CLI) | payer OTHER, SELFPAY ==
--- OUTSIDE RECORDS SUMMARY | 2024-08-20 11:49 | XMS_ITS ---
Author Organization [facility] Address [address] [place] [address] Phone Care Team Providers Care Commercial Loan Manager Name Role Phone Denisa LEMON, Pola Clark Unavailable [phone] [ ] Conditions or Problems No information available. Medications No information available. Medications Administered No information available. Allergies, Adverse Reactions, Alerts No information available. Results Date Name Value Unit Range Flag Description Office Visit: Office Visit:r simon 7 [facility] MEDS REVIEW Done Documenta tion of current medications (procedure) SEXUAL ACTIV yes Have you ever had vaginal intercourse [PhenX] SMOK STATUS Current every da y smoker Tobacco smoking status Plan of Care Type Date Detail Appointment 10:45 AM Pola Trotter se, MD, [facility], [address], [place], [address], Procedures Code Procedure Name Date Entry Date [...] Directives Directive Description Start Date POWER OF FINISH SPECIALIST
--- OUTSIDE RECORDS SUMMARY | 2024-08-27 10:12 | XMS_ITS ---
Author Organization [facility] Address [address] [place] [address] [place] [address] Phone Care Team Providers Care Depot Manager Name Role Phone Denisa LEMON, Pola Clark Unavailable [phone] [ ] Conditions or Problems No information [...] Appointment 10:45 AM Pola Trotter se, MD, [address] [place] [address], [address], [place], [address], Pending order Continue IV anti biotics Pending order PICC Removal Pending order Weekly PICC Line Care Pending order PICC Line Insert ion Pending order CMP Pending order CBC w/o Differen tial Pending order C- reactive prot ein Pending order CPK Pending order Sedimentation Ra te (ESR) Procedures Code Procedure Name Date Entry Date G221 Complex E&M visit add-on (G2211) CPT-ca Continue IV antibiotics 2024 CPT-PICREM PICC Removal CPT-wpc Weekly PICC Line Care 08/27 CPT-66437 PICC Line Insertion CPT-05732 CMP CPT-73956 CBC w/o Differential CPT-71026 C- reactive protein [id number], [id number] CPK CPT-48523 Sedimentation Rate (ESR) 202 07/30/03 Vital Signs Date Name Value Unit Description [...]
--- OUTSIDE RECORDS SUMMARY | 2024-09-02 11:21 | XMS_ITS ---
Author Organization [facility] Address [address] [place] [address] Phone Care Team Providers Care Boiler Water Tester Name Role Phone Pola Crawley MD [ ] Conditions or Problems No information available. Medications Medication Instructions Start Date Stop Date Generic Name NDC Provider ONDANSETRON [address] 1 tablet by mouth every six hours as needed ondansetron [id number] [facility] ASCORBIC ACID 500 MG TABS Take 1 tablet by mouth once a day ascorbic acid (vitamin c) 82892284846 [facility] Atogepant 60 MG tablet Take 1 tablet by mouth once a day Atogepant 60 MG tablet [facility] METHOCARBAMOL 750 MG TABS Take 1 tablet by mouth three times a day as needed methocarbamol 62244633111 [facility] ESCITALOPRAM OXALATE 20 MG TABS Take 1 tablet by mouth once a day escitalopram oxalate 91040661895 [facility] GABAPENTIN 600 MG TABS Take 1 tablet by mouth three times a day gabapentin 36453165616 [facility] ALBUTEROL SULFATE HFA 108 (90 Base) MCG/ACT AERS Inhale 2 puff every four hours as needed albuterol sulfate 77774091497 [facility] LORATADINE 10 MG TABS Take 1 tablet by mouth once a day as needed loratadine 08938662351 [facility] PROMETHAZINE HCL 12.5 MG TABS Take 1 tablet by mouth every six hours as needed promethazine 42888120708 [facility] EPINEPHRINE 0.3 MG/0.3ML SOAJ Inject 0.3 ml intramuscularly as directed epinephrine 66731634025 [facility] NICOTINE STEP 1 21 MG/24HR PT24 Place 1 patch to skin as directed nicotine 24345121016 [facility] PRIMIDONE 50 MG TABS Take 1 tablet by mouth twice a day primidone 05997827063 [facility] ASPIRIN EC (ASPIRIN) 81 MG TBEC Take 1 tablet by mouth once a day ASPIRIN [facility] FERROUS SULFATE 324 (65 Fe) MG TBEC Take 1 tablet by mouth every morning ferrous sulfate 53106499048 [facility] POTASSIUM CHLORIDE VIVIEN ER 10 MEQ CR-TABS Take 1 tablet by mouth once a day potassium chloride 18301647114 [facility] ATORVASTATIN CALCIUM 80 MG TABS Take 1 tablet by mouth once a day On Hold atorvastatin 28301098879 [facility] MAGNESIUM OXIDE 400 MG TABS Take 1 tablet by mouth once a day magnesium oxide 16073948455 [facility] ALPRAZOLAM 0.5 MG TABS Take 0.5 tablet by mouth twice a day as needed alprazolam 68125729999 [facility] GUAIFENESIN ER 1200 MG [id number] Take 1 tablet by mouth twice a day as needed guaifenesin 95010543154 [facility] BACLOFEN 20 MG TABS Take 1 tablet by mouth three times a day baclofen 09397868362 [facility] FUROSEMIDE 20 MG TABS Take 1 tablet by mouth once a day furosemide 79648785408 [facility] WARFARIN SODIUM 2 MG TABS warfarin 95732444846 [facility] Medications Administered No information available. Allergies, [...] Appointment 10:45 AM Pola Trotter se, MD, [address], [address], [place], [address], Pending order Continue IV anti biotics Pending [...] Care 09/02 CPT-cwl Weekly Labs (Continue) 09/02 CPT-98030 CMP CPT-31858 CBC w/o Differential CPT-85288 C- reactive protein CPT-11980 Sedimentation Rate (ESR) 07/29/09 Vital Signs Date [...]
--- OUTSIDE RECORDS SUMMARY | 2024-09-12 10:40 | XMS_ITS ---
Author Organization [facility] Address [address] [place] [address] [place] [address] Phone Care Team Providers Care Bill Poster Installer Name Role Phone Denisa LEMON, Pola Clark Unavailable [ ] Conditions or Problems No information available. Medications No information available. Medications Administered No information available. Allergies, Adverse Reactions, Alerts No information available. Results Date Name Value Unit Range Flag Description Office Visit: Office Visit: 6 SEXUAL ACTIV yes Have you ever had vaginal intercourse [PhenX] SMOK STATUS Current every da y smoker Tobacco smoking status MEDS REVIEW Done Documenta tion of current medications (procedure) Plan of Care Type Date Detail Appointment 10:45 AM Pola Trotter se, MD, [facility], [address], [place], [address], Pending order Continue IV anti biotics Pending order Weekly PICC Line Care Pending order Weekly Labs (Con tinue) Pending order CMP Pending order CBC w/o Differen tial Pending order CPK Pending order Sedimentation Ra te (ESR) Pending order C- reactive prot ein Procedures No information available. Vital Signs Date Name Value Unit Description BMI (Body Mass Index) 23.63 kg/m2 Bod y Mass Index (Ratio) Body Temperature 98.1 [degF] temperat ure E&M BP Diastolic 64 mm[Hg] blood pressu re, diastolic BP Systolic 112 mm[Hg] blood pressur e, systolic Heart Rate 67 /min pulse rate Height 69 [in_us] height E&M Respiratory Rate 16 /min respirat ory rate E&M Weight Measured 160 [lb_av] weight E& M Weight Measured 160 [lb_av] weight E& M Immunizations No information available. Advance Directives No information available.
--- OUTSIDE RECORDS SUMMARY | 2024-09-17 08:36 | XMS_ITS ---
Author Organization [facility] Address [address] [place] [address] [place] [address] Phone Care Team Providers Care Tabber Name Role Phone Denisa LEMON, Pola Clark [...] Appointment 10:45 AM Pola Trotter se, MD, [facility], [address], [place], [address], Referral MRI Lumbar Spine with/without constrast Pending [...]
--- OUTSIDE RECORDS SUMMARY | 2024-09-24 10:24 | XMS_ITS ---
Author Organization [facility] Address [address] [place] [address] [place] [address] Phone Care Team Providers Care Sports Manager Name Role Phone Denisa LEMON, Pola Lo [ ] Conditions or Problems Problem Name Problem Code Onset Date Status Entry Date Provider Comment Standard Description Annotate Neuropathy [id number] (SNOMED CT) Active Pola Crawley MD Neuropathy Medications No information available. Medications Administered No information available. Allergies, Adverse Reactions, Alerts No information available. Results Date Name Value Unit Range Flag Description Office Visit: Office Visit:r simon 8 SMOK ADVICE yes Smoking c essation education (procedure) SEXUAL ACTIV yes Have you ever had vaginal intercourse [PhenX] SMOK STATUS Current every da y smoker Tobacco smoking status MEDS REVIEW Done Documenta tion of current medications (procedure) Plan of Care Type Date Detail Appointment 10:45 AM Pola Trotter se, MD, [facility], [address], [place], [address], Pending order Continue IV anti biotics Pending order Weekly PICC Line Care Pending order Weekly Labs (Con tinue) Pending order CMP Pending order CBC w/o Differen tial Pending order Sedimentation Ra te (ESR) Pending order C- reactive prot ein Pending order Vancomycin Troug h Procedures Code Procedure Name Date Entry Date G2211 Complex E&M visit add-on (G2211) Vital Signs Date Name Value Unit Description BMI (Body Mass Index) 23.63 kg/m2 Bod y Mass Index (Ratio) Body Temperature 97.8 [degF] temperat ure E&M BP Diastolic 80 mm[Hg] blood pressu re, diastolic BP Systolic 138 mm[Hg] blood pressur e, systolic Heart Rate 75 /min pulse rate Height 69 [in_us] height E&M Respiratory Rate 16 /min respirat ory rate E&M Weight Measured 160 [lb_av] weight E& M Weight Measured 160 [lb_av] weight E& M Immunizations No information available. Advance Directives No information available.
--- OUTSIDE RECORDS SUMMARY | 2024-09-29 15:43 | XMS_ITS | Encounter Summary ---
Author Organization [facility] Address [address] [place] [address] Care Team Providers Care Senior Attorney Name Role Phone Malia Amezquita MD Primary Care Provider [phone] Malia Amezquita MD Primary Care Provider [phone] Malia Amezquita MD Unavailable [phone] Jakub Longoria MD Unavailable Cassia Mayorga LPN Unavailable Unavailable Reason for Referral * Consultation (Routine) - Authorized Specialty Diagnoses / Procedures Referred By Contact Referred To Contact Physical Medicine and Rehabilitation Diagnoses Functional movement disorder Malia Amezquita MD [address] [place] [address] Phone: tel:[phone] fax:[phone] Physical [facility] at [facility] [address] [place] [address] Phone: tel: fax: Referral ID Status Reason Start Date Expiration Date Visits Requested Visits Authorized [id number] Authorized Specialty Services Required 09/26/2023 03/27/2025 1 1 Encounter Details Date Type Department Care Team (Late Contact Info) Description 09/26/2023 Community [facility] Community Practice [address] [place] [address] Malia Amezquita MD [address] [place] [address] Functional movement disorder (Primary Dx) Social History [...] drink first t marylou in the morning (EYE-BAKERY SALES CLERK) to steady your nerves or to get [...] Consult [place] [facility] [address] [place] [address] Tera Carvalho MD [address] [place] [address] Scheduled Referrals Name Type Priority [...] documented as of this encounter Care Teams Senior Attorney Relationship Specialty Start Date End Date Malia Amezquita MD [address] [place] [address] PCP - General 04/04/22 12/25/23 Malia Amezquita MD [address] [place] [address] PCP - General 12/26/23 Malia Amezquita MD [address] [place] [address] 12/26/23 Jakub Longoria MD [address] [place] [address] Consulting Physician Neurology 04/12/22 Cassia Mayorga LPN VALUE-[employer] [place] [address] TCM Nurse 01/29/24 02/28/24 documented as of this encounter
--- OUTSIDE RECORDS SUMMARY | 2024-09-29 15:43 | XMS_ITS | Clinical Summary ---
Author Organization [facility] Address [address] [place] [address] Phone Care Team Providers Care Pediatric Oncology Nurse Name Role Phone Nacny Ortiz Unavailable Unavailable Conditions or Problems Problem Name Problem Code Onset Date Status Entry Date Provider Comment Standard Description Annotate Neuropathy 814997123 (SNOMED CT) 09/24 Active 09/24 Pola Crawley MD Neuropathy Staph epi Sepsis A41.1 (ICD-10-CM ) 08/13 [...] region Personal history of traumatic brain injury 964496692 (SNOMED CT) 08/13 Active 08/13 Nilam Deric History of head injury Nicotine dependence, cigarettes F17.210 (ICD-10-CM ) 08/13 Active 08/13 Nilam Deric Nicotine dependence, cigarettes, uncomplicated Coronary artery disease, S/P CABG 508167014 (SNOMED CT) 08/13 Active 08/13 Nilam Deric Arteriosclerosis of coronary artery bypass graft Benign Essential Hypertension 79171725 (SNOMED CT) 08/13 Active 08/13 Nilam Deric Benign hypertension Medications Medication Instructions Start Date Stop Date Generic Name NDC Provider daptomycin 600mg Q 24hrs x 6wks [facility] Outpt 09/17 daptomycin [facility] vancomycin 2gm Q 24hrs [facility] vancomycin [facility] ONDANSETRON [address] 1 tablet by mouth every six hours as needed ondansetron 44039704843 [facility] ASCORBIC ACID 500 MG TABS Take 1 tablet by mouth once a day ascorbic acid (vitamin c) 53258127603 [facility] Atogepant 60 MG tablet Take 1 tablet by mouth once a day Atogepant 60 MG tablet [facility] METHOCARBAMOL 750 MG TABS Take 1 tablet by mouth three times a day as needed methocarbamol 99952330834 [facility] ESCITALOPRAM OXALATE 20 MG TABS Take 1 tablet by mouth once a day escitalopram oxalate 92369546384 [facility] GABAPENTIN 600 MG TABS Take 1 tablet by mouth three times a day gabapentin 57105694834 [facility] ALBUTEROL SULFATE HFA 108 (90 Base) MCG/ACT AERS Inhale 2 puff every four hours as needed albuterol sulfate 52245485348 [facility] LORATADINE 10 MG TABS Take 1 tablet by mouth once a day as needed loratadine 23412326565 [facility] PROMETHAZINE HCL 12.5 MG TABS Take 1 tablet by mouth every six hours as needed promethazine 14804231597 [facility] EPINEPHRINE 0.3 MG/0.3ML SOAJ Inject 0.3 ml intramuscularly as directed epinephrine 70169138248 [facility] NICOTINE STEP 1 21 MG/24HR PT24 Place 1 patch to skin as directed nicotine 83976616371 [facility] PRIMIDONE 50 MG TABS Take 1 tablet by mouth twice a day primidone 48802019057 [facility] ASPIRIN EC (ASPIRIN) 81 MG TBEC Take 1 tablet by mouth once a day ASPIRIN [facility] FERROUS SULFATE 324 (65 Fe) MG TBEC Take 1 tablet by mouth every morning ferrous sulfate 09754236284 [facility] POTASSIUM CHLORIDE VIVIEN ER 10 MEQ CR-TABS Take 1 tablet by mouth once a day potassium chloride 68158853821 [facility] ATORVASTATIN CALCIUM 80 MG TABS Take 1 tablet by mouth once a day On Hold atorvastatin 21133320784 [facility] MAGNESIUM OXIDE 400 MG TABS Take 1 tablet by mouth once a day magnesium oxide 17764216829 [facility] ALPRAZOLAM 0.5 MG TABS Take 0.5 tablet by mouth twice a day as needed alprazolam 88950950389 [facility] GUAIFENESIN ER 1200 MG [id number] Take 1 tablet by mouth twice a day as needed guaifenesin 29360851106 [facility] BACLOFEN 20 MG TABS Take 1 tablet by mouth three times a day baclofen 62440392661 [facility] FUROSEMIDE 20 MG TABS Take 1 tablet by mouth once a day furosemide 31743464472 [facility] WARFARIN SODIUM 2 MG TABS warfarin 10411414882 [facility] daptomycin 600mg Q 24hrs x 6wks [facility] Outpt 09/17 daptomycin [facility] PROMETHAZINE HCL 12.5 MG TABS Take 1 tablet by mouth Every 6 (Six) Hours As Needed for Nausea or Vomiting. 09/02 promethazine 69824647106 [facility] PRIMIDONE 50 MG TABS Take 1 tablet by mouth 2 (Two) Times a Day. 09/02 primidone 48924097791 [facility] POTASSIUM CHLORIDE VIVIEN ER 10 MEQ CR-TABS Take 1 tablet by mouth Daily. 09/02 potassium chloride 90415082607 [facility] ONDANSETRON [address] 1 tablet on the tongue Every 6 (Six) Hours As Needed for Nausea or Vomiting. 09/02 ondansetron 23914446017 [facility] NICOTINE STEP 1 21 MG/24HR PT24 Place 1 patch on the skin as directed by provider. 09/02 nicotine 93971946952 [facility] METHOCARBAMOL 750 MG TABS Take 1 tablet by mouth 3 (Three) Times a Day As Needed for Muscle Spasms. 09/02 methocarbamol 36137173723 [facility] MAGNESIUM OXIDE 400 MG TABS Take 1 tablet by mouth Daily. 09/02 magnesium oxide 74049961956 [facility] LORATADINE 10 MG TABS Take 1 tablet by mouth Daily As Needed for Allergies. 09/02 loratadine 40070835348 [facility] GUAIFENESIN ER 1200 MG [id number] Take 1 tablet by mouth 2 (Two) Times a Day As Needed (COUGH / CONGESTION). 09/02 guaifenesin 78282193134 [facility] GABAPENTIN 600 MG TABS Take 1 tablet by mouth 3 (Three) Times a Day. 09/02 gabapentin 80484952529 [facility] FUROSEMIDE 20 MG TABS Take 1 tablet by mouth Daily. Indications: Edema 09/02 furosemide 17831105685 [facility] FERROUS SULFATE 324 (65 Fe) MG TBEC Take 1 tablet by mouth Daily With Breakfast. 09/23 ferrous sulfate 82677714480 [facility] ESCITALOPRAM OXALATE 20 MG TABS Take 1 tablet by mouth Daily. 09/02 escitalopram oxalate 08328145631 [facility] EPINEPHRINE 0.3 MG/0.3ML SOAJ Inject 0.3 mL into the appropriate muscle as directed by prescriber. 09/23 epinephrine 01817384723 [facility] BACLOFEN 20 MG TABS TAKE ONE TABLET BY MOUTH THREE TIMES A DAY 09/02 baclofen 15695426106 [facility] ATORVASTATIN CALCIUM 80 MG TABS Take 1 tablet by mouth Daily. Indications: Cerebrovascular Accident or Stroke, High Amount of Fats in the Blood 09/02 atorvastatin 18447956325 [facility] Atogepant 60 MG tablet Take 1 tablet by mouth Daily. Indications: Migraine Headache 09/02 Atogepant 60 MG tablet [facility] ASPIRIN EC (ASPIRIN) 81 MG TBEC Take 1 tablet by mouth Daily. Indications: Disease involving Lipid Deposits in the Arteries 09/02 ASPIRIN [facility] ASCORBIC ACID 500 MG TABS Take 1 tablet by mouth Daily. 09/02 ascorbic acid (vitamin c) 74784995322 [facility] ALPRAZOLAM 0.5 MG TABS Take 0.5 tablets by mouth 2 (Two) Times a Day As Needed for Anxiety. Indications: Feeling Anxious 09/02 alprazolam 51915745745 [facility] ALBUTEROL SULFATE HFA 108 (90 Base) MCG/ACT AERS Inhale 2 puffs Every 4 (Four) Hours As Needed for Wheezing or Shortness of Air. 09/02 albuterol sulfate 02319841201 [facility] Medications Administered No information available. Allergies, Adverse Reactions, Alerts Allergy Name Reaction Description Start Date Severity Statu s Provider BEE VENOM Anaphylaxis Critical Active Desirae miranda Results Date Name Value Unit Range Flag Description Clinical Lists Update: Prelo ad VAPE_USE Never Tobacco smok ing status Chart Maintenance: Updated H H labs 09/15/24 ESR 74 mm/h Erythrocyte sedimentation rate by [...] [ #/volume] in Blood by Automated count Chart Maintenance: Updated H H labs 09/22/24 CRP 1.7 mg/dL C reactive pr otein [Mass/volume] in Serum or Plasma CPK 44 U/L Creatine brandon se [Enzymatic activity/volume] in Serum or Plasma BILI TOTAL 0.3 mg/dL Bilirubin. total [Mass/volume] in Serum or Plasma ALK PHOS 97 U/L Alkaline mike sphatase [Enzymatic activity/volume] in Blood SGPT (ALT) 16 U/L Alanine aminotransferase [Enzymatic activity/volume] in Serum or Plasma SGOT (AST) 26 U/L Aspartate aminotransferase [Enzymatic activity/volume] in Serum or Plasma CALCIUM 9.1 mg/dL Calcium [Mole s/volume] in Serum or Plasma POTASSIUM 3.9 mmol/L Potassium [Moles/volume] in Serum or Plasma SODIUM 133 mmol/L Sodium [Moles /volume] in Serum or Plasma CREATININE 0.50 mg/dL Creatinine [Mass/volume] in Serum or Plasma BUN 5 mg/dL Urea nitrogen [Mass/volume] in Serum or Plasma GLUCOSE SER 87 mg/dL Glucose [ Mass/volume] in Serum or Plasma Office Visit: Office Visit:r m 8 SMOK ADVICE yes Smoking c essation education (procedure) SEXUAL ACTIV yes Have you ever had vaginal intercourse [PhenX] SMOK STATUS Current every day smoker Tobacco smoking status MEDS REVIEW Done Documenta tion of current medications (procedure) Plan of Care Type Date Detail Appointment 10:45 AM Pola Trotter se, MD, [address], [address], [place], [address], Referral MRI Lumbar Spine with/without constrast Pending order Continue IV anti biotics Pending order Weekly PICC Line Care Pending order Weekly Labs (Con tinue) Pending order CMP Pending order CBC w/o Differen tial Pending order Sedimentation Ra te (ESR) Pending order C- reactive prot ein Pending order Vancomycin Troug h Pending order Change IV antibi otics Pending [...] Entry Date Complex E&M visit add-on () CPT-ca Continue IV antibiotics 2024 CPT-wpc Weekly PICC Line Care 09/02 CPT-cwl Weekly Labs (Continue) 09/02 CPT-14811 CMP CPT-23167 CBC w/o Differential CPT-38835 C- reactive protein CPT-19392 Sedimentation Rate (ESR) 07/29/09 G2 Complex E&M visit add-on () CPT-ca Continue IV antibiotics 2024 CPT-PICREM PICC Removal CPT-wpc Weekly PICC Line Care 08/27 CPT-96888 PICC Line Insertion CPT-76376 CMP CPT-80192 CBC w/o Differential CPT-60490 C- reactive protein [id number], [id number] CPK CPT-36678 Sedimentation Rate (ESR) 07/30/03 G2211 Complex E&M visit add-on (G2211) CPT-22692 CMP CPT-88339 CBC w/o Differential [id number], [id number] CPK CPT-35172 Sedimentation Rate (ESR) 202 07/29/27 G2211 Complex E&M visit add-on (G2211) [...] Directives Directive Description Start Date POWER OF LEVER TENDER
[2024-09-29 15:44] VITALS: BMI 24.3
--- OUTSIDE RECORDS SUMMARY | 2024-09-29 15:44 | XMS_ITS | Encounter Summary ---
Author Organization [facility] Address [address] [place] [address] Care Team Providers Care Collection Agent Name Role Phone Pcp, No Primary Care Provider Unavailabl e Malia Amezquita MD Primary Care Provider [phone] Malia Amezquita MD Primary Care Provider [phone] Malia Amezquita MD Unavailable [phone] Jakub Longoria MD Unavailable Cassia Mayorga LPN Unavailable Unavailable Encounter Details Date Type Department Care Team (Late st Contact Info) Description 01/20/2022 Orders Only External Location [address] [place] [address] Provider, External Social History Tobacco Use Types [...] Info) Description 11/04/2024 4:00 PM EDT Consult [place] [facility] [address] [place] [address] Tera Carvalho MD [address] [place] [address] documented as of this encounter [...] documented as of this encounter Care Teams Collection Agent Relationship Specialty Start Date End Date Pcp, No [address] [place] [address] PCP - General Family Medicine 02/11/22 04/03/22 Malia Amezquita MD [address] [place] [address] PCP - General 04/04/22 12/25/23 Malia Amezquita MD [address] [place] [address] PCP - General 12/26/23 Malia Amezquita MD [address] [place] [address] 12/26/23 Jakub Longoria MD [address] [place] [address] Consulting Physician Neurology 04/12/22 Cassia Mayorga LPN [employer] [place] [address] TCM Nurse 01/29/24 02/28/24 documented as of this encounter
--- OUTSIDE RECORDS SUMMARY | 2024-09-29 15:44 | XMS_ITS | Clinical Summary ---
Author Organization [facility] Address [address] [place] [address] Care Team Providers Care Tdp Displays Analyst Name Role Phone Malia Amezquita MD Primary Care Provider [phone] Malia Amezquita MD Unavailable [phone] Jakub Longoria MD Unavailable Allergies Active [...] Type Department Care Team Description 07/14/2024 Refill [facility] [address] [place] [address] Loco Pelaez, PharmD Nicotine dependence, uncomplicated, unspecified nicotine product type (Primary Dx) 07/14/2024 Telephone [facility] [address] [place] [address] Sonia Powell RN 07/09/2024 3:00 PM EDT Office Visit [facility] [address], [address] [place] [address] Beatriz Rivera MD Physical debility [...] drink first t marylou in the morning (EYE-KETTLE CLEANER) to steady your nerves or to get [...] Consult [place] [facility] [address] [place] [address] Tera Carvalho MD [address] [place] [address] Health Maintenance Due Date Last Done Comments [facility]-Depression Screening 1965 [facility]-Infant/Child/Adol SDOH Screenings 1965 [facility]- SDOH Screenings 1981 [facility]-Adult SDOH Screenings 1981 CT Colonography 01/12/2008 FIT-DNA 01/12/2008 FIT 01/12/2008 FOBT 01/12/2008 Sigmoidoscopy 01/12/2008 [id number] Vaccine ( season) 2023 12/24/2021, 07/02/2021, 01/29/2021, Additional history exists [facility]-Influenza Vaccine (#1) 11/24/202404/09, 01/22/2023, 01/29/2021, Additional history exists [facility]-Lung Cancer Screening [...] Completed 2023, 08/18/2023, 03/02/2022, Additional history exists [facility]-RSV Vaccine: 60+ Years [...] HIV 1/2 Differentiation (01/25/2024 8:32 PM EDT) [facility] HIV 1 & 2 Antibody/Antigen Screen Non Reactive Non Reactive 01/25/2024 10:07 PM EDT [facility] Comment:Screening for HIV 1 & 2 antibodies, and P24 antigen is NONREACTIVE. No confirmatory testing is required. Blood Venous blood specimen / Unknown Venipuncture / Unknown 01/25/2024 8:32 PM EDT 01/25/2024 9:05 PM EDT us Bárbara Rios MD LAB BLOOD ORDERABLES Final Res ult Performing Organization Address City/[facility]/ZIP Co de Phone Number [facility] [address] [place] [address] * Hepatitis C Antibody - ED (01/25/2024 8:32 PM EDT) [facility] Hepatitis C Antibody Negative Negative 01/25/2024 10:08 PM EDT [facility] Blood Venous blood specimen / Unknown Venipuncture / Unknown 01/25/2024 8:32 PM EDT 01/25/2024 9:05 PM EDT us Bárbara Rios MD LAB BLOOD ORDERABLES Final Res ult [facility] [address] [place] [address] * CT Angio Pulmonary Embolism (01/25/2024 8:16 [...] Most Recently Relevant to Health Maintenance Insurance [facility] MEDICAID Care Teams Tdp Displays Analyst Relationship Specialty Start Date End Date Malia Amezquita MD [address] [place] [address] PCP - General 12/26/23 Malia Amezqutia MD [address] [place] [address] 12/26/23 Jakub Longoria MD [address] [facility] [address] [place] [address] Consulting Physician Neurology 04/12/22
--- OUTSIDE RECORDS SUMMARY | 2024-09-29 15:44 | XMS_ITS | Encounter Summary ---
Author Organization [facility] Address [address] [place] [address] Care Team Providers Care Campground Caretaker Name Role Phone Pcp, No Primary Care Provider Unavailabl e Malia Amezquita MD Primary Care Provider [phone] Malia Amezquita MD Primary Care Provider [phone] Malia Amezquita MD Unavailable Jakub Longoria MD Unavailable Cassia Mayorga LPN Unavailable Unavailable Reason for Referral * Consultation (Routine) - Closed Specialty Diagnoses / Procedures Referred By Contac t Referred To Contact Neurology Diagnoses Weakness Sean Silva MD [address] [place] [address] Phone: tel: fax: Referral ID Status Reason Start Date Expiration Date V isits Requested Visits Authorized [id number] Closed Specialty Services Required 03/08/2022 09/07/2023 1 1 Encounter Details Date Type Department Care Team (Late st Contact Info) Description 03/08/2022 Community [facility] [address] [place] [address] Sean Silva MD [address] [place] [address] Weakness (Primary Dx) Social History Tobacco Use [...] first t marylou in the morning (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-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) to steady your nerves or to get [...] Info) Description 11/04/2024 4:00 PM EDT Consult [place] [facility] [address] [place] [address] Tera Carvalho MD [address] [place] [address] Scheduled Referrals Name Type Priority [...] documented as of this encounter Care Teams Campground Caretaker Relationship Specialty Start Date End Date Pcp, No [address] [place] [address] PCP - General Family Medicine 02/11/22 04/03/22 Malia Amezquita MD [address] [place] [address] PCP - General 04/04/22 12/25/23 Malia Amezquita MD [address] [place] [address] PCP - General 12/26/23 Malia Amezquita MD [address] [place] [address] 12/26/23 Jakub Longoria MD [address] [place] [address] Consulting Physician Neurology 04/12/22 Cassia Mayorga LPN VALUE[employer] [place] [address] TCM Nurse 01/29/24 02/28/24 documented as of this encounter
[2024-09-29 16:20] LABS: Hematocrit 35.9 % (42.0-52.0); Hemoglobin 11.7 g/dL (14.1-18.0); Immature Granulocytes % 0.2 %; Mean Corpuscular HGB Conc 32.6 g/dL (31.8-35.4); Mean Corpuscular Hemoglobin 26.7 pg (27.0-31.2); Mean Corpuscular Volume 81.8 fl (80-94); Nucleated Red Blood Cells % 0 %; Platelet Count 174 K/mm3 (142-424); Red Blood Count 4.39 M/mm3 (4.60-6.20); Red Cell Distribution Width-SD 49.1 fL; White Blood Count 8.5 K/mm3 (4.8-10.8)
[2024-09-29 16:42] LABS: Alanine Aminotransferase 18 U/L (12-78); Albumin Level 4.1 g/dl (3.5-5.0); Albumin/Globulin Ratio 1.3 (1.1-1.8); Alkaline Phosphatase 93 U/L (38-126); Anion Gap 10.8 mEq/L (5-15); Aspartate Amino Transferase 28 U/L (17-59); Bilirubin,Total 0.4 mg/dl (0.2-1.3); Blood Urea Nitrogen 8 mg/dl (9-20); Calcium 8.6 mg/dl (8.4-10.2); Carbon Dioxide 32 mmol/L (22.0-30.0); Chloride 96 mmol/L (98-107); Creatine Kinase 49 U/L (55-170); Creatinine Clearance Estimated 82 mL/min (50-200); Creatinine,Serum 0.60 mg/dl (0.66-1.25); Estimated Glomerular Filt Rate 137 ml/min (>60); GFR (African American) 166 ML/MIN (>60); Globulin 3.2 g/dL (1.3-3.2); Glucose 75 mg/dl (74-100); Potassium 3.8 mmoL/L (3.5-5.1); Sodium 135 mmol/L (136-145); Total Protein,Serum 7.3 g/dl (6.3-8.2)
[2024-09-29 16:47] LABS: C-Reactive Protein 3.5 mg/L (0-4)
== END 2024-09-29 16:41 | disposition home or self-care (01) ==
LOC: INF 15:42
PROVIDERS: PCP Family Medicine; Visit Provider Internal Medicine Infectious Disease
DX: M46.26 Osteomyelitis of vertebra, lumbar region (principal); M46.36 Infection of intervertebral disc (pyogenic), lumbar region
CPT/HCPCS: 36592; 80053; 82550; 85025; 85651; 86140; 96523

== ENCOUNTER 2025-03-11 14:39 | Outpatient (CLI) | payer OTHER, SELFPAY ==
--- OUTSIDE RECORDS SUMMARY | 2022-12-28 08:04 | XMS_ITS | Encounter Summary ---
Author Organization [facility] Address [address] [place] [address] Care Team Providers Care Custom Shop Worker Name Role Phone Malia Amezquita MD Primary Care Provider + [phone] Reason for Referral * Hospital - Outpatient (Routine) - Closed Specialty Diagnoses / Procedures Referred By Chucky robert Referred To Contact Sleep Medicine Diagnoses Hypersomnolence Procedures Home Sleep Study Milton Alfredo MD [address] [place] [address] Phone: tel: fax: [facility] [address] [phone] Phone: tel: fax: Referral ID Status Reason Start Date Expiration Date Visits Re quested Visits Authorized [id number] Closed 11/09/2022 11/09/2023 1 1 Reason for Visit * Hospital - Outpatient (Routine) - Closed Specialty Diagnoses / Procedures Referred By Chucky robert Referred To Contact Sleep Medicine Diagnoses Hypersomnolence Procedures Home Sleep Study Milton Alfredo MD [address] [place] [address] Phone: tel: fax: [facility] [address] [address] Phone: tel: fax: Referral ID Status Reason Start Date Expiration Date Visits Re quested Visits Authorized [id number] Closed 11/09/2022 11/09/2023 1 1 Encounter Details Date Type Department Care Team (Late st Contact Info) Description 12/28/2022 9:04 AM EDT Hospital Encounter [facility] [address] [facility] [address] [place] [phone] Milton Alfredo MD [address] [place] [address] Hypersomnolence Social History Tobacco Use Types Packs/Day Years Used Date Smoking Tobacco: Every Day Cigarettes 1.5 17.6 Started: 03/27/1999; Last attempted to quit: 11/09/2016 Comments:Has recently starte d half a pack a day again, 11/09/22 Alcohol Use Standard Drinks/Week Comments Not Currently 4 (1 standard drink = 0.6 oz pur e alcohol) OASIS D0700: Social Isolation Answer Da te Recorded Frequency of experiencing loneliness or isolatio n Never 01/18/2024 OASIS A1250: Transportation Answer Date Recorded Lack of Transportation (Medical) No 01/18/2024 Lack of Transportation (Non-Medical) No 01/18/2024 Patient Unable or Declines to Respond No 01/18/2024 OASIS B1300: Health Literacy Answer Magdy e Recorded Frequency of needing help to read materials from doctor or pharmacy Never 01/18/2024 [facility] Utilities Answer Date Recorded In the past 12 months has [employer], [employer], oil, or water [email or web address] threatened to shut off services in your home? No 08/04/2024 AUDIT-C Answer Date Recorded Q1: How often do you have a drink containing alcohol? Never 08/04/2024 Q2: How many drinks containi ng alcohol do you have on a typical day when you are drinking? Patient does not drink Q3: How often do you have si x or more drinks on one occasion? Never 08/04/2024 Overall Financial Resource Strain (CARDIA) Answe r Date Recorded How hard is it for you to pa y for the very basics like food, housing, medical care, and heating? Not very hard 08/04/2024 [facility] - Occupational Stress Questionnaire Answer Date Recorded Do you feel stress - tense, restless, nervous, or anxious, or unable to sleep at night because your mind is troubled all the time - these days? Only a little 08/04/2024 Exercise Vital Sign Answer Date Recorde d On average, how many days pe r week do you engage in moderate to strenuous exercise (like a brisk walk)? 0 days 08/04/2024 On average, how many minutes do you engage in exercise at this level? 0 min 08/04/2024 Hunger Vital Sign Answer Date Recorded Within the past 12 months, y ou worried that your food would run out before you got the money to buy more. Never true 08/05/19 25 Within the past 12 months, t he food you bought just didn't last and you didn't have money to get more. Never true 08/04/2024 PRAPARE - Transportation Answer Date Re corded In the past 12 months, has l ack of transportation kept you from medical appointments or from getting medications? No 07/24 In the past 12 months, has l ack of transportation kept you from meetings, work, or from getting things needed for daily living? No 08/04/2024 Abuse Screen Answer Date Recorded Feels Unsafe at Home or Work/School no 08/01/2024 Feels Threatened by Someone no 11/2024 Does Anyone Try to Keep You From Having Contact with Others or Doing Things Outside Your Home? no 08/01/2024 Physical Signs of Abuse Present no 08/01/2024 Housing Stability Answer Date Recorded Current Living Arrangements home 07/24 Potentially Unsafe Housing Conditions none 08/04/2024 Family and Community Support Answer Magdy e Recorded If for any reason you need h elp with day-to-day activities such as bathing, preparing meals, shopping, managing finances, etc., do you get the help you need? I get all the help I need 08/04/2024 How often do you feel lonely or isolated from those around you? Never 08/04/2024 Employment Answer Date Recorded Do you want help finding or keeping work or a job? I do not need or want help 08/04/2024 Disabilities Answer Date Recorded Difficulty Concentrating, Remembering or Making Decisions no 08/04/2024 Difficulty Managing Errands Independently no 08/04/2024 Education Answer Date Recorded Do you want help with school or training? For example, starting or completing job training or getting a high school diploma, GED or equivalent No 08/04/2024 Preferred Language Brazilian 08/04/2024 PHQ-2 Answer Date Recorded Patient Health Questionnaire-2 Score 0 08/04/2024 Sex and Gender Information Value Date Recorded Sex Assigned at Male 06/25/2024 9:16 AM EDT Legal Sex Male 12:09 PM EDT Gender Identity Not on file Sexual Orientation Not on file documented as of this encounter Last Filed Vital Signs Vital Sign Reading Time Taken Comments Blood Pressure - - Pulse - - Temperature - - Respiratory Rate - - Oxygen Saturation - - Inhaled Oxygen Concentration - - Weight 90.7 kg (200 lb) 12/28/2022 9:49 AM EDT Height 177.8 cm (5' 10 ) 12/28/2022 9:49 AM EDT Body Mass Index 28.7 12/28/2022 9:49 AM EDT documented in this encounter Plan of Treatment Upcoming Encounters Date Type Department Care Team (Late st Contact Info) Description 06/08/2025 1:00 PM EDT Office Visit [facility] [address] [phone] Belem Goldberg APRN [address] [facility] [address] [place] [address] documented as of this encounter Goals Goal Patient Goal Type Associated Problems Recent Progress Patient-Stated? Author Specialty Pharmacy General Goal General On track(08/25/19 10:44 AM EDT) Jessica Mcdowell, PharmD Note: Decrease severity and duration of migraine headache documented as of this encounter Procedures Procedure Name Priority Date/Time Associated Diagnosis Comments HST Routine 12/29/2022 6:04 AM EDT Hypersomnolence documented in this encounter Results * HST (12/29/2022 6:04 AM EDT) Impressions SLEEP MEDICINE - 01/10/2023 9:03 AM EDT 1. Mild obstructive sleep apnea. 2. Nocturnal hypoxemia. (16.1% time below 90% O2 sat) 3. Snoring. RECOMMENDATIONS: 1. Available data is suggestive of mild obstructive sleep apnea and significant sleep hypoxia likely secondary to sleep disordered breathing. Recommend auto CPAP trial 4 to 20 cm of water pressure and follow up with CPAP download to make sure we are not missing any other pathology. 2. Discuss good sleep hygiene habits, including but not limited to fixed wake up and sleep time, avoid alcohol 4 hours before sleep and not driving while drowsy. Maintain ideal body weight. I have conducted an epoch by epoch review of the raw data and agree with the interpretation. Milton Alfredo MD, [facility] Pulmonary Critical care and Sleep medicine Narrative SLEEP MEDICINE - 01/10/2023 9:03 AM EDT PATIENT NAME: Severo Amin : 1965; Age: 57 y.o. OVERNIGHT UNATTENDED TYPE 3 POLYSOMNOGRAM DATE OF STUDY: 2022. REQUESTING PHYSICIAN: - REASON FOR STUDY: Somnolence STUDY METHODOLOGY: Patient had a home sleep test with an [employer] Night One device that measured airflow at the nose and mouth. It measured thoracic respiratory effort using respiratory inductance plethysmography. It measured oxygen saturation and determined pulse rate. Body position was recorded. Snoring was judged by transducer vibration. It was scored using standard techniques. Hypopneas were scored according to AASM definition 1B (4% desaturation). The patient is a 57 year old patient with BMI 28.7 and clinically strong suspicion for obstructive sleep apnea. Patient met criteria for home sleep study testing. STUDY INTERPRETATION: Total recording time: 576.1 minutes. Monitoring time: 453 minutes. Apnea-hypopnea index: 10.2. Supine sleep: 384.1 minutes Snore index: 42.1 %. Average pulse: 72.7. Oxygen desaturation index: 9.9. Lowest saturation: 82%. Time below 90% O2 sat: 92.9 min us Milton Alfredo MD SLEEP CENTER ORDERABLES Final Result SLEEP MEDICINE documented in this encounter Visit Diagnoses Diagnosis Hypersomnolence Hypersomnia, unspecified documented in this encounter Care Teams Custom Shop Worker Relationship Specialty Start Date End Date Malia Amezquita MD [address] [place] [address] PCP - General Internal Medicine 01/26/22 08/26/24 documented as of this encounter
--- OUTSIDE RECORDS SUMMARY | 2024-12-22 05:40 | XMS_ITS ---
Author Organization [facility] Address [address] [place] [address] Care Team Providers Care Dental Equipment Mechanic Name Role Phone unknown, Unknown Primary Care Provider Unavailab Atilio Vela Unavailable [phone] Self Referral, Self Unavailable Unavailable Rufino Naqvi Unavailable [phone] REASON FOR VISIT back pain (interested in RFA) Social History Sex Assigned At : Social History Observation Description Sex Assigned At Male Encounters Encounter Location Date Provider Diagnosis [facility] [address] [place] [address] 12/22/2024 Rufino Naqvi Plan Of Treatment No Information Progress Notes * Severo AMINDOB:1964 (60 yo M)Acc No.[id number]:12/22/2024 Patient: Severo Ireland Provider: Morales Naqvi PA-C :1965 A ge:59 Y S ex:Male Date:12/22/2024 Address:[address] , [place], [place]-[address] Pcp:Unknown unknown Subjective: * Chief Complaints: * b ack pain (interested in RFA) Care Plan Details* * Electronic signature of Ray or HALLEY Naqvi PA-C on 03/12/2025 at 11:40 AM EST Sign off status: Pending * Provider: Morales Naqvi PA-C Date: 0 12/22/2024 Generated for Estevan brown/Kosta/eTransmitting on: 1 05/13/2024 11:40 AM EST
[2025-03-11 20:44] LABS: Hematocrit 43.3 % (42.0-52.0); Hemoglobin 14.3 g/dL (14.1-18.0); Immature Granulocytes % 0.2 %; Mean Corpuscular HGB Conc 33.0 g/dL (31.8-35.4); Mean Corpuscular Hemoglobin 27.5 pg (27.0-31.2); Mean Corpuscular Volume 83.3 fl (80-94); Nucleated Red Blood Cells % 0 %; Platelet Count 140 K/mm3 (142-424); Red Blood Count 5.20 M/mm3 (4.60-6.20); Red Cell Distribution Width-SD 42.1 fL; White Blood Count 8.4 K/mm3 (4.8-10.8)
[2025-03-11 21:04] LABS: Alanine Aminotransferase 14 U/L (12-78); Albumin Level 4.4 g/dl (3.5-5.0); Albumin/Globulin Ratio 1.4 (1.1-1.8); Alkaline Phosphatase 97 U/L (38-126); Anion Gap 14.8 mEq/L (5-15); Aspartate Amino Transferase 21 U/L (17-59); Bilirubin,Total 0.9 mg/dl (0.2-1.3); Blood Urea Nitrogen 4 mg/dl (9-20); Carbon Dioxide 24 mmol/L (22.0-30.0); Chloride 96 mmol/L (98-107); Cholesterol 284 mg/dl (140-200); Creatinine,Serum 0.50 mg/dl (0.66-1.25); Estimated Glomerular Filt Rate 168 ml/min (>60); GFR (African American) 204 ML/MIN (>60); Globulin 3.2 g/dL (1.3-3.2); HDL Cholesterol 36 mg/dl (40-60); Potassium 4.8 mmoL/L (3.5-5.1); Sodium 130 mmol/L (136-145); Total Protein,Serum 7.6 g/dl (6.3-8.2); Triglycerides 243 mg/dl (30-150)
[2025-03-11 21:18] LABS: Calcium 9.3 mg/dl (8.4-10.2); Glucose 85 mg/dl (74-100)
[2025-03-11 21:35] LABS: Thyroid Stimulating Hormone 1.26 uIU/mL (0.465-4.68)
--- OUTSIDE RECORDS SUMMARY | 2025-03-12 11:40 | XMS_ITS | Encounter Summary ---
Author Organization [facility] Address [address] [place] [address] Care Team Providers Care Web Site Project Manager Name Role Phone Malia Amezquita MD Primary Care Provider [phone] Malia Amezquita MD Primary Care Provider [phone] Malia Amezquita MD Unavailable [phone] Jakub Longoria MD Unavailable Cassia Mayorga LPN Unavailable Unavailable Reason for Referral * Consultation (Routine) - Authorized Specialty Diagnoses / Procedures Referred By Contact Referred To Contact Physical Medicine and Rehabilitation Diagnoses Functional movement disorder Malia Amezquita MD [address] [place] [address] Phone: tel:[phone] fax:[phone] [facility] [address] [address] Phone: tel: fax: Referral ID Status Reason Start Date Expiration Date Visits Requested Visits Authorized [id number] Authorized Specialty Services Required 09/26/2023 03/27/2025 1 1 Encounter Details Date Type Department Care Team (Late Contact Info) Description 09/26/2023 Community [facility] Community Practice [address] [place] [address] Malia Amezquita MD [address] [place] [address] Functional movement disorder (Primary Dx) Social History [...] drink first t marylou in the morning (EYE-RESEARCH AND INSIGHTS EXECUTIVE) to steady your nerves or to get [...] Department Care Team (Late Contact Info) Description 05/13/2025 9:00 AM EST Office Visit [place] [facility] [address] [place] [address] Tera Carvalho MD [address] [place] [address] Scheduled Referrals Name Type Priority Associated Diagnoses [...] documented as of this encounter Care Teams Web Site Project Manager Relationship Specialty Start Date End Date Malia Amezquita MD [address] [place] [address] PCP - General 04/04/22 12/25/23 Malia Amezquita MD [address] [place] [address] PCP - General 12/26/23 Malia Amezquita MD [address] [place] [address] 12/26/23 Jakub Longoria MD [address] [place] [address] Consulting Physician Neurology 04/12/22 Cassia Mayorga LPN VALUE-[employer]ED [place] [address] None TCM Nurse 01/29/24 02/28/24 documented as of this encounter
--- OUTSIDE RECORDS SUMMARY | 2025-03-12 11:40 | XMS_ITS | Encounter Summary ---
Author Organization [facility] Address [address] [place] [address] Care Team Providers Care Sheet Metal Shop Helper Name Role Phone Gonzales Celeste KELSEY Primary Care Provider [phone] Reason for Visit * Reason Comments Med Refill Encounter Details Date Type Department Care Team (Late Contact Info) Description 09/19/2022 Refill [facility] [address] [facility] [address] [place] [address] Anais Salgado APRN [address] [facility] [address] [place] [address] Social History Tobacco Use Types Packs/Day Years Used Date Smoking Tobacco: Former Cigarettes 1.5 17.6 0 03/27/1999 - 11/09/2016 Comments:Smoked cigarettes Alcohol Use Standard Drinks/Week Comments Yes 4 (1 standard drink = 0.6 oz pur e alcohol) Housing Stability Answer Date Recorded Current Living Arrangements home 09/2021 Potentially Unsafe Housing Conditions Not on celeste e 03/01/2022 Disabilities Answer Date Recorded Difficulty Concentrating, Remembering or Making Decisions no 03/01/2022 Difficulty Managing Errands Independently no 03/01/2022 Sex and Gender Information Value Date Recorded Sex Assigned at Male 06/25/2024 9:16 AM EDT Legal Sex Male 12:09 PM EDT Gender Identity Not on file Sexual Orientation Not on file documented as of this encounter Plan of Treatment Upcoming Encounters Date Type Department Care Team (Late st Contact Info) Description 06/08/2025 1:00 PM EDT Office Visit [facility]Y [address] [facility] [address] [place] [address] Belem Goldberg APRN [address] [facility] [address] [place] [address] documented as of this encounter Goals Goal Patient Goal Type Associated Problems Recent Progress Patient-Stated? Author Specialty Pharmacy General Goal General On track(08/25/19 10:44 AM EDT) No Jessica Blankenship, PharmD Note: Decrease severity and duration of migraine headache documented as of this encounter Visit Diagnoses Not on filedocumented in this encounter Care Teams Sheet Metal Shop Helper Relationship Specialty Start Date End Date Celeste Rolon APRN [address] [place], [place] [id number] PCP - General Family Medicine 08/27/24 documented as of this encounter
--- OUTSIDE RECORDS SUMMARY | 2025-03-12 11:40 | XMS_ITS | Clinical Summary ---
Author Organization [facility] Address [address] [place] [address] Phone Care Team Providers Care Mine Captain Name Role Phone Pola Crawley MD [ ] Conditions or Problems Problem Name Problem Code Onset Date Status Entry Date Provider Comment Standard Description Annotate Neuropathy 835432840 (SNOMED CT) 09/24 Active 09/24 Pola Crawley [...] region Personal history of traumatic brain injury 877825548 (SNOMED CT) 08/13 Active 08/13 Nilam Deric History of head injury Nicotine dependence, cigarettes F17.210 (ICD-10-CM ) 08/13 Active 08/13 Nilam Deric Nicotine dependence, cigarettes, uncomplicated Coronary artery disease, S/P CABG 312298862 (SNOMED CT) 08/13 Active 08/13 Nilam Deric Arteriosclerosis of coronary artery bypass graft Benign Essential Hypertension 97231337 (SNOMED CT) 08/13 Active 08/13 Nilam Deric Benign hypertension Medications Medication Instructions Start Date Stop Date Generic Name NDC Provider ASCORBIC ACID 500 MG TABS Take 1 tablet by mouth once a day 0 ascorbic acid (vitamin c) 50467804572 Nancy Ortiz FUROSEMIDE 20 MG TABS Take 1 tablet by mouth once a day 0/ furosemide 26755363708 Nancy Ortiz ESCITALOPRAM OXALATE 20 MG TABS Take 1 tablet by mouth once a day 0 escitalopram oxalate 21896325941 Nancy Ortiz PRIMIDONE 50 MG TABS Take 1 tablet by mouth twice a day 0 primidone 01022753339 Nancy Ortiz WARFARIN SODIUM 2 MG TABS 0 warfarin 83801778238 Nancy Ortiz PROMETHAZINE HCL 12.5 MG TABS Take 1 tablet by mouth every six hours as needed 0 promethazine 41447186534 Nnacy Ortiz ATORVASTATIN CALCIUM 80 MG TABS Take 1 tablet by mouth once a day On Hold 0 atorvastatin 07804414605 Nancy Ortiz ASPIRIN EC (ASPIRIN) 81 MG TBEC Take 1 tablet by mouth once a day 0 ASPIRIN Nancy Ortiz METHOCARBAMOL 750 MG TABS Take 1 tablet by mouth three times a day as needed 0 methocarbamol 55278301980 Nancy Ortiz ONDANSETRON [address] 1 tablet by mouth every six hours as needed 0 ondansetron 68329185508 Nancy Ortiz MAGNESIUM OXIDE 400 MG TABS Take 1 tablet by mouth once a day 0 magnesium oxide 94770728205 Nancy Ortiz LINEZOLID 600 MG TABS Take 1 tablet by mouth twice a day 0 linezolid 14671480682 Nancy Ortiz DOXYCYCLINE HYCLATE 100 MG TABS 1 tablet by mouth twice a day for 30 days Start after completing linezolid 0 doxycycline hyclate 28458945864 Nancy Ortiz NICOTINE STEP 1 21 MG/24HR PT24 Place 1 patch to skin as directed 0 nicotine 04222613383 Nancy Ortiz duloxetine 30 mg capsule,delayed release sprinkle 2 capsule by mouth once a day duloxetine Nancy Ortiz PANTOPRAZOLE SODIUM 40 MG TBEC 1 tablet by mouth once a day pantoprazole 74154307920 Nancy Ortiz TRAMADOL HCL 50 MG TABS 1 tablet by mouth twice a day tramadol 43432951120 Nancy Ortiz FLUOXETINE HCL 20 MG CAPS 1 capsule by mouth once a day fluoxetine 29876387474 Nancy Ortiz METOPROLOL TARTRATE 25 MG TABS once a day metoprolol tartrate 58663416029 Bharati Owens DOXYCYCLINE HYCLATE 100 MG TABS 1 tablet by mouth twice a day for 30 days Start after completing linezolid doxycycline hyclate 14312423548 Pola Crawley MD LINEZOLID 600 MG TABS Take 1 tablet by mouth twice a day linezolid 66712740305 Pola Crawley MD vancomycin 2gm Q 24hrs [facility] 10/01 vancomycin [facility] daptomycin 600mg Q 24hrs x 6wks [facility] 09/17 daptomycin [facility] vancomycin 2gm Q 24hrs [facility] 10/01 vancomycin [facility] ONDANSETRON [address] 1 tablet by mouth every six hours as needed ondansetron 93568206263 [facility] ASCORBIC ACID 500 MG TABS Take 1 tablet by mouth once a day ascorbic acid (vitamin c) 82293999912 [facility] Atogepant 60 MG tablet Take 1 tablet by mouth once a day Atogepant 60 MG tablet [facility] METHOCARBAMOL 750 MG TABS Take 1 tablet by mouth three times a day as needed 0 methocarbamol 33041085594 [facility] ESCITALOPRAM OXALATE 20 MG TABS Take 1 tablet by mouth once a day escitalopram oxalate 86314002193 [facility] GABAPENTIN 600 MG TABS Take 1 tablet by mouth three times a day gabapentin 79157882485 [facility] ALBUTEROL SULFATE HFA 108 (90 Base) MCG/ACT AERS Inhale 2 puff every four hours as needed albuterol sulfate 11182642546 [facility] LORATADINE 10 MG TABS Take 1 tablet by mouth once a day as needed loratadine 43751981432 [facility] PROMETHAZINE HCL 12.5 MG TABS Take 1 tablet by mouth every six hours as needed 0 promethazine 77278100812 [facility] EPINEPHRINE 0.3 MG/0.3ML SOAJ Inject 0.3 ml intramuscularly as directed epinephrine 05444729768 [facility] NICOTINE STEP 1 21 MG/24HR PT24 Place 1 patch to skin as directed 0 nicotine 68500478487 [facility] PRIMIDONE 50 MG TABS Take 1 tablet by mouth twice a day 0 primidone 90302471792 [facility] ASPIRIN EC (ASPIRIN) 81 MG TBEC Take 1 tablet by mouth once a day 0 ASPIRIN [facility] FERROUS SULFATE 324 (65 Fe) MG TBEC Take 1 tablet by mouth every morning ferrous sulfate 54302140602 [facility] POTASSIUM CHLORIDE VIVIEN ER 10 MEQ CR-TABS Take 1 tablet by mouth once a day potassium chloride 61689250516 [facility] ATORVASTATIN CALCIUM 80 MG TABS Take 1 tablet by mouth once a day On Hold 0 atorvastatin 73615321817 [facility] MAGNESIUM OXIDE 400 MG TABS Take 1 tablet by mouth once a day 0 magnesium oxide 71411095536 [facility] ALPRAZOLAM 0.5 MG TABS Take 0.5 tablet by mouth twice a day as needed alprazolam 56959008706 [facility] GUAIFENESIN ER 1200 MG BR80R-HIB Take 1 tablet by mouth twice a day as needed guaifenesin 23797355003 [facility] BACLOFEN 20 MG TABS Take 1 tablet by mouth three times a day baclofen 37830101835 [facility] FUROSEMIDE 20 MG TABS Take 1 tablet by mouth once a day 0 furosemide 20480550885 [facility] WARFARIN SODIUM 2 MG TABS 0 warfarin 51341494407 [facility] daptomycin 600mg Q 24hrs x 6wks [facility] 09/17 daptomycin [facility] PROMETHAZINE HCL 12.5 MG TABS Take 1 tablet by mouth Every 6 (Six) Hours As Needed for Nausea or Vomiting. 09/02 promethazine 29283712676 [facility] PRIMIDONE 50 MG TABS Take 1 tablet by mouth 2 (Two) Times a Day. 09/02 primidone 58487201185 [facility] POTASSIUM CHLORIDE VIVIEN ER 10 MEQ CR-TABS Take 1 tablet by mouth Daily. 09/02 potassium chloride 17617084674 [facility] ONDANSETRON [address] 1 tablet on the tongue Every 6 (Six) Hours As Needed for Nausea or Vomiting. 09/02 ondansetron 81506632048 [facility] NICOTINE STEP 1 21 MG/24HR PT24 Place 1 patch on the skin as directed by provider. 09/02 nicotine 02452391392 [facility] METHOCARBAMOL 750 MG TABS Take 1 tablet by mouth 3 (Three) Times a Day As Needed for Muscle Spasms. 09/02 methocarbamol 71153122990 [facility] MAGNESIUM OXIDE 400 MG TABS Take 1 tablet by mouth Daily. 09/02 magnesium oxide 99072830595 [facility] LORATADINE 10 MG TABS Take 1 tablet by mouth Daily As Needed for Allergies. 09/02 loratadine 84503149947 [facility] GUAIFENESIN ER 1200 MG [id number] Take 1 tablet by mouth 2 (Two) Times a Day As Needed (COUGH / CONGESTION). 04/05 guaifenesin 00011501011 [facility] GABAPENTIN 600 MG TABS Take 1 tablet by mouth 3 (Three) Times a Day. 09/02 gabapentin 81266794435 [facility] FUROSEMIDE 20 MG TABS Take 1 tablet by mouth Daily. Indications: Edema 09/02 furosemide 71222751274 [facility] FERROUS SULFATE 324 (65 Fe) MG TBEC Take 1 tablet by mouth Daily With Breakfast. 09/23 ferrous sulfate 49688966374 [facility] ESCITALOPRAM OXALATE 20 MG TABS Take 1 tablet by mouth Daily. 09/02 escitalopram oxalate 61780694907 [facility] EPINEPHRINE 0.3 MG/0.3ML SOAJ Inject 0.3 mL into the appropriate muscle as directed by prescriber. 09/23 epinephrine 50097885031 [facility] BACLOFEN 20 MG TABS TAKE ONE TABLET BY MOUTH THREE TIMES A DAY 09/02 baclofen 67828503465 [facility] ATORVASTATIN CALCIUM 80 MG TABS Take 1 tablet by mouth Daily. Indications: Cerebrovascular Accident or Stroke, High Amount of Fats in the Blood 09/02 atorvastatin 95750987670 [facility] Atogepant 60 MG tablet Take 1 tablet by mouth Daily. Indications: Migraine Headache 09/02 Atogepant 60 MG tablet [facility] ASPIRIN EC (ASPIRIN) 81 MG TBEC Take 1 tablet by mouth Daily. Indications: Disease involving Lipid Deposits in the Arteries 09/02 ASPIRIN [facility] ASCORBIC ACID 500 MG TABS Take 1 tablet by mouth Daily. 09/02 ascorbic acid (vitamin c) 99203087733 [facility] ALPRAZOLAM 0.5 MG TABS Take 0.5 tablets by mouth 2 (Two) Times a Day As Needed for Anxiety. Indications: Feeling Anxious 09/02 alprazolam 83624533328 [facility] ALBUTEROL SULFATE HFA 108 (90 Base) MCG/ACT AERS Inhale 2 puffs Every 4 (Four) Hours As Needed for Wheezing or Shortness of Air. 09/02 albuterol sulfate 66884618621 [facility] Medications Administered No information available. Allergies, Adverse Reactions, Alerts Allergy Name Reaction Description Start Date Severity Statu s Provider BEE VENOM Anaphylaxis Critical Active Desirae miranda Results Date Name Value Unit Range Flag Description Clinical Lists Update: Prelo ad VAPE_USE Never Tobacco smok ing status Chart Maintenance: Updated H H labs 09/29/24 CPK 49 U/L Creatine brandon se [Enzymatic activity/volume] in Serum or Plasma BILI TOTAL 0.4 mg/dL Bilirubin. total [Mass/volume] in Serum or Plasma ALK PHOS 93 U/L Alkaline mike sphatase [Enzymatic activity/volume] in Blood SGPT (ALT) 18 U/L Alanine aminotransferase [Enzymatic activity/volume] in Serum or Plasma SGOT (AST) 28 U/L Aspartate aminotransferase [Enzymatic activity/volume] in Serum or Plasma CALCIUM 8.6 mg/dL Calcium [Moles/volume] in Serum or Plasma POTASSIUM 3.8 mmol/L Potassium [Moles/volume] in Serum or Plasma SODIUM 135 mmol/L Sodium [Moles/volume] in Serum or Plasma CREATININE 0.60 mg/dL Creatinine [Mass/volume] in Serum or Plasma BUN 8 mg/dL Urea nitrogen [Mass/volume] in Serum or Plasma GLUCOSE SER 75 mg/dL Glucose [Mass/volume] in Serum or Plasma LYMPHS % 21.4 % Lymphocytes/ 100 leukocytes in Blood by Automated count PMN % 60.0 % Neutrophils/1 00 leukocytes in Blood by Automated count PLATELETS 174 10*3/mm3 Platelets [#/volume] in Blood by Automated count HCT 35.9 % Hematocrit [V olume Fraction] of Blood by Automated count HGB 11.7 g/dL Hemoglobin [Mass/volume] in Blood RBC 4.39 10*6/mm3 Erythrocytes [#/volume] in Blood by Automated count WBC 8.5 10*3/mm3 Leukocytes [#/volume] in Blood by Automated count Lab Report: SEDIMENTATION RA TE ESR 52 mm/h 0-20 H Erythrocyte sedimentation rate by Westergren method Lab Report: C-REACTIVE PROTE IN CRP 0.67 mg/dL 0.00-0.50 H C reactive protein [Mass/volume] in Serum or Plasma Office Visit: Office Visit:03 26 MEDS REVIEW Done Documenta tion of current medications (procedure) SEXUAL ACTIV yes Have you ever had vaginal intercourse [PhenX] SMOK ADVICE yes Smoking c essation education (procedure) SMOK STATUS Current every day smoker Tobacco smoking status Plan of Care Type Date Detail Referral MRI Lumbar Spine with/without constrast Pending order C- reactive prot ein Pending [...] Procedures Code Procedure Name Date Entry Date CPT-70742 C- reactive protein CPT-78978 Sedimentation Rate (ESR) 202 08/01/02 G2211 Complex E&M visit add-on (G2) CPT-77613 C- reactive protein CPT-09539 Sedimentation Rate (ESR) 202 07/30/22 CPT-ca Continue IV antibiotics 2024 CPT-wpc Weekly PICC Line Care 09/24 CPT-cwl Weekly Labs (Continue) 09/24 CPT-20091 CMP CPT-19224 CBC w/o Differential CPT-23733 Sedimentation Rate (ESR) 202 07/30/01 CPT-92881 C- reactive protein CPT-82637 Vancomycin Trough G2211 Complex E&M visit add-on (G2) CPT-shreyas Change IV antibiotics 09/17 CPT-wpc Weekly PICC Line Care 09/17 CPT-80266 CMP CPT-23219 CBC w/o Differential CPT-73688 C- reactive protein CPT-59754 Sedimentation Rate (ESR) 202 07/29/24 CPT-90491 Vancomycin Trough CPT-29301 MRI Lumbar Spine with/without constrast 2 CPT-jose carlos New IV antibiotic CPT-ca Continue IV antibiotics 2024 CPT-wpc Weekly PICC Line Care 09/12 CPT-cwl Weekly Labs (Continue) 09/12 CPT-39697 CMP CPT-28662 CBC w/o Differential [id number], [id number] CPK CPT-02117 Sedimentation Rate (ESR) 07/30/19 CPT-43583 C- reactive protein G2211 Complex E&M visit add-on (G2211) CPT-ca Continue IV antibiotics 2024 CPT-wpc Weekly PICC Line Care 09/02 CPT-cwl Weekly Labs (Continue) 09/02 CPT-75600 CMP CPT-17602 CBC w/o Differential CPT-40372 C- reactive protein CPT-04627 Sedimentation Rate (ESR) 202 07/29/09 G2211 Complex E&M visit add-on (G2211) CPT-ca Continue IV antibiotics 2024 CPT-PICREM PICC Removal CPT-wpc Weekly PICC Line Care 08/27 CPT-01919 PICC Line Insertion CPT-79360 CMP CPT-19944 CBC w/o Differential CPT-20980 C- reactive protein [id number], [id number] CPK CPT-26362 Sedimentation Rate (ESR) 202 07/30/03 CPT-74891 CMP CPT-03315 CBC w/o Differential [id number], [id number] CPK CPT-85601 Sedimentation Rate (ESR) 202 07/29/27 G2211 Complex E&M visit add-on (G2211) CPT-sl STAT Labs CPT-J0878 Daptomycin CPT-wpc Weekly PICC Line Care 08/13 CPT- stat weekly Stat Weekly Labs Vital Signs Date Name Value Unit Description BMI (Body Mass Index) 26.93 kg/m2 Bod y Mass Index (Ratio) Body Temperature 97.6 [degF] temperat ure E&M BP Diastolic 80 mm[Hg] blood pressu re, diastolic BP Systolic 145 mm[Hg] blood pressur e, systolic Heart Rate 68 /min pulse rate Height 69 [in_us] height E&M Respiratory Rate 16 /min respirat ory rate E&M Weight Measured 182.38 [lb_av] weight E& M Weight Measured 182.38 [lb_av] weight E& M Immunizations No information available. Advance Directives Directive Description Start Date POWER OF TIP FINISHER
--- OUTSIDE RECORDS SUMMARY | 2025-03-12 11:40 | XMS_ITS | Encounter Summary ---
Author Organization [facility] Address [address] [place] [address] Care Team Providers Care Computer Trainer Name Role Phone Malia Amezquita MD Primary Care Provider Malia Amezquita MD Unavailable [phone] Jakub Longoria MD Unavailable Encounter Details Date Type Department Care Team (Late st Contact Info) Description 02/12/2025 Telephone [place] [facility] [address] [place] [address] Tera Carvalho MD [address] [place] [address] Social History Tobacco Use Types Packs/Day Years Used Date Smoking Tobacco: Some Days Cigarettes 1 Started: 1999 Smokeless Tobacco: Never Alcohol Use [...] drink 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) to steady your nerves or to get [...] Care Team (Late st Contact Info) Description 05/13/2025 9:00 AM EST Office Visit [facility] [address] [place] [address] Tera Carvalho MD [id number] [place] [address] documented as of this encounter Visit Diagnoses Not on filedocumented in this encounter Additional Health Concerns Assessment Noted Time A fall risk assessment has been complete d for the patient 11/04/2024 3:28 PM EDT A Body Mass Index follow-up plan has been documented for the patient 11/04/2024 4:35 PM EDT documented as of this encounter Care Teams Computer Trainer Relationship Specialty Start Date End Date Malia Amezquita MD [address] [place] [address] PCP - General 12/26/23 Malia Amezquita MD [address] [place] [address] 12/26/23 Jakub Longoria MD [address] [facility] [address] [place] [address] Consulting Physician Neurology 04/12/22 documented as of this encounter
--- OUTSIDE RECORDS SUMMARY | 2025-03-12 11:40 | XMS_ITS | Patient Health Record ---
Author Organization [facility] Address [address] [place] [address] Care Team Providers Care Filament Maker Name Role Phone unknown, Unknown Primary Care Provider Unavailab Atilio Vela Unavailable Self Referral, Self Unavailable Unavailable Rufino Naqvi Unavailable [phone] Reason For Referral No Information Social History Sex Assigned At : Social History Observation Description Sex Assigned At Male Plan Of Treatment No Information Insurance Providers Payer Name Payer Address Payer Phone Subscriber Number Group Number Insured Name Patient Relationship to Insured Coverage Start Date Coverage End Date [employer] [facility] [address] [place] [address] [id number] Severo Bhatt Self - patient is the insured
--- OUTSIDE RECORDS SUMMARY | 2025-03-12 11:40 | XMS_ITS | Encounter Summary ---
Author Organization [facility] Address [address] [place] [address] Care Team Providers Care Voicer Name Role Phone Pcp, No Primary Care Provider Unavailabl e Malia Amezquita MD Primary Care Provider [phone] Malia Amezquita MD Primary Care Provider [phone] Malia Amezquita MD Unavailable [phone] Jakub Longoria MD Unavailable Cassia Mayorga LPN Unavailable Unavailable Encounter Details Date Type Department Care Team (Late st Contact Info) Description 01/20/2022 Orders Only External Location [address] [place] [address] Provider, External Social History Tobacco Use Types [...] Visit [place] [facility] [address] [place] [address] Tera Carvalho MD [address] [place] [address] documented as of this encounter [...] documented as of this encounter Care Teams Voicer Relationship Specialty Start Date End Date Pcp, No [address] [place] [address] PCP - General Family Medicine 02/11/22 04/03/22 Malia Amezquita MD [address] [place] [address] PCP - General 04/04/22 12/25/23 Malia Amezquita MD [address] [place] [address] PCP - General 12/26/23 Malia Amezquita MD [address] [place] [address] 12/26/23 Jakub Longoria MD [address] [place] [address] Consulting Physician Neurology 04/12/22 Cassia Mayorga LPN VALUE-BASED [place] [address] None TCM Nurse 01/29/24 02/28/24 documented as of this encounter
--- OUTSIDE RECORDS SUMMARY | 2025-03-12 11:40 | XMS_ITS | Encounter Summary ---
Author Organization [facility] Address [address] [place] [address] Care Team Providers Care Hand Cutter Name Role Phone Pcp, No Primary Care Provider Unavailabl e Malia Amezquita MD Primary Care Provider [phone] Malia Amezquita MD Primary Care Provider [phone] Malia Amezquita MD Unavailable [phone] Jakub Longoria MD Unavailable Cassia Mayorga LPN Unavailable Unavailable Reason for Referral * Consultation (Routine) - Closed Specialty Diagnoses / Procedures Referred By Contac t Referred To Contact Neurology Diagnoses Weakness Sean Silva MD [address] [place] [address] Phone: tel: fax: Referral ID Status Reason Start Date Expiration Date V isits Requested Visits Authorized [id number] Closed Specialty Services Required 03/08/2022 09/07/2023 1 1 Encounter Details Date Type Department Care Team (Late st Contact Info) Description 03/08/2022 Community [facility] [address] [place] [address] Sean Silva MD [address] [place] [address] Weakness (Primary Dx) Social History Tobacco Use [...] 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 [address] [place] [address] Scheduled Referrals Name Type Priority [...] documented as of this encounter Care Teams Hand Cutter Relationship Specialty Start Date End Date Pcp, No [address] [place] [address] PCP - General Family Medicine 02/11/22 04/03/22 Malia Amezquita MD [address] [place] [address] PCP - General 04/04/22 12/25/23 Malia Amezquita MD [address] [place] [address] PCP - General 12/26/23 Malia Amezquita MD [address] [place] [address] 12/26/23 Jakub Longoria MD [address] [place] [address] Consulting Physician Neurology 04/12/22 Cassia Mayorga LPN [employer] [place] [address] None TCM Nurse 01/29/24 02/28/24 documented as of this encounter
--- OUTSIDE RECORDS SUMMARY | 2025-03-12 11:41 | XMS_ITS | Clinical Summary ---
Author Organization [facility] Address [address] [place] [address] Care Team Providers Care Nipple Machine Operator Name Role Phone Celeste Rolon ROPE RIDER Primary Care Provider [phone] Allergies Active Allergy Reactions Criticality Noted Date Comments Bee Venom Anaphylaxis High 02/12/2022 Medications ALPRAZolam (XANAX) 0.5 MG tabletIndications :Anxiety Take 1 tablet by mouth 2 (Two) Times a Day As Needed for Anxiety. Indications: Feeling Anxious 01/17/20 22 Active atorvastatin (LIPITOR) 80 MG tabletIndications :Cerebrovascular Accident,Hyperlip idemia Take 1 tablet by mouth Daily. Indications: Cerebrovascular Accident or Stroke, High Amount of Fats in the Blood 11/14/19 22 Active furosemide (LASIX) 20 MG tabletIndications :Edema Take 1 tablet by mouth Daily. Indications: Edema 01/18/20 22 Active aspirin 81 MG EC tabletIndications :Atherosclerotic Disease Take 1 tablet by mouth Daily. Indications: Disease involving Lipid Deposits in the Arteries Active potassium chloride (K-DUR,KLOR-CON) 10 MEQ CR tablet Take 1 tablet by mouth Daily. Active magnesium oxide (MAG-OX) 400 MG tablet Take 1 tablet by mouth Daily. 30 tablet 3 03/03/20 22 Active baclofen (LIORESAL) 20 MG tabletIndications :Muscle Spasm TAKE ONE TABLET BY MOUTH THREE TIMES A DAY 90 tablet 1 01/02/20 23 Active Atogepant 60 MG tabletIndications :Migraine Take 1 tablet by mouth Daily. Indications: Migraine Headache 11/23/19 24 Active EPINEPHrine (EPIPEN) 0.3 MG/0.3ML solution auto-injector injection Inject 0.3 mL into the appropriate muscle as directed by prescriber. Active gabapentin (NEURONTIN) 600 MG tablet Take 1 tablet by mouth 3 (Three) Times a Day. Active ascorbic acid (VITAMIN C) 500 MG tablet Take 1 tablet by mouth Daily. Active nicotine (NICODERM CQ) 21 MG/24HR patch Place 1 patch on the skin as directed by provider. 02/06/20 24 Active ferrous sulfate 324 (65 Fe) MG tablet delayed-release EC tablet Take 1 tablet by mouth Daily With Breakfast. 08/12/19 25 Active guaiFENesin ER 1200 MG tablet sustained-release 12 hour Take 1 tablet by mouth 2 (Two) Times a Day As Needed (COUGH / CONGESTION). 08/12/19 25 Active loratadine (Claritin) 10 MG tablet Take 1 tablet by mouth Daily As Needed for Allergies. 08/12/19 Active methocarbamol (ROBAXIN) 750 MG tablet Take 1 tablet by mouth 3 (Three) Times a Day As Needed for Muscle Spasms. 90 tablet 08/12/19 25 Active Additional Information Patient not taking.Reported on 08/27/2024 albuterol sulfate HFA 108 (90 Base) MCG/ACT inhaler Inhale 2 puffs Every 4 (Four) Hours As Needed for Wheezing or Shortness of Air. 08/12/19 25 Active escitalopram (LEXAPRO) 20 MG tablet Take 1 tablet by mouth Daily. 08/12/19 25 Active primidone (MYSOLINE) 50 MG tablet Take 1 tablet by mouth 2 (Two) Times a Day. 08/12/19 25 Active promethazine (PHENERGAN) 12.5 MG tablet Take 1 tablet by mouth Every 6 (Six) Hours As Needed for Nausea or Vomiting. 30 tablet 08/12/19 25 Active ondansetron ODT (ZOFRAN-ODT) [address] 1 tablet on the tongue Every 6 (Six) Hours As Needed for Nausea or Vomiting. 30 tablet 08/12/19 25 Active pantoprazole (PROTONIX) 40 MG EC tablet Take 1 tablet by mouth Daily. 08/09/19 25 Active DULoxetine (CYMBALTA) 30 MG capsule Take 2 capsules by mouth Daily. 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), with abnormal movement 08/01/2024 Back pain 08/01/2024 Discitis 08/01/2024 Smoker 08/01/2024 Iron malabsorption 02/04/2024 Iron deficiency anemia due to chronic blood loss 12/26/2023 Intractable chronic post-traumatic headache 02/23 Weakness 03/02/2022 Hypokalemia 02/17/2022 Overview (03/02/2022): 2.7 POA, replaced 02/11 and 02/12 Replaced 02/17, CTM Acute urinary retention 02/16/2022 Overview (03/02/2022): Bladder scan and I&O per protocol Flomax started 02/16 Encourage PO fluids Resolved Mass of right side of neck 02/15/2022 Overview (03/02/2022): Palpable mass at the base of right posterolateral neck Consistent with lipoma vs epidermal inclusion cyst Follow up with PCP for surveillance Subdural hemorrhage 02/15/2022 Overview (03/02/2022): Right frontal traumatic SAH and SDH SDH [...] with PCP when medically ready for discharge Concussion 02/14/2022 Overview (03/02/2022): Continue to monitor Educate on signs and symptoms: headache, confusion, lack of coordination, memory loss, n/v, dizziness, ringing in ears, sleepiness and excessive fatigue Fioricet started on 02/19 Fall down stairs 02/12/2022 Overview (03/02/2022): Fall down 7 stairs after drinking whiskey causing multiple injuries - Admit to SGT 1 - Tertiary 02/13 Hemangioma 02/12/2022 Overview (03/02/2022): Possible flash filling hemangioma- liver Incidental finding on imaging Follow-up with PCP for surveillance SAH (subarachnoid hemorrhage) 02/12/2022 Overview (03/02/2022): Right frontal traumatic SAH and SDH Diffuse [...] with PCP when medically ready for discharge Scalp laceration 02/12/2022 Overview (03/02/2022): Posterior scalp laceration 2/2 fall down the stairs - Repaired in the ED 02/11 with 3-0 nylon - Suture removal on 02/22 if not ready on discharge. Schmorl's nodes of the thoracic region Overview (03/02/2022): T6 superior endplate Schmorl's node Incidental finding on imaging Follow-up with PCP for surveillance Resolved Problems Problem Noted Date Diagnosed Date Resolved Date Retrolisthesis 02/12/2022 03/02/2022 Overview (03/02/2022): Retrolisthesis L3-L4 Incidental finding on imaging Follow-up with PCP for surveillance Encounters Date Type Department Care Team Description 12/24/2024 10:50 AM EDT Lab [facility] [address] [place] [address] Pyogenic infection of lumbar intervertebral disc; Osteomyelitis of vertebra of lumbar region; Sepsis due to Staphylococcus epidermidis; Coronary artery disease involving nonautologous biological coronary bypass graft, unspecified whether angina present; Essential hypertension, benign 12/24/2024 Travel from Last 3 Months Immunizations Immunization Administration Dates Next Due Fluzone (or Fluarix & Flulav al for VFC) >6mos 01/22/2023,01/29/2021,01/30/2020 Hepatitis A 09/04/2019 Pneumococcal Conjugate 20-Valent (PCV20) 023 Shingrix 09/04/2019 Tdap 03/26/2016 Family History Medical History Relation Name Comments Leukemia Brother 1 Cancer Brother 2 Travis Amin Arthritis Father Ric Amin Cancer Father Ric Amin Heart disease Father Ric Amin High cholesterol Father Ric Amin Hyperlipidemia Father Ric Amin Hypertension Father Ric Amin Kidney disease Father Ric Amin Prostate cancer Father Ric Amin Relation Name Status Comments Brother 1 Brother 2 Travis Amin Alive Father Ric Amin Alive Social History Tobacco Use Types Packs/Day Years Used Date Smoking Tobacco: Every Day Cigarettes 1.5 17.6 Started: 03/27/1999; Last attempted to quit: 11/09/2016 Tobacco Cessation:Ready to Q uit: Not Asked; Counseling Given: Not Answered Comments:Has recently started half a pack a day again, 11/09/22 [...] materials from doctor or pharmacy Never 01/18/2024 [facility] Utilities Answer Date Recorded In the past 12 months has th e electric, gas, oil, or water company threatened to shut off services in your [...] care, and heating? Not very hard 08/04/2024 [facility] [place] of Occupat ional Health - Occupational Stress [...] GED or equivalent No 08/04/2024 Preferred Language Malay 08/04/2024 PHQ-2 Answer Date Recorded Patient Health Questionnaire-2 Score 0 08/04/2024 Sex and Gender Information Value Date Recorded Sex Assigned at Male 06/25/2024 9:16 AM EDT Legal Sex Male 12:09 PM EDT Gender Identity Not on file Sexual Orientation Not on file Last Filed Vital Signs Vital Sign Reading Time Taken Comments Blood Pressure 130/79 12/08/2024 2:38 PM EDT Pulse 64 12/08/2024 2:38 PM EDT Temperature 36.4 C (97.5 F) 12/08/2024 2:38 PM EDT Respiratory Rate 16 09/17/2024 2:03 PM EDT Oxygen Saturation 96% 12/08/2024 2:38 PM EDT Inhaled Oxygen Concentration - - Weight 83.9 kg (185 lb) 12/08/2024 2:38 PM EDT a ctual weight Height 175.3 cm (5' 9.02 ) 12/08/2024 2:38 PM ED T Body Mass Index 27.31 12/08/2024 2:38 PM EDT Plan of Treatment Upcoming Encounters Date Type Department Care Team (Late st Contact Info) Description 06/08/2025 1:00 PM EDT Office Visit [facility] HEMATOLOGY & ONCOLOGY [address] [facility] [address] [place] [address] Belem Goldberg APRN [address] [facility] [address] [place] [address] Health Maintenance Due Date Last Done Comments COLOGUARD 01/12/2008 COLON CANCER SCREENING 5 YEA R SIGMOIDOSCOPY 01/12/2008 COLONOSCOPY 01/12/2008 COLORECTAL CANCER SCREENING 01/12/2008 CT COLONOGRAPHY 01/12/2008 FECAL OCCULT BLOOD TEST 01/12/2008 FIT Testing (1 year) 01/12/2008 ANNUAL PHYSICAL 02/06/2022 INFLUENZA VACCINE 10/24/2024 04/09/2024, , 01/29/2021, Additional history exists LUNG CANCER SCREENING 01/24/2025 01/25/2024 , 01/25/2024, 02/11/2022, Additional history exists TDAP/TD VACCINES (2 - Td or Tdap) 03/26/2026 017 Pneumococcal Vaccine 50+ Completed 01/22/2023 HEPATITIS C SCREENING Completed 01/25/2024 , 08/18/2023, 03/02/2022, Additional history exists ZOSTER VACCINE Completed 04/09/2024, 09/04/2019 Goals Goal Patient Goal Type Associated Problems Recent Progress Patient-Stated? Author Specialty Pharmacy General Goal General On track(08/25/19 23 10:44 AM EDT) No Jessica Blankenship, PharmD Note: Decrease severity and duration of migraine headache Procedures Procedure Name Priority Date/Time Associated Diagnosis Comments C-REACTIVE PROTEIN STAT 12/24/2024 10 :34 AM EDT Pyogenic infection of lumbar intervertebral disc Osteomyelitis of vertebra of lumbar region Sepsis due to Staphylococcus epidermidis Coronary artery disease involving nonautologous biological coronary bypass graft, unspecified whether angina present Essential hypertension, benign SEDIMENTATION RATE STAT 12/24/2024 10 :34 AM EDT Pyogenic infection of lumbar intervertebral disc Osteomyelitis of vertebra of lumbar region Sepsis due to Staphylococcus epidermidis Coronary artery disease involving nonautologous biological coronary bypass graft, unspecified whether angina present Essential hypertension, benign HEPATITIS C ANTIBODY Routine 03/02/2022 12:59 PM EST Numbness and tingling from Last 3 Months or Most Recently Relevant to Health Maintenance Results * (ABNORMAL) Sedimentation Rate (12/24/2024 10:34 AM EDT) Sed Rate 52(H) 0 - 20 mm/hr 12/24/2024 10:52 AM EDT [facility] Blood Venipuncture / Unknown 12/24/2024 10:34 AM EDT 12/24/2024 10:34 AM EDT Pola Crawley MD LAB BLOOD ORDERABLES Harriett l Result [facility]
[address] [place] [address], * (ABNORMAL) C-reactive Protein (12/24/2024 10:34 AM EDT) C-Reactive Protein 0.67(H) 0.00 - 0.50 mg/dL 12/24/2024 11:06 AM EDT [facility] Blood Venipuncture / Unknown 12/24/2024 10:34 AM EDT 12/24/2024 10:34 AM EDT Pola Crawley MD LAB BLOOD ORDERABLES Harriett l Result [facility]
[address] [place] [address], * Hepatitis C antibody (03/02/2022 12:59 PM EST) Hepatitis C Ab Non-Reacti ve Non-Reacti ve 03/03/2022 5:34 AM EST [facility] Blood Venipuncture / Unknown 03/02/2022 12:59 PM EST 03/02/2022 12:59 PM EST Narrative [facility] - 03/03/2022 5:34 AM EST Results may be falsely decreased if patient taking Biotin. Anais Salgado APRN LAB BLOOD ORDERABLES Fi nal Result Performing Organization Address [facility] Co de Phone Number [facility]
[address] [place] [address], from Last 3 Months or Most Recently Relevant to Health Maintenance Insurance Advance Directives * CPR (Attempt to Resuscitate) (Latest Code Status on File) Date Activated Date Inactivated Comments 08/01/2024 3:23 PM 08/11/2024 6:47 PM Question Answer Comments Code Status (Patient has no pulse and is not breathing): CPR (Attempt to Resuscitate) Medical Interventions (Patie nt has pulse or is breathing): Full Support * CPR (Attempt to Resuscitate) Date Activated Date Inactivated Comments 11/23/2023 4:23 PM 08/01/2024 1:44 PM No physician signature needed for this code status. Travis as Signed. Care Teams Nipple Machine Operator Relationship Specialty Start Date End Date Celeste Rolon APRN [address] [place] [address] PCP - General Family Medicine 08/27/24
--- OUTSIDE RECORDS SUMMARY | 2025-03-12 11:41 | XMS_ITS | Clinical Summary ---
Author Organization [facility] Address [address] [place] [address] Care Team Providers Care Insurance Claims Examiner Name Role Phone Malia Amezquita MD Primary Care Provider [phone] Malia Amezquita MD Unavailable [phone] Jakub Longoria MD Unavailable Allergies Active [...] AND VOMITING FOR 4 DAYS 5 Active primidone (Mysoline) 50 MG tablet [...] lozenges per day 100 lozenge 5 Active doxycycline (Vibra-Tabs) 100 MG tablet 5 Active FLUoxetine (PROzac) 10 MG capsule 5 Active methocarbamol (Robaxin) 750 MG tablet Take 1 tablet by mouth. 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 01/25/2024 GERD (gastroesophageal reflux disease) 4 Anxiety 01/25/2024 Migraines 01/25/2024 HTN (hypertension) 01/25/2024 Functional neurological symp karlee disorder with weakness or paralysis 08/21/2023 Dysphagia 04/25/2022 Acute urinary retention 02/16/2022 Overview [...] Problem Noted Date Diagnosed Date Resolved Date Acute kidney failure 07/09/2024 025 Shock 01/26/2024 01/31/2024 Acute encephalopathy 08/18/2023 024 Dysphonia 06/05/2022 12/14/2024 Hypokalemia 02/17/2022 01/31/2024 Overview (02/20/2022): 2.7 POA, [...] Encounters Date Type Department Care Team Description 02/12/2025 Telephone [place] [facility] [address] [place] [address] Tera Carvalho MD from Last 3 Months Immunizations Immunization Administration [...] Used Date Smoking Tobacco: Some Days Cigarettes 04 20 Started: 1999 Smokeless Tobacco: Never Tobacco Cessation:Ready [...] drink first t marylou in the morning ([employer]) to steady your nerves or to get rid of a hangover? 0 02/12/2022 CAGE Questionnaire Score 1 022 Sex and Gender Information Value Date Recorded Sex Assigned at Not on file Legal Sex Male 8:29 PM EDT Gender Identity Not on file Sexual Orientation Not on file Last Filed Vital Signs Vital Sign Reading Time Taken Comments Blood Pressure 124/78 11/04/2024 3:28 PM EDT Pulse 74 11/04/2024 3:28 PM EDT Temperature 36.7 C (98 F) 07/09/2024 3:13 PM EDT Respiratory Rate 18 04/09/2024 12:51 PM EST Oxygen Saturation 96% 11/04/2024 3:28 PM EDT Inhaled Oxygen Concentration - - Weight 74.8 kg (165 lb) 11/04/2024 3:28 PM EDT Height 175.3 cm (5' 9 ) 07/09/2024 3:13 PM EDT Body Mass Index 24.37 07/09/2024 3:13 PM EDT Plan of Treatment Upcoming Encounters Date Type Department Care Team (Late st Contact Info) Description 05/13/2025 9:00 AM EST Office Visit [place] [facility] [address] [place] [address] Tera Carvalho MD [address] [place] [address] Health Maintenance Due Date Last Done Comments [facility]-Depression Screening 1963 [facility]-/Child/Adol SDOH Screenings 1965 [facility]- SDOH Screenings 1981 [facility]-Adult SDOH Screenings 1981 CT Colonography 01/12/2008 Colonoscopy 01/12/2008 FIT-DNA 01/12/2008 FIT 01/12/2008 FOBT 01/12/2008 Sigmoidoscopy 01/12/2008 [facility]-Colorectal Cancer Screening 01/12/2008 Lung Cancer Screening Shared Decision Making 2013 [id number] Vaccine ( season) 2024 12/24/2021, 07/02/2021, 01/29/2021, Additional history exists [facility]-Influenza Vaccine (#1) 11/24/202404/09, 01/22/2023, 01/29/2021, Additional history exists [facility]-Lung Cancer Screening 01/24/2025 01/25/2024, [facility]-DTaP,Tdap,and Td Vaccines (2 - Td or Tdap) 03/26/2026 03/26/2016 [facility]-Hepatitis A Vaccines Aged Out 09/04/2019 No longer eligible based on patient's age to complete this topic [facility]-Pneumococcal Vaccine: 50+ Years Completed 01/22/2023 [facility]-HIV Screening Completed 01/25/2024, , 02/11/2022 [facility]-Hepatitis C Screening Completed 2023, 08/18/2023, 03/02/2022, Additional history exists [facility]-RSV Vaccine: 60+ Years or Completed 04/09/2024 [facility]-Zoster Vaccines Completed 04/09/2024, HPV Vaccines (No Doses Required) Completed [facility]-HIB Vaccines Aged Out No longer e [...] HIV 1/2 Differentiation (01/25/2024 8:32 PM EDT) HIV 1 & 2 Antibody/Antigen Screen Non Reactive Non Reactive 01/25/2024 10:[address] [facility] Comment:Screening for HIV 1 & 2 antibodies, and P24 antigen is NONREACTIVE. No confirmatory testing is required. Blood Venous blood specimen / Unknown Venipuncture / Unknown 01/25/2024 8:32 PM EDT 01/25/2024 9:05 PM EDT us Bárbara Rios MD LAB BLOOD ORDERABLES Final Res ult Performing Organization Address [facility] Co de Phone Number [facility] [address] [place] [address] * Hepatitis C Antibody - ED (01/25/2024 8:32 PM EDT) Pathologist [facility] Hepatitis C Antibody Negative Negative 01/25/2024 10:08 PM EDT [facility] Blood Venous blood specimen / Unknown Venipuncture / Unknown 01/25/2024 8:32 PM EDT 01/25/2024 9:05 PM EDT us Bárbara Rios MD LAB BLOOD ORDERABLES Final Res ult Performing Organization Address City/[facility]/ZIP Co de Phone Number [facility] [address] [place] [address] * CT Angio Pulmonary Embolism (01/25/2024 8:16 [...] Most Recently Relevant to Health Maintenance Insurance [employer] Care Teams Insurance Claims Examiner Relationship Specialty Start Date End Date Malia Amezquita MD [address] [place] [address] PCP - General 12/26/23 Malia Amezquita MD [address] [place], [place] [id number] 12/26/23 Jakub Longoria MD [address] [facility] [address] [place] [address] Consulting Physician Neurology 04/12/22
--- OUTSIDE RECORDS SUMMARY | 2025-03-12 11:41 | XMS_ITS | Encounter Summary ---
[facility] Organization [facility] Address [address] [place] [address] Care Team Providers Care Numerical Control Lathe Operator Name Role Phone Gonzales Celeste KELSEY Primary Care Provider [phone] Reason for Visit * Reason Comments Med Refill Encounter Details Date Type Department Care Team (Late st Contact Info) Description 09/15/2022 Refill [facility] [address] [facility] [address] [place] [address] Anais Salgado APRN [address] [facility] [address] [place] [address] Numbness and tingling Social History Tobacco Use Types Packs/Day Years [...] on file documented as of this encounter Miscellaneous Notes * Telephone Encounter - Leisa Claros MA - 09/15/2022 8:04 AM EDT Rx Refill Note Requested Prescriptions Pending Prescriptions Disp Refills gabapentin (NEURONTIN) 100 MG capsule [Pharmacy Med Name: GABAPENTIN 100 MG CAPSULE] 180 capsule Sig: TAKE TWO CAPSULES BY MOUTH THREE TIMES A DAY Last filled: 07/05/22 180 with 1 refill. Last office visit with prescribing clinician: 03/02/2022 Next office visit with prescribing clinician: Visit date not found Leisa Claros MA 09/15/22, 08:04 EDT documented in this encounter Plan of Treatment Upcoming Encounters Date Type Department Care Team (Late st Contact Info) Description 06/08/2025 1:00 PM EDT Office Visit [facility] HEMAT[facility] & ONCOLOGY [address] [facility] [address] [place] [id number] Belem Goldberg APRN [address] [facility] [address] [place] [address] documented as of this encounter Goals Goal Patient Goal Type Associated Problems Recent Progress Patient-Stated? Author Specialty Pharmacy General Goal General On track(08/25/19 10:44 AM EDT) Jessica Mcdowell, PharmD Note: Decrease severity and duration of migraine headache documented as of this encounter Visit Diagnoses Diagnosis Numbness and tingling Disturbance of skin sensation documented in this encounter Care Teams Numerical Control Lathe Operator Relationship Specialty Start Date End Date Celeste Rolon APRN [address] [place] [address] PCP - General Family Medicine 08/27/24 documented as of this encounter
--- OUTSIDE RECORDS SUMMARY | 2025-03-12 11:41 | XMS_ITS | Encounter Summary ---
[facility] Address [address] [place] [address] Care Team Providers Care Chain Hooker Name Role Phone Gonzales Celeste KELSEY Primary Care Provider [phone] Encounter Details Date Type Department Care Team (Late st Contact Info) Description 12/10/2024 Results Follow-Up [facility] [place] [address] [facility] [address] [place] [phone] Belem Goldberg APRN [address] [facility] [address] [place] [address] Social History Tobacco Use Types Packs/Day Years [...] materials from doctor or pharmacy Never 01/18/2024 [facility] Utilities Answer Date Recorded In the past [...] care, and heating? Not very hard 08/04/2024 [facility] Occupat ional Health - Occupational Stress [...] GED or equivalent No 08/04/2024 Preferred Language Turkish 08/04/2024 PHQ-2 Answer Date Recorded Patient Health [...] Description 06/08/2025 1:00 PM EDT Office Visit [facility] H[facility]AT[facility] & ONCOLOGY [address] [facility] [address] [place] [address] Belem Goldberg APRN [address] [facility] [address] [place] [address] documented as of this encounter Goals Goal Patient Goal Type Associated Problems Recent Progress Patient-Stated? Author Specialty Pharmacy General Goal General On track(08/25/19 10:44 AM EDT) No Jessica Blankenship, PharmD Note: Decrease severity and duration of migraine headache documented as of this encounter Visit Diagnoses Not on filedocumented in this encounter Care Teams Chain Hooker Relationship Specialty Start Date End Date Celeste Rolon APRN [address] [place] [address] PCP - General Family Medicine 08/27/24 documented as of this encounter
== END 2025-03-11 23:59 | disposition home or self-care (01) ==
LOC: LAB.DROPOF 03-12 10:26
PROVIDERS: PCP Student in an Organized Health Care Education/Training Program; Visit Provider Family Medicine
DX: D50.9 Iron deficiency anemia, unspecified (principal); I10 Essential (primary) hypertension; E78.49 Other hyperlipidemia; R42 Dizziness and giddiness
CPT/HCPCS: 80053; 80061; 84443; 85025; G0103